=== PATIENT | female | born 1950 | race Caucasian/White ===

== ENCOUNTER 2017-08-01 12:53 | Inpatient (IN) | payer MEDICARE ==
[2017-08-01] VITALS (8 sets, daily range): BP systolic 146–184; BP diastolic 80–86; PULSE 83–90; RESP 16; TEMP 97.5–97.9; O2SAT 100
[~2017-08-01 12:53] MED LIST: DEXAMETHASONE SOD PHOS 4 MG/ML VIAL IV ONE; NORMOSOL R INJ 1,000 ML IV ONE; PHENYLEPH/NS 1000 MCG/10 ML SYR IV ONE; PHENYLEPHRINE HCL 10 MG/ML VIAL IV ONE; PROPOFOL 200 MG/20 ML AMP IV ONE; ROCURONIUM INJ 50 MG/5 ML SYRINGE IV PUSH ONE
[2017-08-01] MEDS ORDERED: MISCELLANEOUS NURSING INFORMATION XX SCH (15:15)
[2017-08-01] MEDS ORDERED: CHLORHEXIDINE GLUCONATE 2 % 1 PACK (2 CLOTHS) TOP PRN (15:15)
[2017-08-01] MEDS ORDERED: RESP: ALBUTEROL 2.5 MG/IPRATROPIUM 0.5 MG NEB (PRN) INH (15:15)
[2017-08-01] MEDS ORDERED: ONDANSETRON HCL 4 MG/2 ML VIAL IV PUSH PRN (15:15)
[2017-08-01] MEDS ORDERED: niCARdipine INJ 25 MG in SODIUM CHLOR 0.9% 250 ML INJ 240 ML IV PRN (15:30)
--- NOTE | 2017-08-01 15:38 | HHI.HP ---
HPI Service Critical Care Medicine Primary Care Physician Unknown Admission Diagnosis Hemorrhagic Stroke Diagnosis: Chief Complaint: Headache, left side weakness. Travel History International Travel<30 Days: No Contact w/Intl Traveler <30 Da: No Traveled to Known Affected Are: No History of Present Illness 67 y/o woman presented to [facility] as stroke alert. Right side headache and left side weakness starting around 10:00 a.m. Glucose 122. INR 1.0 , Sinus rhythm. No history of anticoagulants. Does have history of hypertension and Type 2 diabetes. BP 244/146. Required intubation shortly after arrival. CT Head with large right hemisphere ICH parietal lobe and 1.5 cm shift away from bleed. Plts 296,000, Creat 0.59, Hct 40. Review of Systems ROS unobtainable. No family. Past Family Social History Allergies: Coded Allergies: No Allergy Information Available (Unverified , 08/01/17) Coma. No family Past Medical History Hypertension Diabetes. No anticoagulants or blood thinners. Physical Exam Physical Exam Gen: Unresponsive. Head: Atraumatic. Neck: Supple, orally intubated. Lungs: Clear, no wheezes or crackles. Heart: NL S1S2, RRR, No JVD Abdomen: Soft, large, no guarding Extremities: Warm, well perfused. Neuro: Unresponsive. Suckles on ET tube. No cough. Limited gag. Postures to stimulation. She makes tears as a response to painful stimulation, does breathe over ventilator. Plantars neutral. No clonus. Moves right arm to noxious stimulation. Caprini VTE Risk Assessment Caprini VTE Risk Assessment: Mod/High Risk (score >= 2) Caprini Risk Assessment Model Point Value = 1 Point Value = 2 Point Value = 3 Point Value = 5 Age 41-60 Minor surgery BMI > 25 kg/m2 Swollen legs Varicose veins or History of unexplained or recurrent spontaneous Oral contraceptives or hormone replacement Sepsis (< 1 month) Serious lung disease, including pneumonia (< 1 month) Abnormal pulmonary function Acute myocardial infarction Congestive heart failure (< 1 month) History of inflammatory bowel disease Medical patient at bed rest Age 61-74 Arthroscopic surgery Major open surgery (> 45 min) Laparoscopic surgery (> 45 min) Malignancy Confined to bed (> 72 hours) Immobilizing plaster cast Central venous access Age >= 75 History of VTE Family history of VTE Factor V Leiden Prothrombin [id number] Lupus anticoagulant Anticardiolipin antibodies Elevated serum homocysteine Heparin-induced thrombocytopenia Other congenital or acquired thrombophilia Stroke (< 1 month) Elective arthroplasty Hip, pelvis, or leg fracture Acute spinal cord injury (< 1 month) Prophylaxis Regimen Total Risk Factor Score Risk Level Prophylaxis Regimen 0-1 Low Early ambulation 2 Moderate Order ONE of the following: *Sequential Compression Device (SCD) *Heparin 5000 units SQ BID 3-4 Higher Order ONE of the following medications: *Heparin 5000 units SQ TID *Enoxaparin/Lovenox 40 mg SQ daily (WT < 150 kg, CrCl > 30 mL/min) *Enoxaparin/Lovenox 30 mg SQ daily (WT < 150 kg, CrCl > 10-29 mL/min) *Enoxaparin/Lovenox 30 mg SQ BID (WT < 150 kg, CrCl > 30 mL/min) AND/OR *Sequential Compression Device (SCD) 5 or more Highest Order ONE of the following medications: *Heparin 5000 units SQ TID (Preferred with Epidurals) *Enoxaparin/Lovenox 40 mg SQ daily (WT < 150 kg, CrCl > 30 mL/min) *Enoxaparin/Lovenox 30 mg SQ daily (WT < 150 kg, CrCl > 10-29 mL/min) *Enoxaparin/Lovenox 30 mg SQ BID (WT < 150 kg, CrCl > 30 mL/min) AND *Sequential Compression Device (SCD) Assessment and Plan Assessment and Plan Assessment: 1. Hemorrhagic stroke, right fronto/parietal region. 2. Respiratory Failure. 3. Coma. 4. Diabetes, type 2. 5. Hypertensive urgency. Plan: 1. PRVC vent mode. 2. EtCO2 monitor, maintain low normal range. 3. Cardene to maintain SBP < 140. 4. SCDs. 5. Hydralazine prn. 6. Neurosurgical consult. 7. HOB up 30 degrees. 8. ECG. 9. Mannitol 80 gms iv. Overall impression: Patient is critically ill with deteriorating neurological function due to acute hemorrhage right hemisphere. She was transferred emergently from [facility] for definitive neurosurgical treatment. We have attempted to call her brother at the listed number and a voice message has been left. She requires emergency decompression of the right side to save what is hopefully her dominant left hemisphere. We are preparing her for the OR. I will be signing her consents as a physician documenting medical necessity for craniotomy and evacuation of hemorrhagic region, decompression. Critical care 45 mins aside from procedures. Roel Fitch MD Aug 01, 2017 15:38
[2017-08-01] MEDS ORDERED: MANNITOL INJ 500 ML IV ONE (16:00)
[2017-08-01] MEDS ORDERED: MANNITOL ONE (16:07)
[2017-08-01] MEDS ORDERED: MANNITOL INJ 400 ML IV ONE (16:15)
[2017-08-01] MEDS ORDERED: GLUCAGON 1 MG/ML VIAL OTHER PRN (16:45)
[2017-08-01] MEDS ORDERED: DEXTROSE 50% IN WATER 50 ML VIAL(D50) IV PUSH PRN (16:45)
[2017-08-01] MEDS ORDERED: THROMBIN (TOPICAL) 5,000 UNIT VIAL ONE ×2 (17:00→18:49)
[2017-08-01] MEDS ORDERED: FUROSEMIDE 40 MG/4 ML VIAL ONE (17:00)
[2017-08-01] MEDS ORDERED: SODIUM CHLORIDE 0.9% 20 ML VIAL ONE (17:00)
[2017-08-01] MEDS ORDERED: GELFOAM SIZE 100 ONE ×2 (17:00→18:50)
[2017-08-01] MEDS ORDERED: GENTAMICIN SULFATE 80 MG/2 ML VIAL ONE (17:01)
[2017-08-01] MEDS ORDERED: MANNITOL INJ 100 ML ONE (17:01)
--- NOTE | 2017-08-01 17:01 | MB ---
cc: VICTORIANO SMITH M.D. DATE OF CONSULTATION 08/01/2017 REASON FOR CONSULTATION Right frontoparietal lobe hemorrhagic stroke. HISTORY OF PRESENT ILLNESS A 67-year-old -Tuval[place] female who was transferred from [facility] in [place] after she presented to the emergency room with acute onset of headaches and left-sided weakness and basically progressed to obtundation and comatose state. She became unresponsive and required intubation. She was hypertensive on initial presentation and a CT scan of the head obtained reveals a large right frontal parietal lobe hemorrhage with likely underlying stroke measuring 8.6 cm x 6.0 cm in dimension with a 15 mm right to left midline shift. She was transferred [facility] for further management and neurosurgery consult. There is no family member available to relate any history and attempts to contact her brother whose phone number next of kin is listed in the records from [facility] with two phone numbers went directly to voice mail and a message was left for him to call us back. PAST MEDICAL HISTORY 1. Hypertension. 2. Diabetes mellitus. ALLERGIES No allergies information available. SOCIAL HISTORY Unavailable. REVIEW OF SYSTEMS Unobtainable. The patient is comatose and no family available. FAMILY HISTORY Unobtainable. LABORATORY FINDINGS White blood cell count 8, hemoglobin 13.3, platelet count 296. PT 10.9. INR 1.0. PTT 25.8. Sodium 142, potassium 3.9, BUN 20, creatinine 0.56, glucose 211. PHYSICAL EXAMINATION GENERAL: An elderly, obese -Tuvaluan female intubated and sedated and unresponsive. HEAD: No [place]'s or raccoon sign. Atraumatic, normocephalic. NECK: Supple. She is intubated with midline trachea. LUNGS: Clear to auscultation bilaterally. HEART: Regular rate rhythm, normal S1-S2. No murmurs. ABDOMEN: Soft, nontender. No hepatosplenomegaly. EXTREMITIES: No cyanosis or edema. SKIN: No rash or pustules or any ecchymosis. NEUROLOGIC: She is intubated and she has not received any sedation or muscle paralyzation. Pupils are 2 mm bilaterally. Positive corneal reflex. Negative gag and cough. She has slight withdrawal on the right upper extremity. No movement of the left upper or lower extremity to painful stimulation right lower extremity. Does not open her eyes and follows commands. [place] coma score is 6. IMPRESSION 1. Large right frontotemporal lobe hemorrhage with likely underlying stroke with significant mass effect and midline shift. Overall poor neurologic examination. 2. Respiratory failure secondary to above. 3. Unregulated hypertension. 4. Diabetes mellitus. PLAN We will proceed with an emergent right craniotomy for ____ hematoma evacuation and possible decompressive craniectomy and ventriculostomy placement. Unfortunately attempts to contact family have not been successful so the procedure will be undertaken taking the patient's best interest into account as this was discussed with dedicated owner operator Dr. Kendall who is in agreement. ICP control measures along with hypertension regulation will also be undertaken. Mechanical DVT prophylaxis along with gastrointestinal stress ulcer prophylaxis and seizure prophylaxis. Insulin sliding scale coverage for her diabetes. Her condition obviously is critical with a very guarded prognosis and it is possible that despite aggressive surgical measures her condition may not improve and she may not come out of her deep comatose state and progressive brain . MD ANNMARIE Eugene/MARI /4:24 PM /4:35 PM
[2017-08-01] MEDS ORDERED: BUPIVACAINE/EPINEPHRINE 0.5% PF 30 ML VIAL ONE (17:03)
[2017-08-01 17:31] LABS: INTERNATIONAL NORMALIZED RATIO 1.1 RATIO; PROTHROMBIN TIME - PATIENT 11.2 SEC (9.8-11.6)
[2017-08-01 17:44] LABS: BICARBONATE 23.3 MEQ/L (21.0-32.0); CALCIUM 8.6 MG/DL (8.5-10.1); CREATININE 0.83 MG/DL (0.50-1.00)
[2017-08-01] MEDS ORDERED: ALUMINUM/MAGNESIUM/SIMETH 30 ML CUP PO PRN (18:00)
[2017-08-01] MEDS ORDERED: BISACODYL 10 MG SUPP RECTAL PRN (18:00)
[2017-08-01] MEDS ORDERED: SENNOSIDES 8.6 MG TAB PO PRN (18:00)
[2017-08-01] MEDS ORDERED: fentaNYL DRIP 250 ML IV PRN (18:00)
[2017-08-01] MEDS ORDERED: CALCIUM GLUCONATE INJ 1 GM in SODIUM CHLORIDE 0.9% INJ 100 ML IV PRN (18:00)
[2017-08-01] MEDS ORDERED: MAGNESIUM HYDROXIDE SUSP 30 ML CUP PO PRN (18:00)
[2017-08-01] MEDS ORDERED: MAGNESIUM SULFATE INJ 2 GM in SODIUM CHLORIDE 0.9% INJ 100 ML IV PRN (18:00)
[2017-08-01] MEDS ORDERED: LACTULOSE SYRUP 20 GM/30 ML CUP PO PRN (18:00)
[2017-08-01] MEDS ORDERED: LORazepam 2 MG/ML VIAL IV PUSH PRN (18:00)
[2017-08-01] MEDS ORDERED: POTASSIUM CHLOR 20 MEQ PREMIX 100 ML IV PRN (18:00)
[2017-08-01] MEDS ORDERED: SODIUM CHLORIDE 0.9% FLUSH 10 ML FLUSH IV FLUSH PRN (18:00)
[2017-08-01] MEDS ORDERED: VANCOMYCIN HCL 1000 MG VIAL ONE (18:04)
[2017-08-01] MEDS ORDERED: levETIRAcetam 500 MG/5 ML VIAL IV ONE (18:07)
[2017-08-01] MEDS ORDERED: SODIUM CHLORIDE 0.9% INJ 50 ML ONE (18:10)
--- NOTE | 2017-08-01 19:32 | PD.OP ---
Operative Report Date of Surgery: Aug 01, 2017 Preoperative Diagnosis: Large right frontoparietal lobe hemorrhage with underlying stroke with mass effect and midline shift Postoperative Diagnosis: Same with associated subdural hemorrhage Procedure: Right frontotemporoparietal craniotomy for subdural and intracerebral hemorrhage evacuation; decompressive hemicraniectomy with expansive duraplasty; microsurgical technique Anesthesia: Gen. endotracheal by Yulisa hunt Surgeon: Wilber Fiore M.D. Check And Transfer Beader(s): Alanis Gallegos Operation and Findings: We were able to contact the patient's brother and update him on her condition and he requested that we proceed with surgery and gave informed consent. Following initiation of general endotracheal anesthesia the patient had invasive lines and Gaffney catheter in place along with the sequential compression device. A gram of vancomycin and Keppra 1000 mg was administered intravenously and he was positioned supine and head secured on a horseshoe headrest and turned 45 to the left side. The right frontal temporal and parietal areas shaved and prepped with ChloraPrep and sterilely draped in the usual sterile fashion. A curvilinear reverse question nichole incision site was then made after infiltrating the scalp was 0.5% Marcaine with epinephrine solution a skin incision made extending onto the galea. Elmer clips were used at the scalp edges for hemostasis and the flap retracted with fishhooks. With an automated manager research and development nabor holes were made with the craniotome and the bone flap elevated. The dura was opened in a cruciate format and significant brain swelling was noted. There was a subdural hemorrhage also noted which was not present on the CT scan from the outside facility and apparently the parenchymal hemorrhage had also enlarged. A frontal subdural hemorrhage was also noted and evacuated. No active bleeding was noted. Large frontoparietal lobe intraparenchymal hemorrhage was evident which was also evacuated although no underlying vascular malformation and obvious neoplasm was evident. After evacuating the hematoma the swelling was decreased but there is still moderate amount of diffuse brain swelling noted. Hemostasis at the hematoma bed was achieved with bipolar cautery using microtechnique with Chito cement fixation as well as Gelfoam and thrombin. Given the persistent brain swelling noted, the bone flap was left out in a sterile container in the freezer and temporal decompressive craniectomy also undertaken. A 7 mm drain under the galea was also placed which was exited through a separate site and secured to the scalp. The durotomy was then covered with a large piece of DuraGen to allow for the brain swelling. The temporalis muscle and fascia along with the galea was then approximated using 2-0 Vicryl Sutures and final scalp closure was with hema. A sterile non-pressure dressing was then applied and the patient taken back to the intensive care unit. There were no intraoperative complications and all sponge and needle count was correct at the end of the procedure. Estimated blood loss about 200 cc. Wilber Fiore MD Aug 01, 2017 19:32
[2017-08-01] MEDS: CHLORHEXIDINE 0.12% (ORAL KIT) 15 ML CUP MT SCH (20:00)
[2017-08-01] MEDS: levETIRAcetam INJ 500 MG in SODIUM CHLORIDE 0.9% INJ 100 ML IV SCH (21:15)
[2017-08-01 21:19] LABS: HEMATOCRIT 39.3 % (35.0-46.0); HEMOGLOBIN 12.9 GM/DL (11.6-15.3); MEAN CORPUSCULAR HGB CONC 32.9 % (32.0-36.0); MEAN PLATELET VOLUME 8.6 FL (7.0-11.0); PLATELET COUNT 300 TH/MM3 (150-450); RED BLOOD COUNT 4.62 MIL/MM3 (4.00-5.30); RED CELL DISTRIBUTION WIDTH 13.7 % (11.6-17.2); WHITE BLOOD COUNT 17.7 TH/MM3 (4.0-11.0)
[2017-08-01 21:35] LABS: BICARBONATE 22.5 MEQ/L (21.0-32.0); CALCIUM 9.3 MG/DL (8.5-10.1); CREATININE 0.9 MG/DL (0.50-1.00); MAGNESIUM 1.7 MG/DL (1.5-2.5)
[2017-08-01] MEDS: SODIUM CHLORIDE 0.9% FLUSH 10 ML FLUSH IV FLUSH SCH (21:50)
[2017-08-01] MEDS: DOCUSATE SODIUM 50 MG/SENNA 8.6 MG TAB PO SCH (22:37)
[2017-08-01] MEDS: FAMOTIDINE 20 MG/2 ML VIAL IV PUSH SCH (22:37)
[2017-08-01] MEDS: SODIUM CHLOR 0.9% 1000 ML INJ 1,000 ML IV SCH (23:30)
[2017-08-02] VITALS (15 sets, daily range): BP systolic 75–142; BP diastolic 55–78; PULSE 78–124; RESP 16–20; TEMP 98.2–100.3; O2SAT 100
[2017-08-02] MEDS: INSULIN ASPART SUPPLEMENTAL SCALE SQ SCH ×4 (00:37→17:44)
[2017-08-02] MEDS: CHLORHEXIDINE GLUCONATE 2 % 1 PACK (2 CLOTHS) TOP SCH (03:29)
[2017-08-02 05:11] LABS: AUTOMATED NEUTROPHIL # 11.7 TH/MM3 (1.8-7.7); BASOPHIL % 0.1 % (0.0-2.0); HEMATOCRIT 35.6 % (35.0-46.0); LYMPH % 6.7 % (9.0-44.0); LYMPHOCYTE # 0.9 TH/MM3 (1.0-4.8); MEAN CORPUSCULAR HEMOGLOBIN 28.2 PG (27.0-34.0); MEAN CORPUSCULAR HGB CONC 33.6 % (32.0-36.0); MEAN PLATELET VOLUME 8.4 FL (7.0-11.0); MONO % 4.3 % (0.0-8.0); MONOCYTE # 0.6 TH/MM3 (0-0.9); NEUT % 88.9 % (16.0-70.0); PLATELET COUNT 264 TH/MM3 (150-450); RED BLOOD COUNT 4.24 MIL/MM3 (4.00-5.30); RED CELL DISTRIBUTION WIDTH 13.8 % (11.6-17.2); WHITE BLOOD COUNT 13.2 TH/MM3 (4.0-11.0)
[2017-08-02 05:27] LABS: ALBUMIN 3.2 GM/DL (3.4-5.0); ALT (GPT) 21 U/L (10-53); AST (GOT) 18 U/L (15-37); BICARBONATE 24.2 MEQ/L (21.0-32.0); BLOOD UREA NITROGEN 15 MG/DL (7-18); CALCIUM 8.6 MG/DL (8.5-10.1); CHLORIDE 111 MEQ/L (98-107); CREATININE 0.76 MG/DL (0.50-1.00); GLOMERULAR FILTRATION RATE 75 ML/MIN (>89); GLUCOSE,RANDOM 212 MG/DL (74-106); MAGNESIUM 1.8 MG/DL (1.5-2.5); SODIUM (NA) 144 MEQ/L (136-145)
[2017-08-02 05:28] LABS: PHOSPHORUS 1.7 MG/DL (2.5-4.9)
[2017-08-02 05:30] LABS: ALKALINE PHOSPHATASE 73 U/L (45-117); TOTAL BILIRUBIN ADULT 0.5 MG/DL (0.2-1.0); TOTAL PROTEIN 6.7 GM/DL (6.4-8.2)
--- NOTE | 2017-08-02 06:23 | RADRPT ---
EXAM DATE/TIME: 08/02/2017 05:17 [facility] COMPARISON: No previous studies available for comparison. INDICATIONS : Intracranial hemorrhage. RADIATION DOSE: 56.35 CTDIvol (mGy) MEDICAL HISTORY : Non-responsive. SURGICAL HISTORY : Non-responsive. ENCOUNTER: Initial ACUITY: 1 day PAIN SCALE: Non-responsive LOCATION: cranial TECHNIQUE: Multiple contiguous axial images were obtained of the head. Using automated exposure control and adj ustment of the mA and/or kV according to patient size, radiation dose was kept as low as reasonably a chievable to obtain optimal diagnostic quality images. DICOM format image data is available electro nically for review and comparison. FINDINGS: Postsurgical features of right frontoparietal craniectomy with surgical drain in place. There is a la rge intra-axial hemorrhage in the right frontoparietal high convexities with subtle extra-axial blood products noted inferiorly. There is approximate 5 mm of [id number] subfalcine herniation. Ventric les are normal in size. Intraventricular blood products are noted particularly on the left. There is likely subtle subarachnoid blood products in the left vertex. Basilar cisterns are intact. Brainstem and cerebellum are intact. Paranasal sinuses and mastoid air cells are clear. CONCLUSION: 1. Postsurgical features of right frontoparietal craniectomy with surgical drain in place. 2. Large right frontoparietal high convexity hemorrhage with subtle extra-axial blood products and mi nimal intraventricular hemorrhage. 3. 5 mm right to left subfalcine shift without hydrocephalus or transtentorial herniation at this yanci elías Horn MD on August 02, 2017 at 6:18 Board Certified Radiologist. This report was verified electronically.
[2017-08-02] MEDS: CHLORHEXIDINE 0.12% (ORAL KIT) 15 ML CUP MT SCH ×2 (08:00→20:02)
[2017-08-02] MEDS: FAMOTIDINE 20 MG/2 ML VIAL IV PUSH SCH ×2 (08:33→20:03)
[2017-08-02] MEDS: SODIUM CHLORIDE 0.9% FLUSH 10 ML FLUSH IV FLUSH SCH ×2 (08:33→20:03)
[2017-08-02] MEDS: levETIRAcetam INJ 500 MG in SODIUM CHLORIDE 0.9% INJ 100 ML IV SCH ×2 (08:33→20:02)
[2017-08-02] MEDS: DOCUSATE SODIUM 50 MG/SENNA 8.6 MG TAB PO SCH ×2 (09:00→20:03)
--- NOTE | 2017-08-02 10:54 | HHI.NSPN ---
(Kevin Messer) History Chief Complaint: Sedated and Intubated. ICH. (Kevin Messer) Interval History A 67-year-old -[place] female who was transferred from [facility] in [place] after she presented to the emergency room with acute onset of headaches and left-sided weakness and basically progressed to obtundation and comatose state. She became unresponsive and required intubation. She was hypertensive on initial presentation and a CT scan of the head obtained reveals a large right frontal parietal lobe hemorrhage with likely underlying stroke measuring 8.6 cm x 6.0 cm in dimension with a 15 mm right to left midline shift. She was transferred [facility] for further management and neurosurgery consult. There is no family member available to relate any history and attempts to contact her brother whose phone number next of kin is listed in the records from [facility] with two phone numbers went directly to voice mail and a message was left for him to call us back. 08/02/17: Pt sedated on Fentanyl and Diprivan. When held for exam she does not open her eyes or follow commands. She has slight withdrawal in LEs. Pupils are 3mm bilaterally with slight reaction bilaterally. (Kevin Messer) System Review Comments Not able to obtain given clinical condition. (Kevin Mseser) Exam Results Vital Signs Date Time Temp Pulse Resp B/P (MAP) Pulse Ox O2 Delivery O2 Flow Rate FiO2 08/02/17 08:32 100 40 08/02/17 08:00 92 08/02/17 08:00 100.3 16 135/61 (85) Automatic Cuff 08/01/17 20:15 Mechanical Ventilator Intake and Output 08/02/17 08/02/17 08/03/17 08:00 16:00 00:00 Intake Total 100 ml Output Total 1020 ml Balance -920 ml (Kevin Messer) Physical Examination General: Pt sedated and intubated in ICU with stable vitals currently. Eyes: Pupils equal. Sclera anicteric. Resp: CTA bilaterally. Intubated pressure control rate 16. Peep 5. FiO2 40%. Heart: NSR no murmurs Abd: Soft positive bs but diminished. Skin. Head bandaged. Dry. Muscle: Not following for muscle testing. Pt had slight withdrawal LEs to pain. Neuro: Pupils equal. 3mm bilaterally with slight reaction bilaterally. Not opening eyes. Not following commands. (Kevin Messer) Lab, Micro, Other Results Laboratory Tests Test 08/01/17 15:00 08/01/17 16:40 08/01/17 18:46 08/01/17 20:00 Nasal Screen MRSA (PCR) MRSA NOT DETECTED Prothrombin Time 11.2 SEC Prothromb Time International Ratio 1.1 RATIO Activated Partial Thromboplast Time 22.3 SEC Blood Urea Nitrogen 18 MG/DL 14 MG/DL Creatinine 0.83 MG/DL 0.90 MG/DL Random Glucose 220 MG/DL 203 MG/DL Calcium Level 8.6 MG/DL 9.3 MG/DL Sodium Level 137 MEQ/L 141 MEQ/L Potassium Level 4.7 MEQ/L 4.2 MEQ/L Chloride Level 104 MEQ/L 108 MEQ/L Carbon Dioxide Level 23.3 MEQ/L 22.5 MEQ/L Anion Gap 10 MEQ/L 11 MEQ/L Estimat Glomerular Filtration Rate 68 ML/MIN 62 ML/MIN Blood Gas Puncture Site DRAWN IN OR Blood Gas Patient Temperature 98.6 Blood Gas HCO3 19 mmol/L Blood Gas Base Excess -5.4 mmol/L Blood Gas Oxygen Saturation 97 % Arterial Blood pH 7.39 Arterial Blood Partial Pressure CO2 31 mmHg Arterial Blood Partial Pressure O2 260 mmHg Arterial Blood Oxygen Content 16.9 Vol % Arterial Blood Carboxyhemoglobin 0.5 % Arterial Blood Methemoglobin 1.8 % Blood Gas Hemoglobin 12.0 G/DL White Blood Count 17.7 TH/MM3 Red Blood Count 4.62 MIL/MM3 Hemoglobin 12.9 GM/DL Hematocrit 39.3 % Mean Corpuscular Volume 85.0 FL Mean Corpuscular Hemoglobin 28.0 PG Mean Corpuscular Hemoglobin Concent 32.9 % Red Cell Distribution Width 13.7 % Platelet Count 300 TH/MM3 Mean Platelet Volume 8.6 FL Magnesium Level 1.7 MG/DL Test 08/02/17 04:55 White Blood Count 13.2 TH/MM3 Red Blood Count 4.24 MIL/MM3 Hemoglobin 12.0 GM/DL Hematocrit 35.6 % Mean Corpuscular Volume 84.0 FL Mean Corpuscular Hemoglobin 28.2 PG Mean Corpuscular Hemoglobin Concent 33.6 % Red Cell Distribution Width 13.8 % Platelet Count 264 TH/MM3 Mean Platelet Volume 8.4 FL Neutrophils (%) (Auto) 88.9 % Lymphocytes (%) (Auto) 6.7 % Monocytes (%) (Auto) 4.3 % Eosinophils (%) (Auto) 0.0 % Basophils (%) (Auto) 0.1 % Neutrophils # (Auto) 11.7 TH/MM3 Lymphocytes # (Auto) 0.9 TH/MM3 Monocytes # (Auto) 0.6 TH/MM3 Eosinophils # (Auto) 0.0 TH/MM3 Basophils # (Auto) 0.0 TH/MM3 CBC Comment DIFF FINAL Differential Comment Blood Urea Nitrogen 15 MG/DL Creatinine 0.76 MG/DL Random Glucose 212 MG/DL Total Protein 6.7 GM/DL Albumin 3.2 GM/DL Calcium Level 8.6 MG/DL Phosphorus Level 1.7 MG/DL Magnesium Level 1.8 MG/DL Alkaline Phosphatase 73 U/L Aspartate Amino Transf (AST/SGOT) 18 U/L Alanine Aminotransferase (ALT/SGPT) 21 U/L Total Bilirubin 0.5 MG/DL Sodium Level 144 MEQ/L Potassium Level 3.7 MEQ/L Chloride Level 111 MEQ/L Carbon Dioxide Level 24.2 MEQ/L Anion Gap 9 MEQ/L Estimat Glomerular Filtration Rate 75 ML/MIN (Kevin Messer) Medical Decision Making Impression and Plan A: 67 y/o FM with large right frontotemporal lobe hemorrhage with likely underlying stroke with significant mass effect and midline shift. Overall poor neurologic examination. She underwent an emergent Right frontotemporoparietal craniotomy for subdural and intracerebral hemorrhage evacuation; decompressive hemicraniectomy with expansive duraplasty on 08/01/17. 2. Respiratory failure secondary to above. 3. Unregulated hypertension. 4. Diabetes mellitus. P: Continue with critical care Continue with close neuro checks I was asked to give the son an update [place] and this was done and answered all his questions to his satisfaction. (Kevin Messer) Attending Statement The exam, history, and the medical decision-making described in the above note were completed with the assistance of the mid-level provider. I reviewed and agree with the findings presented. I attest that I had a [id number] encounter with the patient on the same day, and personally performed and documented my assessment and findings in the medical record. Follow-up CT scan of the head is improved with decreased mass effect and midline shift but neurologic examination remains poor. Continue with supportive care. (Wilber Fiore MD) Kevin Messer Aug 02, 2017 10:54 Wilber Fiore MD Aug 02, 2017 17:42
--- NOTE | 2017-08-02 12:04 | HHI.CCPN ---
Subjective Remarks/Hospital Course 67 y/o woman presented to [facility] as stroke alert. Right side headache and left side weakness starting around 10:00 a.m. Glucose 122. INR 1.0 , Sinus rhythm. No history of anticoagulants. Does have history of hypertension and Type 2 diabetes. BP 244/146. Required intubation shortly after arrival. CT Head with large right hemisphere ICH parietal lobe and 1.5 cm shift away from bleed. Plts 296,000, Creat 0.59, Hct 40. 08/02: CT with much improved shift. Gas exchange acceptable. Objective Vital Signs Date Time Temp Pulse Resp B/P (MAP) Pulse Ox O2 Delivery O2 Flow Rate FiO2 08/02/17 08:32 100 40 08/02/17 08:00 92 08/02/17 08:00 100.3 16 135/61 (85) Automatic Cuff 08/01/17 20:15 Mechanical Ventilator Intake and Output 08/02/17 08/02/17 08/03/17 08:00 16:00 00:00 Intake Total 100 ml Output Total 1020 ml Balance -920 ml Result Diagram: 08/02/17 0455 08/02/17 0455 Other Results Laboratory Tests Test 08/01/17 18:46 Blood Gas Puncture Site DRAWN IN OR Blood Gas Patient Temperature 98.6 Blood Gas HCO3 19 mmol/L (22-26) Blood Gas Base Excess -5.4 mmol/L (-2-2) Blood Gas Oxygen Saturation 97 % (90-100) Arterial Blood pH 7.39 (7.380-7.420) Arterial Blood Partial Pressure CO2 31 mmHg (38-42) Arterial Blood Partial Pressure O2 260 mmHg (61-120) Arterial Blood Oxygen Content 16.9 Vol % (12.0-20.0) Arterial Blood Carboxyhemoglobin 0.5 % (0-4) Arterial Blood Methemoglobin 1.8 % (0-2) Blood Gas Hemoglobin 12.0 G/DL (12.0-16.0) Objective Remarks Gen: Unresponsive. Head: Atraumatic. Neck: Supple, orally intubated. Lungs: Clear, no wheezes or crackles. Heart: NL S1S2, RRR, No JVD Abdomen: Soft, large, no guarding Extremities: Warm, well perfused. Neuro: Unresponsive. Sedated. A/P Assessment and Plan Assessment: 1. Hemorrhagic stroke, right fronto/parietal region. 2. Respiratory Failure. 3. Coma. 4. Diabetes, type 2. 5. Hypertensive urgency. Plan: 1. PRVC vent mode. 2. EtCO2 monitor, maintain low normal range. 3. Cardene to maintain SBP < 140. 4. SCDs. 5. Hydralazine prn. 6. Neurosurgical consult -> decompressive crani.. 7. HOB up 30 degrees. 8. ECG. 9. Propofol sedation. Overall impression: Patient is critically ill with deteriorating neurological function due to acute hemorrhage right hemisphere. She was transferred emergently from [facility] for definitive neurosurgical treatment. We have attempted to call her brother at the listed number and a voice message has been left. She underwent emergency decompression of the right side to save what is hopefully her dominant left hemisphere. Remains neurologically unstable and critically ill. Critical care 38 mins aside from procedures. Roel Fitch MD Aug 02, 2017 12:04
[2017-08-02] MEDS: SODIUM CHLOR 0.9% 1000 ML INJ 1,000 ML IV SCH ×2 (12:12→20:02)
--- NOTE | 2017-08-02 12:20 | EKG ---
Date Performed: 08/01/2017 Time Performed: 22:15:00 PTAGE: 67 years EKG: Sinus rhythm . Lateral T wave changes are nonspecific Borderline ECG PREVIOUS TRACING : 08/01/2017 17.06 Since the prior tracing, there has been no significant wilkinson DOCTOR: Praful Tavarez Interpretating Date/Time 08/02/2017 12:18:33
--- NOTE | 2017-08-02 14:29 | EKG ---
Date Performed: 08/01/2017 Time Performed: 17:06:40 PTAGE: 67 years EKG: Sinus tachycardia Nonspecific ST T changes Clinical correlation is recommended NO PREVIOUS TRACING DOCTOR: Praful Tavarez Interpretating Date/Time 08/02/2017 14:28:47
[2017-08-02] MEDS: PROPOFOL 1000 MG/100 ML INJ 100 ML IV PRN (15:09)
[2017-08-02 16:00] LABS: BICARBONATE 24.3 MEQ/L (21.0-32.0); CALCIUM 8.3 MG/DL (8.5-10.1); CREATININE 0.66 MG/DL (0.50-1.00)
[2017-08-02] MEDS ORDERED: ICU - POTASSIUM PHOSPHATE 30 MMOL/NS 250 ML IV PRN ×2 (17:00)
[2017-08-02] MEDS ORDERED: ICU - SODIUM PHOSPHATE 30 MMOL/NS 250 ML IV PRN ×2 (17:00)
[2017-08-02] MEDS ORDERED: ICU - MAGNESIUM SULFATE 4 GM/NS 100 ML IV PRN ×2 (17:00)
[2017-08-02] MEDS ORDERED: ICU - CALL ORDERING PHYSICIAN PRN (17:00)
[2017-08-02] MEDS ORDERED: ICU - MAGNESIUM OXIDE 400 MG TAB PO PRN (17:00)
[2017-08-02] MEDS ORDERED: ICU - D/C ICU ELECTROLYTE ORDERS PRN (17:00)
[2017-08-02] MEDS ORDERED: ICU - POTASSIUM CHLORIDE/AQUEOUS SOLN 20 MEQ/100 ML IVPB IV PRN (17:00)
[2017-08-02] MEDS ORDERED: ICU - MAGNESIUM SULFATE 2 GM/NS 100 ML IV PRN ×2 (17:00)
[2017-08-02] MEDS ORDERED: ICU - POTASSIUM PHOSPHATE MONOBASIC 500 MG TAB PO PRN (17:00)
[2017-08-02] MEDS ORDERED: ICU - POTASSIUM CHLORIDE/AQUEOUS SOLN 40 MEQ/100 ML IVPB IV PRN (17:00)
[2017-08-03] VITALS (19 sets, daily range): BP systolic 109–146; BP diastolic 45–65; PULSE 66–96; RESP 16; TEMP 99.2–100.4; O2SAT 99–100
[2017-08-03] MEDS: CHLORHEXIDINE GLUCONATE 2 % 1 PACK (2 CLOTHS) TOP SCH (01:05)
[2017-08-03] MEDS: INSULIN ASPART SUPPLEMENTAL SCALE SQ SCH ×4 (01:12→17:19)
[2017-08-03] MEDS: PROPOFOL 1000 MG/100 ML INJ 100 ML IV PRN ×2 (02:00→08:50)
[2017-08-03 05:02] LABS: BASOPHIL # 0.1 TH/MM3 (0-0.2); BASOPHIL % 0.3 % (0.0-2.0); HEMATOCRIT 30.9 % (35.0-46.0); HEMOGLOBIN 10.2 GM/DL (11.6-15.3); LYMPH % 11.1 % (9.0-44.0); MEAN CORPUSCULAR HEMOGLOBIN 27.8 PG (27.0-34.0); MEAN CORPUSCULAR HGB CONC 33.1 % (32.0-36.0); MEAN PLATELET VOLUME 8.7 FL (7.0-11.0); MONO % 9.7 % (0.0-8.0); MONOCYTE # 1.7 TH/MM3 (0-0.9); NEUT % 78.9 % (16.0-70.0); PLATELET COUNT 235 TH/MM3 (150-450); RED BLOOD COUNT 3.68 MIL/MM3 (4.00-5.30); RED CELL DISTRIBUTION WIDTH 14.2 % (11.6-17.2); WHITE BLOOD COUNT 17.8 TH/MM3 (4.0-11.0)
[2017-08-03 05:17] LABS: BICARBONATE 23.2 MEQ/L (21.0-32.0); CALCIUM 8.3 MG/DL (8.5-10.1); CREATININE 0.64 MG/DL (0.50-1.00)
[2017-08-03] MEDS: hydrALAZINE HCL 20 MG/ML VIAL IV PUSH PRN ×2 (05:53→06:30)
[2017-08-03] MEDS: LABETALOL HCL 100 MG/20 ML VIAL IV PUSH PRN (06:49)
[2017-08-03] MEDS: DOCUSATE SODIUM 50 MG/SENNA 8.6 MG TAB PO SCH ×2 (08:51→21:57)
[2017-08-03] MEDS: levETIRAcetam INJ 500 MG in SODIUM CHLORIDE 0.9% INJ 100 ML IV SCH ×2 (08:51→21:00)
[2017-08-03] MEDS: SODIUM CHLORIDE 0.9% FLUSH 10 ML FLUSH IV FLUSH SCH ×2 (08:52→21:00)
[2017-08-03] MEDS: SODIUM CHLOR 0.9% 1000 ML INJ 1,000 ML IV SCH ×2 (08:52→21:58)
[2017-08-03] MEDS: CHLORHEXIDINE 0.12% (ORAL KIT) 15 ML CUP MT SCH ×2 (08:52→20:00)
[2017-08-03] MEDS: FAMOTIDINE 20 MG/2 ML VIAL IV PUSH SCH ×2 (08:52→21:57)
--- NOTE | 2017-08-03 08:58 | HHI.CCPN ---
Subjective Remarks/Hospital Course 67 y/o woman presented to [facility] as stroke alert. Right side headache and left side weakness starting around 10:00 a.m. Glucose 122. INR 1.0 , Sinus rhythm. No history of anticoagulants. Does have history of hypertension and Type 2 diabetes. BP 244/146. Required intubation shortly after arrival. CT Head with large right hemisphere ICH parietal lobe and 1.5 cm shift away from bleed. Plts 296,000, Creat 0.59, Hct 40. 08/02: CT with much improved shift. Gas exchange acceptable. 08/03: Persistent hypertension requiring nicardipine. Will start oral scheduled BP meds. Glucose elevated. NG output minimal. Objective Vital Signs Date Time Temp Pulse Resp B/P (MAP) Pulse Ox O2 Delivery O2 Flow Rate FiO2 08/03/17 08:29 100 40 08/03/17 06:00 82 08/03/17 04:00 99.9 16 146/65 (92) 08/01/17 20:15 Mechanical Ventilator Intake and Output 08/03/17 08/03/17 08/04/17 08:00 16:00 00:00 Intake Total 1292 ml Output Total 546 ml Balance 746 ml Result Diagram: 08/03/1743908/03/17439 Objective Remarks Gen: Unresponsive. Head: Atraumatic. Neck: Supple, orally intubated. OG in place. Lungs: Clear, no wheezes or crackles. Good bilateral air entry. Heart: NL S1S2, RRR, No JVD Abdomen: Soft, large, no guarding. BS few. Extremities: Warm, well perfused. Neuro: Unresponsive. Sedated. A/P Assessment and Plan Assessment: 1. Hemorrhagic stroke, right fronto/parietal region. 2. Respiratory Failure. 3. Coma. 4. Diabetes, type 2. 5. Hypertensive urgency. Plan: Respiratory - PRVC vent mode. - EtCO2 monitor, maintain low normal range. Cardiovascular - Cardene to maintain SBP < 140. - Add lisinopril 5 daily and lopressotr 25 bid. - Hydralazine 50 tid. Neuro - Serum osmolality > 300 - HOB up. - adjust EtCO2 to maintain 35 - 40 blood range GI - Tube feeds glucerna 1.5, reduced due to lipids in propofol. - Start oral meds - Gaffney. - May need daily diuretic. ID - Culture for fevers. Endocrinology - - SSI, low - Start levemir 5 bid Heme - CBC a.m. Prophylaxis - Chemical contraindicated - SCDs - Pepcid Overall impression: Patient presented critically ill with deteriorating neurological function due to acute hemorrhage right hemisphere. She was transferred emergently from [facility] for definitive neurosurgical treatment. She underwent emergency decompression of the right side to save what is hopefully her dominant left hemisphere. Remains neurologically unstable and critically ill. Family is mejia of her critical condition. Critical care 40 mins Roel Fitch MD Aug 03, 2017 08:58
[2017-08-03] MEDS: INSULIN DETEMIR 100 UNITS/ML VIAL SQ SCH ×2 (09:15→21:57)
[2017-08-03] MEDS: METOPROLOL TARTRATE 25 MG TAB PO SCH ×2 (09:38→21:57)
[2017-08-03] MEDS: LISINOPRIL 5 MG TAB PO SCH (09:38)
[2017-08-03] MEDS: hydrALAZINE HCL 50 MG TAB PO SCH ×2 (09:38→17:00)
--- NOTE | 2017-08-03 11:14 | HHI.NSPN ---
(Kevin Messer) History Chief Complaint: Sedated and Intubated. ICH. (Kevin Messer) Interval History A 67-year-old -[place] female who was transferred from [facility] in [place] after she presented to the emergency room with acute onset of headaches and left-sided weakness and basically progressed to obtundation and comatose state. She became unresponsive and required intubation. She was hypertensive on initial presentation and a CT scan of the head obtained reveals a large right frontal parietal lobe hemorrhage with likely underlying stroke measuring 8.6 cm x 6.0 cm in dimension with a 15 mm right to left midline shift. She was transferred [facility] for further management and neurosurgery consult. There is no family member available to relate any history and attempts to contact her brother whose phone number next of kin is listed in the records from [facility] with two phone numbers went directly to voice mail and a message was left for him to call us back. 08/02/17: Pt sedated on Fentanyl and Diprivan. When held for exam she does not open her eyes or follow commands. She has slight withdrawal in LEs. Pupils are 3mm bilaterally with slight reaction bilaterally. 08/03/17: Pt sedated on Fentanyl and Diprivan drips. She doesn't open eyes. Pupils equal. Left hemiparesis when sedation held. (Kevin Messer) System Review Comments Not able to obtain given clinical condition. (Kevin Messer) Exam Results Vital Signs Date Time Temp Pulse Resp B/P (MAP) Pulse Ox O2 Delivery O2 Flow Rate FiO2 08/03/17 08:29 100 40 08/03/17 06:00 82 08/03/17 04:00 99.9 16 146/65 (92) 08/01/17 20:15 Mechanical Ventilator Intake and Output 08/03/17 08/03/17 08/04/17 08:00 16:00 00:00 Intake Total 1292 ml Output Total 546 ml Balance 746 ml (Kevin Messer) Physical Examination General: Pt sedated and intubated in ICU with stable vitals currently. Eyes: Pupils equal. Sclera anicteric. Resp: CTA bilaterally. Intubated pressure control rate 16. Peep 5. FiO2 40%. Heart: NSR no murmurs Abd: Soft positive bs but diminished. Skin. Head bandaged, removed. Incision clean and dry without signs of infection HUSAM drain in place. Muscle: Not following for muscle testing. Pt had slight withdrawal LEs to pain. Left hemiparesis. Neuro: Pupils equal. 3mm bilaterally with slight reaction bilaterally. Not opening eyes. Not following commands. (Kevin Messer) Lab, Micro, Other Results Last Impressions Head CT 08/02/17 0600 Signed Impressions: Service Date/Time: Wednesday, August 02, 2017 05:17 - CONCLUSION: 1. Postsurgical features of right frontoparietal craniectomy with surgical drain in place. 2. Large right frontoparietal high convexity hemorrhage with subtle extra-axial blood products and minimal intraventricular hemorrhage. 3. 5 mm right to left subfalcine shift without hydrocephalus or transtentorial herniation at this time. Dale Horn MD Laboratory Tests Test 08/02/17 15:29 08/03/17 04:40 Blood Urea Nitrogen 20 MG/DL 22 MG/DL Creatinine 0.66 MG/DL 0.64 MG/DL Random Glucose 175 MG/DL 182 MG/DL Calcium Level 8.3 MG/DL 8.3 MG/DL Sodium Level 145 MEQ/L 145 MEQ/L Potassium Level 3.4 MEQ/L 3.7 MEQ/L Chloride Level 114 MEQ/L 114 MEQ/L Carbon Dioxide Level 24.3 MEQ/L 23.2 MEQ/L Anion Gap 7 MEQ/L 8 MEQ/L Estimat Glomerular Filtration Rate 89 ML/MIN 92 ML/MIN White Blood Count 17.8 TH/MM3 Red Blood Count 3.68 MIL/MM3 Hemoglobin 10.2 GM/DL Hematocrit 30.9 % Mean Corpuscular Volume 84.0 FL Mean Corpuscular Hemoglobin 27.8 PG Mean Corpuscular Hemoglobin Concent 33.1 % Red Cell Distribution Width 14.2 % Platelet Count 235 TH/MM3 Mean Platelet Volume 8.7 FL Neutrophils (%) (Auto) 78.9 % Lymphocytes (%) (Auto) 11.1 % Monocytes (%) (Auto) 9.7 % Eosinophils (%) (Auto) 0.0 % Basophils (%) (Auto) 0.3 % Neutrophils # (Auto) 14.0 TH/MM3 Lymphocytes # (Auto) 2.0 TH/MM3 Monocytes # (Auto) 1.7 TH/MM3 Eosinophils # (Auto) 0.0 TH/MM3 Basophils # (Auto) 0.1 TH/MM3 CBC Comment DIFF FINAL Differential Comment (Kevin Messer) Medical Decision Making Impression and Plan A: 67 y/o FM with large right frontotemporal lobe hemorrhage with likely underlying stroke with significant mass effect and midline shift. Overall poor neurologic examination. She underwent an emergent Right frontotemporoparietal craniotomy for subdural and intracerebral hemorrhage evacuation; decompressive hemicraniectomy with expansive duraplasty on 08/01/17. 2. Respiratory failure secondary to above. 3. Unregulated hypertension. 4. Diabetes mellitus. P: Continue with critical care Continue with close neuro checks Addendum: The Husam exit site was cleaned with Betadine. Lidocaine 2% with epi 2cc was used for local anesthesias. The suction on HUSAM grenade was released. The HUSAM drain was removed and 2 hema were placed without further drainage. Sterile technique was used. I (Kevin Messer) Attending Statement The exam, history, and the medical decision-making described in the above note were completed with the assistance of the mid-level provider. I reviewed and agree with the findings presented. I attest that I had a [id number] encounter with the patient on the same day, and personally performed and documented my assessment and findings in the medical record. Unchanged exam. Continue with supportive care and wean sedation as tolerated. Updated her son at the bedside. (Wilber Fiore MD) Kevin Messer Aug 03, 2017 11:14 am Wilber Fiore MD Aug 03, 2017 12:35 pm
[2017-08-03] MEDS ORDERED: LIDOCAINE 2%/EPINEPHrine 1:100,000 20ML MDV INFIL ONE (12:00)
[2017-08-03] MEDS ORDERED: LIDOCAINE 2%/EPINEPHrine 1:100,000 50ML MDV INFIL ONE (16:30)
[2017-08-03 17:11] LABS: BICARBONATE 24.6 MEQ/L (21.0-32.0); CALCIUM 8.5 MG/DL (8.5-10.1); CREATININE 0.72 MG/DL (0.50-1.00)
[2017-08-04] VITALS (16 sets, daily range): BP systolic 108–148; BP diastolic 54–68; PULSE 63–79; RESP 14–16; TEMP 98.9–100.5; O2SAT 100
[2017-08-04] MEDS: hydrALAZINE HCL 50 MG TAB PO SCH ×3 (00:43→17:00)
[2017-08-04] MEDS: SODIUM CHLOR 0.9% 1000 ML INJ 1,000 ML IV SCH ×4 (01:30→21:30)
[2017-08-04] MEDS: PROPOFOL 1000 MG/100 ML INJ 100 ML IV PRN (02:27)
[2017-08-04 03:43] LABS: AUTOMATED NEUTROPHIL # 11.7 TH/MM3 (1.8-7.7); BASOPHIL % 0.3 % (0.0-2.0); EOSINOPHIL # 0.1 TH/MM3 (0-0.4); EOSINOPHIL % 0.5 % (0.0-4.0); HEMATOCRIT 27.6 % (35.0-46.0); HEMOGLOBIN 9.3 GM/DL (11.6-15.3); LYMPH % 13.2 % (9.0-44.0); MEAN CORPUSCULAR HEMOGLOBIN 28.2 PG (27.0-34.0); MEAN CORPUSCULAR HGB CONC 33.6 % (32.0-36.0); MEAN PLATELET VOLUME 8.6 FL (7.0-11.0); MONOCYTE # 1.2 TH/MM3 (0-0.9); PLATELET COUNT 212 TH/MM3 (150-450); RED BLOOD COUNT 3.29 MIL/MM3 (4.00-5.30); RED CELL DISTRIBUTION WIDTH 14.1 % (11.6-17.2)
[2017-08-04] MEDS: CHLORHEXIDINE GLUCONATE 2 % 1 PACK (2 CLOTHS) TOP SCH (04:00)
[2017-08-04 04:15] LABS: BICARBONATE 22.2 MEQ/L (21.0-32.0); CALCIUM 8.3 MG/DL (8.5-10.1); CREATININE 0.7 MG/DL (0.50-1.00)
[2017-08-04] MEDS: FAMOTIDINE 20 MG/2 ML VIAL IV PUSH SCH ×2 (07:57→21:55)
[2017-08-04] MEDS: CHLORHEXIDINE 0.12% (ORAL KIT) 15 ML CUP MT SCH ×2 (07:57→21:55)
[2017-08-04] MEDS: levETIRAcetam INJ 500 MG in SODIUM CHLORIDE 0.9% INJ 100 ML IV SCH ×2 (07:58→21:55)
[2017-08-04] MEDS: SODIUM CHLORIDE 0.9% FLUSH 10 ML FLUSH IV FLUSH SCH ×2 (07:58→21:00)
[2017-08-04] MEDS: DOCUSATE SODIUM 50 MG/SENNA 8.6 MG TAB PO SCH ×2 (07:58→21:56)
[2017-08-04] MEDS: INSULIN DETEMIR 100 UNITS/ML VIAL SQ SCH ×2 (07:59→21:56)
[2017-08-04] MEDS: LISINOPRIL 5 MG TAB PO SCH (07:59)
[2017-08-04] MEDS: METOPROLOL TARTRATE 25 MG TAB PO SCH ×2 (09:00→21:56)
[2017-08-04] MEDS: INSULIN ASPART SUPPLEMENTAL SCALE SQ SCH ×4 (09:20→18:00)
--- NOTE | 2017-08-04 09:34 | HHI.CCPN ---
Subjective Remarks/Hospital Course 67 y/o woman presented to [facility] as stroke alert. Right side headache and left side weakness starting around 10:00 a.m. Glucose 122. INR 1.0 , Sinus rhythm. No history of anticoagulants. Does have history of hypertension and Type 2 diabetes. BP 244/146. Required intubation shortly after arrival. CT Head with large right hemisphere ICH parietal lobe and 1.5 cm shift away from bleed. Plts 296,000, Creat 0.59, Hct 40. 08/02: CT with much improved shift. Gas exchange acceptable. 08/03: Persistent hypertension requiring nicardipine. Will start oral scheduled BP meds. Glucose elevated. NG output minimal. 08/04: Transitioned to oral meds with good BP control. Heavily sedated, now tapering. No spontaneous ventilation but high fixed rate. Repeat head CT with markedly reduced shift. Objective Vital Signs Date Time Temp Pulse Resp B/P (MAP) Pulse Ox O2 Delivery O2 Flow Rate FiO2 08/04/17 08:00 66 08/04/17 08:00 98.9 14 118/54 (75) 100 08/04/17 08:00 30 08/01/17 20:15 Mechanical Ventilator Intake and Output 08/04/17 08/04/17 08/05/17 08:00 16:00 00:00 Intake Total 1474 ml Output Total 300 ml Balance 1174 ml Result Diagram: 08/04/17 0330 08/04/17 0330 Objective Remarks Gen: Unresponsive. Heavily sedated. Head: Atraumatic. Neck: Supple, orally intubated. OG in place. Lungs: Clear, no wheezes or crackles. Good bilateral air entry. Heart: NL S1S2, RRR, No JVD Abdomen: Soft, large, no guarding. BS few. Nondistended. Extremities: Warm, well perfused. Neuro: Unresponsive. Sedated. Pupils reactive. A/P Assessment and Plan Assessment: 1. Hemorrhagic stroke, right fronto/parietal region. 2. Respiratory Failure. 3. Coma. 4. Diabetes, type 2. 5. Hypertensive urgency. Plan: Respiratory - PRVC vent mode. - EtCO2 monitor, maintain low normal range. - Decrease rate to 14. Cardiovascular - Cardene to maintain SBP < 140. - Add lisinopril 5 daily and lopressor 25 bid. - Hydralazine 50 tid. Neuro - Serum osmolality > 300 - HOB up. - adjust EtCO2 to maintain 35 - 40 blood range GI - Tube feeds glucerna 1.5, reduced due to lipids in propofol. - Start oral meds [employer]. - May need daily diuretic. ID - Culture for fevers. Endocrinology - - SSI, low - Levemir 5 bid Heme - CBC a.m. Prophylaxis - Chemical contraindicated - SCDs - Pepcid Overall impression: Patient presented critically ill with deteriorating neurological function due to acute hemorrhage right hemisphere. She was transferred emergently from [facility] for definitive neurosurgical treatment and underwent emergency decompression of the right side to save what is hopefully her dominant left hemisphere. Remains neurologically unstable and critically ill. Family is mejia of her critical condition. Critical care 38 mins Roel Fitch MD Aug 04, 2017 09:34
[2017-08-04] MEDS: hydrALAZINE HCL 20 MG/ML VIAL IV PUSH PRN (14:33)
--- NOTE | 2017-08-04 17:47 | HHI.NSPN ---
(Kevin Messer) History Chief Complaint: Sedated and Intubated. ICH. (Kevin Messer) Interval History A 67-year-old -[place] female who was transferred from [facility] in [place] after she presented to the emergency room with acute onset of headaches and left-sided weakness and basically progressed to obtundation and comatose state. She became unresponsive and required intubation. She was hypertensive on initial presentation and a CT scan of the head obtained reveals a large right frontal parietal lobe hemorrhage with likely underlying stroke measuring 8.6 cm x 6.0 cm in dimension with a 15 mm right to left midline shift. She was transferred [facility] for further management and neurosurgery consult. There is no family member available to relate any history and attempts to contact her brother whose phone number next of kin is listed in the records from [facility] with two phone numbers went directly to voice mail and a message was left for him to call us back. 08/02/17: Pt sedated on Fentanyl and Diprivan. When held for exam she does not open her eyes or follow commands. She has slight withdrawal in LEs. Pupils are 3mm bilaterally with slight reaction bilaterally. 08/03/17: Pt sedated on Fentanyl and Diprivan drips. She doesn't open eyes. Pupils equal. Left hemiparesis when sedation held. 08/04/17: Pt sedated on low dose Fentanyl. Diprivan on hold. Pt not opening eyes. Intubated. Not following commands. No reaction to pain. (Kevin Messer) System Review Comments Not able to obtain given clinical condition. (Kevin Messer) Exam Results Vital Signs Date Time Temp Pulse Resp B/P (MAP) Pulse Ox O2 Delivery O2 Flow Rate FiO2 08/04/17 14:00 67 08/04/17 12:11 100 30 08/04/17 12:00 99.2 14 108/63 (78) 08/01/17 20:15 Mechanical Ventilator Intake and Output 08/04/17 08/04/17 08/05/17 08:00 16:00 00:00 Intake Total 1474 ml Output Total 300 ml Balance 1174 ml (Kevin Messer) Physical Examination General: Pt sedated and intubated in ICU with stable vitals currently. Eyes: Pupils equal. Sclera anicteric. Resp: CTA bilaterally. Intubated pressure control rate 14. Peep 5. FiO2 30%. Heart: NSR no murmurs Abd: Soft positive bs but diminished. Skin. Incision clean and dry without signs of infection. Muscle: Not following for muscle testing. Pt had slight withdrawal LEs to pain. Left hemiparesis. Neuro: Pupils equal 3mm bilaterally with slight reaction bilaterally. Not opening eyes. Not following commands. (Kevin Messer) Lab, Micro, Other Results Last Impressions Head CT 08/02/17 0600 Signed Impressions: Service Date/Time: Wednesday, August 02, 2017 05:17 - CONCLUSION: 1. Postsurgical features of right frontoparietal craniectomy with surgical drain in place. 2. Large right frontoparietal high convexity hemorrhage with subtle extra-axial blood products and minimal intraventricular hemorrhage. 3. 5 mm right to left subfalcine shift without hydrocephalus or transtentorial herniation at this time. Dale Horn MD Laboratory Tests Test 08/04/17 03:30 White Blood Count 15.0 TH/MM3 Red Blood Count 3.29 MIL/MM3 Hemoglobin 9.3 GM/DL Hematocrit 27.6 % Mean Corpuscular Volume 84.0 FL Mean Corpuscular Hemoglobin 28.2 PG Mean Corpuscular Hemoglobin Concent 33.6 % Red Cell Distribution Width 14.1 % Platelet Count 212 TH/MM3 Mean Platelet Volume 8.6 FL Neutrophils (%) (Auto) 78.0 % Lymphocytes (%) (Auto) 13.2 % Monocytes (%) (Auto) 8.0 % Eosinophils (%) (Auto) 0.5 % Basophils (%) (Auto) 0.3 % Neutrophils # (Auto) 11.7 TH/MM3 Lymphocytes # (Auto) 2.0 TH/MM3 Monocytes # (Auto) 1.2 TH/MM3 Eosinophils # (Auto) 0.1 TH/MM3 Basophils # (Auto) 0.0 TH/MM3 CBC Comment DIFF FINAL Differential Comment Blood Urea Nitrogen 25 MG/DL Creatinine 0.70 MG/DL Random Glucose 206 MG/DL Calcium Level 8.3 MG/DL Magnesium Level 2.0 MG/DL Sodium Level 145 MEQ/L Potassium Level 3.7 MEQ/L Chloride Level 116 MEQ/L Carbon Dioxide Level 22.2 MEQ/L Anion Gap 7 MEQ/L Estimat Glomerular Filtration Rate 83 ML/MIN (Kevin Messer) Medical Decision Making Impression and Plan A: 67 y/o FM with large right frontotemporal lobe hemorrhage with likely underlying stroke with significant mass effect and midline shift. Overall poor neurologic examination. She underwent an emergent Right frontotemporoparietal craniotomy for subdural and intracerebral hemorrhage evacuation; decompressive hemicraniectomy with expansive duraplasty on 08/01/17. 2. Respiratory failure secondary to above. 3. Unregulated hypertension. 4. Diabetes mellitus. P: Continue with critical care Continue with close neuro checks (Kevin Messer) Attending Statement The exam, history, and the medical decision-making described in the above note were completed with the assistance of the mid-level provider. I reviewed and agree with the findings presented. I attest that I had a [id number] encounter with the patient on the same day, and personally performed and documented my assessment and findings in the medical record. (Wilber Fiore MD) Kevin Messer Aug 04, 2017 17:47 Wilber Fiore MD Aug 04, 2017 18:13
[2017-08-04 20:35] LABS: BICARBONATE 22.1 MEQ/L (21.0-32.0); CALCIUM 8.4 MG/DL (8.5-10.1); CREATININE 0.57 MG/DL (0.50-1.00)
[2017-08-05] VITALS (18 sets, daily range): BP systolic 104–151; BP diastolic 68–82; PULSE 62–83; RESP 14–15; TEMP 99.4–101; O2SAT 100
[2017-08-05] MEDS: hydrALAZINE HCL 50 MG TAB PO SCH ×3 (01:00→17:04)
[2017-08-05] MEDS: INSULIN ASPART SUPPLEMENTAL SCALE SQ SCH ×4 (01:56→17:28)
[2017-08-05] MEDS: CHLORHEXIDINE GLUCONATE 2 % 1 PACK (2 CLOTHS) TOP SCH (04:09)
[2017-08-05 06:47] LABS: BICARBONATE 22.1 MEQ/L (21.0-32.0); CALCIUM 8.4 MG/DL (8.5-10.1); CREATININE 0.51 MG/DL (0.50-1.00); MAGNESIUM 2.3 MG/DL (1.5-2.5); PHOSPHORUS 2.7 MG/DL (2.5-4.9)
[2017-08-05] MEDS: CHLORHEXIDINE 0.12% (ORAL KIT) 15 ML CUP MT SCH ×2 (08:00→20:00)
[2017-08-05] MEDS: METOPROLOL TARTRATE 25 MG TAB PO SCH ×3 (08:45→20:39)
[2017-08-05] MEDS: DOCUSATE SODIUM 50 MG/SENNA 8.6 MG TAB PO SCH ×2 (08:45→20:39)
[2017-08-05] MEDS: INSULIN DETEMIR 100 UNITS/ML VIAL SQ SCH ×2 (08:46→21:00)
[2017-08-05] MEDS: LISINOPRIL 5 MG TAB PO SCH (08:46)
[2017-08-05] MEDS: SODIUM CHLORIDE 0.9% FLUSH 10 ML FLUSH IV FLUSH SCH ×2 (08:47→20:39)
[2017-08-05] MEDS: levETIRAcetam INJ 500 MG in SODIUM CHLORIDE 0.9% INJ 100 ML IV SCH ×2 (08:47→20:40)
[2017-08-05] MEDS: FAMOTIDINE 20 MG/2 ML VIAL IV PUSH SCH ×2 (08:47→20:39)
[2017-08-05] MEDS: hydrALAZINE HCL 20 MG/ML VIAL IV PUSH PRN ×2 (09:54→18:09)
--- NOTE | 2017-08-05 11:10 | HHI.NSPN ---
(Kevin Messer) History Chief Complaint: Sedated and Intubated. ICH. (Kevin Messer) Interval History A 67-year-old -[place] female who was transferred from [facility] in [place] after she presented to the emergency room with acute onset of headaches and left-sided weakness and basically progressed to obtundation and comatose state. She became unresponsive and required intubation. She was hypertensive on initial presentation and a CT scan of the head obtained reveals a large right frontal parietal lobe hemorrhage with likely underlying stroke measuring 8.6 cm x 6.0 cm in dimension with a 15 mm right to left midline shift. She was transferred [facility] for further management and neurosurgery consult. There is no family member available to relate any history and attempts to contact her brother whose phone number next of kin is listed in the records from [facility] with two phone numbers went directly to voice mail and a message was left for him to call us back. 08/02/17: Pt sedated on Fentanyl and Diprivan. When held for exam she does not open her eyes or follow commands. She has slight withdrawal in LEs. Pupils are 3mm bilaterally with slight reaction bilaterally. 08/03/17: Pt sedated on Fentanyl and Diprivan drips. She doesn't open eyes. Pupils equal. Left hemiparesis when sedation held. 08/04/17: Pt sedated on low dose Fentanyl. Diprivan on hold. Pt not opening eyes. Intubated. Not following commands. No reaction to pain. 08/05/17: Pt sedated on low dose Fentanyl drip. Opens eyes slightly to deep pain. Not following commands. (Kevin Messer) System Review Comments Not able to obtain given clinical condition. (Kevin Messer) Exam Results Vital Signs Date Time Temp Pulse Resp B/P (MAP) Pulse Ox O2 Delivery O2 Flow Rate FiO2 08/05/17 10:00 83 08/05/17 08:00 100.1 15 132/82 (99) 100 08/05/17 08:00 30 2/25/18 20:15 Mechanical Ventilator Intake and Output 08/05/17 08/05/17 08/06/17 08:00 16:00 00:00 Intake Total 229 ml Output Total 500.0 ml Balance -271.0 ml (Kevin Messer) Physical Examination General: Pt sedated low dose fentanyl drip and intubated in ICU with stable vitals currently. Eyes: Pupils equal. Sclera anicteric. Resp: CTA bilaterally. Intubated pressure control rate 14. Peep 5. FiO2 30%. Heart: NSR no murmurs Abd: Soft positive bs but diminished. Skin. Incision clean and dry without signs of infection. Muscle: Not following for muscle testing. Pt had slight withdrawal right side to pain. Left hemiparesis. Neuro: Pupils equal 3mm bilaterally with slight reaction bilaterally. Slightly opening eyes to pain. Not following commands. (Kevin Messer) Lab, Micro, Other Results Last Impressions Head CT 08/02/17 0600 Signed Impressions: Service Date/Time: Wednesday, August 02, 2017 05:17 - CONCLUSION: 1. Postsurgical features of right frontoparietal craniectomy with surgical drain in place. 2. Large right frontoparietal high convexity hemorrhage with subtle extra-axial blood products and minimal intraventricular hemorrhage. 3. 5 mm right to left subfalcine shift without hydrocephalus or transtentorial herniation at this time. Dale Horn MD Laboratory Tests Test 08/04/17 19:46 08/05/17 05:45 Blood Urea Nitrogen 23 MG/DL 23 MG/DL Creatinine 0.57 MG/DL 0.51 MG/DL Random Glucose 197 MG/DL 199 MG/DL Calcium Level 8.4 MG/DL 8.4 MG/DL Sodium Level 145 MEQ/L 145 MEQ/L Potassium Level 3.9 MEQ/L 3.8 MEQ/L Chloride Level 116 MEQ/L 115 MEQ/L Carbon Dioxide Level 22.1 MEQ/L 22.1 MEQ/L Anion Gap 7 MEQ/L 8 MEQ/L Estimat Glomerular Filtration Rate 105 ML/MIN 120 ML/MIN Phosphorus Level 2.7 MG/DL Magnesium Level 2.3 MG/DL 08/05/17 08/05/17 08/06/17 15:00 23:00 07:00 Output Total 0 ml Balance 0 ml Tube Feeding Residual Discard 0 ml (Kevin Messer) Medical Decision Making Impression and Plan A: 67 y/o FM with large right frontotemporal lobe hemorrhage with likely underlying stroke with significant mass effect and midline shift. Overall poor neurologic examination. She underwent an emergent Right frontotemporoparietal craniotomy for subdural and intracerebral hemorrhage evacuation; decompressive hemicraniectomy with expansive duraplasty on 08/01/17. 2. Respiratory failure secondary to above. 3. Unregulated hypertension. 4. Diabetes mellitus. P: Continue with critical care wean sedation and vent as tolerated. Continue with close neuro checks (Kevin Messer) Attending Statement The exam, history, and the medical decision-making described in the above note were completed with the assistance of the mid-level provider. I reviewed and agree with the findings presented. I attest that I had a [id number] encounter with the patient on the same day, and personally performed and documented my assessment and findings in the medical record. (Wilber Fiore MD) Kevin Messer Aug 05, 2017 11:10 Wilber Fiore MD Aug 05, 2017 15:38
--- NOTE | 2017-08-05 12:22 | HHI.CCPN ---
Subjective Remarks/Hospital Course 67 y/o woman presented to [facility] as stroke alert. Right side headache and left side weakness starting around 10:00 a.m. Glucose 122. INR 1.0 , Sinus rhythm. No history of anticoagulants. Does have history of hypertension and Type 2 diabetes. BP 244/146. Required intubation shortly after arrival. CT Head with large right hemisphere ICH parietal lobe and 1.5 cm shift away from bleed. Plts 296,000, Creat 0.59, Hct 40. 08/02: CT with much improved shift. Gas exchange acceptable. 08/03: Persistent hypertension requiring nicardipine. Will start oral scheduled BP meds. Glucose elevated. NG output minimal. 08/04: Transitioned to oral meds with good BP control. Heavily sedated, now tapering. No spontaneous ventilation but high fixed rate. Repeat head CT with markedly reduced shift. 08/05: Currently remains on fentanyl for sedation. Withdraws all extremities to pain left weaker than right though. No spontaneous eye opening or spontaneous movements noted Objective Vital Signs Date Time Temp Pulse Resp B/P (MAP) Pulse Ox O2 Delivery O2 Flow Rate FiO2 08/05/17 11:11 100 30 08/05/17 10:00 83 08/05/17 08:00 100.1 15 132/82 (99) 08/01/17 20:15 Mechanical Ventilator Intake and Output 08/05/17 08/05/17 08/06/17 08:00 16:00 00:00 Intake Total 229 ml Output Total 500.0 ml Balance -271.0 ml Result Diagram: 08/04/17 0330 08/05/17 0545 Objective Remarks Gen: Unresponsive. sedated with fentanyl Head: Atraumatic. Neck: Supple, orally intubated. OG in place. Lungs: Clear, no wheezes or crackles. Good bilateral air entry. Heart: NL S1S2, RRR, No JVD Abdomen: Soft, large, no guarding. BS few. Nondistended. Extremities: Warm, well perfused. Neuro: Unresponsive. Sedated. Pupils reactive. Withdraws to pain R>L A/P Assessment and Plan Assessment: 1. Hemorrhagic stroke, right fronto/parietal region. 2. Respiratory Failure. 3. Coma. 4. Diabetes, type 2. 5. Hypertensive urgency. Plan: Respiratory - PRVC vent mode. - EtCO2 monitor, maintain low normal range. Cardiovascular - Cardene to maintain SBP < 140. - Add lisinopril 5 daily and Lopressor 25 bid. - Hydralazine 50 tid. Neuro - Serum osmolality > 300 - HOB up. - adjust EtCO2 to maintain 35 - 40 blood range - F/U Ct per neurosurgery - s/p Right frontotemporoparietal craniotomy for subdural and intracerebral hemorrhage evacuation; decompressive hemicraniectomy GI - Tube feeds glucerna 1.5, reduced due to lipids in propofol. - Last BM reported on 08/02 - Yeimy. - Strict intake output ID - Culture for fevers. Endocrinology - SSI, low - Levemir 5 bid Heme - CBC a.m. Prophylaxis - Chemical contraindicated - SCDs - Pepcid Overall impression: Patient presented critically ill with deteriorating neurological function due to acute hemorrhage right hemisphere. She was transferred emergently from [facility] for definitive neurosurgical treatment and underwent emergency decompression of the right side to save what is hopefully her dominant left hemisphere. Remains neurologically unstable and critically ill. Family is aware of her critical condition. Critical care 35 mins Ziyad Taylor MD Aug 05, 2017 12:22
[2017-08-05] MEDS: ACETAMINOPHEN 325 MG TAB PO PRN (12:23)
[2017-08-05] MEDS: SODIUM CHLOR 0.9% 1000 ML INJ 1,000 ML IV SCH ×2 (15:25→17:05)
[2017-08-05 17:22] LABS: BICARBONATE 22.6 MEQ/L (21.0-32.0); CALCIUM 8.6 MG/DL (8.5-10.1); CREATININE 0.53 MG/DL (0.50-1.00)
[2017-08-05] MEDS: MORPHINE SULFATE 2 MG/ML INJ IV PUSH PRN (17:38)
[2017-08-05] MEDS: cloNIDine HCL 0.1 MG TAB PO PRN (18:32)
[2017-08-05] MEDS: LABETALOL HCL 100 MG/20 ML VIAL IV PUSH PRN (18:41)
[2017-08-06] VITALS (20 sets, daily range): BP systolic 136–166; BP diastolic 62–72; PULSE 70–76; RESP 14–18; TEMP 98.1–100.2; O2SAT 100
[2017-08-06] MEDS: hydrALAZINE HCL 50 MG TAB PO SCH ×3 (01:00→16:39)
[2017-08-06] MEDS: hydrALAZINE HCL 20 MG/ML VIAL IV PUSH PRN ×5 (03:01→18:22)
[2017-08-06] MEDS: MORPHINE SULFATE 2 MG/ML INJ IV PUSH PRN ×4 (03:01→18:22)
[2017-08-06] MEDS: SODIUM CHLOR 0.9% 1000 ML INJ 1,000 ML IV SCH ×3 (03:20→23:30)
[2017-08-06] MEDS: CHLORHEXIDINE GLUCONATE 2 % 1 PACK (2 CLOTHS) TOP SCH (03:20)
[2017-08-06 05:08] LABS: AUTOMATED NEUTROPHIL # 12.9 TH/MM3 (1.8-7.7); BASOPHIL # 0.1 TH/MM3 (0-0.2); BASOPHIL % 0.7 % (0.0-2.0); EOSINOPHIL # 0.2 TH/MM3 (0-0.4); EOSINOPHIL % 1.3 % (0.0-4.0); HEMATOCRIT 30.2 % (35.0-46.0); HEMOGLOBIN 10.1 GM/DL (11.6-15.3); LYMPH % 11.3 % (9.0-44.0); LYMPHOCYTE # 1.9 TH/MM3 (1.0-4.8); MEAN CELL VOLUME 84.8 FL (80.0-100.0); MEAN CORPUSCULAR HEMOGLOBIN 28.4 PG (27.0-34.0); MEAN CORPUSCULAR HGB CONC 33.5 % (32.0-36.0); MONO % 8.6 % (0.0-8.0); MONOCYTE # 1.4 TH/MM3 (0-0.9); NEUT % 78.1 % (16.0-70.0); PLATELET COUNT 288 TH/MM3 (150-450); RED BLOOD COUNT 3.56 MIL/MM3 (4.00-5.30); RED CELL DISTRIBUTION WIDTH 13.8 % (11.6-17.2); WHITE BLOOD COUNT 16.4 TH/MM3 (4.0-11.0)
[2017-08-06 05:13] LABS: ALBUMIN 2.3 GM/DL (3.4-5.0); ALT (GPT) 70 U/L (10-53); AST (GOT) 43 U/L (15-37); BICARBONATE 22.8 MEQ/L (21.0-32.0); BLOOD UREA NITROGEN 24 MG/DL (7-18); CALCIUM 8.7 MG/DL (8.5-10.1); CHLORIDE 115 MEQ/L (98-107); CREATININE 0.54 MG/DL (0.50-1.00); GLOMERULAR FILTRATION RATE 112 ML/MIN (>89); GLUCOSE,RANDOM 228 MG/DL (74-106); SODIUM (NA) 145 MEQ/L (136-145)
[2017-08-06 05:15] LABS: ALKALINE PHOSPHATASE 131 U/L (45-117); TOTAL BILIRUBIN ADULT 0.7 MG/DL (0.2-1.0)
[2017-08-06] MEDS: INSULIN ASPART SUPPLEMENTAL SCALE SQ SCH ×5 (06:00→21:00)
--- NOTE | 2017-08-06 06:33 | RADRPT ---
EXAM DATE/TIME: 08/06/2017 04:07 [place] COMPARISON: No previous studies available for comparison. INDICATIONS : Respiratory disease. MEDICAL HISTORY : Non-responsive. SURGICAL HISTORY : Non-responsive. ENCOUNTER: Initial ACUITY: 1 day PAIN SCORE: Non-responsive. LOCATION: Bilateral chest FINDINGS: Endotracheal tube tip 1.6 cm above the carlie. Gastric tube tip and side-port project within the sto mach. There is some indistinctness of the perihilar structures suggesting pneumonitis. No periphera l infiltrates seen. The left hemidiaphragm is not well-seen; cannot exclude a left pleural effusion. CONCLUSION: 1. ET tube tip 1.6 cm above the carlie. 2. Bilateral perihilar fullness and indistinctness. Possible left pleural effusion. Yasir Jin MD on August 06, 2017 at 6:31 Board Certified Radiologist. This report was verified electronically.
[2017-08-06] MEDS: CHLORHEXIDINE 0.12% (ORAL KIT) 15 ML CUP MT SCH ×2 (08:00→20:00)
[2017-08-06 08:12] LABS: TOTAL PROTEIN 6.5 GM/DL (6.4-8.2)
[2017-08-06] MEDS: FAMOTIDINE 20 MG/2 ML VIAL IV PUSH SCH ×2 (08:44→21:00)
[2017-08-06] MEDS: LISINOPRIL 5 MG TAB PO SCH (08:44)
[2017-08-06] MEDS: METOPROLOL TARTRATE 25 MG TAB PO SCH ×2 (08:44→21:00)
[2017-08-06] MEDS: DOCUSATE SODIUM 50 MG/SENNA 8.6 MG TAB PO SCH ×2 (08:44→21:00)
[2017-08-06] MEDS: INSULIN DETEMIR 100 UNITS/ML VIAL SQ SCH ×2 (08:44→21:00)
[2017-08-06] MEDS: levETIRAcetam INJ 500 MG in SODIUM CHLORIDE 0.9% INJ 100 ML IV SCH ×2 (08:45→21:00)
[2017-08-06] MEDS: SODIUM CHLORIDE 0.9% FLUSH 10 ML FLUSH IV FLUSH SCH ×2 (08:45→21:00)
[2017-08-06] MEDS: ACETAMINOPHEN 325 MG TAB PO PRN ×2 (08:45)
[2017-08-06] MEDS: LABETALOL HCL 100 MG/20 ML VIAL IV PUSH PRN ×4 (08:46→18:46)
--- NOTE | 2017-08-06 09:46 | HHI.NSPN ---
(Kevin Messer) History Chief Complaint: Sedated and Intubated. ICH. (Kevin Messer) Interval History A 67-year-old -[place] Citizen female who was transferred from [facility] in [place] after she presented to the emergency room with acute onset of headaches and left-sided weakness and basically progressed to obtundation and comatose state. She became unresponsive and required intubation. She was hypertensive on initial presentation and a CT scan of the head obtained reveals a large right frontal parietal lobe hemorrhage with likely underlying stroke measuring 8.6 cm x 6.0 cm in dimension with a 15 mm right to left midline shift. She was transferred [facility] for further management and neurosurgery consult. There is no family member available to relate any history and attempts to contact her brother whose phone number next of kin is listed in the records from [facility] with two phone numbers went directly to voice mail and a message was left for him to call us back. 08/02/17: Pt sedated on Fentanyl and Diprivan. When held for exam she does not open her eyes or follow commands. She has slight withdrawal in LEs. Pupils are 3mm bilaterally with slight reaction bilaterally. 08/03/17: Pt sedated on Fentanyl and Diprivan drips. She doesn't open eyes. Pupils equal. Left hemiparesis when sedation held. 08/04/17: Pt sedated on low dose Fentanyl. Diprivan on hold. Pt not opening eyes. Intubated. Not following commands. No reaction to pain. 08/05/17: Pt sedated on low dose Fentanyl drip. Opens eyes slightly to deep pain. Not following commands. 08/06/17: Pt off sedation. Not opening eyes for me although did briefly for RN to deep pain. She does not follow commands. (Kevin Messer) System Review Comments Not able to obtain given clinical condition. (Kevin Messer) Exam Results Vital Signs Date Time Temp Pulse Resp B/P (MAP) Pulse Ox O2 Delivery O2 Flow Rate FiO2 08/06/17 09:02 30 08/06/17 07:28 100 08/06/17 06:13 73 08/06/17 04:04 100.0 14 139/67 (91) Intake and Output 08/06/17 08/06/17 08/07/17 08:00 16:00 00:00 Intake Total 679 ml Output Total 750 ml Balance -71 ml (Kevin Messer) Physical Examination General: Pt off sedative drips and intubated in ICU with stable vitals currently. Eyes: Pupils equal. Sclera anicteric. Resp: CTA bilaterally. Intubated pressure control rate 14. Peep 5. FiO2 30%. Heart: NSR no murmurs Abd: Soft positive bs but diminished. Skin. Incision clean and dry without signs of infection. Muscle: Not following for muscle testing. Pt had slight withdrawal right side to pain. Left hemiparesis. Neuro: Pupils equal 3mm bilaterally with slight reaction bilaterally. Slightly opening eyes to pain. Not following commands. (Kevin Messer) Lab, Micro, Other Results Last Impressions Chest X-Ray 08/06/17599 Signed Impressions: Service Date/Time: Sunday, August 06, 2017 04:07 - CONCLUSION: 1. ET tube tip 1.6 cm above the carlie. 2. Bilateral perihilar fullness and indistinctness. Possible left pleural effusion. Yasir Jin MD Head CT 08/02/17599 Signed Impressions: Service Date/Time: Wednesday, August 02, 2017 05:17 - CONCLUSION: 1. Postsurgical features of right frontoparietal craniectomy with surgical drain in place. 2. Large right frontoparietal high convexity hemorrhage with subtle extra-axial blood products and minimal intraventricular hemorrhage. 3. 5 mm right to left subfalcine shift without hydrocephalus or transtentorial herniation at this time. Dale Horn MD Laboratory Tests Test 08/05/17 16:30 08/06/17 04:30 Blood Urea Nitrogen 22 MG/DL 24 MG/DL Creatinine 0.53 MG/DL 0.54 MG/DL Random Glucose 197 MG/DL 228 MG/DL Calcium Level 8.6 MG/DL 8.7 MG/DL Sodium Level 146 MEQ/L 145 MEQ/L Potassium Level 3.9 MEQ/L 4.0 MEQ/L Chloride Level 116 MEQ/L 115 MEQ/L Carbon Dioxide Level 22.6 MEQ/L 22.8 MEQ/L Anion Gap 7 MEQ/L 7 MEQ/L Estimat Glomerular Filtration Rate 114 ML/MIN 112 ML/MIN White Blood Count 16.4 TH/MM3 Red Blood Count 3.56 MIL/MM3 Hemoglobin 10.1 GM/DL Hematocrit 30.2 % Mean Corpuscular Volume 84.8 FL Mean Corpuscular Hemoglobin 28.4 PG Mean Corpuscular Hemoglobin Concent 33.5 % Red Cell Distribution Width 13.8 % Platelet Count 288 TH/MM3 Mean Platelet Volume 9.0 FL Neutrophils (%) (Auto) 78.1 % Lymphocytes (%) (Auto) 11.3 % Monocytes (%) (Auto) 8.6 % Eosinophils (%) (Auto) 1.3 % Basophils (%) (Auto) 0.7 % Neutrophils # (Auto) 12.9 TH/MM3 Lymphocytes # (Auto) 1.9 TH/MM3 Monocytes # (Auto) 1.4 TH/MM3 Eosinophils # (Auto) 0.2 TH/MM3 Basophils # (Auto) 0.1 TH/MM3 CBC Comment DIFF FINAL Differential Comment Total Protein 6.5 GM/DL Albumin 2.3 GM/DL Alkaline Phosphatase 131 U/L Aspartate Amino Transf (AST/SGOT) 43 U/L Alanine Aminotransferase (ALT/SGPT) 70 U/L Total Bilirubin 0.7 MG/DL (Kevin Messer) Medical Decision Making Impression and Plan A: 67 y/o FM with large right frontotemporal lobe hemorrhage with likely underlying stroke with significant mass effect and midline shift. Overall poor neurologic examination. She underwent an emergent Right frontotemporoparietal craniotomy for subdural and intracerebral hemorrhage evacuation; decompressive hemicraniectomy with expansive duraplasty on 08/01/17. 2. Respiratory failure secondary to above. 3. Unregulated hypertension. 4. Diabetes mellitus. P: Continue with critical care wean sedation and vent as tolerated. Continue with close neuro checks (Kevin Messer) Attending Statement The exam, history, and the medical decision-making described in the above note were completed with the assistance of the mid-level provider. I reviewed and agree with the findings presented. I attest that I had a [id number] encounter with the patient on the same day, and personally performed and documented my assessment and findings in the medical record. (Wilber Fiore MD) Kevin Messer Aug 06, 2017 09:46 Wilber Fiore MD Aug 06, 2017 18:43
--- NOTE | 2017-08-06 10:31 | HHI.CCPN ---
Subjective Remarks/Hospital Course 67 y/o woman presented to [facility] as stroke alert. Right side headache and left side weakness starting around 10:00 a.m. Glucose 122. INR 1.0 , Sinus rhythm. No history of anticoagulants. Does have history of hypertension and Type 2 diabetes. BP 244/146. Required intubation shortly after arrival. CT Head with large right hemisphere ICH parietal lobe and 1.5 cm shift away from bleed. Plts 296,000, Creat 0.59, Hct 40. 08/02: CT with much improved shift. Gas exchange acceptable. 08/03: Persistent hypertension requiring nicardipine. Will start oral scheduled BP meds. Glucose elevated. NG output minimal. 08/04: Transitioned to oral meds with good BP control. Heavily sedated, now tapering. No spontaneous ventilation but high fixed rate. Repeat head CT with markedly reduced shift. 08/05: Currently remains on fentanyl for sedation. Withdraws all extremities to pain, stronger right though. No spontaneous eye opening or spontaneous movements noted. 08/06: Weaning sedation but no purposeful movement. Worsening glucose intolerance. Increase levemir and go to high SSI. Objective Vital Signs Date Time Temp Pulse Resp B/P (MAP) Pulse Ox O2 Delivery O2 Flow Rate FiO2 08/06/17 10:00 71 08/06/17 09:02 30 08/06/17 08:00 100.2 14 166/72 (103) 100 Intake and Output 08/06/17 08/06/17 08/07/17 08:00 16:00 00:00 Intake Total 679 ml Output Total 750 ml Balance -71 ml Result Diagram: 08/06/17 04308/06/17 043 Objective Remarks Gen: Unresponsive. sedated with fentanyl Head: Atraumatic. Neck: Supple, orally intubated. OG in place. Lungs: Clear, no wheezes or crackles. Good bilateral air entry. Heart: NL S1S2, RRR, No JVD Abdomen: Soft, large, no guarding. BS few. Nondistended. Extremities: Warm, well perfused. Neuro: Unresponsive. Sedated. Pupils reactive. Withdraws to pain R>L. No eye opening. A/P Assessment and Plan Assessment: 1. Hemorrhagic stroke, right fronto/parietal region. 2. Respiratory Failure. 3. Coma. 4. Diabetes, type 2. 5. Hypertensive urgency. Plan: Respiratory - PRVC vent mode. - EtCO2 monitor, maintain low normal range. Cardiovascular - Cardene to maintain SBP < 140. - Add lisinopril 5 daily and Lopressor 25 bid. - Hydralazine 50 tid. Neuro - Serum osmolality > 300 - HOB up. - adjust EtCO2 to maintain 35 - 40 blood range - F/U Ct per neurosurgery - s/p Right frontotemporoparietal craniotomy for subdural and intracerebral hemorrhage evacuation; decompressive hemicraniectomy GI - Tube feeds glucerna 1.5, reduced due to lipids in propofol. - Last BM reported on 08/02 - Yeimy. - Strict intake output ID - Culture for fevers. Endocrinology - SSI, low - Levemir 5 bid Heme - CBC a.m. Prophylaxis - Chemical contraindicated - SCDs - Pepcid Overall impression: Patient presented critically ill with deteriorating neurological function due to acute hemorrhage right hemisphere. She was transferred emergently from [facility] for definitive neurosurgical treatment and underwent emergency decompression of the right side to save what is hopefully her dominant left hemisphere. Remains neurologically unstable and critically ill. Family is aware of her critical condition. Plan to stop all analgesia. Roel Fitch MD Aug 06, 2017 10:31
[2017-08-06] MEDS ORDERED: DEXTROSE 50% IN WATER 50 ML VIAL(D50) IV PUSH PRN (10:45)
[2017-08-06] MEDS ORDERED: GLUCAGON 1 MG/ML VIAL OTHER PRN (10:45)
[2017-08-06] MEDS: cloNIDine HCL 0.1 MG TAB PO PRN (16:39)
[2017-08-07] VITALS (25 sets, daily range): BP systolic 145–184; BP diastolic 66–92; PULSE 69–96; RESP 14–22; TEMP 98–99.5; O2SAT 97–100
[2017-08-07] MEDS: hydrALAZINE HCL 50 MG TAB PO SCH ×3 (01:00→16:29)
[2017-08-07] MEDS: CHLORHEXIDINE GLUCONATE 2 % 1 PACK (2 CLOTHS) TOP SCH (04:00)
[2017-08-07] MEDS: INSULIN ASPART SUPPLEMENTAL SCALE SQ SCH ×4 (08:00→21:00)
[2017-08-07] MEDS: CHLORHEXIDINE 0.12% (ORAL KIT) 15 ML CUP MT SCH ×2 (08:00→20:00)
[2017-08-07] MEDS: FAMOTIDINE 20 MG/2 ML VIAL IV PUSH SCH ×2 (08:27→21:00)
[2017-08-07] MEDS: levETIRAcetam INJ 500 MG in SODIUM CHLORIDE 0.9% INJ 100 ML IV SCH ×2 (08:27→21:00)
[2017-08-07] MEDS: SODIUM CHLORIDE 0.9% FLUSH 10 ML FLUSH IV FLUSH SCH ×2 (08:28→21:00)
[2017-08-07] MEDS: METOPROLOL TARTRATE 25 MG TAB PO SCH ×2 (08:29→21:00)
[2017-08-07] MEDS: INSULIN DETEMIR 100 UNITS/ML VIAL SQ SCH ×3 (08:29→21:00)
[2017-08-07] MEDS: LISINOPRIL 5 MG TAB PO SCH (08:30)
[2017-08-07] MEDS: DOCUSATE SODIUM 50 MG/SENNA 8.6 MG TAB PO SCH ×2 (08:41→21:00)
[2017-08-07] MEDS: SODIUM CHLOR 0.9% 1000 ML INJ 1,000 ML IV SCH ×2 (09:24→23:15)
--- NOTE | 2017-08-07 11:00 | HHI.CCPN ---
Subjective Remarks/Hospital Course 67 y/o woman presented to [facility] as stroke alert. Right side headache and left side weakness starting around 10:00 a.m. Glucose 122. INR 1.0 , Sinus rhythm. No history of anticoagulants. Does have history of hypertension and Type 2 diabetes. BP 244/146. Required intubation shortly after arrival. CT Head with large right hemisphere ICH parietal lobe and 1.5 cm shift away from bleed. Plts 296,000, Creat 0.59, Hct 40. 08/02: CT with much improved shift. Gas exchange acceptable. 08/03: Persistent hypertension requiring nicardipine. Will start oral scheduled BP meds. Glucose elevated. NG output minimal. 08/04: Transitioned to oral meds with good BP control. Heavily sedated, now tapering. No spontaneous ventilation but high fixed rate. Repeat head CT with markedly reduced shift. 08/05: Currently remains on fentanyl for sedation. Withdraws all extremities to pain, stronger right though. No spontaneous eye opening or spontaneous movements noted. 08/06: Weaning sedation but no purposeful movement. Worsening glucose intolerance. Increase levemir and go to high SSI. 08/07: Glucose intolerance persists. Increase levemir coverage. No improvement in neurological condition. Objective Vital Signs Date Time Temp Pulse Resp B/P (MAP) Pulse Ox O2 Delivery O2 Flow Rate FiO2 08/07/17 09:00 80 19 164/74 (104) 100 08/07/17 08:15 30 08/07/17 08:00 99.5 Intake and Output 08/07/17 08/07/17 08/08/17 08:00 16:00 00:00 Intake Total 800 ml Output Total 725 ml Balance 75 ml Result Diagram: 08/06/1742908/06/17 043 Objective Remarks Gen: Unresponsive. minimally sedated with fentanyl Head: Atraumatic. Neck: Supple, orally intubated. OG in place. Lungs: Clear, no wheezes or crackles. Good bilateral air entry. Heart: NL S1S2, RRR, No JVD Abdomen: Soft, large, no guarding. BS few. Nondistended. Extremities: Warm, well perfused. Neuro: Unresponsive. Sedated. Pupils reactive. Withdraws to pain R>L. No eye opening. A/P Assessment and Plan Assessment: 1. Hemorrhagic stroke, right fronto/parietal region. 2. Respiratory Failure. 3. Coma. 4. Diabetes, type 2. 5. Hypertensive urgency. Plan: Respiratory - PRVC vent mode. - EtCO2 monitor, maintain low normal range. Cardiovascular - Cardene to maintain SBP < 140. - Add lisinopril 5 daily and Lopressor 25 bid. - Hydralazine 50 tid. Neuro - Serum osmolality > 300 - HOB up. - adjust EtCO2 to maintain 35 - 40 blood range - F/U Ct per neurosurgery - s/p Right frontotemporoparietal craniotomy for subdural and intracerebral hemorrhage evacuation; decompressive hemicraniectomy GI - Tube feeds glucerna 1.5, reduced due to lipids in propofol. - Last BM reported on 08/02 TAMARA Gaffney. - Strict intake output ID - Culture for fevers. Endocrinology - SSI, high algorithm - Levemir 16 u bid Heme - CBC a.m. Prophylaxis - Chemical contraindicated - SCDs - Pepcid Overall impression: Patient presented critically ill with deteriorating neurological function due to acute hemorrhage right hemisphere. She was transferred emergently from [facility] for definitive neurosurgical treatment and underwent emergency decompression of the right side to save what is hopefully her dominant left hemisphere. Remains neurologically unstable and critically ill. Family is aware of her critical condition. Roel Fitch MD Aug 07, 2017 11:00
--- NOTE | 2017-08-07 11:04 | HHI.NSPN ---
(Whitney Gudino) Note Status Status: Progress Note (Whitney Gudino) Interval History Interval History A 67-year-old -[place] female who was transferred from [facility] in [place] after she presented to the emergency room with acute onset of headaches and left-sided weakness and basically progressed to obtundation and comatose state. She became unresponsive and required intubation. She was hypertensive on initial presentation and a CT scan of the head obtained reveals a large right frontal parietal lobe hemorrhage with likely underlying stroke measuring 8.6 cm x 6.0 cm in dimension with a 15 mm right to left midline shift. She was transferred [facility] for further management and neurosurgery consult. There is no family member available to relate any history and attempts to contact her brother whose phone number next of kin is listed in the records from [facility] with two phone numbers went directly to voice mail and a message was left for him to call us back. 08/02/17: Pt sedated on Fentanyl and Diprivan. When held for exam she does not open her eyes or follow commands. She has slight withdrawal in LEs. Pupils are 3mm bilaterally with slight reaction bilaterally. 08/03/17: Pt sedated on Fentanyl and Diprivan drips. She doesn't open eyes. Pupils equal. Left hemiparesis when sedation held. 08/04/17: Pt sedated on low dose Fentanyl. Diprivan on hold. Pt not opening eyes. Intubated. Not following commands. No reaction to pain. 08/05/17: Pt sedated on low dose Fentanyl drip. Opens eyes slightly to deep pain. Not following commands. 08/06/17: Pt off sedation. Not opening eyes for me although did briefly for RN to deep pain. She does not follow commands. 08/07: opening eyes, not following commands. intubated and mildly sedated. (Whitney Gudino) Labs, Micro, & Vital Signs Results Date Time Temp Pulse Resp B/P (MAP) Pulse Ox O2 Delivery O2 Flow Rate FiO2 08/07/17 09:00 80 19 164/74 (104) 100 3/3/18 08:15 100 30 08/07/17 08:15 30 08/07/17 08:00 99.5 78 14 172/80 (110) 100 08/07/17 08:00 30 08/07/17 08:00 78 08/07/17 07:51 74 08/07/17 05:42 100 30 08/07/17 04:18 30 08/07/17 04:18 79 14 164/74 (104) 100 08/07/17 04:11 78 08/07/17 02:44 77 08/07/17 00:09 98.0 69 14 145/66 (92) 100 08/07/17 00:09 30 08/07/17 00:08 69 08/07/17 00:05 100 30 08/06/17 22:01 98.3 72 14 140/65 (90) 100 08/06/17 22:01 30 08/06/17 22:00 72 08/06/17 21:03 100 30 08/06/17 20:00 73 08/06/17 18:00 72 08/06/17 16:00 30 08/06/17 16:00 98.1 76 16 166/62 (96) 100 08/06/17 16:00 76 08/06/17 14:00 76 08/06/17 12:00 30 08/06/17 12:00 98.8 72 18 152/64 (93) 100 08/06/17 12:00 72 08/06/17 11:47 100 30 08/08/17 07:00 Intake Total 800 ml Output Total 725 ml Balance 75 ml Constitutional Vital Signs Date Time Temp Pulse Resp B/P (MAP) Pulse Ox O2 Delivery O2 Flow Rate FiO2 08/07/17 09:00 80 19 164/74 (104) 100 08/07/17 08:15 100 30 08/07/17 08:15 30 08/07/17 08:00 99.5 78 14 172/80 (110) 100 08/07/17 08:00 30 08/07/17 08:00 78 08/07/17 07:51 74 08/07/17 05:42 100 30 08/07/17 04:18 30 08/07/17 04:18 79 14 164/74 (104) 100 08/07/17 04:11 78 08/07/17 02:44 77 08/07/17 00:09 98.0 69 14 145/66 (92) 100 08/07/17 00:09 30 08/07/17 00:08 69 08/07/17 00:05 100 30 08/06/17 22:01 98.3 72 14 140/65 (90) 100 08/06/17 22:01 30 08/06/17 22:00 72 08/06/17 21:03 100 30 08/06/17 20:00 73 08/06/17 18:00 72 08/06/17 16:00 30 08/06/17 16:00 98.1 76 16 166/62 (96) 100 08/06/17 16:00 76 08/06/17 14:00 76 08/06/17 12:00 30 08/06/17 12:00 98.8 72 18 152/64 (93) 100 08/06/17 12:00 72 08/06/17 11:47 100 30 08/08/17 07:00 Intake Total 800 ml Output Total 725 ml Balance 75 ml (Whitney Gudino) Review of Systems ROS Limitations: Intubated (Whitney Gudino) Physical Exam General: Pt off sedative drips and intubated in ICU with stable vitals currently. Eyes: Pupils equal. Sclera anicteric. Resp: CTA bilaterally. Intubated pressure control rate 14. Peep 5. FiO2 30%. Heart: NSR no murmurs Abd: Soft positive bs but diminished. Skin. Incision clean and dry without signs of infection. Muscle: Not following for muscle testing. Pt had slight withdrawal right side to pain. Left hemiparesis. Neuro: Pupils equal 3mm bilaterally with slight reaction bilaterally. Slightly opening eyes to pain. Not following commands. (Whitney Gudino) Medications Current Medications Current Medications Medications (Trade) Dose Ordered Sig/Carey Route PRN Reason Start Time Stop Time Status Last Admin Dose Admin Acetaminophen (Tylenol) 650 mg Q6H PRN PO PAIN 1-10 AND/OR FEVER >101F 08/01/17 15:15 08/06/17 08:45 Morphine Sulfate (Morphine Inj) 2 mg Q2H PRN IV PUSH PAIN SCALE 6 TO 10 08/01/17 15:15 08/06/17 18:22 Famotidine (Pepcid Inj) 20 mg Q12HR IV PUSH 08/01/17 21:00 08/07/17 08:27 Ondansetron HCl (Zofran Inj) 4 mg Q6H PRN IV PUSH NAUSEA OR VOMITING 08/01/17 15:15 Albuterol/ Ipratropium (Duoneb Neb) 1 ampule Q4HR NEB PRN INH WHEEZING 08/01/17 15:15 Miscellaneous Information 1 Q361D XX 08/01/17 15:15 08/01/17 15:15 Chlorhexidine Gluconate (Chlorhexidine 2% Cloth) Taper DAILY@04 TOP 08/02/17 04:00 07/29/18 03:59 08/05/17 04:09 Chlorhexidine Gluconate (Chlorhexidine 2% Cloth) 3 pack UNSCH PRN TOP HYGIENIC CARE 08/01/17 15:15 Chlorhexidine Gluconate (Peridex 0.12% Liq) 15 ml BID@08,20 MT 08/01/17 20:00 08/07/17 08:00 Hydralazine HCl (Apresoline Inj) 10 mg Q30M PRN IV PUSH SBP > 140 08/01/17 16:15 08/06/17 18:22 Nicardipine HCl 25 mg/Sodium Chloride 250 ml @ 50 mls/hr TITRATE PRN IV Blood pressure management 08/01/17 16:15 Levetriacetam 500 mg/Sodium Chloride 105 ml @ 420 mls/hr Q12HR IV 08/01/17 21:00 08/07/17 08:27 Sodium Chloride (NS Flush) 2 ml UNSCH PRN IV FLUSH FLUSH AFTER USING IV ACCESS 08/01/17 18:00 Sodium Chloride (NS Flush) 2 ml BID IV FLUSH 08/01/17 21:00 08/07/17 08:28 Lorazepam (Ativan Inj) 1 mg Q1H PRN IV PUSH SEIZURES 08/01/17 18:00 Al Hydrox/Mg Hydrox/Simethicone (Mag-Al Plus Susp Liq) 30 ml Q6H PRN PO DYSPEPSIA 08/01/17 18:00 Calcium Gluconate 1 gm/Sodium Chloride 110 ml @ 110 mls/hr UNSCH PRN IV SEE LABEL COMMENTS 08/01/17 18:00 Magnesium Sulfate 2 gm/Sodium Chloride 104 ml @ 100 mls/hr UNSCH PRN IV MAGNESIUM LESS THAN 2 08/01/17 18:00 Labetalol HCl (Trandate Inj) 10 mg Q1H PRN IV PUSH SYS BP GREATER THAN 170 MMHG 08/01/17 18:00 08/06/17 18:46 Clonidine (Catapres) 0.1 mg Q6H PRN PO SYS BP GREATER THAN 170 MMHG 08/01/17 18:00 08/06/17 16:39 Senna/Docusate Sodium (Ronit-Colace) 1 tab BID PO 08/01/17 21:00 08/07/17 08:41 Magnesium Hydroxide (Milk Of Magnesia Liq) 30 ml Q12H PRN PO Mild constipation 08/01/17 18:00 Sennosides (Senokot) 17.2 mg Q12H PRN PO Moderate constipation 08/01/17 18:00 Bisacodyl (Dulcolax Supp) 10 mg DAILY PRN RECTAL SEVERE CONSITIPATION 08/01/17 18:00 Lactulose (Lactulose Liq) 30 ml DAILY PRN PO SEVERE CONSITIPATION 08/01/17 18:00 Propofol 100 ml @ 0 mls/hr TITRATE PRN IV SEDATION 08/01/17 18:00 08/04/17 02:27 Fentanyl Citrate 250 ml @ 5 mls/hr TITRATE PRN IV SEDATION 08/01/17 18:00 08/03/17 08:50 Sodium Chloride 1,000 ml @ 100 mls/hr Q10H IV 08/01/17 23:30 08/07/17 09:24 Miscellaneous Information D/C ICU ELECTROLYTE ORDERS... UNSCH PRN .XX SEE DOSE INSTRUCTIONS 08/02/17 17:00 Miscellaneous Information ICU - CALL ORDERING PHYSIC... UNSCH PRN .XX SEE DOSE INSTRUCTIONS 08/02/17 17:00 Potassium Chloride 100 ml @ 25 mls/hr UNSCH PRN IV ELECTROLYTE REPLACEMENT 08/02/17 17:00 Potassium Bicarb/ Potassium Chloride (K-Lyte Cl Eff) 50 meq UNSCH PRN PO ELECTROLYTE REPLACEMENT 08/02/17 17:00 Potassium Chloride 100 ml @ 50 mls/hr UNSCH PRN IV ELECTROLYTE REPLACEMENT 08/02/17 17:00 08/02/17 20:01 Magnesium Sulfate 4 gm/Sodium Chloride 108 ml @ 54 mls/hr UNSCH PRN IV ELECTROLYTE REPLACEMENT 08/02/17 17:00 Magnesium Sulfate 2 gm/Sodium Chloride 104 ml @ 52 mls/hr UNSCH PRN IV ELECTROLYTE REPLACEMENT 08/02/17 17:00 Magnesium Oxide (Mag-Ox) 800 mg UNSCH PRN PO ELECTROLYTE REPLACEMENT 08/02/17 17:00 Sodium Phosphate 30 mmol/Sodium Chloride 260 ml @ 43.333 mls/ hr UNSCH PRN IV ELECTROLYTE REPLACEMENT 08/02/17 17:00 Potassium Phosphate (K-Phos) 2,000 mg UNSCH PRN PO ELECTROLYTE REPLACEMENT 08/02/17 17:00 Potassium Phosphate 30 mmol/ Sodium Chloride 260 ml @ 43.333 mls/ hr UNSCH PRN IV ELECTROLYTE REPLACEMENT 08/02/17 17:00 08/02/17 17:26 Lisinopril (Prinivil) 5 mg DAILY PO 08/03/17 09:00 08/07/17 08:30 Metoprolol Tartrate (Lopressor) 25 mg Q12HR PO 08/03/17 09:00 08/07/17 08:29 Hydralazine HCl (Apresoline) 50 mg Q8H PO 08/03/17 09:00 08/07/17 08:30 Insulin Detemir (Levemir Inj) 10 units Q12HR SQ 08/06/17 21:00 08/07/17 09:23 Dextrose (D50w (Vial) Inj) 50 ml UNSCH PRN IV PUSH HYPOGLYCEMIA-SEE COMMENTS 08/06/17 10:45 Glucagon (Glucagon Inj) 1 mg UNSCH PRN OTHER HYPOGLYCEMIA-SEE COMMENTS 08/06/17 10:45 Insulin Aspart (NovoLOG SUPPLEMENTAL SCALE) 1 ACHS SLIDING SCALE SQ 08/06/17 12:00 08/07/17 08:00 (Whitney Gudino) Medical Decision Making MDM Remarks 67 y/o female with large right frontotemporal lobe hemorrhage with likely underlying stroke with significant mass effect and midline shift s/p emergent Right frontotemporoparietal craniotomy for subdural and intracerebral hemorrhage evacuation; decompressive hemicraniectomy with expansive duraplasty on 08/01/17 (Whitney Gudino) Plan Plan Remarks cont neuro checks sedation and vent weaning (Whitney Gudino) Attending Statement The exam, history, and the medical decision-making described in the above note were completed with the assistance of the mid-level provider. I reviewed and agree with the findings presented. I attest that I had a [id number] encounter with the patient on the same day, and personally performed and documented my assessment and findings in the medical record. (Jadiel Garcia MD) Whitney Gudino Aug 07, 2017 11:04 Jadiel Garcia MD Aug 09, 2017 12:41
[2017-08-07] MEDS: LABETALOL HCL 100 MG/20 ML VIAL IV PUSH PRN ×3 (11:29→13:57)
[2017-08-07] MEDS: MORPHINE SULFATE 2 MG/ML INJ IV PUSH PRN ×2 (13:33→17:38)
[2017-08-07] MEDS: cloNIDine HCL 0.1 MG TAB PO PRN (13:33)
[2017-08-07] MEDS ORDERED: LABETALOL HCL 100 MG/20 ML VIAL IV PUSH PRN (16:00)
[2017-08-07] MEDS: LISINOPRIL 10 MG TAB PO SCH (21:00)
[2017-08-07] MEDS: niCARdipine INJ 25 MG in SODIUM CHLOR 0.9% 250 ML INJ 240 ML IV PRN (23:18)
[2017-08-08] VITALS (17 sets, daily range): BP systolic 124–151; BP diastolic 57–71; PULSE 79–116; RESP 14–26; TEMP 97.7–101; O2SAT 93–100
[2017-08-08] MEDS: hydrALAZINE HCL 50 MG TAB PO SCH ×3 (01:32→17:47)
[2017-08-08] MEDS: niCARdipine INJ 25 MG in SODIUM CHLOR 0.9% 250 ML INJ 240 ML IV PRN ×7 (03:04→22:47)
[2017-08-08] MEDS: CHLORHEXIDINE GLUCONATE 2 % 1 PACK (2 CLOTHS) TOP SCH (04:00)
[2017-08-08 05:41] LABS: BICARBONATE 24.2 MEQ/L (21.0-32.0); CALCIUM 8.8 MG/DL (8.5-10.1); CREATININE 0.52 MG/DL (0.50-1.00)
[2017-08-08] MEDS: CHLORHEXIDINE 0.12% (ORAL KIT) 15 ML CUP MT SCH ×2 (08:00→20:35)
[2017-08-08] MEDS: INSULIN ASPART SUPPLEMENTAL SCALE SQ SCH ×4 (08:00→20:55)
[2017-08-08] MEDS: levETIRAcetam INJ 500 MG in SODIUM CHLORIDE 0.9% INJ 100 ML IV SCH ×2 (08:56→20:46)
[2017-08-08] MEDS: METOPROLOL TARTRATE 25 MG TAB PO SCH ×2 (08:57→20:44)
[2017-08-08] MEDS: DOCUSATE SODIUM 50 MG/SENNA 8.6 MG TAB PO SCH (08:57)
[2017-08-08] MEDS: LISINOPRIL 10 MG TAB PO SCH ×2 (08:58→20:44)
[2017-08-08] MEDS: INSULIN DETEMIR 100 UNITS/ML VIAL SQ SCH ×2 (08:59→20:45)
[2017-08-08] MEDS: FAMOTIDINE 20 MG/2 ML VIAL IV PUSH SCH ×2 (09:00→20:45)
[2017-08-08] MEDS: SODIUM CHLORIDE 0.9% FLUSH 10 ML FLUSH IV FLUSH SCH ×2 (09:00→20:46)
--- NOTE | 2017-08-08 10:04 | HHI.CCPN ---
Subjective Remarks/Hospital Course 67 y/o woman presented to [facility] as stroke alert. Right side headache and left side weakness starting around 10:00 a.m. Glucose 122. INR 1.0 , Sinus rhythm. No history of anticoagulants. Does have history of hypertension and Type 2 diabetes. BP 244/146. Required intubation shortly after arrival. CT Head with large right hemisphere ICH parietal lobe and 1.5 cm shift away from bleed. Plts 296,000, Creat 0.59, Hct 40. 08/02: CT with much improved shift. Gas exchange acceptable. 08/03: Persistent hypertension requiring nicardipine. Will start oral scheduled BP meds. Glucose elevated. NG output minimal. 08/04: Transitioned to oral meds with good BP control. Heavily sedated, now tapering. No spontaneous ventilation but high fixed rate. Repeat head CT with markedly reduced shift. 08/05: Currently remains on fentanyl for sedation. Withdraws all extremities to pain, stronger right though. No spontaneous eye opening or spontaneous movements noted. 08/06: Weaning sedation but no purposeful movement. Worsening glucose intolerance. Increase levemir and go to high SSI. 08/07: Glucose intolerance persists. Increase levemir coverage. No improvement in neurological condition. 08/08: Patient remains encephalopathy no improvement in mental status. Blood glucose control remains inadequate increase Levemir to 20 every 12. Unable to wean to extubate will need tracheostomy if family wishes to proceed. Plan for tomorrow, will also consult GI for PEG tube placement Objective Vital Signs Date Time Temp Pulse Resp B/P (MAP) Pulse Ox O2 Delivery O2 Flow Rate FiO2 08/08/17 07:58 100 30 08/08/17 06:00 98 08/08/17 04:00 99.2 17 124/61 (82) Intake and Output 08/08/17 08/08/17 08/08/17 07:59 15:59 23:59 Intake Total 2403 ml Output Total 1950 ml Balance 453 ml Result Diagram: 08/06/1742908/08/17 043 Objective Remarks Gen: Unresponsive. Off al sedation Head: Atraumatic. Neck: Supple, orally intubated. OG in place. Lungs: Clear, no wheezes or crackles. Good bilateral air entry. Heart: NL S1S2, RRR, No JVD Abdomen: Soft, large, no guarding. BS few. Nondistended. Extremities: Warm, well perfused. Neuro: Unresponsive. Not on any sedation. Pupils reactive. Weakly withdraws to pain R>L. No eye opening. A/P Assessment and Plan Assessment: Hemorrhagic stroke, right fronto/parietal region. Persistent encephalopathy/Coma Respiratory Failure Hyperglycemia Leukocytosis Diabetes, type 2. Hypertensive urgency. Plan: Neuro - Keep Serum osmolality > 300 - HOB up. - adjust EtCO2 to maintain 35 - 40 blood range - F/U Ct per neurosurgery - s/p Right frontotemporoparietal craniotomy for subdural and intracerebral hemorrhage evacuation; decompressive hemicraniectomy Respiratory - PRVC vent mode. EtCO2 monitor, maintain low normal range. DuoNeb every 6 hours as needed - Daily CPAP trials unable to wean, patient lacks airway protection - Plan tracheostomy tomorrow, if family agreeable and wants to proceed - Check chest x-ray sputum culture Cardiovascular - Cardene to maintain SBP < 140. - Lsinopril 5 daily and Lopressor 25 bid. - Hydralazine 50 tid. GI - Tube feeds Glucerna 1.5, reduced due to lipids in propofol. - Last BM reported on 08/02 - mag citrate x1. Scheduled lactulose 30 ml QID. Colace - Gaffney. - Strict intake output ID - Acevedo Culture for worsening leukocytosis. - Check chest x-ray Endocrinology - SSI, high algorithm - Levemir 16 u bid, increase to 20 q12 Heme - CBC a.m. Prophylaxis - Chemical contraindicated, until cleared by neurosurgery, address after trach and PEG - SCDs - Pepcid Overall impression: Patient presented critically ill with deteriorating neurological function due to acute hemorrhage right hemisphere. She was transferred emergently from [facility] for definitive neurosurgical treatment and underwent emergency decompression of the right side to save what is hopefully her dominant left hemisphere. Remains neurologically unstable and critically ill. Family is aware of her critical condition. There had been no improvement in her mental status patient admitted remains comatose, on vent day 9. Plan to proceed with tracheostomy tomorrow if family agreeable. Ziyad Taylor MD Aug 08, 2017 10:04
[2017-08-08] MEDS ORDERED: MAGNESIUM CITRATE SOLN 300 ML BTL PO ONE (10:30)
--- NOTE | 2017-08-08 11:03 | RADRPT ---
EXAM DATE/TIME: 08/08/2017 10:24 [place] COMPARISON: CHEST SINGLE AP, August 06, 2017, 4:07. INDICATIONS : Shortness of breath. MEDICAL HISTORY : None. SURGICAL HISTORY : None. ENCOUNTER: Initial ACUITY: 1 day PAIN SCORE: Non-responsive. LOCATION: Bilateral chest FINDINGS: Include improvement with less perihilar interstitial changes. ET tube in good position. The cardiom ediastinal contours are unremarkable. Nasogastric tube across the GE junction. Osseous structures ar e intact. CONCLUSION: Improvement, support apparatus in good position. Gilbert Gamez MD FACR on August 08, 2017 at 11:02 Board Certified Radiologist. This report was verified electronically.
--- NOTE | 2017-08-08 12:40 | HHI.NSPN ---
Note Status Status: Progress Note Interval History Interval History A 67-year-old -[place] female who was transferred from [facility] in [place] after she presented to the emergency room with acute onset of headaches and left-sided weakness and basically progressed to obtundation and comatose state. She became unresponsive and required intubation. She was hypertensive on initial presentation and a CT scan of the head obtained reveals a large right frontal parietal lobe hemorrhage with likely underlying stroke measuring 8.6 cm x 6.0 cm in dimension with a 15 mm right to left midline shift. She was transferred [facility] for further management and neurosurgery consult. There is no family member available to relate any history and attempts to contact her brother whose phone number next of kin is listed in the records from [facility] with two phone numbers went directly to voice mail and a message was left for him to call us back. 08/02/17: Pt sedated on Fentanyl and Diprivan. When held for exam she does not open her eyes or follow commands. She has slight withdrawal in LEs. Pupils are 3mm bilaterally with slight reaction bilaterally. 08/03/17: Pt sedated on Fentanyl and Diprivan drips. She doesn't open eyes. Pupils equal. Left hemiparesis when sedation held. 08/04/17: Pt sedated on low dose Fentanyl. Diprivan on hold. Pt not opening eyes. Intubated. Not following commands. No reaction to pain. 08/05/17: Pt sedated on low dose Fentanyl drip. Opens eyes slightly to deep pain. Not following commands. 08/06/17: Pt off sedation. Not opening eyes for me although did briefly for RN to deep pain. She does not follow commands. 08/07: opening eyes, not following commands. intubated and mildly sedated. 08/08: intubated, very minimal response in feet. right craniectomy site appears much more dewitt and tighter to palpate today. Labs, Micro, & Vital Signs Results Date Time Temp Pulse Resp B/P (MAP) Pulse Ox O2 Delivery O2 Flow Rate FiO2 08/08/17 11:44 94 30 08/08/17 10:00 97 08/08/17 08:00 99.6 109 26 143/62 (89) 98 08/08/17 08:00 30 08/08/17 08:00 109 08/08/17 07:58 100 30 08/08/17 07:58 30 08/08/17 06:00 98 08/08/17 04:26 93 30 08/08/17 04:00 99.2 95 17 124/61 (82) 93 08/08/17 04:00 30 08/08/17 04:00 95 08/08/17 03:04 90 124/67 08/08/17 02:00 90 08/08/17 01:42 94 30 08/08/17 00:00 79 08/08/17 00:00 97.7 79 14 147/71 (96) 93 08/08/17 00:00 30 08/07/17 23:18 80 08/07/17 23:18 77 173/84 08/07/17 23:18 30 08/07/17 23:18 87 20 150/72 (98) 100 08/07/17 21:47 97 30 08/07/17 19:19 100 30 08/07/17 18:00 87 20 150/72 (98) 100 08/07/17 18:00 80 08/07/17 17:45 19 08/07/17 17:00 78 22 165/73 (103) 100 08/07/17 16:19 100 30 08/07/17 16:00 79 08/07/17 16:00 98.6 83 18 162/92 (115) 100 08/07/17 16:00 30 08/07/17 15:00 76 18 168/68 (101) 100 08/07/17 14:00 76 16 172/74 (106) 100 08/07/17 14:00 76 08/07/17 13:00 96 22 184/84 (117) 100 Constitutional Vital Signs Date Time Temp Pulse Resp B/P (MAP) Pulse Ox O2 Delivery O2 Flow Rate FiO2 08/08/17 11:44 94 30 08/08/17 10:00 97 08/08/17 08:00 99.6 109 26 143/62 (89) 98 08/08/17 08:00 30 3/4/18 08:00 109 08/08/17 07:58 100 30 08/08/17 07:58 30 08/08/17 06:00 98 08/08/17 04:26 93 30 08/08/17 04:00 99.2 95 17 124/61 (82) 93 08/08/17 04:00 30 08/08/17 04:00 95 08/08/17 03:04 90 124/67 08/08/17 02:00 90 08/08/17 01:42 94 30 08/08/17 00:00 79 08/08/17 00:00 97.7 79 14 147/71 (96) 93 08/08/17 00:00 30 08/07/17 23:18 80 08/07/17 23:18 77 173/84 08/07/17 23:18 30 08/07/17 23:18 87 20 150/72 (98) 100 08/07/17 21:47 97 30 08/07/17 19:19 100 30 08/07/17 18:00 87 20 150/72 (98) 100 08/07/17 18:00 80 08/07/17 17:45 19 08/07/17 17:00 78 22 165/73 (103) 100 08/07/17 16:19 100 30 08/07/17 16:00 79 08/07/17 16:00 98.6 83 18 162/92 (115) 100 08/07/17 16:00 30 08/07/17 15:00 76 18 168/68 (101) 100 08/07/17 14:00 76 16 172/74 (106) 100 08/07/17 14:00 76 08/07/17 13:00 96 22 184/84 (117) 100 Review of Systems ROS Limitations: Intubated Physical Exam General: Pt off sedative drips and intubated in ICU with stable vitals currently. Eyes: Pupils 3 mm equal. Sclera anicteric. Resp: CTA bilaterally. Heart: NSR no murmurs Abd: Soft positive bs but diminished. Skin. Incision clean and dry without signs of infection. Muscle: Not following for muscle testing. Pt had no response to b/l upper extremities. very minimal withdraws, positive babinski to both feet. Neuro: Pupils equal 3mm bilaterally with slight reaction bilaterally. Slightly opening eyes to pain. Not following commands. Positive corneal reflex bilaterally Right craniectomy site appears much dewitt today and very tight to palpate Medications Current Medications Current Medications Medications (Trade) Dose Ordered Sig/Carey Route PRN Reason Start Time Stop Time Status Last Admin Dose Admin Acetaminophen (Tylenol) 650 mg Q6H PRN PO PAIN 1-10 AND/OR FEVER >101F 08/01/17 15:15 08/06/17 08:45 Morphine Sulfate (Morphine Inj) 2 mg Q2H PRN IV PUSH PAIN SCALE 6 TO 10 08/01/17 15:15 08/07/17 17:38 Famotidine (Pepcid Inj) 20 mg Q12HR IV PUSH 08/01/17 21:00 08/08/17 09:00 Ondansetron HCl (Zofran Inj) 4 mg Q6H PRN IV PUSH NAUSEA OR VOMITING 08/01/17 15:15 Albuterol/ Ipratropium (Duoneb Neb) 1 ampule Q4HR NEB PRN INH WHEEZING 08/01/17 15:15 Miscellaneous Information 1 Q361D XX 08/01/17 15:15 08/01/17 15:15 Chlorhexidine Gluconate (Chlorhexidine 2% Cloth) Taper DAILY@04 TOP 08/02/17 04:00 07/29/18 03:59 08/05/17 04:09 Chlorhexidine Gluconate (Chlorhexidine 2% Cloth) 3 pack UNSCH PRN TOP HYGIENIC CARE 08/01/17 15:15 Chlorhexidine Gluconate (Peridex 0.12% Liq) 15 ml BID@08,20 MT 08/01/17 20:00 08/08/17 08:00 Hydralazine HCl (Apresoline Inj) 10 mg Q30M PRN IV PUSH SBP > 140 08/01/17 16:15 08/06/17 18:22 Nicardipine HCl 25 mg/Sodium Chloride 250 ml @ 50 mls/hr TITRATE PRN IV Blood pressure management 08/01/17 16:15 08/08/17 03:04 Levetriacetam 500 mg/Sodium Chloride 105 ml @ 420 mls/hr Q12HR IV 08/01/17 21:00 08/08/17 08:56 Sodium Chloride (NS Flush) 2 ml UNSCH PRN IV FLUSH FLUSH AFTER USING IV ACCESS 08/01/17 18:00 Sodium Chloride (NS Flush) 2 ml BID IV FLUSH 08/01/17 21:00 08/08/17 09:00 Lorazepam (Ativan Inj) 1 mg Q1H PRN IV PUSH SEIZURES 08/01/17 18:00 Al Hydrox/Mg Hydrox/Simethicone (Mag-Al Plus Susp Liq) 30 ml Q6H PRN PO DYSPEPSIA 08/01/17 18:00 Calcium Gluconate 1 gm/Sodium Chloride 110 ml @ 110 mls/hr UNSCH PRN IV SEE LABEL COMMENTS 08/01/17 18:00 Magnesium Sulfate 2 gm/Sodium Chloride 104 ml @ 100 mls/hr UNSCH PRN IV MAGNESIUM LESS THAN 2 08/01/17 18:00 Clonidine (Catapres) 0.1 mg Q6H PRN PO SYS BP GREATER THAN 170 MMHG 08/01/17 18:00 08/07/17 13:33 Magnesium Hydroxide (Milk Of Magnesia Liq) 30 ml Q12H PRN PO Mild constipation 08/01/17 18:00 Sennosides (Senokot) 17.2 mg Q12H PRN PO Moderate constipation 08/01/17 18:00 Bisacodyl (Dulcolax Supp) 10 mg DAILY PRN RECTAL SEVERE CONSITIPATION 08/01/17 18:00 Lactulose (Lactulose Liq) 30 ml DAILY PRN PO SEVERE CONSITIPATION 08/01/17 18:00 08/07/17 17:38 Propofol 100 ml @ 0 mls/hr TITRATE PRN IV SEDATION 08/01/17 18:00 08/04/17 02:27 Fentanyl Citrate 250 ml @ 5 mls/hr TITRATE PRN IV SEDATION 08/01/17 18:00 08/03/17 08:50 Sodium Chloride 1,000 ml @ 50 mls/hr Q20H IV 08/01/17 23:30 08/07/17 23:15 Miscellaneous Information D/C ICU ELECTROLYTE ORDERS... UNSCH PRN .XX SEE DOSE INSTRUCTIONS 08/02/17 17:00 Miscellaneous Information ICU - CALL ORDERING PHYSIC... UNSCH PRN .XX SEE DOSE INSTRUCTIONS 08/02/17 17:00 Potassium Chloride 100 ml @ 25 mls/hr UNSCH PRN IV ELECTROLYTE REPLACEMENT 08/02/17 17:00 Potassium Bicarb/ Potassium Chloride (K-Lyte Cl Eff) 50 meq UNSCH PRN PO ELECTROLYTE REPLACEMENT 08/02/17 17:00 Potassium Chloride 100 ml @ 50 mls/hr UNSCH PRN IV ELECTROLYTE REPLACEMENT 08/02/17 17:00 08/02/17 20:01 Magnesium Sulfate 4 gm/Sodium Chloride 108 ml @ 54 mls/hr UNSCH PRN IV ELECTROLYTE REPLACEMENT 08/02/17 17:00 Magnesium Sulfate 2 gm/Sodium Chloride 104 ml @ 52 mls/hr UNSCH PRN IV ELECTROLYTE REPLACEMENT 08/02/17 17:00 Magnesium Oxide (Mag-Ox) 800 mg UNSCH PRN PO ELECTROLYTE REPLACEMENT 08/02/17 17:00 Sodium Phosphate 30 mmol/Sodium Chloride 260 ml @ 43.333 mls/ hr UNSCH PRN IV ELECTROLYTE REPLACEMENT 08/02/17 17:00 Potassium Phosphate (K-Phos) 2,000 mg UNSCH PRN PO ELECTROLYTE REPLACEMENT 08/02/17 17:00 Potassium Phosphate 30 mmol/ Sodium Chloride 260 ml @ 43.333 mls/ hr UNSCH PRN IV ELECTROLYTE REPLACEMENT 08/02/17 17:00 08/02/17 17:26 Metoprolol Tartrate (Lopressor) 25 mg Q12HR PO 08/03/17 09:00 08/08/17 08:57 Dextrose (D50w (Vial) Inj) 50 ml UNSCH PRN IV PUSH HYPOGLYCEMIA-SEE COMMENTS 08/06/17 10:45 Glucagon (Glucagon Inj) 1 mg UNSCH PRN OTHER HYPOGLYCEMIA-SEE COMMENTS 08/06/17 10:45 Insulin Aspart (NovoLOG SUPPLEMENTAL SCALE) 1 ACHS SLIDING SCALE SQ 08/06/17 12:00 08/08/17 08:00 Hydralazine HCl (Apresoline) 100 mg Q8H PO 08/07/17 17:00 08/08/17 08:57 Labetalol HCl (Trandate Inj) 20 mg Q1H PRN IV PUSH SYS BP GREATER THAN 170 MMHG 08/07/17 16:00 08/07/17 18:06 Lisinopril (Prinivil) 10 mg BID PO 08/07/17 21:00 08/08/17 08:58 Insulin Detemir (Levemir Inj) 20 units Q12HR SQ 08/08/17 21:00 Lactulose (Lactulose Liq) 30 ml QID PO 08/08/17 13:00 Docusate Sodium (Colace Liq) 100 mg Q12HR PO 08/08/17 10:30 Medical Decision Making MDM Remarks 67 y/o female with large right frontotemporal lobe hemorrhage with likely underlying stroke with significant mass effect and midline shift s/p emergent Right frontotemporoparietal craniotomy for subdural and intracerebral hemorrhage evacuation; decompressive hemicraniectomy with expansive duraplasty on 08/01/17 Plan Plan Remarks cont neuro checks recommend start hyperosmotic tx due to increased swelling from bone flap f/u CT 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
--- NOTE | 2017-08-08 12:49 | PD.CONS ---
HPI History of Present Illness This is a 67 year old female admitted on 08/01/17 with stroke alert , CT of the head showed large right intracranial hemorrhage parietal lobe. She currently is resting in the intensive care setting with ET tube in place, oral gastric tube with Glucerna at 50 cc an hour. Her eyes are closed and she is nonresponsive to verbal stimuli or tactile stimuli. She has IV medications for hypertensive urgency, labs show hemoglobin at 10.1. There is no family present , and according to the record patient has had no improvement in mental status and remains with encephalopathy. There is currently no active vomiting, no obvious bleeding. Gastroenterology has been consult did for PEG tube placement. (Randee Escoto) PFSH Past Medical History According to the record Hypertension Diabetes Past Surgical History Unknown (Randee Escoto) Coded Allergies: No Allergy Information Available (Unverified , 08/01/17) Coma. No family Medications Administered Medications Medications (Trade) Dose Ordered Sig/Carey Route PRN Reason Start Time Stop Time Status Last Admin Dose Admin Acetaminophen (Tylenol) 650 mg Q6H PRN PO PAIN 1-10 AND/OR FEVER >101F 08/01/17 15:15 08/06/17 08:45 Morphine Sulfate (Morphine Inj) 2 mg Q2H PRN IV PUSH PAIN SCALE 6 TO 10 08/01/17 15:15 08/07/17 17:38 Famotidine (Pepcid Inj) 20 mg Q12HR IV PUSH 08/01/17 21:00 08/08/17 09:00 Miscellaneous Information 1 Q361D XX 08/01/17 15:15 08/01/17 15:15 Chlorhexidine Gluconate (Chlorhexidine 2% Cloth) Taper DAILY@04 TOP 08/02/17 04:00 07/29/18 03:59 08/05/17 04:09 Chlorhexidine Gluconate (Peridex 0.12% Liq) 15 ml BID@08,20 MT 08/01/17 20:00 08/08/17 08:00 Hydralazine HCl (Apresoline Inj) 10 mg Q30M PRN IV PUSH SBP > 140 08/01/17 16:15 08/06/17 18:22 Nicardipine HCl 25 mg/Sodium Chloride 250 ml @ 50 mls/hr TITRATE PRN IV Blood pressure management 08/01/17 16:15 08/08/17 03:04 Levetriacetam 500 mg/Sodium Chloride 105 ml @ 420 mls/hr Q12HR IV 08/01/17 21:00 08/08/17 08:56 Sodium Chloride (NS Flush) 2 ml BID IV FLUSH 08/01/17 21:00 08/08/17 09:00 Clonidine (Catapres) 0.1 mg Q6H PRN PO SYS BP GREATER THAN 170 MMHG 08/01/17 18:00 08/07/17 13:33 Lactulose (Lactulose Liq) 30 ml DAILY PRN PO SEVERE CONSITIPATION 08/01/17 18:00 08/07/17 17:38 Propofol 100 ml @ 0 mls/hr TITRATE PRN IV SEDATION 08/01/17 18:00 08/04/17 02:27 Fentanyl Citrate 250 ml @ 5 mls/hr TITRATE PRN IV SEDATION 08/01/17 18:00 08/03/17 08:50 Sodium Chloride 1,000 ml @ 50 mls/hr Q20H IV 08/01/17 23:30 08/07/17 23:15 Potassium Chloride 100 ml @ 50 mls/hr UNSCH PRN IV ELECTROLYTE REPLACEMENT 08/02/17 17:00 08/02/17 20:01 Potassium Phosphate 30 mmol/ Sodium Chloride 260 ml @ 43.333 mls/ hr UNSCH PRN IV ELECTROLYTE REPLACEMENT 08/02/17 17:00 08/02/17 17:26 Metoprolol Tartrate (Lopressor) 25 mg Q12HR PO 08/03/17 09:00 08/08/17 08:57 Insulin Aspart (NovoLOG SUPPLEMENTAL SCALE) 1 ACHS SLIDING SCALE SQ 08/06/17 12:00 08/08/17 08:00 Hydralazine HCl (Apresoline) 100 mg Q8H PO 08/07/17 17:00 08/08/17 08:57 Labetalol HCl (Trandate Inj) 20 mg Q1H PRN IV PUSH SYS BP GREATER THAN 170 MMHG 08/07/17 16:00 08/07/17 18:06 Lisinopril (Prinivil) 10 mg BID PO 08/07/17 21:00 08/08/17 08:58 Family History Unknown Social History Unknown (Randee Escoto) Review of Systems Unable to assess secondary to coma (Randee Escoto) GI Exam Vitals I&O Vital Signs Date Time Temp Pulse Resp B/P (MAP) Pulse Ox O2 Delivery O2 Flow Rate FiO2 08/08/17 11:44 94 30 08/08/17 10:00 97 08/08/17 08:00 99.6 109 26 143/62 (89) 98 08/08/17 08:00 30 08/08/17 08:00 109 08/08/17 07:58 100 30 08/08/17 07:58 30 08/08/17 06:00 98 08/08/17 04:26 93 30 08/08/17 04:00 99.2 95 17 124/61 (82) 93 08/08/17 04:00 30 08/08/17 04:00 95 08/08/17 03:04 90 124/67 08/08/17 02:00 90 08/08/17 01:42 94 30 08/08/17 00:00 79 08/08/17 00:00 97.7 79 14 147/71 (96) 93 08/08/17 00:00 30 08/07/17 23:18 80 08/07/17 23:18 77 173/84 08/07/17 23:18 30 08/07/17 23:18 87 20 150/72 (98) 100 08/07/17 21:47 97 30 08/07/17 19:19 100 30 08/07/17 18:00 87 20 150/72 (98) 100 08/07/17 18:00 80 08/07/17 17:45 19 08/07/17 17:00 78 22 165/73 (103) 100 08/07/17 16:19 100 30 08/07/17 16:00 79 08/07/17 16:00 98.6 83 18 162/92 (115) 100 08/07/17 16:00 30 08/07/17 15:00 76 18 168/68 (101) 100 08/07/17 14:00 76 16 172/74 (106) 100 08/07/17 14:00 76 08/07/17 13:00 96 22 184/84 (117) 100 I/O 3/3/18 308/07/17 08/08/17 08/08/17 08/08/17 07:00 15:00 23:00 07:00 15:00 23:00 Intake Total 800 ml 720 ml 2403 ml Output Total 725 ml 1300 ml 1950 ml Balance 75 ml -580 ml 453 ml Intake IV Total 1647 ml Tube Feeding 500 ml 600 ml 556 ml Tube Irrigant 120 ml Other 300 ml 200 ml Output Urine Total 725 ml 1300 ml 1950 ml Gastric Drainage Total 0 ml 0 ml # Bowel Movements 0 0 0 Imaging Last Impressions Chest X-Ray 08/08/17 0000 Signed Impressions: Service Date/Time: Tuesday, August 08, 2017 10:24 - CONCLUSION: Improvement, support apparatus in good position. Gilbert Gamez MD FACR Head CT 08/02/17 0600 Signed Impressions: Service Date/Time: Wednesday, August 02, 2017 05:17 - CONCLUSION: 1. Postsurgical features of right frontoparietal craniectomy with surgical drain in place. 2. Large right frontoparietal high convexity hemorrhage with subtle extra-axial blood products and minimal intraventricular hemorrhage. 3. 5 mm right to left subfalcine shift without hydrocephalus or transtentorial herniation at this time. Dale Horn MD Laboratory Test 08/08/17 04:35 Blood Urea Nitrogen 20 MG/DL Creatinine 0.52 MG/DL Random Glucose 264 MG/DL Calcium Level 8.8 MG/DL Sodium Level 143 MEQ/L Potassium Level 3.7 MEQ/L Chloride Level 110 MEQ/L Carbon Dioxide Level 24.2 MEQ/L Anion Gap 9 MEQ/L Estimat Glomerular Filtration Rate 117 ML/MIN Physical Examination HEENT:normocephalic; atraumatic; no jaundice. ET tube and oral NG tube in place NECK: Neck is supple CHEST: Chest diminished breath sounds with some rhonchi CARDIAC: Regular rate and rhythm ABDOMEN: Large, round, mild distention, bowel sounds active EXTREMITIES: Generalized edema upper extremities arms and Rt. hand SKIN: Normal; no rash; no jaundice. TECHNOLOGY SPECIALIST: Unresponsive (Randee Escoto) Assessment and Plan Plan Nutritional needs for long-term care, 67-year-old black female admitted with intracranial hemorrhage parietal lobe. Currently remains intubated with oral gastric tube, history of diabetes and hypertension and now respiratory failure. There was no family present but it has been discussed that family will need to agree to PEG tube placement. Plan Consent for EGD with PEG tube placement, Removed tube feedings at midnight and decompress stomach Procedure in the intensive care setting PPI Ancef 2 g IV on-call for procedure Monitor labs On a doctor for any acute signs of bleeding or hemorrhage Patient was seen per myself and Dr. Bello, noted written on his behalf (Randee Escoto) Physician Comments Seen and examined with STORY READER, EGD/PEG tomorrow if consents obtained. Hold TF after midnight. Ancef hospital education coordinator to GI. Thank you (Baudilio Bello MD) Randee Escoto Aug 08, 2017 12:49 Baudilio Bello MD Aug 08, 2017 16:23
[2017-08-08] MEDS: LACTULOSE SYRUP 20 GM/30 ML CUP PO SCH ×3 (12:51→20:45)
[2017-08-08] MEDS: DOCUSATE SODIUM 100 MG/10 ML UDC PO SCH ×2 (12:52→20:45)
[2017-08-08 12:55] LABS: AMORPHOUS SEDIMENT, URINE FEW; BACTERIA, URINE MANY /hpf; BILIRUBIN, URINE NEG (NEG); BLOOD, URINE TRACE (NEG); GLUCOSE,URINE 1000 mg/dL (NEG); KETONE, URINE NEG (NEG); NITRITE,URINE NEG (NEG); SQUAMOUS EPITHELIAL CELL URINE 3 /hpf (0-5); URINE COLOR YELLOW (YELLW/STRAW); URINE LEUKOCYTE ESTERASE LARGE (NEG); WHITE BLOOD CELL CLUMPS RARE
[2017-08-08] MEDS ORDERED: ceFAZolin 2 GM PREMIX 50 ML IV SCH (13:00)
[2017-08-08] MEDS ORDERED: MIDAZOLAM HCL 5 MG/ML VIAL (1 ML) ONE (13:34)
--- NOTE | 2017-08-08 14:00 | PD.PROCEDR ---
Central Line Procedure REASON FOR PROCEDURE Central venous access PROCEDURE PERFORMED Central line placement: US guided RIJ central line CONSENT Informed consent for procedure was obtained and time out performed. The risks and benefits of the procedure were discussed to include but limited to bleeding , clot formation, infection, and even . ANESTHESIA Local injection of 1% Lidocaine DESCRIPTION OF THE PROCEDURE The patient was placed in supine, mild Trendelenburg position. The area was exposed and cleansed with ChloraPrep, times two. Large sterile drape was used to cover the patient, with the site exposed, under sterile conditions including cap, face mask, sterile gown, and sterile gloves. On single attempt, the introducer needle was inserted with negative pressure in syringe and venous flash was obtained. The guide wire was then advanced without any restriction and the needle was removed. The dilator was used without any complications. Using Seldinger technique the 20 CM 7F triple lumen catheter was advanced over the guide wire to a depth of 18 centimeters. The guide wire was removed. All ports were aspirated with dark venous blood return and flushed easily with sterile saline. All ports were capped. Antibiotic disc was placed around central line at puncture site. The central line was secured to the skin with two interrupted 2.0 silk sutures. The area was bandaged with sterile see- through central line bandage. StatLock was not used but sutures were used to secure the central line, due to multiple neck skin folds and diaphoresis RADIOLOGICAL DATA Ultrasound guidance was used to locate RIJ. Doppler/color flow was used to confirm venous flow. COMPLICATIONS: No apparent complications ESTIMATED BLOOD LOSS: Less than 1 cc. Ziyad Taylor MD Aug 08, 2017 14:00
[2017-08-08] MEDS: hydrALAZINE HCL 20 MG/ML VIAL IV PUSH PRN (14:43)
--- NOTE | 2017-08-08 15:04 | RADRPT ---
EXAM DATE/TIME: 08/08/2017 14:11 [facility] COMPARISON: CHEST SINGLE AP, August 08, 2017, 10:24. INDICATIONS : Central line placement. MEDICAL HISTORY : None. SURGICAL HISTORY : None. ENCOUNTER: Initial ACUITY: 1 day PAIN SCORE: Non-responsive. LOCATION: Bilateral chest FINDINGS: Right jugular line is noted and courses toward the midline possibly in the brachiocephalic vein. Endo tracheal tube tip at the inferior margin of the clavicles. Enteric tube coiled in stomach. Lungs are clear. Degenerative changes are noted. I do not see a pneumothorax. CONCLUSION: Right jugular line as above. Stanley Avery MD on August 08, 2017 at 15:02 Board Certified Radiologist. This report was verified electronically.
[2017-08-08] MEDS: cloNIDine HCL 0.3 MG TAB PO SCH ×2 (15:10→21:02)
--- NOTE | 2017-08-08 16:36 | RADRPT ---
EXAM DATE/TIME: 08/08/2017 15:50 [facility] COMPARISON: No previous studies available for comparison. INDICATIONS : Central line repositioning. MEDICAL HISTORY : None. SURGICAL HISTORY : None. ENCOUNTER: Initial ACUITY: 1 day PAIN SCORE: Non-responsive. LOCATION: Bilateral chest FINDINGS: Endotracheal tube in satisfactory position. Enteric tube coiled in the stomach. Right jugular line ti p overlies the SVC. No obvious pneumothorax. CONCLUSION: Right jugular line placement as above. Stanley Avery MD on August 08, 2017 at 16:34 Board Certified Radiologist. This report was verified electronically.
[2017-08-08] MEDS: 3% SALINE INJ 500 ML IV SCH (17:30)
[2017-08-08] MEDS: SODIUM CHLOR 0.9% 1000 ML INJ 1,000 ML IV SCH (19:28)
[2017-08-09] VITALS (19 sets, daily range): BP systolic 92–158; BP diastolic 42–68; PULSE 84–101; RESP 15–23; TEMP 99.6–101.7; O2SAT 93–100
[2017-08-09] MEDS: hydrALAZINE HCL 50 MG TAB PO SCH ×3 (00:29→17:00)
[2017-08-09] MEDS: CHLORHEXIDINE GLUCONATE 2 % 1 PACK (2 CLOTHS) TOP SCH (04:00)
--- NOTE | 2017-08-09 05:26 | RADRPT ---
EXAM DATE/TIME: 08/09/2017 04:21 [facility] COMPARISON: CT BRAIN W/O CONTRAST, August 02, 2017, 5:17. INDICATIONS : Follow up hemorrhage. RADIATION DOSE: 69.15 CTDIvol (mGy) MEDICAL HISTORY : None SURGICAL HISTORY : Craniotomy. ENCOUNTER: Subsequent ACUITY: 1 week PAIN SCALE: Non-responsive LOCATION: cranial TECHNIQUE: Multiple contiguous axial images were obtained of the head. Using automated exposure control and adj ustment of the mA and/or kV according to patient size, radiation dose was kept as low as reasonably a chievable to obtain optimal diagnostic quality images. DICOM format image data is available electro nically for review and comparison. FINDINGS: There has been right frontoparietal craniectomy. Overlying skin hema are in place. The surgical dr ain has been removed. There is extra-axial fluid at the craniectomy site that is new since the prior study. The very low density material in the right frontal high convexity region may represent anticoa gulant material placed during surgery. There are persistent acute blood products in the right frontop arietal high convexity with surrounding vasogenic edema. The amount of blood products is stable. The right to left midline shift has decreased to 2 mm compared to 5 mm previously. There is slight hernia tion of brain tissue into the craniectomy defect. Acute appearing blood products remain present withi n the left occipital horn. Ventricles are normal in size. There is no downward herniation. Posterior fossa demonstrates no abnormality. CONCLUSION: 1. The acute intra-axial blood products in the right frontal lobe with surrounding vasogenic edema ar e stable. 2. There is decreased right to left midline shift, currently measuring up to 2 mm compared to 5 mm pr eviously. This is likely related to the increased herniation of brain tissue through the craniectomy defect. 3. Interval removal of the surgical drain with a small crescentic low density extra-axial fluid colle ction. 4. Stable acute blood products within the left occipital horn. Brandon Díaz MD on August 09, 2017 at 5:17 Board Certified Radiologist. This report was verified electronically.
[2017-08-09] MEDS: cloNIDine HCL 0.3 MG TAB PO SCH ×3 (05:39→21:51)
[2017-08-09] MEDS: CHLORHEXIDINE 0.12% (ORAL KIT) 15 ML CUP MT SCH ×2 (07:26→22:07)
[2017-08-09] MEDS: INSULIN ASPART SUPPLEMENTAL SCALE SQ SCH ×4 (07:26→20:47)
[2017-08-09] MEDS: INSULIN DETEMIR 100 UNITS/ML VIAL SQ SCH (07:27)
[2017-08-09] MEDS: levETIRAcetam INJ 500 MG in SODIUM CHLORIDE 0.9% INJ 100 ML IV SCH ×2 (09:00→21:00)
[2017-08-09] MEDS: FAMOTIDINE 20 MG/2 ML VIAL IV PUSH SCH ×2 (09:00→21:52)
[2017-08-09] MEDS: SODIUM CHLORIDE 0.9% FLUSH 10 ML FLUSH IV FLUSH SCH ×2 (09:00→21:53)
[2017-08-09] MEDS: LACTULOSE SYRUP 20 GM/30 ML CUP PO SCH ×4 (09:00→21:52)
[2017-08-09] MEDS: LISINOPRIL 10 MG TAB PO SCH (09:00)
[2017-08-09] MEDS: DOCUSATE SODIUM 100 MG/10 ML UDC PO SCH ×2 (09:00→21:52)
--- NOTE | 2017-08-09 09:18 | HHI.CCPN ---
Subjective Remarks/Hospital Course 67 y/o woman presented to [facility] as stroke alert. Right side headache and left side weakness starting around 10:00 a.m. Glucose 122. INR 1.0 , Sinus rhythm. No history of anticoagulants. Does have history of hypertension and Type 2 diabetes. BP 244/146. Required intubation shortly after arrival. CT Head with large right hemisphere ICH parietal lobe and 1.5 cm shift away from bleed. Plts 296,000, Creat 0.59, Hct 40. 08/02: CT with much improved shift. Gas exchange acceptable. 08/03: Persistent hypertension requiring nicardipine. Will start oral scheduled BP meds. Glucose elevated. NG output minimal. 08/04: Transitioned to oral meds with good BP control. Heavily sedated, now tapering. No spontaneous ventilation but high fixed rate. Repeat head CT with markedly reduced shift. 08/05: Currently remains on fentanyl for sedation. Withdraws all extremities to pain, stronger right though. No spontaneous eye opening or spontaneous movements noted. 08/06: Weaning sedation but no purposeful movement. Worsening glucose intolerance. Increase levemir and go to high SSI. 08/07: Glucose intolerance persists. Increase levemir coverage. No improvement in neurological condition. 08/08: Patient remains encephalopathy no improvement in mental status. Blood glucose control remains inadequate increase Levemir to 20 every 12. Unable to wean to extubate will need tracheostomy if family wishes to proceed. Plan for tomorrow, will also consult GI for PEG tube placement 08/09: Encephalopathy appears to be worsening, no spontaneous eye opening weakly withdraws to pain left more than right. UA shows evidence of UTI patient is spiking fever up to 101.7 increasing leukocytosis. Start Zosyn. UA shows evidence of infection. CT of the head shows stable bleed and vasogenic edema. 3% saline started yesterday for presumed edema. Right IJ central line was also placed Objective Vital Signs Date Time Temp Pulse Resp B/P (MAP) Pulse Ox O2 Delivery O2 Flow Rate FiO2 08/09/17 08:00 89 08/09/17 08:00 101.7 23 140/62 (88) 95 08/09/17 08:00 30 Intake and Output 08/09/17 08/09/17 08/10/17 08:00 16:00 00:00 Intake Total 932 ml Output Total 350 ml Balance 582 ml Result Diagram: 08/06/17 0430 08/09/17 0630 Objective Remarks Gen: Unresponsive. Off al sedation Head: Atraumatic. Neck: Supple, orally intubated. OG in place. Lungs: Clear, no wheezes or crackles. Good bilateral air entry. Heart: NL S1S2, RRR, No JVD Abdomen: Soft, large, no guarding. BS few. Nondistended. Extremities: Warm, well perfused. Neuro: Unresponsive. Not on any sedation. Pupils reactive. Weakly withdraws to pain R>L. No eye opening. Urinary Catheter: Yes Assessment to: Continue A/P Assessment and Plan Assessment: Hemorrhagic stroke, right fronto/parietal region. Persistent encephalopathy/Coma Fever sepsis UTI Respiratory Failure Hyperglycemia Leukocytosis Diabetes, type 2. Hypertensive urgency. Plan: Neuro - Keep Serum osmolality > 310 - Continue 3% saline keep sodium between 150-155 - CT of the head today shows stable acute right frontal hemorrhage and vasogenic edema, decreased midline shift - HOB up. adjust EtCO2 to maintain 35 - 40 blood range - s/p Right frontotemporoparietal craniotomy for subdural and intracerebral hemorrhage evacuation; decompressive hemicraniectomy Respiratory - PRVC vent mode. EtCO2 monitor, maintain low normal range. DuoNeb every 6 hours as needed - Daily CPAP trials unable to wean, patient lacks airway protection - Plan tracheostomy if family agreeable. Palliative care consulted to address goals of care - Check sputum culture Cardiovascular - Cardene to maintain SBP < 140. - Lisinopril 20 mg q12, Lopressor 25 bid-increase to 50 every 8 hours - Hydralazine 100 mg tid. Clonidine 0.3 mg 3 times daily - Use as needed IV labetalol and hydralazine for SBP more than 150 GI - Tube feeds Glucerna 1.5, reduced due to lipids in propofol. - Last BM reported on 08/09 - s/p mag citrate x1 08/09. Scheduled lactulose 30 ml QID. Colace - Gaffney. - Strict intake output ID - Acevedo Culture for worsening leukocytosis. - Start empiric Zosyn today. UA shows evidence of UTI Endocrinology - SSI, high algorithm - Levemir 20 u bid Heme - CBC a.m. Prophylaxis - Chemical contraindicated, until cleared by neurosurgery, address trach and PEG - SCDs - Pepcid Overall impression: Patient presented critically ill with deteriorating neurological function due to acute hemorrhage right hemisphere. She was transferred emergently from [facility] for definitive neurosurgical treatment and underwent emergency decompression of the right side to save what is hopefully her dominant left hemisphere. Remains neurologically unstable and critically ill. Family is aware of her critical condition. There had been no improvement in her mental status patient admitted remains comatose, on vent day 9. Plan to proceed with tracheostomy tomorrow if family agreeable. 08/09: Patient is critically ill again with worsening encephalopathy now with high fever and sepsis. Probable source UTI. Empiric Zosyn started. Family in disagreement regarding trach and PEG. Palliative care consulted. Unable to wean to extubate due to severe encephalopathy Ziyad Taylor MD Aug 09, 2017 09:18
[2017-08-09] MEDS: PIPERACIL-TAZO 4.5 GM PREMIX 100 ML IV SCH ×2 (09:38→21:51)
[2017-08-09 10:02] LABS: AUTOMATED NEUTROPHIL # 12.1 TH/MM3 (1.8-7.7); BASOPHIL % 0.3 % (0.0-2.0); EOSINOPHIL # 0.2 TH/MM3 (0-0.4); EOSINOPHIL % 1.5 % (0.0-4.0); HEMATOCRIT 25.1 % (35.0-46.0); HEMOGLOBIN 8.4 GM/DL (11.6-15.3); LYMPH % 8.6 % (9.0-44.0); LYMPHOCYTE # 1.3 TH/MM3 (1.0-4.8); MEAN CELL VOLUME 83.9 FL (80.0-100.0); MEAN CORPUSCULAR HGB CONC 33.4 % (32.0-36.0); MEAN PLATELET VOLUME 8.6 FL (7.0-11.0); MONO % 7.1 % (0.0-8.0); NEUT % 82.5 % (16.0-70.0); PLATELET COUNT 344 TH/MM3 (150-450); RED BLOOD COUNT 2.99 MIL/MM3 (4.00-5.30); RED CELL DISTRIBUTION WIDTH 13.8 % (11.6-17.2); WHITE BLOOD COUNT 14.6 TH/MM3 (4.0-11.0)
[2017-08-09] MEDS: 3% SALINE INJ 500 ML IV SCH (13:37)
[2017-08-09] MEDS: METOPROLOL TARTRATE 25 MG TAB PO SCH ×2 (14:00→21:52)
--- NOTE | 2017-08-09 14:46 | PD.CONS ---
Consult Service Palliative Care . Consult Requested By Dr. Taylor . Primary Care Physician Unknown . Reason for Consultation a. To assist with evaluation and management of symptoms including: pain, encephalopathy, dyspnea. b. To assist medical decision maker(s) with: better understanding of current medical conditions; weighing benefits/burdens of medical treatment options; making medical treatment decisions. . HPI History of Present Illness Ms. Alexander is a 67-year-old female with hypertension and diabetes who presented to [facility] on 08/01/17 for evaluation of acute onset headaches and left-sided weakness that progressed to obtundation with emergent intubation. Upon arrival to the ED the patient was hypertensive with a BP of 244/146. CT scan of the head revealed a large frontal parietal lobe hemorrhage with a 15 mm midline shift. Patient was transferred to [facility] for further management and neurosurgery consult. Upon arrival, the patient was taken emergently for right frontotemporoparietal craniotomy for subdural and intracerebral hemorrhage evacuation with decompressive hemicraniectomy. Initial blood work with WBC elevated at 17.7, glucose 220, GFR 66, INR 1.1. Sinus tachycardia. Follow-up CT head on 08/02/2017 showed midline shift decreased from 15mm to 5mm. Left hemiparesis noted when sedation is held. Having persistent hypertension, requiring Cardene. Unable to wean patient off mechanical vent.; will need tracheostomy if goals remain aggressive. Patient lacks airway protection. Patient has made little to no neurological improvement. Encephalopathy appears to be worse. Febrile with t-max of 101.7 Urinalysis showing signs of infection; increasing leukocytosis with WBC 16.4 today. Urine culture growing gram-negative rods. Blood and sputum cultures pending. Patient started on empiric antibiotics - Zosyn. CT head showing stable right frontal hemorrhage bleed and vasogenic edema. Patient started on 3% saline yesterday (08/08/17). Palliative Care was consulted to assist with symptom management and to discuss with the family the benefits and burdens of her current illnesses and the options regarding future care. . Function/Cognitive Trajectory Patient was living with her son in [place] prior to her most recent medical episode on 08/01/2017. . Review of Systems ROS Limitations: Clinical Condition, Intoxication, Intubated, Altered Mental Status Constitutional: COMPLAINS OF: Fever (T-max: 101.7 axillary) Neurologic: COMPLAINS OF: Localized weakness (Left-sided hemiparesis reported) Past Family Social History Coded Allergies: No Allergy Information Available (Unverified , 08/01/17) Coma. No family Past Medical History Hypertension Diabetes . Past Surgical History Pending further conversations with the patient's family. . Reported Medications None known . Current Medications Medications (Trade) Dose Ordered Sig/Carey Route Start Time Stop Time Status Last Admin (Tylenol) 650 mg Q6H PRN PO 08/01/17 15:15 08/06/17 08:45 (Morphine Inj) 2 mg Q2H PRN IV PUSH 08/01/17 15:15 08/07/17 17:38 (Pepcid Inj) 20 mg Q12HR IV PUSH 08/01/17 21:00 08/09/17 09:00 (Zofran Inj) 4 mg Q6H PRN IV PUSH 08/01/17 15:15 (Duoneb Neb) 1 ampule Q4HR NEB PRN INH 08/01/17 15:15 Miscellaneous Information 1 Q361D XX 08/01/17 15:15 08/01/17 15:15 (Chlorhexidine 2% Cloth) Taper DAILY@04 TOP 08/02/17 04:00 07/29/18 03:59 08/05/17 04:09 (Chlorhexidine 2% Cloth) 3 pack UNSCH PRN TOP 08/01/17 15:15 (Peridex 0.12% Liq) 15 ml BID@08,20 MT 08/01/17 20:00 08/09/17 07:26 Levetriacetam 500 mg/Sodium Chloride 105 ml @ 420 mls/hr Q12HR IV 08/01/17 21:00 08/09/17 09:00 (NS Flush) 2 ml UNSCH PRN IV FLUSH 08/01/17 18:00 (NS Flush) 2 ml BID IV FLUSH 08/01/17 21:00 08/09/17 09:00 (Ativan Inj) 1 mg Q1H PRN IV PUSH 08/01/17 18:00 (Mag-Al Plus Susp Liq) 30 ml Q6H PRN PO 08/01/17 18:00 Calcium Gluconate 1 gm/Sodium Chloride 110 ml @ 110 mls/hr UNSCH PRN IV 08/01/17 18:00 Magnesium Sulfate 2 gm/Sodium Chloride 104 ml @ 100 mls/hr UNSCH PRN IV 08/01/17 18:00 (Catapres) 0.1 mg Q6H PRN PO 08/01/17 18:00 08/07/17 13:33 (Milk Of Magnesia Liq) 30 ml Q12H PRN PO 08/01/17 18:00 (Senokot) 17.2 mg Q12H PRN PO 08/01/17 18:00 (Dulcolax Supp) 10 mg DAILY PRN RECTAL 08/01/17 18:00 (Lactulose Liq) 30 ml DAILY PRN PO 08/01/17 18:00 08/07/17 17:38 Miscellaneous Information D/C ICU ELECTROLYTE ORDERS... UNSCH PRN .XX 08/02/17 17:00 Miscellaneous Information ICU - CALL ORDERING PHYSIC... UNSCH PRN .XX 08/02/17 17:00 Potassium Chloride 100 ml @ 25 mls/hr UNSCH PRN IV 08/02/17 17:00 (K-Lyte Cl Eff) 50 meq UNSCH PRN PO 08/02/17 17:00 Potassium Chloride 100 ml @ 50 mls/hr UNSCH PRN IV 08/02/17 17:00 08/02/17 20:01 Magnesium Sulfate 4 gm/Sodium Chloride 108 ml @ 54 mls/hr UNSCH PRN IV 08/02/17 17:00 Magnesium Sulfate 2 gm/Sodium Chloride 104 ml @ 52 mls/hr UNSCH PRN IV 08/02/17 17:00 (Mag-Ox) 800 mg UNSCH PRN PO 08/02/17 17:00 Sodium Phosphate 30 mmol/Sodium Chloride 260 ml @ 43.333 mls/ hr UNSCH PRN IV 08/02/17 17:00 (K-Phos) 2,000 mg UNSCH PRN PO 08/02/17 17:00 Potassium Phosphate 30 mmol/ Sodium Chloride 260 ml @ 43.333 mls/ hr UNSCH PRN IV 08/02/17 17:00 08/02/17 17:26 (D50w (Vial) Inj) 50 ml UNSCH PRN IV PUSH 08/06/17 10:45 (Glucagon Inj) 1 mg UNSCH PRN OTHER 08/06/17 10:45 (NovoLOG SUPPLEMENTAL SCALE) 1 ACHS SLIDING SCALE SQ 08/06/17 12:00 08/09/17 07:26 (Apresoline) 100 mg Q8H PO 08/07/17 17:00 08/09/17 08:27 (Trandate Inj) 20 mg Q1H PRN IV PUSH 08/07/17 16:00 08/07/17 18:06 (Lactulose Liq) 30 ml QID PO 08/08/17 13:00 08/08/17 20:45 (Colace Liq) 100 mg Q12HR PO 08/08/17 10:30 08/08/17 20:45 Sodium Chloride 500 ml @ 20 mls/hr CONTINUOUS IV 08/08/17 13:30 08/13/17 13:29 08/09/17 13:37 (Catapres) 0.3 mg Q8HR PO 08/08/17 15:00 08/08/17 21:02 (Prinivil) 20 mg BID PO 08/08/17 21:00 08/08/17 20:44 (Lopressor) 50 mg Q8HR PO 08/09/17 14:00 Piperacillin Sod/ Tazobactam Sod 100 ml @ 200 mls/hr Q6H IV 08/09/17 10:00 08/09/17 09:38 (Apresoline Inj) 20 mg Q2H PRN IV PUSH 08/09/17 09:30 (Levemir Inj) 23 units Q12HR SQ 08/09/17 21:00 UNV . Family History Pending further conversations patient's family. . Substance Use Tobacco: None known Alcohol: None known Prescription med abuse: None known Illicits: None known . Psychosocial History Patient is originally from [place] but spent most of her life living in [place]. She moved back to [place] approximately 20 years ago. She has 4 adult children (Arron, Lamont, Hany and Manuel). Arron and Lamont both live in [place]. Hany lives in [place]. Manuel is incarcerated in [place]. Patient was living with her son, Lamont, prior to this hospitalization. . Spiritual/Cultural Factors Sikh sundar . Documented care wishes: No known documented care wishes have been completed . Today's verbally stated goals: Patient is critically ill, intubated on mechanical ventilation. Unable to participate in establishment of medical treatment goals. Family/friends goals: Palliative care was able to speak to 2 of the patient's 4 children. Arron and Lamont are verbalizing aggressive goals. A message was left for patient's son, Hany, on his voicemail. Patient's son, Manuel, is allegedly incarcerated in [place]. Will provide family with contact information for son, Manuel. . Ethical and Legal Issues No known ethical or legal issues. . Physical Exam Vital Signs Date Time Temp Pulse Resp B/P (MAP) Pulse Ox O2 Delivery O2 Flow Rate FiO2 08/09/17 14:00 101 08/09/17 12:00 100.8 88 23 141/65 (90) 94 08/09/17 12:00 30 08/09/17 12:00 88 08/09/17 11:33 95 30 08/09/17 10:00 93 08/09/17 08:00 89 08/09/17 08:00 101.7 88 23 140/62 (88) 95 08/09/17 08:00 30 08/09/17 07:33 95 30 08/09/17 07:33 30 08/09/17 06:00 93 08/09/17 04:34 100 30 08/09/17 04:12 100 100 08/09/17 04:00 93 08/09/17 04:00 30 08/09/17 04:00 100.4 93 15 92/42 (59) 95 08/09/17 02:00 84 08/09/17 00:16 93 30 08/09/17 00:00 99.6 96 18 99/48 (65) 96 08/09/17 00:00 30 08/09/17 00:00 96 08/08/17 22:47 96 105/47 08/08/17 22:00 97 08/08/17 20:00 112 08/08/17 20:00 101.0 116 18 140/64 (89) 95 08/08/17 20:00 30 08/08/17 19:31 97 30 08/08/17 18:30 101 137/62 08/08/17 18:00 101 08/08/17 16:00 30 08/08/17 16:00 98.3 107 18 151/69 (96) 96 08/08/17 16:00 92 08/08/17 16:00 101 152/61 . Exam CONSTITUTIONAL/GENERAL: This is an adequately nourished patient, elderly female patient in no apparent distress TUBES/LINES/DRAINS: Left IJ central line, PIV, OGT, ETT SKIN: No jaundice, rashes, or lesions. Status post craniotomy skin temperature appropriate. Not diaphoretic. HEAD: Atraumatic. Normocephalic. EYES: Pupils equal and round and minimally reactive. No scleral icterus. No injection or drainage. Fundi not examined. ENT: Unable to assess hearing given current clinical condition. Nose without bleeding or purulent drainage. NECK: Trachea midline. CARDIOVASCULAR: Regular rate and rhythm without murmurs, gallops, or rubs. No JVD. Peripheral pulses symmetric. RESPIRATORY/CHEST: Intubated on mechanical ventilator. Clear to auscultation. Breath sounds equal bilaterally. No wheezes, rales, or rhonchi. GASTROINTESTINAL: Abdomen soft, non-tender, nondistended. Hypoactive bowel sounds present. GENITOURINARY: Without palpable bladder distension. Gaffney catheter in place. MUSCULOSKELETAL: Extremities without clubbing, cyanosis, or edema. LYMPHATICS: No palpable cervical or supraclavicular adenopathy. NEUROLOGICAL: Unresponsive off sedation. Not withdrawing to noxious stimuli on exam. PSYCHIATRIC: Unable to assess given current clinical condition . Diagnostic Tests Laboratory Laboratory Tests Test 08/08/17 04:35 08/08/17 12:00 08/08/17 21:22 08/09/17 06:30 Blood Urea Nitrogen 20 MG/DL (7-18) Creatinine 0.52 MG/DL (0.50-1.00) Random Glucose 264 MG/DL (74-106) Calcium Level 8.8 MG/DL (8.5-10.1) Sodium Level 143 MEQ/L (136-145) 145 MEQ/L (136-145) 146 MEQ/L (136-145) Potassium Level 3.7 MEQ/L (3.5-5.1) Chloride Level 110 MEQ/L (98-107) Carbon Dioxide Level 24.2 MEQ/L (21.0-32.0) Anion Gap 9 MEQ/L (5-15) Estimat Glomerular Filtration Rate 117 ML/MIN (>89) Urine Color YELLOW (YELLW/STRAW) Urine Turbidity CLOUDY (CLEAR) Urine pH 5.0 (5.0-8.5) Urine Specific [place] 1.015 (1.002-1.035) Urine Protein TRACE mg/dL (NEG-TRACE) Urine Glucose (UA) 1000 mg/dL (NEG) Urine Ketones NEG mg/dL (NEG) Urine Occult Blood TRACE (NEG) Urine Nitrite NEG (NEG) Urine Bilirubin NEG (NEG) Urine Urobilinogen 2.0 MG/DL (LESS THAN Urine Leukocyte Esterase LARGE (NEG) Urine RBC 4 /hpf (0-3) Urine WBC 13 /hpf (0-5) Urine WBC Clumps RARE (NONE) Urine Squamous Epithelial Cells 3 /hpf (0-5) Urine Amorphous Sediment FEW Urine Bacteria MANY /hpf (NONE) Microscopic Urinalysis Comment CATH-CULTURE IND Test 08/09/17 09:15 White Blood Count 14.6 TH/MM3 (4.0-11.0) Red Blood Count 2.99 MIL/MM3 (4.00-5.30) Hemoglobin 8.4 GM/DL (11.6-15.3) Hematocrit 25.1 % (35.0-46.0) Mean Corpuscular Volume 83.9 FL (80.0-100.0) Mean Corpuscular Hemoglobin 28.0 PG (27.0-34.0) Mean Corpuscular Hemoglobin Concent 33.4 % (32.0-36.0) Red Cell Distribution Width 13.8 % (11.6-17.2) Platelet Count 344 TH/MM3 (150-450) Mean Platelet Volume 8.6 FL (7.0-11.0) Neutrophils (%) (Auto) 82.5 % (16.0-70.0) Lymphocytes (%) (Auto) 8.6 % (9.0-44.0) Monocytes (%) (Auto) 7.1 % (0.0-8.0) Eosinophils (%) (Auto) 1.5 % (0.0-4.0) Basophils (%) (Auto) 0.3 % (0.0-2.0) Neutrophils # (Auto) 12.1 TH/MM3 (1.8-7.7) Lymphocytes # (Auto) 1.3 TH/MM3 (1.0-4.8) Monocytes # (Auto) 1.0 TH/MM3 (0-0.9) Eosinophils # (Auto) 0.2 TH/MM3 (0-0.4) Basophils # (Auto) 0.0 TH/MM3 (0-0.2) CBC Comment DIFF FINAL Differential Comment . Result Diagram: 08/09/17 0915 08/09/17 0630 Microbiology Microbiology Date/Time Source Procedure Growth Status 08/08/17 21:22 Blood Peripheral Aerobic Blood Culture - Preliminary NO GROWTH IN 1 DAY Resulted 08/08/17 21:22 Blood Peripheral Anaerobic Blood Culture - Preliminary NO GROWTH IN 1 DAY Resulted 08/08/17 14:00 Blood Peripheral Aerobic Blood Culture - Preliminary NO GROWTH IN 1 DAY Resulted 08/08/17 14:00 Blood Peripheral Anaerobic Blood Culture - Preliminary NO GROWTH IN 1 DAY Resulted 08/08/17 12:00 Sputum Endotracheal Gram Stain - Final Resulted 08/08/17 12:00 Sputum Endotracheal Sputum Culture Pending Resulted 08/08/17 12:00 Urine Catheterized Urine Urine Culture - Preliminary Gram Negative Jr Resulted . Imaging Last [address] 08/09/17 0800 Signed Impressions: Service Date/Time: Wednesday, August 09, 2017 04:21 - CONCLUSION: 1. The acute intra-axial blood products in the right frontal lobe with surrounding vasogenic edema are stable. 2. There is decreased right to left midline shift, currently measuring up to 2 mm compared to 5 mm previously. This is likely related to the increased herniation of brain tissue through the craniectomy defect. 3. Interval removal of the surgical drain with a small crescentic low density extra-axial fluid collection. 4. Stable acute blood products within the left occipital horn. Brandon Díaz MD Chest X-Ray 08/08/17 0000 Signed Impressions: Service Date/Time: Tuesday, August 08, 2017 15:50 - CONCLUSION: Right jugular line placement as above. Stanley Avery MD Chest X-Ray 08/08/17 0000 Signed Impressions: Service Date/Time: Tuesday, August 08, 2017 14:11 - CONCLUSION: Right jugular line as above. Stanley Avery MD Chest X-Ray 08/08/17 0000 Signed Impressions: Service Date/Time: Tuesday, August 08, 2017 10:24 - CONCLUSION: Improvement, support apparatus in good position. Gilbert Gamez MD FACR . Procedures 08/01/2017: Intubation 08/01/2017: OGT 08/01/2017: Craniotomy 08/03/2017: REYNA drain removed 08/08/2017: Right IJ central line placement . Patient/Family Conference Present at Family Conference: Spoke to children, Arron and Mervin Leavitt, via telephone. . Issues Discussed: * Palliative care role, purpose, approach * Additional medical, psychosocial, and spiritual history * Patients general health, functional status, and cognitive changes in the months leading up to the current hospitalization * Patient/family understanding of the current medical problems * Patient/family understanding of prognosis * Patients goals of care as best understood from advance directives and/or conversations and/or values * Current medical treatment options and benefits/burdens of those options * Likely scenarios comparing ongoing aggressive care with a transition to comfort measures only * Questions answered to the best of my ability * Palliative care contact information provided . Assessment and Plan Disease Oriented Problem List: (1) Hemorrhagic stroke (2) Sepsis (3) UTI (urinary tract infection) (4) Respiratory failure (5) Leukocytosis (6) Diabetes (7) Hypertensive urgency Symptom Scale: (1) Pain (2) Dyspnea (3) Encephalopathy Pertinent Non-Medical Issues Psychosocial: Patient is originally from [place] but spent most of her life living in [place]. She moved back to [place] approximately 20 years ago. She has 4 adult children (Arron, Lamont, Hany and Manuel). Arron and Lamont both live in [place]. Hany lives in [place]. Manuel is incarcerated in [place]. Patient was living with her son, Lamont, prior to this hospitalization. Spiritual: Sikh sundar Legal: Per [place] statutes, in the absence of written advanced directives healthcare proxy decision making falls to the patient's 4 adult children. Ethical issues impacting care: . Important Contacts Arron Benjamin dtr: [phone] or [phone] Lamont Alexander, son: [phone] or [phone] Hany Alexander, son: [phone] Manuel Alexander, son: Phone number unknown at this time. . Prognosis Patient is a 67-year-old female who suffered an acute right frontal hemorrhage status post craniotomy for subdural and intracerebral hemorrhage evacuation; decompressive hemicraniectomy. Patient is persistently encephalopathic off sedation 5 days; now with sepsis. Patient remains critically ill with no neurological improvement on mechanical ventilation 9 days. She is at high risk for ongoing decline and setback. . Code Status: Full Code Plan * FULL CODE * No written advanced directives. In absence of advanced directives, per [place] Statutes, medical proxy decision making falls to the majority of adult children who are readily available. * Palliative care spoke with daughter, Arron. She provided information for another sibling, Manuel Alexander, [birth year] 1971. Requested accurint report. Later informed by patient's son Lamont who reports Manuel is currently incarcerated in [place], [place]. Google search confirmed incarceration, appears to be incarcerated at the [facility] , [address] [place] [address], #[phone]. Message left for his son, Hany, on [employer]. Awaiting return phone call. * AGGRESSIVE GOALS * Discussed patient with Dr. Taylor and outside nurse (Kori) * Will likely proceed with tracheostomy and PEG tube placement in the upcoming days. * Palliative care contact information provided to the patient's family. * Palliative care will continue to follow this patient throughout her hospitalization to establish stress, assist with symptom management and clarification of medical treatment goals. . Thank you for the opportunity to participate in the care of Ms. Alexander. . Collaborating MD Comments To help prompt me to consider important information that might be impacting today's encounter and assessment, information from prior notes written by myself or my colleagues may have been "brought forward" into today's note. My signature on this note, however, is an attestation that I personally performed the exam, history, and/or decision-making noted today, and, unless otherwise indicated, the interactions with patient, family, and staff as well as the review of records all occurred today. I also attest that the listed assessment and stated plan reflect my best clinical judgment today based on the combination of historical information, prior notes, and today's exam/ interactions. When time spent is documented, it refers only to time spent today by the signer, or if indicated, combined time spent today by collaborating physician/nurse practitioner. . Latosha Musa Aug 09, 2017 14:46
--- NOTE | 2017-08-09 16:35 | HHI.HCSW ---
Small Arms Repairer Visit Significant Family/Friend Palliative care spoke with daughter, Arron. She provided information for another sibling, Manuel Nix Wilfredo Alexander, MORENO November 13, 1973. Requested accurint report. Later informed by patient's son Lamont who reports Manuel is currently incarcerated in [place], [place]. Google search confirmed incarceration, appears to be incarcerated at the [facility] , [address] [place] [address], #[phone]. Palliative care EVA Musa spoke with family regarding goals of care. See consultation note for details. Goals at this time are aggressive (spoke with 2/4 children- Lamont and Arron, left message for son Hany. Will provide care home information to family to contact Manuel if they wish. . Advance Directive No written advanced directives. In absence of advanced directives, per [place] Statutes, medical proxy decision making falls to the majority of adult children who are readily available. . Follow Up Visit Palliative care will continue to follow throughout hospitalization. Mary Moody, BITUMINOUS PAVING MACHINE OPERATOR Aug 09, 2017 16:35
--- NOTE | 2017-08-09 23:26 | HHI.NSPN ---
History Chief Complaint: Sedated and Intubated. ICH. Interval History 67-year-old female status post right craniotomy for intracranial hemorrhage. Exam Results Vital Signs Date Time Temp Pulse Resp B/P (MAP) Pulse Ox O2 Delivery O2 Flow Rate FiO2 08/09/17 20:00 30 08/09/17 18:00 97 08/09/17 16:00 100.5 20 124/60 (81) 94 Arterial Line Intake and Output 08/09/17 08/09/17 08/10/17 08:00 16:00 00:00 Intake Total 932 ml 1020 ml Output Total 350 ml 450 ml Balance 582 ml 1020 ml -450 ml Physical Examination General: Pt off sedative drips and intubated in ICU with stable vitals currently. Eyes: Pupils 3 mm equal. Sclera anicteric. Resp: CTA bilaterally. Heart: NSR no murmurs Abd: Soft positive bs but diminished. Skin. Incision clean and dry without signs of infection. Neuro: Pupils equal 3mm bilaterally with slight reaction bilaterally. Moderate eye-opening spontaneously. Mild withdrawal upper extremities with slight internal rotation lower extremities to deep pain. Not following commands Positive corneal reflex bilaterally Right craniectomy site is mildly tense. Lab, Micro, Other Results 08/09/2017 CT scan head images reviewed. There continues to be quite a bit of right hemisphere edema, although midline shift is now decreased to approximately 2 mm. Significant displacement of tissue through the craniotomy site. Head CT 08/09/17 0800 Signed Impressions: Service Date/Time: Wednesday, August 09, 2017 04:21 - CONCLUSION: 1. The acute intra-axial blood products in the right frontal lobe with surrounding vasogenic edema are stable. 2. There is decreased right to left midline shift, currently measuring up to 2 mm compared to 5 mm previously. This is likely related to the increased herniation of brain tissue through the craniectomy defect. 3. Interval removal of the surgical drain with a small crescentic low density extra-axial fluid collection. 4. Stable acute blood products within the left occipital horn. Brandon Díaz MD Laboratory Tests Test 08/09/17 06:30 08/09/17 09:15 08/09/17 13:55 Sodium Level 146 MEQ/L 148 MEQ/L White Blood Count 14.6 TH/MM3 Red Blood Count 2.99 MIL/MM3 Hemoglobin 8.4 GM/DL Hematocrit 25.1 % Mean Corpuscular Volume 83.9 FL Mean Corpuscular Hemoglobin 28.0 PG Mean Corpuscular Hemoglobin Concent 33.4 % Red Cell Distribution Width 13.8 % Platelet Count 344 TH/MM3 Mean Platelet Volume 8.6 FL Neutrophils (%) (Auto) 82.5 % Lymphocytes (%) (Auto) 8.6 % Monocytes (%) (Auto) 7.1 % Eosinophils (%) (Auto) 1.5 % Basophils (%) (Auto) 0.3 % Neutrophils # (Auto) 12.1 TH/MM3 Lymphocytes # (Auto) 1.3 TH/MM3 Monocytes # (Auto) 1.0 TH/MM3 Eosinophils # (Auto) 0.2 TH/MM3 Basophils # (Auto) 0.0 TH/MM3 CBC Comment DIFF FINAL Differential Comment Medical Decision Making Impression and Plan Impression: 1. Stable neurologic exam following right craniotomy for intracranial hemorrhage. There continues to be quite a bit of edema in the right hemisphere, although midline shift is diminished with the compressive craniotomy. Plan: Continuing ventilator support. Monitor sodium Okay for DVT prophylaxis with Lovenox from neurosurgery standpoint Prognosis appears somewhat poor for good recovery given the imaging findings and neurologic exam. Marc De MD Aug 09, 2017 23:25
[2017-08-10] VITALS (16 sets, daily range): BP systolic 108–151; BP diastolic 58–75; PULSE 69–96; RESP 15–20; TEMP 98.6–100.3; O2SAT 95–100
[2017-08-10] MEDS: hydrALAZINE HCL 50 MG TAB PO SCH ×3 (01:00→17:19)
[2017-08-10] MEDS: PIPERACIL-TAZO 4.5 GM PREMIX 100 ML IV SCH ×4 (03:34→21:17)
[2017-08-10] MEDS: CHLORHEXIDINE GLUCONATE 2 % 1 PACK (2 CLOTHS) TOP SCH (04:00)
[2017-08-10] MEDS: cloNIDine HCL 0.3 MG TAB PO SCH ×3 (06:00→21:22)
[2017-08-10] MEDS: INSULIN ASPART SUPPLEMENTAL SCALE SQ SCH ×4 (08:00→21:00)
[2017-08-10] MEDS: CHLORHEXIDINE 0.12% (ORAL KIT) 15 ML CUP MT SCH ×2 (08:00→21:15)
[2017-08-10] MEDS: SODIUM CHLORIDE 0.9% FLUSH 10 ML FLUSH IV FLUSH SCH (08:53)
[2017-08-10] MEDS: FAMOTIDINE 20 MG/2 ML VIAL IV PUSH SCH ×2 (08:53→21:21)
[2017-08-10] MEDS: DOCUSATE SODIUM 100 MG/10 ML UDC PO SCH ×2 (08:54→21:16)
[2017-08-10] MEDS: levETIRAcetam INJ 500 MG in SODIUM CHLORIDE 0.9% INJ 100 ML IV SCH ×2 (08:54→21:16)
[2017-08-10] MEDS: LACTULOSE SYRUP 20 GM/30 ML CUP PO SCH ×4 (08:54→21:16)
[2017-08-10] MEDS: INSULIN DETEMIR 100 UNITS/ML VIAL SQ SCH ×2 (08:55→21:16)
[2017-08-10] MEDS: LISINOPRIL 10 MG TAB PO SCH ×2 (09:00→21:17)
--- NOTE | 2017-08-10 11:55 | HHI.GIFU ---
Subjective Remarks Pt resting in bed. FAmily meeting with palliative care, still no consensus on proceeding with PEG. Need majority vote and only 2 of 4 kids located. (Elvie Herrera) Objective Vitals I&O Vital Signs Date Time Temp Pulse Resp B/P (MAP) Pulse Ox O2 Delivery O2 Flow Rate FiO2 08/10/17 10:00 96 08/10/17 09:31 30 08/10/17 09:09 100 30 08/10/17 08:00 100.3 89 15 151/75 (100) 100 08/10/17 08:00 30 08/10/17 08:00 90 08/10/17 06:00 90 08/10/17 04:00 90 08/10/17 04:00 100.3 90 20 128/60 (82) 96 08/10/17 04:00 30 08/10/17 02:00 84 08/10/17 01:18 97 30 08/10/17 00:00 30 08/10/17 00:00 96 08/10/17 00:00 99.9 86 20 120/58 (78) 96 08/09/17 22:00 100 08/09/17 20:19 96 30 08/09/17 20:00 100.7 100 20 158/68 (98) 98 08/09/17 20:00 100 08/09/17 20:00 30 08/09/17 18:00 97 08/09/17 16:00 30 08/09/17 16:00 91 08/09/17 16:00 100.5 91 20 124/60 (81) 94 Arterial Line 08/09/17 15:17 96 30 08/09/17 14:00 101 08/09/17 12:00 100.8 88 23 141/65 (90) 94 08/09/17 12:00 30 08/09/17 12:00 88 I/O 08/09/17 08/09/17 08/09/17 08/10/17 08/10/17 08/10/17 06:59 14:59 22:59 06:59 14:59 22:59 Intake Total 932 ml 1020 ml 200 ml Output Total 350 ml 450 ml 600 ml Balance 582 ml 1020 ml -250 ml -600 ml Intake IV Total 576 ml 1020 ml 200 ml Tube Feeding 236 ml Other 120 ml Output Urine Total 350 ml 450 ml 600 ml # Bowel Movements 1 0 Laboratory Laboratory Tests Test 08/09/17 13:55 08/10/17 05:30 Sodium Level 148 151 Date/Time Source Procedure Growth Status 08/08/17 21:22 Blood Peripheral Aerobic Blood Culture - Preliminary NO GROWTH IN 2 DAYS Resulted 08/08/17 21:22 Blood Peripheral Anaerobic Blood Culture - Preliminary NO GROWTH IN 2 DAYS Resulted 08/08/17 12:00 Sputum Endotracheal Gram Stain - Final Complete 08/08/17 12:00 Sputum Culture - Final Klebsiella Pneumoniae Complete 08/08/17 12:00 Urine Catheterized Urine Urine Culture - Final Klebsiella Pneumoniae Complete Imaging Last Impressions Head CT 08/09/17 0800 Signed Impressions: Service Date/Time: Wednesday, August 09, 2017 04:21 - CONCLUSION: 1. The acute intra-axial blood products in the right frontal lobe with surrounding vasogenic edema are stable. 2. There is decreased right to left midline shift, currently measuring up to 2 mm compared to 5 mm previously. This is likely related to the increased herniation of brain tissue through the craniectomy defect. 3. Interval removal of the surgical drain with a small crescentic low density extra-axial fluid collection. 4. Stable acute blood products within the left occipital horn. Brandon Díaz MD Chest X-Ray 08/08/17 0000 Signed Impressions: Service Date/Time: Tuesday, August 08, 2017 15:50 - CONCLUSION: Right jugular line placement as above. Stanley Avery MD Physical Exam HEENT: normocephalic; atraumatic; no jaundice. CHEST: coarse CARDIAC: Regular rate and rhythm with no murmur gallop or rubs. ABDOMEN: Soft, nondistended, nontender; no hepatosplenomegaly; bowel sounds are present in all four quadrants. EXTREMITIES: No clubbing, cyanosis, + general edema. SKIN: Normal; no rash; no jaundice. CONSUMER EXPERIENCE CONSULTANT: relatively unresponsive (Elvie Herrera SUPERVISOR PLASTICS) Assessment and Plan Plan Nutritional needs for long-term care, 67-year-old black female admitted with intracranial hemorrhage parietal lobe. Currently remains intubated with oral gastric tube, history of diabetes and hypertension and now respiratory failure. There was no family present but it has been discussed that family will need to agree to PEG tube placement. 08/10/17 no consensus reached yet, 2 of 4 kids located and need majority vote. Pt has been of sedation for 6 days, relatively unpresponsive. Plan - restart TF - EGD and PEG tube placement if family agrees - Monitor labs - GI will sign off, please reconsult when consent obtained for PEG Patient was seen per myself and Dr. Gar and this note written on his behalf (Elvie Herrera) Physician Comments As above, family decision pending, please notify us if needed. (Young Gar MD) Elvie Herrera Aug 10, 2017 11:55 Young Gar MD Aug 10, 2017 12:15
--- NOTE | 2017-08-10 12:42 | HHI.HCSW ---
Tag Meter Operator Visit Significant Family/Friend Requested accurint for son Manuel Alexander, November 13, 1973. Results: Address: [facility] [address], [place] [address] Phone Number:~ [phone] *attempted to call, went to voicemail Previously reported Manuel is incarcerated. Contacted [facility]: [facility], [address] [place] [id number], #[phone]. Awaiting for call back/answer regarding 's decision for Manuel to be permitted to participate in medical proxy decision making. 200pm received call back from Misa Winters from [facility] (#[phone]). EVA Musa able to speak with son Manuel. See palliative care progress note for further information. . Advance Directive No written advanced directives. In absence of advanced directives, per [place] Statutes, medical proxy decision making falls to the majority of adult children who are readily available. . Follow Up Visit Palliative care will continue to follow throughout hospitalization. Mary Moody, INSTRUMENT REPAIRER HELPER Aug 10, 2017 12:42
--- NOTE | 2017-08-10 13:35 | HHI.NSPN ---
(Whitney Gudino) Note Status Status: Progress Note (Whitney Gudino) Interval History Interval History A 67-year-old -Fij[place] female who was transferred from [facility] in [place] after she presented to the emergency room with acute onset of headaches and left-sided weakness and basically progressed to obtundation and comatose state. She became unresponsive and required intubation. She was hypertensive on initial presentation and a CT scan of the head obtained reveals a large right frontal parietal lobe hemorrhage with likely underlying stroke measuring 8.6 cm x 6.0 cm in dimension with a 15 mm right to left midline shift. She was transferred [facility] for further management and neurosurgery consult. There is no family member available to relate any history and attempts to contact her brother whose phone number next of kin is listed in the records from [facility] with two phone numbers went directly to voice mail and a message was left for him to call us back. 08/02/17: Pt sedated on Fentanyl and Diprivan. When held for exam she does not open her eyes or follow commands. She has slight withdrawal in LEs. Pupils are 3mm bilaterally with slight reaction bilaterally. 08/03/17: Pt sedated on Fentanyl and Diprivan drips. She doesn't open eyes. Pupils equal. Left hemiparesis when sedation held. 08/04/17: Pt sedated on low dose Fentanyl. Diprivan on hold. Pt not opening eyes. Intubated. Not following commands. No reaction to pain. 08/05/17: Pt sedated on low dose Fentanyl drip. Opens eyes slightly to deep pain. Not following commands. 08/06/17: Pt off sedation. Not opening eyes for me although did briefly for RN to deep pain. She does not follow commands. 08/07: opening eyes, not following commands. intubated and mildly sedated. 08/08: intubated, very minimal response in feet. right craniectomy site appears much more dewitt and tighter to palpate today. 08/10: intubated, opening eyes but not following commands. (Whitney Gudino) Labs, Micro, & Vital Signs Results Date Time Temp Pulse Resp B/P (MAP) Pulse Ox O2 Delivery O2 Flow Rate FiO2 08/10/17 12:00 100.1 80 18 136/62 (86) 96 08/10/17 12:00 80 08/10/17 12:00 30 08/10/17 10:00 96 08/10/17 09:31 30 08/10/17 09:09 100 30 08/10/17 08:00 100.3 89 15 151/75 (100) 100 08/10/17 08:00 30 08/10/17 08:00 90 08/10/17 06:00 90 08/10/17 04:00 90 08/10/17 04:00 100.3 90 20 128/60 (82) 96 08/10/17 04:00 30 08/10/17 02:00 84 08/10/17 01:18 97 30 08/10/17 00:00 30 08/10/17 00:00 96 08/10/17 00:00 99.9 86 20 120/58 (78) 96 08/09/17 22:00 100 08/09/17 20:19 96 30 08/09/17 20:00 100.7 100 20 158/68 (98) 98 08/09/17 20:00 100 08/09/17 20:00 30 08/09/17 18:00 97 08/09/17 16:00 30 08/09/17 16:00 91 08/09/17 16:00 100.5 91 20 124/60 (81) 94 Arterial Line 08/09/17 15:17 96 30 08/09/17 14:00 101 Constitutional Vital Signs Date Time Temp Pulse Resp B/P (MAP) Pulse Ox O2 Delivery O2 Flow Rate FiO2 08/10/17 12:00 100.1 80 18 136/62 (86) 96 08/10/17 12:00 80 08/10/17 12:00 30 08/10/17 10:00 96 08/10/17 09:31 30 08/10/17 09:09 100 30 08/10/17 08:00 100.3 89 15 151/75 (100) 100 08/10/17 08:00 30 08/10/17 08:00 90 08/10/17 06:00 90 08/10/17 04:00 90 08/10/17 04:00 100.3 90 20 128/60 (82) 96 08/10/17 04:00 30 08/10/17 02:00 84 08/10/17 01:18 97 30 08/10/17 00:00 30 08/10/17 00:00 96 08/10/17 00:00 99.9 86 20 120/58 (78) 96 08/09/17 22:00 100 08/09/17 20:19 96 30 08/09/17 20:00 100.7 100 20 158/68 (98) 98 08/09/17 20:00 100 08/09/17 20:00 30 08/09/17 18:00 97 08/09/17 16:00 30 08/09/17 16:00 91 08/09/17 16:00 100.5 91 20 124/60 (81) 94 Arterial Line 08/09/17 15:17 96 30 08/09/17 14:00 101 (Whitney Gudino) Review of Systems ROS Limitations: Intubated (Whitney Gudino) Physical Exam General: intubated without sedative drips Eyes: Pupils 3 mm equal. Sclera anicteric. Resp: CTA bilaterally. Heart: NSR no murmurs Abd: Soft positive bs but diminished. Skin. Incision clean and dry without signs of infection. Muscle: Not following for muscle testing. mild extensor right upper, left flaccid, very minimal withdraws Neuro: Pupils equal 3mm bilaterally with slight reaction bilaterally. Mildly opening eyes to pain. Not following commands. Positive corneal reflex bilaterally Right craniectomy site appears full, tense but improved from 3/4 exam (Whitney Gudino) Medications Current Medications Current Medications Medications (Trade) Dose Ordered Sig/Carey Route PRN Reason Start Time Stop Time Status Last Admin Dose Admin Acetaminophen (Tylenol) 650 mg Q6H PRN PO PAIN 1-10 AND/OR FEVER >101F 08/01/17 15:15 08/06/17 08:45 Morphine Sulfate (Morphine Inj) 2 mg Q2H PRN IV PUSH PAIN SCALE 6 TO 10 08/01/17 15:15 08/07/17 17:38 Famotidine (Pepcid Inj) 20 mg Q12HR IV PUSH 08/01/17 21:00 3/6/18 08:53 Ondansetron HCl (Zofran Inj) 4 mg Q6H PRN IV PUSH NAUSEA OR VOMITING 08/01/17 15:15 Albuterol/ Ipratropium (Duoneb Neb) 1 ampule Q4HR NEB PRN INH WHEEZING 08/01/17 15:15 Miscellaneous Information 1 Q361D XX 08/01/17 15:15 08/01/17 15:15 Chlorhexidine Gluconate (Chlorhexidine 2% Cloth) Taper DAILY@04 TOP 08/02/17 04:00 07/29/18 03:59 08/05/17 04:09 Chlorhexidine Gluconate (Chlorhexidine 2% Cloth) 3 pack UNSCH PRN TOP HYGIENIC CARE 08/01/17 15:15 Chlorhexidine Gluconate (Peridex 0.12% Liq) 15 ml BID@08,20 MT 08/01/17 20:00 08/10/17 08:00 Levetriacetam 500 mg/Sodium Chloride 105 ml @ 420 mls/hr Q12HR IV 08/01/17 21:00 08/10/17 08:54 Sodium Chloride (NS Flush) 2 ml UNSCH PRN IV FLUSH FLUSH AFTER USING IV ACCESS 08/01/17 18:00 Sodium Chloride (NS Flush) 2 ml BID IV FLUSH 08/01/17 21:00 08/10/17 08:53 Lorazepam (Ativan Inj) 1 mg Q1H PRN IV PUSH SEIZURES 08/01/17 18:00 Al Hydrox/Mg Hydrox/Simethicone (Mag-Al Plus Susp Liq) 30 ml Q6H PRN PO DYSPEPSIA 08/01/17 18:00 Calcium Gluconate 1 gm/Sodium Chloride 110 ml @ 110 mls/hr UNSCH PRN IV SEE LABEL COMMENTS 08/01/17 18:00 Magnesium Sulfate 2 gm/Sodium Chloride 104 ml @ 100 mls/hr UNSCH PRN IV MAGNESIUM LESS THAN 2 08/01/17 18:00 Clonidine (Catapres) 0.1 mg Q6H PRN PO SYS BP GREATER THAN 170 MMHG 08/01/17 18:00 08/07/17 13:33 Magnesium Hydroxide (Milk Of Magnesia Liq) 30 ml Q12H PRN PO Mild constipation 08/01/17 18:00 Sennosides (Senokot) 17.2 mg Q12H PRN PO Moderate constipation 08/01/17 18:00 Bisacodyl (Dulcolax Supp) 10 mg DAILY PRN RECTAL SEVERE CONSITIPATION 08/01/17 18:00 Lactulose (Lactulose Liq) 30 ml DAILY PRN PO SEVERE CONSITIPATION 08/01/17 18:00 08/07/17 17:38 Miscellaneous Information D/C ICU ELECTROLYTE ORDERS... UNSCH PRN .XX SEE DOSE INSTRUCTIONS 08/02/17 17:00 Miscellaneous Information ICU - CALL ORDERING PHYSIC... UNSCH PRN .XX SEE DOSE INSTRUCTIONS 08/02/17 17:00 Potassium Chloride 100 ml @ 25 mls/hr UNSCH PRN IV ELECTROLYTE REPLACEMENT 08/02/17 17:00 Potassium Bicarb/ Potassium Chloride (K-Lyte Cl Eff) 50 meq UNSCH PRN PO ELECTROLYTE REPLACEMENT 08/02/17 17:00 Potassium Chloride 100 ml @ 50 mls/hr UNSCH PRN IV ELECTROLYTE REPLACEMENT 08/02/17 17:00 08/02/17 20:01 Magnesium Sulfate 4 gm/Sodium Chloride 108 ml @ 54 mls/hr UNSCH PRN IV ELECTROLYTE REPLACEMENT 08/02/17 17:00 Magnesium Sulfate 2 gm/Sodium Chloride 104 ml @ 52 mls/hr UNSCH PRN IV ELECTROLYTE REPLACEMENT 08/02/17 17:00 Magnesium Oxide (Mag-Ox) 800 mg UNSCH PRN PO ELECTROLYTE REPLACEMENT 08/02/17 17:00 Sodium Phosphate 30 mmol/Sodium Chloride 260 ml @ 43.333 mls/ hr UNSCH PRN IV ELECTROLYTE REPLACEMENT 08/02/17 17:00 Potassium Phosphate (K-Phos) 2,000 mg UNSCH PRN PO ELECTROLYTE REPLACEMENT 08/02/17 17:00 Potassium Phosphate 30 mmol/ Sodium Chloride 260 ml @ 43.333 mls/ hr UNSCH PRN IV ELECTROLYTE REPLACEMENT 08/02/17 17:00 08/02/17 17:26 Dextrose (D50w (Vial) Inj) 50 ml UNSCH PRN IV PUSH HYPOGLYCEMIA-SEE COMMENTS 08/06/17 10:45 Glucagon (Glucagon Inj) 1 mg UNSCH PRN OTHER HYPOGLYCEMIA-SEE COMMENTS 08/06/17 10:45 Insulin Aspart (NovoLOG SUPPLEMENTAL SCALE) 1 ACHS SLIDING SCALE SQ 08/06/17 12:00 08/09/17 07:26 Hydralazine HCl (Apresoline) 100 mg Q8H PO 08/07/17 17:00 08/10/17 08:52 Labetalol HCl (Trandate Inj) 20 mg Q1H PRN IV PUSH SYS BP GREATER THAN 160 MMHG 08/07/17 16:00 08/07/17 18:06 Lactulose (Lactulose Liq) 30 ml QID PO 08/08/17 13:00 08/10/17 08:54 Docusate Sodium (Colace Liq) 100 mg Q12HR PO 08/08/17 10:30 08/10/17 08:54 Sodium Chloride 500 ml @ 20 mls/hr CONTINUOUS IV 08/08/17 13:30 08/13/17 13:29 08/09/17 13:37 Clonidine (Catapres) 0.3 mg Q8HR PO 08/08/17 15:00 08/09/17 21:51 Lisinopril (Prinivil) 20 mg BID PO 08/08/17 21:00 08/08/17 20:44 Metoprolol Tartrate (Lopressor) 50 mg Q8HR PO 08/09/17 14:00 08/09/17 21:52 Piperacillin Sod/ Tazobactam Sod 100 ml @ 200 mls/hr Q6H IV 08/09/17 10:00 08/10/17 08:55 Hydralazine HCl (Apresoline Inj) 20 mg Q2H PRN IV PUSH SBP > 150 08/09/17 09:30 Insulin Detemir (Levemir Inj) 23 units Q12HR SQ 08/09/17 21:00 (Whitney Gudino) Medical Decision Making MDM Remarks 67 y/o female with large right frontotemporal lobe hemorrhage with likely underlying stroke with significant mass effect and midline shift s/p emergent Right frontotemporoparietal craniotomy for subdural and intracerebral hemorrhage evacuation; decompressive hemicraniectomy with expansive duraplasty on 08/01/17 f/u CT Brain 08/09/17: stable intra-axial blood products in the right frontal lobe with surrounding vasogenic edema, decreased right to left midline shift, currently measuring up to 2 mm compared to 5 mm previously, stable blood products within the left occipital horn. (Whitney Gudino) Plan Plan Remarks cont neuro checks cont hyperosmotic tx with 3%NS, f/u examination ok for trach and PEG (Whitney Gudino) Attending Statement The exam, history, and the medical decision-making described in the above note were completed with the assistance of the mid-level provider. I reviewed and agree with the findings presented. I attest that I had a [id number] encounter with the patient on the same day, and personally performed and documented my assessment and findings in the medical record. (Jadiel Garcia MD) Whitney Gudino Aug 10, 2017 13:35 Jadiel Garcia MD Aug 13, 2017 20:34
--- NOTE | 2017-08-10 13:42 | HHI.CCPN ---
Subjective Remarks/Hospital Course 67 y/o woman presented to [facility] as stroke alert. Right side headache and left side weakness starting around 10:00 a.m. Glucose 122. INR 1.0 , Sinus rhythm. No history of anticoagulants. Does have history of hypertension and Type 2 diabetes. BP 244/146. Required intubation shortly after arrival. CT Head with large right hemisphere ICH parietal lobe and 1.5 cm shift away from bleed. Plts 296,000, Creat 0.59, Hct 40. 08/02: CT with much improved shift. Gas exchange acceptable. 08/03: Persistent hypertension requiring nicardipine. Will start oral scheduled BP meds. Glucose elevated. NG output minimal. 08/04: Transitioned to oral meds with good BP control. Heavily sedated, now tapering. No spontaneous ventilation but high fixed rate. Repeat head CT with markedly reduced shift. 08/05: Currently remains on fentanyl for sedation. Withdraws all extremities to pain, stronger right though. No spontaneous eye opening or spontaneous movements noted. 08/06: Weaning sedation but no purposeful movement. Worsening glucose intolerance. Increase levemir and go to high SSI. 08/07: Glucose intolerance persists. Increase levemir coverage. No improvement in neurological condition. 08/08: Patient remains encephalopathy no improvement in mental status. Blood glucose control remains inadequate increase Levemir to 20 every 12. Unable to wean to extubate will need tracheostomy if family wishes to proceed. Plan for tomorrow, will also consult GI for PEG tube placement 08/09: Encephalopathy appears to be worsening, no spontaneous eye opening weakly withdraws to pain left more than right. UA shows evidence of UTI patient is spiking fever up to 101.7 increasing leukocytosis. Start Zosyn. UA shows evidence of infection. CT of the head shows stable bleed and vasogenic edema. 3% saline started yesterday for presumed edema. Right IJ central line was also placed 08/10: Neuro exam remains unchanged. Disagreement among adult children whether to proceed with trach and PEG. Palliative care is following. Sputum culture and urine culture growing Klebsiella pansensitive. Will narrow antibiotics in 1 -2 days. Objective Vital Signs Date Time Temp Pulse Resp B/P (MAP) Pulse Ox O2 Delivery O2 Flow Rate FiO2 08/10/17 12:00 100.1 80 18 136/62 (86) 96 08/10/17 12:00 30 Intake and Output 3/6/18 3/6/18 3/7/18 08:00 16:00 00:00 Output Total 600 ml Balance -600 ml Result Diagram: 08/09/17 0915 08/10/17 0530 Other Results Microbiology Date/Time Source Procedure Growth Status 08/08/17 12:00 Sputum Endotracheal Gram Stain - Final Complete 08/08/17 12:00 Sputum Culture - Final Klebsiella Pneumoniae Complete 08/08/17 12:00 Urine Catheterized Urine Urine Culture - Final Klebsiella Pneumoniae Complete Objective Remarks Gen: Unresponsive. Off al sedation Head: Atraumatic. Pupils 3 mm equal sluggish Neck: Supple, orally intubated. OG in place. Lungs: Clear, no wheezes or crackles. Good bilateral air entry. Heart: NL S1S2, RRR, No JVD Abdomen: Soft, large, no guarding. BS few. Nondistended. Extremities: Warm, well perfused. Neuro: Unresponsive. Not on any sedation. Pupils reactive. Eye-opening spontaneously, only partial. Mild withdrawal upper extremities with slight internal rotation lower extremities to deep pain. No purposeful movements noted A/P Assessment and Plan Assessment: Hemorrhagic stroke, right fronto/parietal region. Persistent encephalopathy Fever sepsis UTI Pneumonia with Klebsiella Acute respiratory Failure Hyperglycemia Leukocytosis Diabetes, type 2. Hypertensive urgency. Plan: Neuro - Keep Serum osmolality > 310 - Continue 3% saline keep sodium between 150-155 - CT of the head today shows stable acute right frontal hemorrhage and vasogenic edema, decreased midline shift - HOB up. adjust EtCO2 to maintain 35 - 40 blood range - s/p Right frontotemporoparietal craniotomy for subdural and intracerebral hemorrhage evacuation; decompressive hemicraniectomy - Overall prognosis is poor but Dr. De. Palliative care is following Respiratory - PRVC vent mode. EtCO2 monitor, maintain low normal range. DuoNeb every 6 hours as needed - Daily CPAP trials unable to wean, patient lacks airway protection. Will need trach if family wants to continue aggressive care - Palliative care consulted to address goals of care - Sputum culture growing Klebsiella, continue Zosyn Cardiovascular - Cardene to maintain SBP < 150. currently weaned off for 2 days - Lisinopril 20 mg q12, Lopressor 50 every 8 hours - Hydralazine 100 mg tid. Clonidine 0.3 mg 3 times daily - Use as needed IV labetalol and hydralazine for SBP more than 150 GI - Tube feeds Glucerna 1.5 - Last BM reported on 08/09 - s/p mag citrate x1 08/09. Scheduled lactulose 30 ml QID. Colace - Gaffney. - Strict intake output ID - Acevedo Culture for worsening leukocytosis. - Sputum and urine culture growing Klebsiella. Continue Zosyn Endocrinology - SSI, high algorithm - Levemir 23 u bid, now with improved blood sugar control Heme - CBC a.m. Prophylaxis - Chemical contraindicated, until cleared by neurosurgery, address trach and PEG - SCDs - Pepcid Overall impression: Patient presented critically ill with deteriorating neurological function due to acute hemorrhage right hemisphere. She was transferred emergently from [facility] for definitive neurosurgical treatment and underwent emergency decompression of the right side to save what is hopefully her dominant left hemisphere. Remains neurologically unstable and critically ill. Family is aware of her critical condition. There had been no improvement in her mental status patient admitted remains comatose, on vent day 9. Plan to proceed with tracheostomy tomorrow if family agreeable. 08/09: Patient is critically ill again with worsening encephalopathy now with high fever and sepsis. Probable source UTI. Empiric Zosyn started. Family in disagreement regarding trach and PEG. Palliative care consulted. Unable to wean to extubate due to severe encephalopathy Ziyad Taylor MD Aug 10, 2017 13:42
--- NOTE | 2017-08-10 14:31 | HHI.HCPN ---
Reason for visit a. To assist with evaluation and management of symptoms including: pain, encephalopathy, dyspnea. b. To assist medical decision maker(s) with: better understanding of current medical conditions; weighing benefits/burdens of medical treatment options; making medical treatment decisions. . Subjective/Interval History Ms. Alexander is a 67-year-old female with hypertension and diabetes who presented to [facility] on 08/01/17 for evaluation of acute onset headaches and left-sided weakness that progressed to obtundation with emergent intubation. Upon arrival to the ED the patient was hypertensive with a BP of 244/146. CT scan of the head revealed a large frontal parietal lobe hemorrhage with a 15 mm midline shift. Patient was transferred to [facility] for further management and neurosurgery consult. Upon arrival, the patient was taken emergently for right frontotemporoparietal craniotomy for subdural and intracerebral hemorrhage evacuation with decompressive hemicraniectomy. Follow up visit for symptom management and clarification of medical treatment goals. Patient seen and intensive care unit, room 1322. Patient's son ( Lamont) and friend (Christiana) were at bedside. Patient has been off sedation for 6 days with no significant improvement in neurological status. Patient opens eyes but does not track. Nursing reports patient withdrawals slightly to noxious stimuli, having abnormal extension in right upper extremities. Follow-up CT head on 08/09/2017 showing significant edema in the right hemisphere, however midline shift has decreased from 5 mm to 2 mm. There is significant displacement of tissue through the craniotomy site. Remains on 3% saline. Na:151 Febrile. T-max over the past 24 hours: 100.8 axillary. Urine culture and sputum culture growing Klebsiella pneumoniae. Blood cultures remain negative to date. WBC: 14.6. Receiving Zosyn. GI was consulted for possible PEG tube placement. Palliative Care was consulted to assist with symptom management and to discuss with the family the benefits and burdens of her current illnesses and the options regarding future care. At this time it appears that all 4 children want to participate in medical decision making. Daughter (Arron) verbalizes aggressive goals stating she has seen her mother respond during her visits at the hospital. Son (Lamont) is now uncertain what to do; he knows his mother would not want to be kept alive artificially, but he is not ready to lose her. Friend (Christiana) reports she had had multiple conversations with the patient on this topic and she knows the patient would not want ongoing aggressive interventions. Clinical update provided to son (Hany), who is on parole in [place], [place]. Awaiting return phone call from Fercho) to determine if he will be permitted to come to the hospital to see his mother before making any decisions. Received a return phone call from [facility] office (Misa Winters) and was able to speak with Manuel who also wants to anticipate in medical decision making. . Advance Directives Advance Directive Specifics Documented care wishes: No known documented care wishes have been completed . Objective Vital Signs Date Time Temp Pulse Resp B/P (MAP) Pulse Ox O2 Delivery O2 Flow Rate FiO2 08/10/17 12:00 100.1 80 18 136/62 (86) 96 08/10/17 12:00 80 08/10/17 12:00 30 08/10/17 10:00 96 08/10/17 09:31 30 08/10/17 09:09 100 30 08/10/17 08:00 100.3 89 15 151/75 (100) 100 08/10/17 08:00 30 08/10/17 08:00 90 08/10/17 06:00 90 08/10/17 04:00 90 08/10/17 04:00 100.3 90 20 128/60 (82) 96 08/10/17 04:00 30 08/10/17 02:00 84 08/10/17 01:18 97 30 08/10/17 00:00 30 08/10/17 00:00 96 08/10/17 00:00 99.9 86 20 120/58 (78) 96 08/09/17 22:00 100 08/09/17 20:19 96 30 08/09/17 20:00 100.7 100 20 158/68 (98) 98 08/09/17 20:00 100 08/09/17 20:00 30 08/09/17 18:00 97 08/09/17 16:00 30 08/09/17 16:00 91 08/09/17 16:00 100.5 91 20 124/60 (81) 94 Arterial Line 08/09/17 15:17 96 30 08/09/17 14:00 101 Intake & Output 08/10/17 08/10/17 07:00 19:00 Intake Total 200 ml Output Total 600 ml Balance -400 ml Intake IV Total 200 ml Output Urine Total 600 ml . Physical Exam CONSTITUTIONAL/GENERAL: This is an adequately nourished patient, elderly female patient in no apparent distress TUBES/LINES/DRAINS: Left IJ central line, PIV, OGT, ETT SKIN: No jaundice, rashes, or lesions. Status post craniotomy skin temperature appropriate. Not diaphoretic. HEAD: Atraumatic. Normocephalic. EYES: Pupils equal and round and minimally reactive. No scleral icterus. No injection or drainage. Fundi not examined. ENT: Unable to assess hearing given current clinical condition. Nose without bleeding or purulent drainage. NECK: Trachea midline. CARDIOVASCULAR: Regular rate and rhythm without murmurs, gallops, or rubs. No JVD. Peripheral pulses symmetric. RESPIRATORY/CHEST: Intubated on mechanical ventilator. Clear to auscultation. Breath sounds equal bilaterally. No wheezes, rales, or rhonchi. GASTROINTESTINAL: Abdomen soft, non-tender, nondistended. Hypoactive bowel sounds present. GENITOURINARY: Without palpable bladder distension. Gaffney catheter in place. MUSCULOSKELETAL: Extremities without clubbing, cyanosis, or edema. LYMPHATICS: No palpable cervical or supraclavicular adenopathy. NEUROLOGICAL: Mild withdrawal upper extremities with slight internal rotation lower extremities to deep pain. PSYCHIATRIC: Unable to assess given current clinical condition . Diagnostic Tests Laboratory Laboratory Tests Test 08/08/17 04:35 08/08/17 12:00 08/08/17 21:22 08/09/17 06:30 Blood Urea Nitrogen 20 MG/DL (7-18) Creatinine 0.52 MG/DL (0.50-1.00) Random Glucose 264 MG/DL (74-106) Calcium Level 8.8 MG/DL (8.5-10.1) Sodium Level 143 MEQ/L (136-145) 145 MEQ/L (136-145) 146 MEQ/L (136-145) Potassium Level 3.7 MEQ/L (3.5-5.1) Chloride Level 110 MEQ/L (98-107) Carbon Dioxide Level 24.2 MEQ/L (21.0-32.0) Anion Gap 9 MEQ/L (5-15) Estimat Glomerular Filtration Rate 117 ML/MIN (>89) Urine Color YELLOW (YELLW/STRAW) Urine Turbidity CLOUDY (CLEAR) Urine pH 5.0 (5.0-8.5) Urine Specific [place] 1.015 (1.002-1.035) Urine Protein TRACE mg/dL (NEG-TRACE) Urine Glucose (UA) 1000 mg/dL (NEG) Urine Ketones NEG mg/dL (NEG) Urine Occult Blood TRACE (NEG) Urine Nitrite NEG (NEG) Urine Bilirubin NEG (NEG) Urine Urobilinogen 2.0 MG/DL (LESS THAN Urine Leukocyte Esterase LARGE (NEG) Urine RBC 4 /hpf (0-3) Urine WBC 13 /hpf (0-5) Urine WBC Clumps RARE (NONE) Urine Squamous Epithelial Cells 3 /hpf (0-5) Urine Amorphous Sediment FEW Urine Bacteria MANY /hpf (NONE) Microscopic Urinalysis Comment CATH-CULTURE IND Test 08/09/17 09:15 08/09/17 13:55 08/10/17 05:30 White Blood Count 14.6 TH/MM3 (4.0-11.0) Red Blood Count 2.99 MIL/MM3 (4.00-5.30) Hemoglobin 8.4 GM/DL (11.6-15.3) Hematocrit 25.1 % (35.0-46.0) Mean Corpuscular Volume 83.9 FL (80.0-100.0) Mean Corpuscular Hemoglobin 28.0 PG (27.0-34.0) Mean Corpuscular Hemoglobin Concent 33.4 % (32.0-36.0) Red Cell Distribution Width 13.8 % (11.6-17.2) Platelet Count 344 TH/MM3 (150-450) Mean Platelet Volume 8.6 FL (7.0-11.0) Neutrophils (%) (Auto) 82.5 % (16.0-70.0) Lymphocytes (%) (Auto) 8.6 % (9.0-44.0) Monocytes (%) (Auto) 7.1 % (0.0-8.0) Eosinophils (%) (Auto) 1.5 % (0.0-4.0) Basophils (%) (Auto) 0.3 % (0.0-2.0) Neutrophils # (Auto) 12.1 TH/MM3 (1.8-7.7) Lymphocytes # (Auto) 1.3 TH/MM3 (1.0-4.8) Monocytes # (Auto) 1.0 TH/MM3 (0-0.9) Eosinophils # (Auto) 0.2 TH/MM3 (0-0.4) Basophils # (Auto) 0.0 TH/MM3 (0-0.2) CBC Comment DIFF FINAL Differential Comment Sodium Level 148 MEQ/L (136-145) 151 MEQ/L (136-145) . Result Diagram: 08/09/17 0915 08/10/17 0530 Microbiology Microbiology Date/Time Source Procedure Growth Status 08/08/17 21:22 Blood Peripheral Aerobic Blood Culture - Preliminary NO GROWTH IN 2 DAYS Resulted 08/08/17 21:22 Blood Peripheral Anaerobic Blood Culture - Preliminary NO GROWTH IN 2 DAYS Resulted 08/08/17 14:00 Blood Peripheral Aerobic Blood Culture - Preliminary NO GROWTH IN 2 DAYS Resulted 08/08/17 14:00 Blood Peripheral Anaerobic Blood Culture - Preliminary NO GROWTH IN 2 DAYS Resulted 08/08/17 12:00 Sputum Endotracheal Gram Stain - Final Complete 08/08/17 12:00 Sputum Culture - Final Klebsiella Pneumoniae Complete 08/08/17 12:00 Urine Catheterized Urine Urine Culture - Final Klebsiella Pneumoniae Complete . Imaging Last [address] 08/09/17 0800 Signed Impressions: Service Date/Time: Wednesday, August 09, 2017 04:21 - CONCLUSION: 1. The acute intra-axial blood products in the right frontal lobe with surrounding vasogenic edema are stable. 2. There is decreased right to left midline shift, currently measuring up to 2 mm compared to 5 mm previously. This is likely related to the increased herniation of brain tissue through the craniectomy defect. 3. Interval removal of the surgical drain with a small crescentic low density extra-axial fluid collection. 4. Stable acute blood products within the left occipital horn. Brandon Díaz MD Chest X-Ray 08/08/17 0000 Signed Impressions: Service Date/Time: Tuesday, August 08, 2017 15:50 - CONCLUSION: Right jugular line placement as above. Stanley Avery MD Chest X-Ray 08/08/17 0000 Signed Impressions: Service Date/Time: Tuesday, August 08, 2017 14:11 - CONCLUSION: Right jugular line as above. Stanley Avery MD Chest X-Ray 08/08/17 0000 Signed Impressions: Service Date/Time: Tuesday, August 08, 2017 10:24 - CONCLUSION: Improvement, support apparatus in good position. Gilbert Gamez MD FACR . Procedures 08/01/2017: Intubation 08/01/2017: OGT 08/01/2017: Craniotomy 08/03/2017: REYNA drain removed 08/08/2017: Right IJ central line placement . Assessment and Plan Disease Oriented Problem List: (1) Hemorrhagic stroke (2) Sepsis (3) UTI (urinary tract infection) (4) Respiratory failure (5) Leukocytosis (6) Diabetes (7) Hypertensive urgency Symptom Scale: (1) Pain (2) Dyspnea (3) Encephalopathy Pertinent Non-Medical Issues Psychosocial: Patient is originally from [place] but spent most of her life living in [place]. She moved back to [place] approximately 20 years ago. She has 4 adult children (Arron, Lamont, Hany and Manuel). Arron and Lamont both live in [place]. Hany lives in [place]. Manuel is incarcerated in [place]. Patient was living with her son, Lamont, prior to this hospitalization. Spiritual: [employer] sundar Legal: Per [place] statutes, in the absence of written advanced directives healthcare proxy decision making falls to the patient's 4 adult children. Ethical issues impacting care: . Important Contacts Arron Alexander, dtr: [phone] or [phone] Lamont Alexander, son: [phone] or [phone] Hnay Alexander, son: [phone] (third officer: Ms. Brantley @ [phone]) . Manuel Alexander, son, is incarcerated at [facility]. Spoke with Sergeant Winters at [phone]. . Prognosis Patient is a 67-year-old female who suffered an acute right frontal hemorrhage status post craniotomy for subdural and intracerebral hemorrhage evacuation; decompressive hemicraniectomy. Patient is persistently encephalopathic off sedation 5 days; now with sepsis. Patient remains critically ill with no neurological improvement on mechanical ventilation 9 days. She is at high risk for ongoing decline and setback. . Code Status: Full Code Plan * FULL CODE * No written advanced directives. In absence of advanced directives, per [place] Statutes, medical proxy decision making falls to the majority of adult children who are readily available. All 4 children wish to participate in medical decision making. * GI was consulted for possible PEG tube placement. * Palliative Care was consulted to assist with symptom management and to discuss with the family the benefits and burdens of her current illnesses and the options regarding future care. At this time it appears that all 4 children want to participate in medical decision making. = Daughter (Arron) verbalizes aggressive goals stating she has seen her mother respond during her visits at the hospital. = Son (Lamont) is now uncertain what to do; he knows his mother would not want to be kept alive artificially, but he is not ready to lose her. = Clinical update provided to son (Hany), who is on parole in [place], [place]. Awaiting return phone call from his security officers and guards ( Fercho) to determine if he will be permitted to come to the hospital to see his mother before making any decisions. = Received a return phone call from [facility] office ( Misa Winters) and was able to speak with Manuel who also wants to anticipate in medical decision making. * AGGRESSIVE GOALS- pending further discussion with family * Discussed patient with Dr. Taylor and outside nurse (Kori) * Palliative care contact information provided to the patient's family. * Symptom management: = Encephalopathy: Patient has been off sedation for 6 days with no significant improvement in neurological status. Patient opens eyes but does not track. Nursing reports patient withdrawals slightly to noxious stimuli, having abnormal extension in right upper extremities. Follow-up CT head on 08/09/2017 showing significant edema in the right hemisphere, however midline shift has decreased from 5 mm to 2 mm. There is significant displacement of tissue through the craniotomy site. Remains on 3% saline. Na:151 No recommendations at this time. = Dyspnea: Remains intubated on mechanical ventilation. Unable to wean from vent due to inability to protect airway. PRN nebulizers are ordered. = Pain: Remains minimally responsive off sedation 6 days. Showing no signs or symptoms of nonverbal pain. Contributing factors include recent craniotomy, invasive lines, immobility, bedbound status, infection etc. PRN acetaminophen and morphine are available but have not been used in the past 24 hours. We will continue to monitor * Palliative care will continue to follow this patient throughout her hospitalization to establish stress, assist with symptom management and clarification of medical treatment goals. . Attestation To help prompt me to consider important information that might be impacting today's encounter and assessment, information from prior notes written by myself or my colleagues may have been "brought forward" into today's note. My signature on this note, however, is an attestation that I personally performed the exam, history, and/or decision-making noted today, and, unless otherwise indicated, the interactions with patient, family, and staff as well as the review of records all occurred today. I also attest that the listed assessment and stated plan reflect my best clinical judgment today based on the combination of historical information, prior notes, and today's exam/ interactions. When time spent is documented, it refers only to time spent today by the signer, or if indicated, combined time spent today by collaborating physician/nurse practitioner. . Latosha Musa Aug 10, 2017 14:31
[2017-08-10] MEDS: METOPROLOL TARTRATE 25 MG TAB PO SCH ×2 (15:13→21:17)
[2017-08-10] MEDS: 3% SALINE INJ 500 ML IV SCH (15:41)
[2017-08-10] MEDS: cloNIDine HCL 0.1 MG TAB PO PRN (21:19)
[2017-08-11] VITALS (17 sets, daily range): BP systolic 104–159; BP diastolic 55–72; PULSE 65–83; RESP 14–21; TEMP 98–99.3; O2SAT 91–100
[2017-08-11 00:05] LABS: ALBUMIN 1.6 GM/DL (3.4-5.0); ALKALINE PHOSPHATASE 109 U/L (45-117); ALT (GPT) 80 U/L (10-53); AST (GOT) 55 U/L (15-37); BICARBONATE 26.8 MEQ/L (21.0-32.0); BLOOD UREA NITROGEN 29 MG/DL (7-18); CALCIUM 8.3 MG/DL (8.5-10.1); CHLORIDE 119 MEQ/L (98-107); CREATININE 0.67 MG/DL (0.50-1.00); GLOMERULAR FILTRATION RATE 87 ML/MIN (>89); GLUCOSE,RANDOM 197 MG/DL (74-106); MAGNESIUM 2.4 MG/DL (1.5-2.5); SODIUM (NA) 151 MEQ/L (136-145); TOTAL BILIRUBIN ADULT 0.5 MG/DL (0.2-1.0)
[2017-08-11] MEDS: SODIUM CHLORIDE 0.9% FLUSH 10 ML FLUSH IV FLUSH SCH ×3 (00:15→20:49)
[2017-08-11] MEDS: CHLORHEXIDINE 0.12% (ORAL KIT) 15 ML CUP MT SCH ×2 (00:16→20:00)
[2017-08-11] MEDS: hydrALAZINE HCL 50 MG TAB PO SCH ×3 (01:00→17:00)
[2017-08-11] MEDS: PIPERACIL-TAZO 4.5 GM PREMIX 100 ML IV SCH ×4 (03:42→21:10)
[2017-08-11] MEDS: CHLORHEXIDINE GLUCONATE 2 % 1 PACK (2 CLOTHS) TOP SCH (04:00)
--- NOTE | 2017-08-11 05:34 | RADRPT ---
EXAM DATE/TIME: 08/11/2017 04:56 [facility] COMPARISON: CHEST SINGLE AP, August 08, 2017, 15:50. INDICATIONS : Shortness of breath. MEDICAL HISTORY : None. SURGICAL HISTORY : Craniotomy ENCOUNTER: Subsequent ACUITY: 1 week PAIN SCORE: Non-responsive. LOCATION: Bilateral chest FINDINGS: Portable AP view of the chest demonstrates a normal-sized cardiac silhouette. ETT, NG tube, and right IJ central line remain present. Lungs are underinflated and there is mild airspace opacity at the le ft lung base. No pneumothorax or pleural effusion is identified. CONCLUSION: Stable chest x-ray with left lung base atelectasis and/or airspace consolidation. Brandon Díaz MD on August 11, 2017 at 5:32 Board Certified Radiologist. This report was verified electronically.
[2017-08-11] MEDS: cloNIDine HCL 0.3 MG TAB PO SCH ×3 (06:00→21:10)
[2017-08-11] MEDS: METOPROLOL TARTRATE 25 MG TAB PO SCH ×3 (06:08→21:09)
[2017-08-11 06:09] LABS: AUTOMATED NEUTROPHIL # 9.2 TH/MM3 (1.8-7.7); BASOPHIL # 0.1 TH/MM3 (0-0.2); BASOPHIL % 0.7 % (0.0-2.0); EOSINOPHIL # 0.4 TH/MM3 (0-0.4); EOSINOPHIL % 3.1 % (0.0-4.0); HEMATOCRIT 25.1 % (35.0-46.0); HEMOGLOBIN 8.3 GM/DL (11.6-15.3); LYMPH % 12.9 % (9.0-44.0); LYMPHOCYTE # 1.6 TH/MM3 (1.0-4.8); MEAN CELL VOLUME 84.8 FL (80.0-100.0); MEAN PLATELET VOLUME 8.5 FL (7.0-11.0); MONO % 10.6 % (0.0-8.0); MONOCYTE # 1.3 TH/MM3 (0-0.9); NEUT % 72.7 % (16.0-70.0); PLATELET COUNT 382 TH/MM3 (150-450); RED BLOOD COUNT 2.96 MIL/MM3 (4.00-5.30); RED CELL DISTRIBUTION WIDTH 13.7 % (11.6-17.2); WHITE BLOOD COUNT 12.6 TH/MM3 (4.0-11.0)
[2017-08-11] MEDS: INSULIN ASPART SUPPLEMENTAL SCALE SQ SCH ×3 (06:39→17:46)
[2017-08-11] MEDS: levETIRAcetam INJ 500 MG in SODIUM CHLORIDE 0.9% INJ 100 ML IV SCH ×2 (08:27→21:10)
[2017-08-11] MEDS: FAMOTIDINE 20 MG/2 ML VIAL IV PUSH SCH ×2 (08:27→21:10)
[2017-08-11] MEDS: LACTULOSE SYRUP 20 GM/30 ML CUP PO SCH ×4 (08:28→20:50)
[2017-08-11] MEDS: DOCUSATE SODIUM 100 MG/10 ML UDC PO SCH ×2 (08:28→20:49)
[2017-08-11] MEDS: LISINOPRIL 10 MG TAB PO SCH ×2 (08:28→21:10)
[2017-08-11] MEDS: INSULIN DETEMIR 100 UNITS/ML VIAL SQ SCH ×2 (08:29→21:09)
--- NOTE | 2017-08-11 12:49 | HHI.NSPN ---
(Roman Anguiano) History Chief Complaint: Unable to obtain due to patient's clinical condition. (Roman Anguiano) Interval History A 67-year-old -[place] female who was transferred from [facility] in [place] after she presented to the emergency room with acute onset of headaches and left-sided weakness and basically progressed to obtundation and comatose state. She became unresponsive and required intubation. She was hypertensive on initial presentation and a CT scan of the head obtained reveals a large right frontal parietal lobe hemorrhage with likely underlying stroke measuring 8.6 cm x 6.0 cm in dimension with a 15 mm right to left midline shift. She was transferred [facility] for further management and neurosurgery consult. There is no family member available to relate any history and attempts to contact her brother whose phone number next of kin is listed in the records from [facility] with two phone numbers went directly to voice mail and a message was left for him to call us back. 08/02/17: Pt sedated on Fentanyl and Diprivan. When held for exam she does not open her eyes or follow commands. She has slight withdrawal in LEs. Pupils are 3mm bilaterally with slight reaction bilaterally. 08/03/17: Pt sedated on Fentanyl and Diprivan drips. She doesn't open eyes. Pupils equal. Left hemiparesis when sedation held. 08/04/17: Pt sedated on low dose Fentanyl. Diprivan on hold. Pt not opening eyes. Intubated. Not following commands. No reaction to pain. 08/05/17: Pt sedated on low dose Fentanyl drip. Opens eyes slightly to deep pain. Not following commands. 08/06/17: Pt off sedation. Not opening eyes for me although did briefly for RN to deep pain. She does not follow commands. 08/07: opening eyes, not following commands. intubated and mildly sedated. 08/08: intubated, very minimal response in feet. right craniectomy site appears much more dewitt and tighter to palpate today. 08/10: intubated, opening eyes but not following commands. 08/11: Patient remains intubated and mechanically ventilated. Partial eye opening to voice, not following any commands, slight response on right to noxious stimulation. (Roman Anguiano) System Review Comments Unable to obtain due to patient's clinical condition. (Roman Anguiano) Exam Results 08/09/17 08/09/17 08/10/17 08/10/17 08/11/17 08/11/17 06:00 18:00 06:00 18:00 06:00 18:00 Intake Total 356 ml 1596 ml 200 ml 853 ml 677 ml Output Total 350 ml 450 ml 600 ml 550 ml 350 ml 0 ml Balance 6 ml 1146 ml -400 ml 303 ml 327 ml 0 ml Intake IV Total 1596 ml 200 ml 805 ml 200 ml Tube Feeding 236 ml 48 ml 357 ml Other 120 ml 120 ml Output Urine Total 350 ml 450 ml 600 ml 550 ml 350 ml Tube Feeding Residual Discard 0 ml 0 ml # Bowel Movements 1 0 3 Vital Signs Date Time Temp Pulse Resp B/P (MAP) Pulse Ox O2 Delivery O2 Flow Rate FiO2 08/11/17 12:01 96 30 08/11/17 12:00 98.0 65 21 140/69 (92) 96 08/11/17 12:00 30 08/11/17 12:00 83 08/11/17 11:57 30 08/11/17 10:00 79 08/11/17 08:16 93 30 08/11/17 08:00 30 08/11/17 08:00 65 08/11/17 08:00 98.8 65 14 140/63 (88) 93 08/11/17 06:00 70 08/11/17 04:43 100 30 08/11/17 04:00 70 08/11/17 04:00 99.0 70 20 114/59 (77) 91 08/11/17 04:00 30 08/11/17 02:00 74 08/11/17 00:21 99 30 08/11/17 00:00 30 08/11/17 00:00 98.7 74 20 145/64 (91) 98 08/11/17 00:00 74 08/10/17 22:00 70 08/10/17 20:21 96 30 3/6/18 20:00 72 08/10/17 20:00 98.6 72 18 120/61 (80) 95 08/10/17 20:00 30 08/10/17 18:00 69 08/10/17 16:00 99.3 73 18 108/59 (75) 96 08/10/17 16:00 73 08/10/17 16:00 30 08/10/17 15:51 95 30 08/10/17 14:00 85 08/10/17 12:00 100.1 80 18 136/62 (86) 96 08/10/17 12:00 80 08/10/17 12:00 30 08/10/17 10:00 96 08/10/17 09:31 30 08/10/17 09:09 100 30 08/10/17 08:00 100.3 89 15 151/75 (100) 100 08/10/17 08:00 30 08/10/17 08:00 90 08/10/17 06:00 90 08/10/17 04:00 90 08/10/17 04:00 100.3 90 20 128/60 (82) 96 08/10/17 04:00 30 08/10/17 02:00 84 08/10/17 01:18 97 30 08/10/17 00:00 30 08/10/17 00:00 96 08/10/17 00:00 99.9 86 20 120/58 (78) 96 08/09/17 22:00 100 08/09/17 20:19 96 30 08/09/17 20:00 100.7 100 20 158/68 (98) 98 08/09/17 20:00 100 08/09/17 20:00 30 08/09/17 18:00 97 08/09/17 16:00 30 08/09/17 16:00 91 08/09/17 16:00 100.5 91 20 124/60 (81) 94 Arterial Line 08/09/17 15:17 96 30 08/09/17 14:00 101 08/09/17 12:00 100.8 88 23 141/65 (90) 94 08/09/17 12:00 30 08/09/17 12:00 88 08/09/17 11:33 95 30 08/09/17 10:00 93 08/09/17 08:00 89 08/09/17 08:00 101.7 88 23 140/62 (88) 95 08/09/17 08:00 30 08/09/17 07:33 95 30 08/09/17 07:33 30 08/09/17 06:00 93 08/09/17 04:34 100 30 08/09/17 04:12 100 100 08/09/17 04:00 93 08/09/17 04:00 30 08/09/17 04:00 100.4 93 15 92/42 (59) 95 08/09/17 02:00 84 08/09/17 00:16 93 30 08/09/17 00:00 99.6 96 18 99/48 (65) 96 08/09/17 00:00 30 08/09/17 00:00 96 08/08/17 22:47 96 105/47 08/08/17 22:00 97 08/08/17 20:00 112 08/08/17 20:00 101.0 116 18 140/64 (89) 95 08/08/17 20:00 30 08/08/17 19:31 97 30 08/08/17 18:30 101 137/62 08/08/17 18:00 101 08/08/17 16:00 30 08/08/17 16:00 98.3 107 18 151/69 (96) 96 08/08/17 16:00 92 08/08/17 16:00 101 152/61 08/08/17 14:00 92 137/65 08/08/17 14:00 115 (Roman Anguiano) Physical Examination GENERAL: Drowsy, no sedation, intubated & mechanically ventilated. No apparent distress. HEENT: Well-approximated surgical incision w/chapis intact, no evident drainage , erythema or streaking. PERRLA 3 mm mildly reactive. Orally intubated. MUSCULOSKELETAL: No evident clubbing or deformity. NEUROLOGICAL: Lethargic, no sedation. Partial eye opening to voice. PERRLA 3 mm mildly reactive. Nonverbal, intubated. Does not follow commands. Slight movement of RUE and trace movement of right foot to local noxious stimulation, No response on left w/local noxious stimulation. No response to central noxious stimulation. (Roman Anguiano) Lab, Micro, Other Results Recent Impressions Chest X-Ray 08/11/17 0600 Signed Impressions: Service Date/Time: Friday, August 11, 2017 04:56 - CONCLUSION: Stable chest x-ray with left lung base atelectasis and/or airspace consolidation. Brandon Díaz MD Head CT 08/09/17 0800 Signed Impressions: Service Date/Time: Wednesday, August 09, 2017 04:21 - CONCLUSION: 1. The acute intra-axial blood products in the right frontal lobe with surrounding vasogenic edema are stable. 2. There is decreased right to left midline shift, currently measuring up to 2 mm compared to 5 mm previously. This is likely related to the increased herniation of brain tissue through the craniectomy defect. 3. Interval removal of the surgical drain with a small crescentic low density extra-axial fluid collection. 4. Stable acute blood products within the left occipital horn. Brandon Díaz MD Laboratory Tests Test 08/08/17 21:22 08/09/17 06:30 08/09/17 09:15 08/09/17 13:55 Sodium Level 145 MEQ/L 146 MEQ/L 148 MEQ/L White Blood Count 14.6 TH/MM3 Red Blood Count 2.99 MIL/MM3 Hemoglobin 8.4 GM/DL Hematocrit 25.1 % Mean Corpuscular Volume 83.9 FL Mean Corpuscular Hemoglobin 28.0 PG Mean Corpuscular Hemoglobin Concent 33.4 % Red Cell Distribution Width 13.8 % Platelet Count 344 TH/MM3 Mean Platelet Volume 8.6 FL Neutrophils (%) (Auto) 82.5 % Lymphocytes (%) (Auto) 8.6 % Monocytes (%) (Auto) 7.1 % Eosinophils (%) (Auto) 1.5 % Basophils (%) (Auto) 0.3 % Neutrophils # (Auto) 12.1 TH/MM3 Lymphocytes # (Auto) 1.3 TH/MM3 Monocytes # (Auto) 1.0 TH/MM3 Eosinophils # (Auto) 0.2 TH/MM3 Basophils # (Auto) 0.0 TH/MM3 CBC Comment DIFF FINAL Differential Comment Test 08/10/17 05:30 08/10/17 15:35 08/10/17 23:10 08/11/17 05:48 Sodium Level 151 MEQ/L 149 MEQ/L 151 MEQ/L Blood Urea Nitrogen 29 MG/DL Creatinine 0.67 MG/DL Random Glucose 197 MG/DL Total Protein 6.0 GM/DL Albumin 1.6 GM/DL Calcium Level 8.3 MG/DL Magnesium Level 2.4 MG/DL Alkaline Phosphatase 109 U/L Aspartate Amino Transf (AST/SGOT) 55 U/L Alanine Aminotransferase (ALT/SGPT) 80 U/L Total Bilirubin 0.5 MG/DL Potassium Level 3.6 MEQ/L Chloride Level 119 MEQ/L Carbon Dioxide Level 26.8 MEQ/L Anion Gap 5 MEQ/L Estimat Glomerular Filtration Rate 87 ML/MIN White Blood Count 12.6 TH/MM3 Red Blood Count 2.96 MIL/MM3 Hemoglobin 8.3 GM/DL Hematocrit 25.1 % Mean Corpuscular Volume 84.8 FL Mean Corpuscular Hemoglobin 28.0 PG Mean Corpuscular Hemoglobin Concent 33.0 % Red Cell Distribution Width 13.7 % Platelet Count 382 TH/MM3 Mean Platelet Volume 8.5 FL Neutrophils (%) (Auto) 72.7 % Lymphocytes (%) (Auto) 12.9 % Monocytes (%) (Auto) 10.6 % Eosinophils (%) (Auto) 3.1 % Basophils (%) (Auto) 0.7 % Neutrophils # (Auto) 9.2 TH/MM3 Lymphocytes # (Auto) 1.6 TH/MM3 Monocytes # (Auto) 1.3 TH/MM3 Eosinophils # (Auto) 0.4 TH/MM3 Basophils # (Auto) 0.1 TH/MM3 CBC Comment DIFF FINAL Differential Comment (Roman Anguiano) Medical Decision Making Impression and Plan Impression: 67 y/o female with large right frontotemporal lobe hemorrhage with likely underlying stroke with significant mass effect and midline shift s/p emergent Right frontotemporoparietal craniotomy for subdural and intracerebral hemorrhage evacuation; decompressive hemicraniectomy with expansive duraplasty on 08/01/17 f/u CT Brain 08/09/17: stable intra-axial blood products in the right frontal lobe with surrounding vasogenic edema, decreased right to left midline shift, currently measuring up to 2 mm compared to 5 mm previously, stable blood products within the left occipital horn. Prognosis appears somewhat poor for good recovery given the imaging findings and neurologic exam. Patient lethargic today, only partial eye opening to voice, slight response on right to local noxious stimulation but none to left. Plan: cont neuro checks cont hyperosmotic tx with 3%NS, f/u examination ok for trach and PEG Okay for DVT prophylaxis with Lovenox from neurosurgery standpoint (Roman Anguiano) Attending Statement The exam, history, and the medical decision-making described in the above note were completed with the assistance of the mid-level provider. I reviewed and agree with the findings presented. I attest that I had a [id number] encounter with the patient on the same day, and personally performed and documented my assessment and findings in the medical record. On my examination 08/11/2017 the patient remains intubated on ventilator. Chapis in place at the right scalp incision. The flap is mildly tense. There is moderate I opening to deep pain. Not following commands Pupils 2 mm nonreactive Mild disconjugate extraocular movements Mild flexion all extremities to deep pain Remains neurologically stable Continue ventilatory support. Emergency Vehicle Dispatcher Monitor sodium Okay for Lovenox (Marc De MD) Roman Anguiano Aug 11, 2017 12:49 Marc De MD Aug 11, 2017 20:45
--- NOTE | 2017-08-11 13:28 | HHI.CCPN ---
Subjective Remarks/Hospital Course 67 y/o woman presented to [facility] as stroke alert. Right side headache and left side weakness starting around 10:00 a.m. Glucose 122. INR 1.0 , Sinus rhythm. No history of anticoagulants. Does have history of hypertension and Type 2 diabetes. BP 244/146. Required intubation shortly after arrival. CT Head with large right hemisphere ICH parietal lobe and 1.5 cm shift away from bleed. Plts 296,000, Creat 0.59, Hct 40. 08/02: CT with much improved shift. Gas exchange acceptable. 08/03: Persistent hypertension requiring nicardipine. Will start oral scheduled BP meds. Glucose elevated. NG output minimal. 08/04: Transitioned to oral meds with good BP control. Heavily sedated, now tapering. No spontaneous ventilation but high fixed rate. Repeat head CT with markedly reduced shift. 08/05: Currently remains on fentanyl for sedation. Withdraws all extremities to pain, stronger right though. No spontaneous eye opening or spontaneous movements noted. 08/06: Weaning sedation but no purposeful movement. Worsening glucose intolerance. Increase levemir and go to high SSI. 08/07: Glucose intolerance persists. Increase levemir coverage. No improvement in neurological condition. 08/08: Patient remains encephalopathy no improvement in mental status. Blood glucose control remains inadequate increase Levemir to 20 every 12. Unable to wean to extubate will need tracheostomy if family wishes to proceed. Plan for tomorrow, will also consult GI for PEG tube placement 08/09: Encephalopathy appears to be worsening, no spontaneous eye opening weakly withdraws to pain left more than right. UA shows evidence of UTI patient is spiking fever up to 101.7 increasing leukocytosis. Start Zosyn. UA shows evidence of infection. CT of the head shows stable bleed and vasogenic edema. 3% saline started yesterday for presumed edema. Right IJ central line was also placed. Patient is critically ill again with worsening encephalopathy now with high fever and sepsis. Probable source UTI. Empiric Zosyn started. Family in disagreement regarding trach and PEG. Palliative care consulted. Unable to wean to extubate due to severe encephalopathy 08/10: Neuro exam remains unchanged. Disagreement among adult children whether to proceed with trach and PEG. Palliative care is following. Sputum culture and urine culture growing Klebsiella pansensitive. Will narrow antibiotics in 1 -2 days. 08/11: No improvement in neurological function. Palliative care working with family on care plan. Unable to wean from ventilator. Objective Vital Signs Date Time Temp Pulse Resp B/P (MAP) Pulse Ox O2 Delivery O2 Flow Rate FiO2 08/11/17 12:01 96 30 08/11/17 12:00 98.0 65 21 140/69 (92) Intake and Output 08/11/17 08/11/17 08/12/17 08:00 16:00 00:00 Intake Total 477 ml Output Total 350.0 ml Balance 127.0 ml Result Diagram: 08/11/17 0548 08/10/17 2310 Objective Remarks Gen: Unresponsive. Off all sedation Head: Atraumatic. Pupils 3 mm equal, sluggish Neck: Supple, orally intubated. OG in place. Lungs: Clear, no wheezes or crackles. Good bilateral air entry. Few mobile secretions. Heart: NL S1S2, RRR, No JVD Abdomen: Soft, large, no guarding. BS few. Nondistended. No tenderness. Extremities: Warm, well perfused. Trace edema. Neuro: Unresponsive. Not on any sedation for multiple days.. Pupils reactive. Eye-opening spontaneously, only partial. Mild withdrawal upper extremities with slight internal rotation lower extremities to deep pain. No purposeful movements noted A/P Assessment and Plan Assessment: Hemorrhagic stroke, right fronto/parietal region -> decompressive craniectomy Persistent encephalopathy Fever sepsis UTI Pneumonia with Klebsiella Acute respiratory Failure Hyperglycemia Leukocytosis Diabetes, type 2. Hypertensive urgency. Plan: Neuro - Keep Serum osmolality > 310 - Continue 3% saline keep sodium between 150-155 - CT of the head today shows stable acute right frontal hemorrhage and vasogenic edema, decreased midline shift - HOB up. adjust EtCO2 to maintain 35 - 40 blood range - s/p Right frontotemporoparietal craniotomy for subdural and intracerebral hemorrhage evacuation; decompressive hemicraniectomy - Overall prognosis is poor. Palliative care is following Respiratory - PRVC vent mode. EtCO2 monitor, maintain low normal range. DuoNeb every 6 hours as needed - Daily CPAP trials unable to wean, patient lacks airway protection. Will need trach if family wants to continue aggressive care - Palliative care consulted to address goals of care - Sputum culture growing Klebsiella, continue Zosyn Cardiovascular - Cardene to maintain SBP < 150. currently weaned off for 2 days - Lisinopril 20 mg q12, Lopressor 50 every 8 hours - Hydralazine 100 mg tid. Clonidine 0.3 mg 3 times daily - Use as needed IV labetalol and hydralazine for SBP more than 150 GI - Tube feeds Glucerna 1.5 - Last BM reported on 08/09 - s/p mag citrate x1 08/09. Scheduled lactulose 30 ml QID. Colace - Gaffney. - Strict intake output ID - Acevedo Culture for worsening leukocytosis. - Sputum and urine culture growing Klebsiella. Continue Zosyn Endocrinology - SSI, high algorithm - Levemir 23 u bid, now with improved blood sugar control Heme - CBC a.m. Prophylaxis - Chemical contraindicated, until cleared by neurosurgery, address trach and PEG - SCDs - Pepcid Overall impression: Patient presented critically ill with deteriorating neurological function due to acute hemorrhage right hemisphere. She was transferred emergently from [facility] for definitive neurosurgical treatment and underwent emergency decompression of the right side to save what is hopefully her dominant left hemisphere. Remains neurologically unstable and critically ill. Family is aware of her critical condition. There had been no improvement in her mental status patient admitted remains comatose, on vent day 10. Plan to proceed with tracheostomy tomorrow if family agreeable. Roel Fitch MD Aug 11, 2017 13:28
--- NOTE | 2017-08-11 15:15 | HHI.HCPN ---
Spoke with son, Manuel through coordination of Felecia Watkins. Manuel states he has briefly spoken with his sister, Arron, but has not been able to speak with her in depth. Also states he has not gotten to speak with his little brother, Brian and he has many questions for him as well. Manuel is initially focused on finding out exactly what lead to his mother's stroke and finding out how she was doing prior the the hospitalization. He also inquires about "who is responsible for paying for all of this". Answered his questions and concerns to the best of my ability. Gently discussed with him concern of medical team regarding mom's overall condition and options at this point regarding her care. Gently explained tracheostomy vs compassionate withdrawal of life support. Manuel 's initial reaction is shocked stating he had no idea this is what decisions the family is facing. Offered emotional support. Manuel desires to try and speak with him siblings before weighing in on goals of care for Ms. Alexander. Plan to follow up with him tomorrow, 08/11/17. Palliative care has attempted to contact daughter Arron multiple times today, left messages and have not heard back. Hany ([employer]) is unable to commit to scheduled time to visit mom in the hospital, although he has expressed aggressive goals. We have spoke with his postal delivery officer and have been informed he is allowed to visit. chief revenue officer requests to be informed of the day/time. She also states he must not come into contact with any minors. Palliative care in contact with security to coordinate an escort. In the brief interactions palliative care has been able to have with 4 children , goals appear to be aggressive with 3/4 children. Palliative care will continue to attempt to reach Arron with plan to follow-up with all children and come to decision regarding trach/peg vs transition to comfort measures. Palliative care will continue to follow throughout hospitalization. Mary Moody, RESTAURANT FLOOR MANAGER Aug 11, 2017 15:15
[2017-08-11] MEDS: 3% SALINE INJ 500 ML IV SCH (20:16)
[2017-08-12] VITALS (18 sets, daily range): BP systolic 126–132; BP diastolic 62–66; PULSE 64–86; RESP 14–19; TEMP 98.8–99.4; O2SAT 93–96
[2017-08-12] MEDS: INSULIN ASPART SUPPLEMENTAL SCALE SQ SCH ×5 (00:14→21:29)
[2017-08-12] MEDS: hydrALAZINE HCL 50 MG TAB PO SCH ×3 (00:14→16:47)
[2017-08-12] MEDS: CHLORHEXIDINE GLUCONATE 2 % 1 PACK (2 CLOTHS) TOP SCH (04:00)
[2017-08-12] MEDS: PIPERACIL-TAZO 4.5 GM PREMIX 100 ML IV SCH ×2 (04:52→10:00)
[2017-08-12] MEDS: cloNIDine HCL 0.3 MG TAB PO SCH ×3 (05:22→21:26)
[2017-08-12] MEDS: METOPROLOL TARTRATE 25 MG TAB PO SCH ×3 (05:22→21:26)
[2017-08-12 07:13] LABS: BICARBONATE 25.3 MEQ/L (21.0-32.0); CALCIUM 8.4 MG/DL (8.5-10.1); CREATININE 0.81 MG/DL (0.50-1.00)
[2017-08-12] MEDS: CHLORHEXIDINE 0.12% (ORAL KIT) 15 ML CUP MT SCH ×2 (08:00→20:00)
[2017-08-12] MEDS: SODIUM CHLORIDE 0.9% FLUSH 10 ML FLUSH IV FLUSH SCH ×2 (08:21→21:00)
[2017-08-12] MEDS: levETIRAcetam INJ 500 MG in SODIUM CHLORIDE 0.9% INJ 100 ML IV SCH ×2 (08:21→21:25)
[2017-08-12] MEDS: FAMOTIDINE 20 MG/2 ML VIAL IV PUSH SCH ×2 (08:21→21:23)
[2017-08-12] MEDS: LACTULOSE SYRUP 20 GM/30 ML CUP PO SCH ×4 (08:22→21:00)
[2017-08-12] MEDS: DOCUSATE SODIUM 100 MG/10 ML UDC PO SCH ×2 (08:22→21:26)
[2017-08-12] MEDS: INSULIN DETEMIR 100 UNITS/ML VIAL SQ SCH ×2 (08:22→21:30)
[2017-08-12] MEDS: LISINOPRIL 10 MG TAB PO SCH ×2 (08:23→21:26)
--- NOTE | 2017-08-12 09:14 | HHI.HCPN ---
Reason for visit a. To assist with evaluation and management of symptoms including: pain, encephalopathy, dyspnea. b. To assist medical decision maker(s) with: better understanding of current medical conditions; weighing benefits/burdens of medical treatment options; making medical treatment decisions. . Subjective/Interval History LATE ENTRY. PATIENT SEEN 08/11/2017 Ms. Alexander is a 67-year-old female with hypertension and diabetes who presented to [facility] on 08/01/17 for evaluation of acute onset headaches and left-sided weakness that progressed to obtundation with emergent intubation. Upon arrival to the ED the patient was hypertensive with a BP of 244/146. CT scan of the head revealed a large frontal parietal lobe hemorrhage with a 15 mm midline shift. Patient was transferred to [facility] for further management and neurosurgery consult. Upon arrival, the patient was taken emergently for right frontotemporoparietal craniotomy for subdural and intracerebral hemorrhage evacuation with decompressive hemicraniectomy. Follow up visit for symptom management and clarification of medical treatment goals. Patient seen and intensive care unit, room 1322. Patient's son ( Lamont) and friend (Christiana) were at bedside. Patient has been off sedation for several days with no significant improvement in neurological status. Patient opens eyes but does not track; withdraws to noxious stimuli in all extremities. Follow-up CT head on 08/09/2017 showing significant edema in the right hemisphere, however midline shift has decreased from 5 mm to 2 mm. There is significant displacement of tissue through the craniotomy site. Remains on 3% saline. Unable to wean from vent. Afebrile. Urine culture and sputum culture growing Klebsiella pneumoniae. Leukocytosis resolving. WBC: 12.6. Receiving Zosyn. GI was consulted for possible PEG tube placement. Palliative Care was consulted to assist with symptom management and to discuss with the family the benefits and burdens of her current illnesses and the options regarding future care. At this time it appears that all 4 children want to participate in medical decision making, and Palliative care is attempting to coordinate a family meeting/conference call with all 4 children. . Advance Directives Advance Directive Specifics Documented care wishes: No known documented care wishes have been completed . Objective Vital Signs Date Time Temp Pulse Resp B/P (MAP) Pulse Ox O2 Delivery O2 Flow Rate FiO2 08/12/17 08:57 96 40 08/12/17 08:57 40 08/12/17 06:00 71 08/12/17 04:00 99.1 86 16 131/62 (85) 94 08/12/17 04:00 30 08/12/17 04:00 82 08/12/17 03:40 94 40 08/12/17 02:00 80 08/12/17 00:04 95 40 08/12/17 00:00 99.2 76 16 130/63 (85) 95 08/12/17 00:00 76 08/12/17 00:00 30 08/11/17 22:00 78 08/11/17 21:00 30 08/11/17 20:00 30 08/11/17 20:00 99.3 78 16 159/72 (101) 95 08/11/17 20:00 78 08/11/17 18:00 65 08/11/17 16:02 94 30 08/11/17 16:00 30 08/11/17 16:00 65 08/11/17 16:00 99.3 65 16 104/55 (71) 94 08/11/17 14:00 71 08/11/17 12:01 96 30 08/11/17 12:00 98.0 65 21 140/69 (92) 96 08/11/17 12:00 30 08/11/17 12:00 83 08/11/17 11:57 30 08/11/17 10:00 79 Intake & Output 08/12/17 08/12/17 07:00 19:00 Intake Total 739 ml Output Total 500 ml 0 ml Balance 239 ml 0 ml Tube Feeding 619 ml Other 120 ml Output Urine Total 500 ml Tube Feeding Residual Discard 0 ml 0 ml # Bowel Movements 1 . Physical Exam CONSTITUTIONAL/GENERAL: This is an adequately nourished patient, elderly female patient in no apparent distress TUBES/LINES/DRAINS: Left IJ central line, PIV, OGT, ETT SKIN: No jaundice, rashes, or lesions. Status post craniotomy skin temperature appropriate. Not diaphoretic. HEAD: Atraumatic. Normocephalic. EYES: Pupils equal and round and minimally reactive. No scleral icterus. No injection or drainage. Fundi not examined. ENT: Unable to assess hearing given current clinical condition. Nose without bleeding or purulent drainage. NECK: Trachea midline. CARDIOVASCULAR: Regular rate and rhythm without murmurs, gallops, or rubs. No JVD. Peripheral pulses symmetric. RESPIRATORY/CHEST: Intubated on mechanical ventilator. Clear to auscultation. Breath sounds equal bilaterally. No wheezes, rales, or rhonchi. GASTROINTESTINAL: Abdomen soft, non-tender, nondistended. Hypoactive bowel sounds present. GENITOURINARY: Without palpable bladder distension. Gaffney catheter in place. MUSCULOSKELETAL: Extremities without clubbing, cyanosis, or edema. LYMPHATICS: No palpable cervical or supraclavicular adenopathy. NEUROLOGICAL: Mild withdrawal upper extremities with slight internal rotation lower extremities to deep pain. PSYCHIATRIC: Unable to assess given current clinical condition . Diagnostic Tests Laboratory Laboratory Tests Test 08/09/17 09:15 08/09/17 13:55 08/10/17 05:30 08/10/17 15:35 White Blood Count 14.6 TH/MM3 (4.0-11.0) Red Blood Count 2.99 MIL/MM3 (4.00-5.30) Hemoglobin 8.4 GM/DL (11.6-15.3) Hematocrit 25.1 % (35.0-46.0) Mean Corpuscular Volume 83.9 FL (80.0-100.0) Mean Corpuscular Hemoglobin 28.0 PG (27.0-34.0) Mean Corpuscular Hemoglobin Concent 33.4 % (32.0-36.0) Red Cell Distribution Width 13.8 % (11.6-17.2) Platelet Count 344 TH/MM3 (150-450) Mean Platelet Volume 8.6 FL (7.0-11.0) Neutrophils (%) (Auto) 82.5 % (16.0-70.0) Lymphocytes (%) (Auto) 8.6 % (9.0-44.0) Monocytes (%) (Auto) 7.1 % (0.0-8.0) Eosinophils (%) (Auto) 1.5 % (0.0-4.0) Basophils (%) (Auto) 0.3 % (0.0-2.0) Neutrophils # (Auto) 12.1 TH/MM3 (1.8-7.7) Lymphocytes # (Auto) 1.3 TH/MM3 (1.0-4.8) Monocytes # (Auto) 1.0 TH/MM3 (0-0.9) Eosinophils # (Auto) 0.2 TH/MM3 (0-0.4) Basophils # (Auto) 0.0 TH/MM3 (0-0.2) CBC Comment DIFF FINAL Differential Comment Sodium Level 148 MEQ/L (136-145) 151 MEQ/L (136-145) 149 MEQ/L (136-145) Test 08/10/17 23:10 08/11/17 05:48 08/12/17 06:10 Blood Urea Nitrogen 29 MG/DL (7-18) 36 MG/DL (7-18) Creatinine 0.67 MG/DL (0.50-1.00) 0.81 MG/DL (0.50-1.00) Random Glucose 197 MG/DL (74-106) 219 MG/DL (74-106) Total Protein 6.0 GM/DL (6.4-8.2) Albumin 1.6 GM/DL (3.4-5.0) Calcium Level 8.3 MG/DL (8.5-10.1) 8.4 MG/DL (8.5-10.1) Magnesium Level 2.4 MG/DL (1.5-2.5) Alkaline Phosphatase 109 U/L (45-117) Aspartate Amino Transf (AST/SGOT) 55 U/L (15-37) Alanine Aminotransferase (ALT/SGPT) 80 U/L (10-53) Total Bilirubin 0.5 MG/DL (0.2-1.0) Sodium Level 151 MEQ/L (136-145) 156 MEQ/L (136-145) Potassium Level 3.6 MEQ/L (3.5-5.1) 3.8 MEQ/L (3.5-5.1) Chloride Level 119 MEQ/L (98-107) 123 MEQ/L (98-107) Carbon Dioxide Level 26.8 MEQ/L (21.0-32.0) 25.3 MEQ/L (21.0-32.0) Anion Gap 5 MEQ/L (5-15) 8 MEQ/L (5-15) Estimat Glomerular Filtration Rate 87 ML/MIN (>89) 70 ML/MIN (>89) White Blood Count 12.6 TH/MM3 (4.0-11.0) Red Blood Count 2.96 MIL/MM3 (4.00-5.30) Hemoglobin 8.3 GM/DL (11.6-15.3) Hematocrit 25.1 % (35.0-46.0) Mean Corpuscular Volume 84.8 FL (80.0-100.0) Mean Corpuscular Hemoglobin 28.0 PG (27.0-34.0) Mean Corpuscular Hemoglobin Concent 33.0 % (32.0-36.0) Red Cell Distribution Width 13.7 % (11.6-17.2) Platelet Count 382 TH/MM3 (150-450) Mean Platelet Volume 8.5 FL (7.0-11.0) Neutrophils (%) (Auto) 72.7 % (16.0-70.0) Lymphocytes (%) (Auto) 12.9 % (9.0-44.0) Monocytes (%) (Auto) 10.6 % (0.0-8.0) Eosinophils (%) (Auto) 3.1 % (0.0-4.0) Basophils (%) (Auto) 0.7 % (0.0-2.0) Neutrophils # (Auto) 9.2 TH/MM3 (1.8-7.7) Lymphocytes # (Auto) 1.6 TH/MM3 (1.0-4.8) Monocytes # (Auto) 1.3 TH/MM3 (0-0.9) Eosinophils # (Auto) 0.4 TH/MM3 (0-0.4) Basophils # (Auto) 0.1 TH/MM3 (0-0.2) CBC Comment DIFF FINAL Differential Comment . Result Diagram: 08/11/17 0548 08/12/17 0610 Imaging Last 72 hours Impressions Chest X-Ray 08/11/17 0600 Signed Impressions: Service Date/Time: Friday, August 11, 2017 04:56 - CONCLUSION: Stable chest x-ray with left lung base atelectasis and/or airspace consolidation. Brandon Díaz MD . Procedures 08/01/2017: Intubation 08/01/2017: OGT 08/01/2017: Craniotomy 08/03/2017: REYNA drain removed 08/08/2017: Right IJ central line placement . Assessment and Plan Disease Oriented Problem List: (1) Hemorrhagic stroke (2) Sepsis (3) UTI (urinary tract infection) (4) Respiratory failure (5) Leukocytosis (6) Diabetes (7) Hypertensive urgency Symptom Scale: (1) Pain (2) Dyspnea (3) Encephalopathy Pertinent Non-Medical Issues Psychosocial: Patient is originally from [place] but spent most of her life living in [place]. She moved back to [place] approximately 20 years ago. She has 4 adult children (Arron, Lamont, Hany and Manuel). Arron and Lamont both live in [place]. Hany lives in [place]. Manuel is incarcerated in [place]. Patient was living with her son, Lamont, prior to this hospitalization. Spiritual: Worship sundar Legal: Per [place] statutes, in the absence of written advanced directives healthcare proxy decision making falls to the patient's 4 adult children. Ethical issues impacting care: . Important Contacts Arron Alexander, dtr: [phone] or [phone] Lamont Alexander, son: [phone] or [phone] Hany Alexander, son: [phone] (infantry weapons officer: Ms. Brantley @ [phone]) . Manuel Alexander, son, is incarcerated at [facility]. Spoke with Sergeant Winters at [phone]. . Prognosis Patient is a 67-year-old female who suffered an acute right frontal hemorrhage status post craniotomy for subdural and intracerebral hemorrhage evacuation; decompressive hemicraniectomy. Patient is persistently encephalopathic off sedation 5 days; now with sepsis. Patient remains critically ill with no neurological improvement on mechanical ventilation 9 days. She is at high risk for ongoing decline and setback. . Code Status: Full Code Plan * FULL CODE * No written advanced directives. In absence of advanced directives, per [place] Statutes, medical proxy decision making falls to the majority of adult children who are readily available. All 4 children wish to participate in medical decision making. * Palliative Care was consulted to assist with symptom management and to discuss with the family the benefits and burdens of her current illnesses and the options regarding future care. At this time it appears that all 4 children want to participate in medical decision making. Mary Gandara (Palliative THERMO CEMENTING FOLDER OPERATOR) spoke with son, Manuel through coordination of Felecia Watkins. Manuel states he has briefly spoken with his sister, Arron, but has not been able to speak with her in depth. Also states he has not gotten to speak with his little brother, Brian and he has many questions for him as well. Manuel had many questions regarding what lead to his mother's stroke and wanted to know how she was doing prior the the hospitalization. Palliative care has attempted to contact daughter Arron multiple times today, left messages and have not heard back. Hany ([place] probation) is unable to commit to scheduled time to visit mom in the hospital, although he has expressed aggressive goals. We have spoke with his corporate security officer and have been informed he is allowed to visit. infantry weapons officer requests to be informed of the day/time. She also states he must not come into contact with any minors. Palliative care in contact with security to coordinate an escort. * AGGRESSIVE GOALS- pending further discussion with family * Discussed patient with Dr. Taylor and outside nurse (Kori) * Palliative care contact information provided to the patient's family. * Symptom management: = Encephalopathy: Patient has been off sedation for several days with no significant improvement in neurological status. Patient opens eyes but does not track. Withdraws all extremities to noxious stimuli. Follow-up CT head on 08/09/2017 showing significant edema in the right hemisphere, however midline shift has decreased from 5 mm to 2 mm. There is significant displacement of tissue through the craniotomy site. Remains on 3% saline. Na:151 No recommendations at this time. = Dyspnea: Remains intubated on mechanical ventilation. Unable to wean from vent due to inability to protect airway. PRN nebulizers are ordered. = Pain: Remains minimally responsive off sedation 6 days. Showing no signs or symptoms of nonverbal pain. Contributing factors include recent craniotomy, invasive lines, immobility, bedbound status, infection etc. PRN acetaminophen and morphine are available but have not been used in the past 24 hours. We will continue to monitor * Palliative care will continue to follow this patient throughout her hospitalization to establish stress, assist with symptom management and clarification of medical treatment goals. . Attestation To help prompt me to consider important information that might be impacting today's encounter and assessment, information from prior notes written by myself or my colleagues may have been "brought forward" into today's note. My signature on this note, however, is an attestation that I personally performed the exam, history, and/or decision-making noted today, and, unless otherwise indicated, the interactions with patient, family, and staff as well as the review of records all occurred today. I also attest that the listed assessment and stated plan reflect my best clinical judgment today based on the combination of historical information, prior notes, and today's exam/ interactions. When time spent is documented, it refers only to time spent today by the signer, or if indicated, combined time spent today by collaborating physician/nurse practitioner. . Latosha Musa Aug 12, 2017 09:14
--- NOTE | 2017-08-12 10:57 | HHI.HCPN ---
Palliative care continues to follow Ms. Alexander and speak with family regarding goals of care. It has been difficult to get all of family available at the same time to address goals of care. Each member continues to redirect goals of care discussion in request to speak with other family members amongst themselves, although goals have appeared to be aggressive. Palliative care has gently explained standard of care for mechanical ventilation in regards to requiring tracheostomy to continue with aggressive management. Also gently discussed option to transition to comfort measures with compassionate withdrawal of life support. Family conference set for Wednesday08/12/2017 at 10am. Spoke with Felecia Watkins and arranged for mauro Alexander to be available by phone tomorrow at 10am for family meeting. Left message with son Hany Alexander informing him of family meeting and needing his presence at minimum by phone to discuss goals of care. Message left with son Lamont Alexander informing him of meeting. Spoke with daughter Arron, she is aware of family meeting tomorrow and states she will be available by phone. Palliative care has informed all children, per [place] Statutes, medical proxy decision making falls to the majority of adult children whom are readily available. Requested all of their presence at family meeting to determine ability to serve as proxy decision maker(s) and address goals of care. 140pm-- received call from Felecia Watkins stating Manuel Alexander has been transferred out of his facility. Felecia Watkins reports in the the [facility] [place] inmates are transferred to a human intelligence center and will then be assigned a state longterm for which he will be transferred to. However, Felecia Watkins has no way of identifying where Manuel Alexander currently is and which longterm he will be sentenced to. At this point mauro Alexander is NOT readily available to participate in medical proxy decision making and will not be available to participate in family conference 08/13/17 at 10am. 430pm-- no return call from mauro Alexander. Will proceed with attempt to contact him for family meeting tomorrow. Palliative care will continue to follow throughout hospitalization. Mary Moody, MEDICAL EQUIPMENT REPAIR TECHNICIAN Aug 12, 2017 10:57
--- NOTE | 2017-08-12 13:01 | HHI.NSPN ---
(Whitney Gudino) Note Status Status: Progress Note (Whitney Gudino) Interval History Interval History A 67-year-old -[place] female who was transferred from [facility] in [place] after she presented to the emergency room with acute onset of headaches and left-sided weakness and basically progressed to obtundation and comatose state. She became unresponsive and required intubation. She was hypertensive on initial presentation and a CT scan of the head obtained reveals a large right frontal parietal lobe hemorrhage with likely underlying stroke measuring 8.6 cm x 6.0 cm in dimension with a 15 mm right to left midline shift. She was transferred [facility] for further management and neurosurgery consult. There is no family member available to relate any history and attempts to contact her brother whose phone number next of kin is listed in the records from [facility] with two phone numbers went directly to voice mail and a message was left for him to call us back. 08/02/17: Pt sedated on Fentanyl and Diprivan. When held for exam she does not open her eyes or follow commands. She has slight withdrawal in LEs. Pupils are 3mm bilaterally with slight reaction bilaterally. 08/03/17: Pt sedated on Fentanyl and Diprivan drips. She doesn't open eyes. Pupils equal. Left hemiparesis when sedation held. 08/04/17: Pt sedated on low dose Fentanyl. Diprivan on hold. Pt not opening eyes. Intubated. Not following commands. No reaction to pain. 08/05/17: Pt sedated on low dose Fentanyl drip. Opens eyes slightly to deep pain. Not following commands. 08/06/17: Pt off sedation. Not opening eyes for me although did briefly for RN to deep pain. She does not follow commands. 08/07: opening eyes, not following commands. intubated and mildly sedated. 08/08: intubated, very minimal response in feet. right craniectomy site appears much more dewitt and tighter to palpate today. 08/10: intubated, opening eyes but not following commands. 08/11: no overall changes to exam, less eye opening and extremity movement today per nursing reports. flap remains full, but not severely tight. (Whitney Gudino) Labs, Micro, & Vital Signs Results Date Time Temp Pulse Resp B/P (MAP) Pulse Ox O2 Delivery O2 Flow Rate FiO2 08/12/17 12:03 93 40 08/12/17 12:00 40 08/12/17 12:00 99.4 76 19 126/62 (83) 94 08/12/17 12:00 77 08/12/17 10:00 79 08/12/17 09:00 40 08/12/17 08:57 96 40 08/12/17 08:57 40 08/12/17 08:00 68 08/12/17 08:00 40 08/12/17 08:00 98.8 68 14 132/65 (87) 96 08/12/17 06:00 71 08/12/17 04:00 99.1 86 16 131/62 (85) 94 08/12/17 04:00 30 08/12/17 04:00 82 08/12/17 03:40 94 40 08/12/17 02:00 80 08/12/17 00:04 95 40 08/12/17 00:00 99.2 76 16 130/63 (85) 95 08/12/17 00:00 76 08/12/17 00:00 30 08/11/17 22:00 78 08/11/17 21:00 30 08/11/17 20:00 30 08/11/17 20:00 99.3 78 16 159/72 (101) 95 08/11/17 20:00 78 08/11/17 18:00 65 08/11/17 16:02 94 30 08/11/17 16:00 30 08/11/17 16:00 65 08/11/17 16:00 99.3 65 16 104/55 (71) 94 08/11/17 14:00 71 08/13/17 06:59 Output Total 0 ml Balance 0 ml Constitutional Vital Signs Date Time Temp Pulse Resp B/P (MAP) Pulse Ox O2 Delivery O2 Flow Rate FiO2 08/12/17 12:03 93 40 08/12/17 12:00 40 08/12/17 12:00 99.4 76 19 126/62 (83) 94 08/12/17 12:00 77 08/12/17 10:00 79 08/12/17 09:00 40 08/12/17 08:57 96 40 08/12/17 08:57 40 08/12/17 08:00 68 08/12/17 08:00 40 08/12/17 08:00 98.8 68 14 132/65 (87) 96 08/12/17 06:00 71 08/12/17 04:00 99.1 86 16 131/62 (85) 94 08/12/17 04:00 30 08/12/17 04:00 82 08/12/17 03:40 94 40 08/12/17 02:00 80 08/12/17 00:04 95 40 08/12/17 00:00 99.2 76 16 130/63 (85) 95 08/12/17 00:00 76 08/12/17 00:00 30 08/11/17 22:00 78 08/11/17 21:00 30 08/11/17 20:00 30 08/11/17 20:00 99.3 78 16 159/72 (101) 95 08/11/17 20:00 78 08/11/17 18:00 65 08/11/17 16:02 94 30 08/11/17 16:00 30 08/11/17 16:00 65 08/11/17 16:00 99.3 65 16 104/55 (71) 94 08/11/17 14:00 71 08/13/17 06:59 Output Total 0 ml Balance 0 ml (Whitney Gudino) Review of Systems ROS Limitations: Intubated (Whitney Gudino) Physical Exam General: intubated Eyes: Pupils 3 mm equal. Sclera anicteric. Resp: clear, mechanically ventilated Heart: NSR no murmurs Abd: Soft positive bs but diminished. Skin. Incision is healing well. [place] intact. Muscle: Not following for muscle testing. no response in upper extremities, very minimal withdraws in feet to local stimuli, right greater than left Neuro: Pupils equal 3mm bilaterally with slight reaction bilaterally. No eye opening today. Not following commands. Positive corneal reflex bilaterally Right craniectomy site is full, slightly tense but improved from 3/4 exam (Whitney Gudino) Medications Current Medications Current Medications Medications (Trade) Dose Ordered Sig/Carey Route PRN Reason Start Time Stop Time Status Last Admin Dose Admin Acetaminophen (Tylenol) 650 mg Q6H PRN PO PAIN 1-10 AND/OR FEVER >101F 08/01/17 15:15 08/06/17 08:45 Morphine Sulfate (Morphine Inj) 2 mg Q2H PRN IV PUSH PAIN SCALE 6 TO 10 08/01/17 15:15 08/07/17 17:38 Famotidine (Pepcid Inj) 20 mg Q12HR IV PUSH 08/01/17 21:00 08/12/17 08:21 Ondansetron HCl (Zofran Inj) 4 mg Q6H PRN IV PUSH NAUSEA OR VOMITING 08/01/17 15:15 Albuterol/ Ipratropium (Duoneb Neb) 1 ampule Q4HR NEB PRN INH WHEEZING 08/01/17 15:15 Miscellaneous Information 1 Q361D XX 08/01/17 15:15 08/01/17 15:15 Chlorhexidine Gluconate (Chlorhexidine 2% Cloth) Taper DAILY@04 TOP 08/02/17 04:00 07/29/18 03:59 08/12/17 04:00 Chlorhexidine Gluconate (Chlorhexidine 2% Cloth) 3 pack UNSCH PRN TOP HYGIENIC CARE 08/01/17 15:15 Chlorhexidine Gluconate (Peridex 0.12% Liq) 15 ml BID@08,20 MT 08/01/17 20:00 08/11/17 20:00 Levetriacetam 500 mg/Sodium Chloride 105 ml @ 420 mls/hr Q12HR IV 08/01/17 21:00 08/12/17 08:21 Sodium Chloride (NS Flush) 2 ml UNSCH PRN IV FLUSH FLUSH AFTER USING IV ACCESS 08/01/17 18:00 Sodium Chloride (NS Flush) 2 ml BID IV FLUSH 08/01/17 21:00 08/12/17 08:21 Lorazepam (Ativan Inj) 1 mg Q1H PRN IV PUSH SEIZURES 08/01/17 18:00 Al Hydrox/Mg Hydrox/Simethicone (Mag-Al Plus Susp Liq) 30 ml Q6H PRN PO DYSPEPSIA 08/01/17 18:00 Calcium Gluconate 1 gm/Sodium Chloride 110 ml @ 110 mls/hr UNSCH PRN IV SEE LABEL COMMENTS 08/01/17 18:00 Magnesium Sulfate 2 gm/Sodium Chloride 104 ml @ 100 mls/hr UNSCH PRN IV MAGNESIUM LESS THAN 2 08/01/17 18:00 Clonidine (Catapres) 0.1 mg Q6H PRN PO SYS BP GREATER THAN 170 MMHG 08/01/17 18:00 08/10/17 21:19 Magnesium Hydroxide (Milk Of Magnesia Liq) 30 ml Q12H PRN PO Mild constipation 08/01/17 18:00 Sennosides (Senokot) 17.2 mg Q12H PRN PO Moderate constipation 08/01/17 18:00 Bisacodyl (Dulcolax Supp) 10 mg DAILY PRN RECTAL SEVERE CONSITIPATION 08/01/17 18:00 Lactulose (Lactulose Liq) 30 ml DAILY PRN PO SEVERE CONSITIPATION 08/01/17 18:00 08/07/17 17:38 Miscellaneous Information D/C ICU ELECTROLYTE ORDERS... UNSCH PRN .XX SEE DOSE INSTRUCTIONS 08/02/17 17:00 Miscellaneous Information ICU - CALL ORDERING PHYSIC... UNSCH PRN .XX SEE DOSE INSTRUCTIONS 08/02/17 17:00 Potassium Chloride 100 ml @ 25 mls/hr UNSCH PRN IV ELECTROLYTE REPLACEMENT 08/02/17 17:00 Potassium Bicarb/ Potassium Chloride (K-Lyte Cl Eff) 50 meq UNSCH PRN PO ELECTROLYTE REPLACEMENT 08/02/17 17:00 Potassium Chloride 100 ml @ 50 mls/hr UNSCH PRN IV ELECTROLYTE REPLACEMENT 08/02/17 17:00 08/02/17 20:01 Magnesium Sulfate 4 gm/Sodium Chloride 108 ml @ 54 mls/hr UNSCH PRN IV ELECTROLYTE REPLACEMENT 08/02/17 17:00 Magnesium Sulfate 2 gm/Sodium Chloride 104 ml @ 52 mls/hr UNSCH PRN IV ELECTROLYTE REPLACEMENT 08/02/17 17:00 Magnesium Oxide (Mag-Ox) 800 mg UNSCH PRN PO ELECTROLYTE REPLACEMENT 08/02/17 17:00 Sodium Phosphate 30 mmol/Sodium Chloride 260 ml @ 43.333 mls/ hr UNSCH PRN IV ELECTROLYTE REPLACEMENT 08/02/17 17:00 Potassium Phosphate (K-Phos) 2,000 mg UNSCH PRN PO ELECTROLYTE REPLACEMENT 08/02/17 17:00 Potassium Phosphate 30 mmol/ Sodium Chloride 260 ml @ 43.333 mls/ hr UNSCH PRN IV ELECTROLYTE REPLACEMENT 08/02/17 17:00 08/02/17 17:26 Dextrose (D50w (Vial) Inj) 50 ml UNSCH PRN IV PUSH HYPOGLYCEMIA-SEE COMMENTS 08/06/17 10:45 Glucagon (Glucagon Inj) 1 mg UNSCH PRN OTHER HYPOGLYCEMIA-SEE COMMENTS 08/06/17 10:45 Insulin Aspart (NovoLOG SUPPLEMENTAL SCALE) 1 ACHS SLIDING SCALE SQ 08/06/17 12:00 08/12/17 12:30 Hydralazine HCl (Apresoline) 100 mg Q8H PO 08/07/17 17:00 08/12/17 08:22 Labetalol HCl (Trandate Inj) 20 mg Q1H PRN IV PUSH SYS BP GREATER THAN 160 MMHG 08/07/17 16:00 08/07/17 18:06 Lactulose (Lactulose Liq) 30 ml QID PO 08/08/17 13:00 08/10/17 21:16 Docusate Sodium (Colace Liq) 100 mg Q12HR PO 08/08/17 10:30 08/10/17 21:16 Sodium Chloride 500 ml @ 20 mls/hr CONTINUOUS IV 08/08/17 13:30 08/13/17 13:29 08/11/17 20:16 Clonidine (Catapres) 0.3 mg Q8HR PO 08/08/17 15:00 08/12/17 05:22 Lisinopril (Prinivil) 20 mg BID PO 08/08/17 21:00 08/12/17 08:23 Metoprolol Tartrate (Lopressor) 50 mg Q8HR PO 08/09/17 14:00 08/12/17 05:22 Piperacillin Sod/ Tazobactam Sod 100 ml @ 200 mls/hr Q6H IV 08/09/17 10:00 08/12/17 10:00 Hydralazine HCl (Apresoline Inj) 20 mg Q2H PRN IV PUSH SBP > 150 08/09/17 09:30 Insulin Detemir (Levemir Inj) 23 units Q12HR SQ 08/09/17 21:00 08/12/17 08:22 (Whitney Gudino) Medical Decision Making MDM Remarks 67 y/o female with large right frontotemporal lobe hemorrhage with likely underlying stroke with significant mass effect and midline shift s/p emergent Right frontotemporoparietal craniotomy for subdural and intracerebral hemorrhage evacuation; decompressive hemicraniectomy with expansive duraplasty on 08/01/17 f/u CT Brain 08/09/17: stable intra-axial blood products in the right frontal lobe with surrounding vasogenic edema, decreased right to left midline shift, currently measuring up to 2 mm compared to 5 mm previously, stable blood products within the left occipital horn. (Whitney Gudino) Plan Plan Remarks cont critical care mgt, cont neuro checks cont hyperosmotic tx with 3%NS for cerebral edema ok for trach and PEG palliative care following (Whitney Gudino) Attending Statement The exam, history, and the medical decision-making described in the above note were completed with the assistance of the mid-level provider. I reviewed and agree with the findings presented. I attest that I had a [id number] encounter with the patient on the same day, and personally performed and documented my assessment and findings in the medical record. (Jadiel Garcia MD) Whitney Gudino Aug 12, 2017 13:01 Jadiel Garcia MD Aug 13, 2017 20:39
--- NOTE | 2017-08-12 14:39 | HHI.CCPN ---
Subjective Remarks/Hospital Course 67 y/o woman presented to [facility] as stroke alert. Right side headache and left side weakness starting around 10:00 a.m. Glucose 122. INR 1.0 , Sinus rhythm. No history of anticoagulants. Does have history of hypertension and Type 2 diabetes. BP 244/146. Required intubation shortly after arrival. CT Head with large right hemisphere ICH parietal lobe and 1.5 cm shift away from bleed. Plts 296,000, Creat 0.59, Hct 40. 08/02: CT with much improved shift. Gas exchange acceptable. 08/03: Persistent hypertension requiring nicardipine. Will start oral scheduled BP meds. Glucose elevated. NG output minimal. 08/04: Transitioned to oral meds with good BP control. Heavily sedated, now tapering. No spontaneous ventilation but high fixed rate. Repeat head CT with markedly reduced shift. 08/05: Currently remains on fentanyl for sedation. Withdraws all extremities to pain, stronger right though. No spontaneous eye opening or spontaneous movements noted. 08/06: Weaning sedation but no purposeful movement. Worsening glucose intolerance. Increase levemir and go to high SSI. 08/07: Glucose intolerance persists. Increase levemir coverage. No improvement in neurological condition. 08/08: Patient remains encephalopathy no improvement in mental status. Blood glucose control remains inadequate increase Levemir to 20 every 12. Unable to wean to extubate will need tracheostomy if family wishes to proceed. Plan for tomorrow, will also consult GI for PEG tube placement 08/09: Encephalopathy appears to be worsening, no spontaneous eye opening weakly withdraws to pain left more than right. UA shows evidence of UTI patient is spiking fever up to 101.7 increasing leukocytosis. Start Zosyn. UA shows evidence of infection. CT of the head shows stable bleed and vasogenic edema. 3% saline started yesterday for presumed edema. Right IJ central line was also placed. Patient is critically ill again with worsening encephalopathy now with high fever and sepsis. Probable source UTI. Empiric Zosyn started. Family in disagreement regarding trach and PEG. Palliative care consulted. Unable to wean to extubate due to severe encephalopathy 08/10: Neuro exam remains unchanged. Disagreement among adult children whether to proceed with trach and PEG. Palliative care is following. Sputum culture and urine culture growing Klebsiella pansensitive. Will narrow antibiotics in 1 -2 days. 08/11: No improvement in neurological function. Palliative care working with family on care plan. Unable to wean from ventilator. 08/12: Unable to wean from ventilator. Family deciding on care plan. Objective Vital Signs Date Time Temp Pulse Resp B/P (MAP) Pulse Ox O2 Delivery O2 Flow Rate FiO2 08/12/17 12:03 93 40 08/12/17 12:00 99.4 76 19 126/62 (83) Intake and Output 08/12/17 08/12/17 08/13/17 08:00 16:00 00:00 Intake Total 739 ml Output Total 500.0 ml Balance 239.0 ml Result Diagram: 08/11/17 0548 08/12/17 0610 Objective Remarks Gen: Unresponsive. Off all sedation Head: Atraumatic. Pupils 3 mm equal, sluggish Neck: Supple, orally intubated. OG in place. Lungs: Clear, no wheezes or crackles. Good bilateral air entry. Few mobile secretions. Heart: NL S1S2, RRR, No JVD Abdomen: Soft, large, no guarding. BS few. Nondistended. No tenderness. Extremities: Warm, well perfused. Trace edema. Neuro: Unresponsive. Not on any sedation for multiple days.. Pupils reactive. Eye-opening spontaneously, only partial. Mild withdrawal upper extremities with slight internal rotation lower extremities to deep pain. No purposeful movements noted. No tracking. A/P Assessment and Plan Assessment: Hemorrhagic stroke, right fronto/parietal region -> decompressive craniectomy Persistent encephalopathy Fever sepsis UTI Pneumonia with Klebsiella Acute respiratory Failure Hyperglycemia Leukocytosis Diabetes, type 2. Hypertensive urgency. Plan: Neuro - Keep Serum osmolality > 310 - Continue 3% saline keep sodium between 150-155 - CT of the head today shows stable acute right frontal hemorrhage and vasogenic edema, decreased midline shift - HOB up. adjust EtCO2 to maintain 35 - 40 blood range - s/p Right frontotemporoparietal craniotomy for subdural and intracerebral hemorrhage evacuation; decompressive hemicraniectomy - Overall prognosis is poor. Palliative care is following. D/C hypertonic saline Respiratory - PRVC vent mode. EtCO2 monitor, maintain low normal range. DuoNeb every 6 hours as needed - Daily CPAP trials unable to wean, patient lacks airway protection. Will need trach if family wants to continue aggressive care - Palliative care consulted to address goals of care - Sputum culture growing Klebsiella, continue Zosyn Cardiovascular - Cardene to maintain SBP < 150. currently weaned off for 2 days - Lisinopril 20 mg q12, Lopressor 50 every 8 hours - Hydralazine 100 mg tid. Clonidine 0.3 mg 3 times daily - Use as needed IV labetalol and hydralazine for SBP more than 150 GI - Tube feeds Glucerna 1.5 - Last BM reported on 08/09 - s/p mag citrate x1 08/09. Scheduled lactulose 30 ml QID. Colace - Gaffney. - Strict intake output ID - Acevedo Culture for worsening leukocytosis. - Sputum and urine culture growing Klebsiella. Continue Zosyn Endocrinology - SSI, high algorithm - Levemir 23 u bid, now with improved blood sugar control Heme - CBC a.m. Prophylaxis - Chemical contraindicated, until cleared by neurosurgery, address trach and PEG - SCDs - Pepcid Overall impression: Patient presented critically ill with deteriorating neurological function due to acute hemorrhage right hemisphere. She was transferred emergently from [facility] for definitive neurosurgical treatment and underwent emergency decompression of the right side to save what is hopefully her dominant left hemisphere. Remains neurologically unstable and critically ill. Family is aware of her critical condition. There had been no improvement in her mental status patient admitted remains comatose, on vent day 11. Plan to proceed with tracheostomy tomorrow if family agreeable. Roel Fitch MD Aug 12, 2017 14:39
[2017-08-12] MEDS: cefTRIAXone INJ 1,000 MG in SODIUM CHLORIDE 0.9% INJ 100 ML IV SCH (15:46)
[2017-08-13] VITALS (19 sets, daily range): BP systolic 102–142; BP diastolic 51–67; PULSE 60–81; RESP 14–16; TEMP 97.9–99.5; O2SAT 94–99
[2017-08-13] MEDS: hydrALAZINE HCL 50 MG TAB PO SCH ×4 (02:03→23:46)
[2017-08-13] MEDS: CHLORHEXIDINE GLUCONATE 2 % 1 PACK (2 CLOTHS) TOP SCH (04:00)
[2017-08-13] MEDS: cloNIDine HCL 0.3 MG TAB PO SCH ×3 (05:24→20:49)
[2017-08-13] MEDS: METOPROLOL TARTRATE 25 MG TAB PO SCH ×3 (05:25→20:49)
[2017-08-13] MEDS: CHLORHEXIDINE 0.12% (ORAL KIT) 15 ML CUP MT SCH ×2 (08:00→20:48)
[2017-08-13] MEDS: INSULIN ASPART SUPPLEMENTAL SCALE SQ SCH ×4 (08:00→20:49)
--- NOTE | 2017-08-13 08:51 | HHI.CCPN ---
Subjective Remarks/Hospital Course 67 y/o woman presented to [facility] as stroke alert. Right side headache and left side weakness starting around 10:00 a.m. Glucose 122. INR 1.0 , Sinus rhythm. No history of anticoagulants. Does have history of hypertension and Type 2 diabetes. BP 244/146. Required intubation shortly after arrival. CT Head with large right hemisphere ICH parietal lobe and 1.5 cm shift away from bleed. Plts 296,000, Creat 0.59, Hct 40. 08/02: CT with much improved shift. Gas exchange acceptable. 08/03: Persistent hypertension requiring nicardipine. Will start oral scheduled BP meds. Glucose elevated. NG output minimal. 08/04: Transitioned to oral meds with good BP control. Heavily sedated, now tapering. No spontaneous ventilation but high fixed rate. Repeat head CT with markedly reduced shift. 08/05: Currently remains on fentanyl for sedation. Withdraws all extremities to pain, stronger right though. No spontaneous eye opening or spontaneous movements noted. 08/06: Weaning sedation but no purposeful movement. Worsening glucose intolerance. Increase levemir and go to high SSI. 08/07: Glucose intolerance persists. Increase levemir coverage. No improvement in neurological condition. 08/08: Patient remains encephalopathy no improvement in mental status. Blood glucose control remains inadequate increase Levemir to 20 every 12. Unable to wean to extubate will need tracheostomy if family wishes to proceed. Plan for tomorrow, will also consult GI for PEG tube placement 08/09: Encephalopathy appears to be worsening, no spontaneous eye opening weakly withdraws to pain left more than right. UA shows evidence of UTI patient is spiking fever up to 101.7 increasing leukocytosis. Start Zosyn. UA shows evidence of infection. CT of the head shows stable bleed and vasogenic edema. 3% saline started yesterday for presumed edema. Right IJ central line was also placed. Patient is critically ill again with worsening encephalopathy now with high fever and sepsis. Probable source UTI. Empiric Zosyn started. Family in disagreement regarding trach and PEG. Palliative care consulted. Unable to wean to extubate due to severe encephalopathy 08/10: Neuro exam remains unchanged. Disagreement among adult children whether to proceed with trach and PEG. Palliative care is following. Sputum culture and urine culture growing Klebsiella pansensitive. Will narrow antibiotics in 1 -2 days. 08/11: No improvement in neurological function. Palliative care working with family on care plan. Unable to wean from ventilator. 08/12: Unable to wean from ventilator. Family deciding on care plan. 08/13: Unable to wean from vent, still requiring increased pressure support. If family wants to persist she will need a trach. Family hasn't accepted this yet. Objective Vital Signs Date Time Temp Pulse Resp B/P (MAP) Pulse Ox O2 Delivery O2 Flow Rate FiO2 08/13/17 08:00 97 40 08/13/17 06:00 64 08/13/17 04:00 97.9 14 124/63 (83) Intake and Output 08/13/17 08/13/17 08/14/17 08:00 16:00 00:00 Intake Total 900 ml Output Total 450 ml Balance 450 ml Result Diagram: 08/11/17 0548 08/12/17 0610 Objective Remarks Gen: Unresponsive. Off all sedation Head: Atraumatic. Pupils 3 mm equal, sluggish Neck: Supple, orally intubated. OG in place. Lungs: Clear, no wheezes or crackles. Good bilateral air entry. Few mobile secretions. Heart: NL S1S2, RRR, No JVD Abdomen: Soft, large, no guarding. BS few. Nondistended. No tenderness. Extremities: Warm, well perfused. Trace edema. Neuro: Unresponsive. Not on any sedation for multiple days.. Pupils reactive. Eye-opening spontaneously, only partial. Mild withdrawal upper extremities with slight internal rotation lower extremities to deep pain. No purposeful movements noted. No tracking. A/P Assessment and Plan Assessment: Hemorrhagic stroke, right fronto/parietal region -> decompressive craniectomy Persistent encephalopathy Fever sepsis UTI Pneumonia with Klebsiella Acute respiratory Failure Hyperglycemia Leukocytosis Diabetes, type 2. Hypertensive urgency. Plan: Neuro - Keep Serum osmolality > 310 - Continue 3% saline keep sodium between 150-155 - CT of the head today shows stable acute right frontal hemorrhage and vasogenic edema, decreased midline shift - HOB up. adjust EtCO2 to maintain 35 - 40 blood range - s/p Right frontotemporoparietal craniotomy for subdural and intracerebral hemorrhage evacuation; decompressive hemicraniectomy - Overall prognosis is poor. Palliative care is following. - D/C hypertonic saline Respiratory - PRVC vent mode. EtCO2 monitor, maintain low normal range. DuoNeb every 6 hours as needed - Daily CPAP trials unable to wean, patient lacks airway protection. Will need trach if family wants to continue aggressive care - Palliative care consulted to address goals of care - Sputum culture growing Klebsiella, continue Zosyn Cardiovascular - Cardene to maintain SBP < 150. currently weaned off for 2 days - Lisinopril 20 mg q12, Lopressor 50 every 8 hours - Hydralazine 100 mg tid. Clonidine 0.3 mg 3 times daily - Use as needed IV labetalol and hydralazine for SBP more than 150 GI - Tube feeds Glucerna 1.5 - Last BM reported on 08/09 - s/p mag citrate x1 08/09. Scheduled lactulose 30 ml QID. Colace - Gaffney. - Strict intake output - Start daily lasix ID - Acevedo Culture for worsening leukocytosis. - Sputum and urine culture growing Klebsiella. Continue Zosyn Endocrinology - SSI, high algorithm - Levemir 23 u bid, now with improved blood sugar control Heme - CBC a.m. Prophylaxis - Chemical contraindicated, until cleared by neurosurgery, address trach and PEG - SCDs - Pepcid Overall impression: Patient presented critically ill with deteriorating neurological function due to acute hemorrhage right hemisphere. She was transferred emergently from [facility] for definitive neurosurgical treatment and underwent emergency decompression of the right side to save what is hopefully her dominant left hemisphere. Remains neurologically unstable and critically ill. Family is aware of her critical condition. There had been no improvement in her mental status patient admitted remains comatose, on vent day 12. Plan to proceed with tracheostomy if family agreeable. Roel Fitch MD Aug 13, 2017 08:51
[2017-08-13] MEDS: DOCUSATE SODIUM 100 MG/10 ML UDC PO SCH ×2 (09:00→20:48)
[2017-08-13] MEDS: INSULIN DETEMIR 100 UNITS/ML VIAL SQ SCH ×2 (09:00→20:49)
[2017-08-13] MEDS: LACTULOSE SYRUP 20 GM/30 ML CUP PO SCH ×4 (09:00→20:48)
[2017-08-13] MEDS: SODIUM CHLORIDE 0.9% FLUSH 10 ML FLUSH IV FLUSH SCH ×2 (09:00→20:48)
[2017-08-13] MEDS ORDERED: FUROSEMIDE 40 MG/4 ML VIAL IV PUSH SCH (09:00)
--- NOTE | 2017-08-13 09:51 | HHI.NSPN ---
History Chief Complaint: Unable to obtain due to patient's clinical condition. Interval History A 67-year-old -[place] female who was transferred from [facility] in [place] after she presented to the emergency room with acute onset of headaches and left-sided weakness and basically progressed to obtundation and comatose state. She became unresponsive and required intubation. She was hypertensive on initial presentation and a CT scan of the head obtained reveals a large right frontal parietal lobe hemorrhage with likely underlying stroke measuring 8.6 cm x 6.0 cm in dimension with a 15 mm right to left midline shift. She was transferred [facility] for further management and neurosurgery consult. There is no family member available to relate any history and attempts to contact her brother whose phone number next of kin is listed in the records from [facility] with two phone numbers went directly to voice mail and a message was left for him to call us back. 08/02/17: Pt sedated on Fentanyl and Diprivan. When held for exam she does not open her eyes or follow commands. She has slight withdrawal in LEs. Pupils are 3mm bilaterally with slight reaction bilaterally. 08/03/17: Pt sedated on Fentanyl and Diprivan drips. She doesn't open eyes. Pupils equal. Left hemiparesis when sedation held. 08/04/17: Pt sedated on low dose Fentanyl. Diprivan on hold. Pt not opening eyes. Intubated. Not following commands. No reaction to pain. 08/05/17: Pt sedated on low dose Fentanyl drip. Opens eyes slightly to deep pain. Not following commands. 08/06/17: Pt off sedation. Not opening eyes for me although did briefly for RN to deep pain. She does not follow commands. 08/13/17: Pt opens eyes slightly left more than right briefly. Pupils 3mm bilaterally. Intubated on CPAP. Not following commands. System Review Comments Not able to obtain given clinical condition. Exam Results Vital Signs Date Time Temp Pulse Resp B/P (MAP) Pulse Ox O2 Delivery O2 Flow Rate FiO2 08/13/17 08:00 97 40 08/13/17 06:00 64 08/13/17 04:00 97.9 14 124/63 (83) Intake and Output 08/13/17 08/13/17 08/14/17 08:00 16:00 00:00 Intake Total 900 ml Output Total 450 ml Balance 450 ml Physical Examination General: intubated opens eyes slightly when stimulated. Eyes: Pupils 3 mm equal. Sclera anicteric. Resp: clear to auscultation, on CPAP. Heart: NSR no murmurs Abd: Soft positive bs but diminished. Skin. Incision is healing well. [place] intact. Right craniectomy site full. Muscle: Not following for muscle testing. Edema in hands. Neuro: Pupils equal 3mm bilaterally reactive bilaterally. Opens eyes to stimulation. Not following commands. Lab, Micro, Other Results Last Impressions Chest X-Ray 08/11/17 0600 Signed Impressions: Service Date/Time: Friday, August 11, 2017 04:56 - CONCLUSION: Stable chest x-ray with left lung base atelectasis and/or airspace consolidation. Brandon Díaz MD Head CT 08/09/17 0800 Signed Impressions: Service Date/Time: Wednesday, August 09, 2017 04:21 - CONCLUSION: 1. The acute intra-axial blood products in the right frontal lobe with surrounding vasogenic edema are stable. 2. There is decreased right to left midline shift, currently measuring up to 2 mm compared to 5 mm previously. This is likely related to the increased herniation of brain tissue through the craniectomy defect. 3. Interval removal of the surgical drain with a small crescentic low density extra-axial fluid collection. 4. Stable acute blood products within the left occipital horn. Brandon Díaz MD Medical Decision Making Impression and Plan A: 67 y/o FM with large right frontotemporal lobe hemorrhage with likely underlying stroke with significant mass effect and midline shift. Overall poor neurologic examination. She underwent an emergent Right frontotemporoparietal craniotomy for subdural and intracerebral hemorrhage evacuation; decompressive hemicraniectomy with expansive duraplasty on 08/01/17. 2. Respiratory failure secondary to above. 3. Unregulated hypertension. 4. Diabetes mellitus. P: Continue with critical care Continue with close neuro checks Kevin Messer Aug 13, 2017 9:51 am
[2017-08-13] MEDS: levETIRAcetam INJ 500 MG in SODIUM CHLORIDE 0.9% INJ 100 ML IV SCH ×2 (10:26→20:48)
[2017-08-13] MEDS: FAMOTIDINE 20 MG/2 ML VIAL IV PUSH SCH ×2 (10:31→20:48)
[2017-08-13] MEDS: LISINOPRIL 10 MG TAB PO SCH ×2 (10:33→20:48)
--- NOTE | 2017-08-13 11:29 | HHI.HCPN ---
Reason for visit a. To assist with evaluation and management of symptoms including: pain, encephalopathy, dyspnea. b. To assist medical decision maker(s) with: better understanding of current medical conditions; weighing benefits/burdens of medical treatment options; making medical treatment decisions. . Subjective/Interval History Ms. Alexander is a 67-year-old female with hypertension and diabetes who presented to [facility] on 08/01/17 for evaluation of acute onset headaches and left-sided weakness that progressed to obtundation with emergent intubation. Upon arrival to the ED the patient was hypertensive with a BP of 244/146. CT scan of the head revealed a large frontal parietal lobe hemorrhage with a 15 mm midline shift. Patient was transferred to [facility] for further management and neurosurgery consult. Upon arrival, the patient was taken emergently for right frontotemporoparietal craniotomy for subdural and intracerebral hemorrhage evacuation with decompressive hemicraniectomy. Follow up visit for symptom management and clarification of medical treatment goals. Patient seen and intensive care unit, room 1322. Patient remains intubated, tolerating CPAP this morning. Patient's nurse states the patient was on CPAP for several hours yesterday. Follow-up chest x-ray on 08/11/2017 was stable with left lung base atelectasis and/or airspace consolidation. Afebrile. Urine culture and sputum culture growing Klebsiella pneumoniae. WBC: 12.6 on 2017. Receiving IV antibiotics. Zosyn was discontinued yesterday 08/12/2017, the patient was started on IV Rocephin. Patient has been off sedation for several days with no significant improvement in neurological status. Patient opens eyes but does not track; does not withdraw to noxious stimuli. No nonverbal signs of pain observed on exam. Follow-up CT head on 08/09/2017 showing significant edema in the right hemisphere , however midline shift has decreased from 5 mm to 2 mm. There is significant displacement of tissue through the craniotomy site. Hypertonic saline on hold secondary to sodium level of 156. The patient's son, Manuel Alexander, is NOT readily available to participate and medical proxy decision making because he is incarcerated and is currently being transferred from one facility to another. Palliative care was able to arrange a conference call this morning 08/13/2017 with the patient's 3 other children ( Arron, Laomnt and Hany). All 3 were in agreement that would like to proceed with ongoing aggressive interventions to "give mom a chance." Lamont was identified as the spokesperson for the patient and will be giving consent for trach/PEG. However, decision making will continue to be shared among the patient's adult children. Nurse, Kristina, and Dr. Kendall are aware. Kristina was able to reach Lamont and consents have been signed. . Family/friend interactions See interval history . Advance Directives Advance Directive Specifics Documented care wishes: No known documented care wishes have been completed . Significant change in goals: AGGRESSIVE GOALS. Nurse, Kristina, spoke with patient's son Lamont who has given consent to proceed with trach/PEG. . Objective Vital Signs Date Time Temp Pulse Resp B/P (MAP) Pulse Ox O2 Delivery O2 Flow Rate FiO2 08/13/17 08:00 97 40 08/13/17 07:59 40 08/13/17 06:00 64 08/13/17 04:02 95 40 08/13/17 04:00 68 08/13/17 04:00 40 08/13/17 04:00 97.9 76 14 124/63 (83) 94 08/13/17 02:00 69 08/13/17 01:02 95 40 08/13/17 00:00 99.0 80 14 134/65 (88) 99 08/13/17 00:00 66 08/13/17 00:00 40 08/12/17 22:00 68 08/12/17 20:00 80 08/12/17 20:00 40 08/12/17 20:00 98.9 80 15 128/66 (86) 94 08/12/17 19:52 95 40 08/12/17 18:00 76 08/12/17 17:05 93 40 08/12/17 16:00 64 08/12/17 16:00 99.0 65 17 127/62 (83) 93 08/12/17 16:00 40 08/12/17 14:00 78 08/12/17 12:03 93 40 08/12/17 12:00 40 08/12/17 12:00 99.4 76 19 126/62 (83) 94 08/12/17 12:00 77 Intake & Output 08/13/17 08/13/17 07:00 19:00 Intake Total 1005 ml Output Total 450 ml Balance 555 ml Intake IV Total 465 ml Tube Feeding 540 ml Output Urine Total 450 ml .. Physical Exam CONSTITUTIONAL/GENERAL: This is an adequately nourished patient, elderly female patient in no apparent distress TUBES/LINES/DRAINS: Left IJ central line, PIV, OGT, ETT, Gaffney, SCDs SKIN: No jaundice, rashes, or lesions. Status post craniotomy; incision healing without signs/symptoms of infection. Skin temperature appropriate. Not diaphoretic. HEAD: Atraumatic. Normocephalic. EYES: Pupils equal and round and minimally reactive. No scleral icterus. No injection or drainage. Fundi not examined. ENT: Unable to assess hearing given current clinical condition. Nose without bleeding or purulent drainage. NECK: Trachea midline. CARDIOVASCULAR: Regular rate and rhythm without murmurs, gallops, or rubs. No JVD. Peripheral pulses symmetric. RESPIRATORY/CHEST: Intubated, tolerating CPAP this morning. Clear to auscultation. Breath sounds equal bilaterally. No wheezes, rales, or rhonchi. GASTROINTESTINAL: Abdomen soft, non-tender, nondistended. Tolerating artificial nutrition, Glucerna at 50ml/hour. GENITOURINARY: Without palpable bladder distension. Gaffney catheter in place. MUSCULOSKELETAL: Extremities without cyanosis or mottling. Hands and feet are swollen bilaterally LYMPHATICS: No palpable cervical or supraclavicular adenopathy. NEUROLOGICAL: Minimally responsive off sedation. Does not withdraw to noxious stimuli on exam this morning. PSYCHIATRIC: Unable to assess given current clinical condition . Diagnostic Tests Laboratory Laboratory Tests Test 08/10/17 15:35 08/10/17 23:10 08/11/17 05:48 08/12/17 06:10 Sodium Level 149 MEQ/L (136-145) 151 MEQ/L (136-145) 156 MEQ/L (136-145) Blood Urea Nitrogen 29 MG/DL (7-18) 36 MG/DL (7-18) Creatinine 0.67 MG/DL (0.50-1.00) 0.81 MG/DL (0.50-1.00) Random Glucose 197 MG/DL (74-106) 219 MG/DL (74-106) Total Protein 6.0 GM/DL (6.4-8.2) Albumin 1.6 GM/DL (3.4-5.0) Calcium Level 8.3 MG/DL (8.5-10.1) 8.4 MG/DL (8.5-10.1) Magnesium Level 2.4 MG/DL (1.5-2.5) Alkaline Phosphatase 109 U/L (45-117) Aspartate Amino Transf (AST/SGOT) 55 U/L (15-37) Alanine Aminotransferase (ALT/SGPT) 80 U/L (10-53) Total Bilirubin 0.5 MG/DL (0.2-1.0) Potassium Level 3.6 MEQ/L (3.5-5.1) 3.8 MEQ/L (3.5-5.1) Chloride Level 119 MEQ/L (98-107) 123 MEQ/L (98-107) Carbon Dioxide Level 26.8 MEQ/L (21.0-32.0) 25.3 MEQ/L (21.0-32.0) Anion Gap 5 MEQ/L (5-15) 8 MEQ/L (5-15) Estimat Glomerular Filtration Rate 87 ML/MIN (>89) 70 ML/MIN (>89) White Blood Count 12.6 TH/MM3 (4.0-11.0) Red Blood Count 2.96 MIL/MM3 (4.00-5.30) Hemoglobin 8.3 GM/DL (11.6-15.3) Hematocrit 25.1 % (35.0-46.0) Mean Corpuscular Volume 84.8 FL (80.0-100.0) Mean Corpuscular Hemoglobin 28.0 PG (27.0-34.0) Mean Corpuscular Hemoglobin Concent 33.0 % (32.0-36.0) Red Cell Distribution Width 13.7 % (11.6-17.2) Platelet Count 382 TH/MM3 (150-450) Mean Platelet Volume 8.5 FL (7.0-11.0) Neutrophils (%) (Auto) 72.7 % (16.0-70.0) Lymphocytes (%) (Auto) 12.9 % (9.0-44.0) Monocytes (%) (Auto) 10.6 % (0.0-8.0) Eosinophils (%) (Auto) 3.1 % (0.0-4.0) Basophils (%) (Auto) 0.7 % (0.0-2.0) Neutrophils # (Auto) 9.2 TH/MM3 (1.8-7.7) Lymphocytes # (Auto) 1.6 TH/MM3 (1.0-4.8) Monocytes # (Auto) 1.3 TH/MM3 (0-0.9) Eosinophils # (Auto) 0.4 TH/MM3 (0-0.4) Basophils # (Auto) 0.1 TH/MM3 (0-0.2) CBC Comment DIFF FINAL Differential Comment . Result Diagram: 08/11/17 0548 08/12/17 0610 Imaging Last 72 hours Impressions Chest X-Ray 08/11/17 0600 Signed Impressions: Service Date/Time: Friday, August 11, 2017 04:56 - CONCLUSION: Stable chest x-ray with left lung base atelectasis and/or airspace consolidation. Brandon Díaz MD . Procedures 08/01/2017: Intubation 08/01/2017: OGT 08/01/2017: Craniotomy 08/03/2017: REYNA drain removed 08/08/2017: Right IJ central line placement . Assessment and Plan Disease Oriented Problem List: (1) Hemorrhagic stroke (2) Sepsis (3) UTI (urinary tract infection) (4) Respiratory failure (5) Leukocytosis (6) Diabetes (7) Hypertensive urgency Symptom Scale: (1) Pain (2) Dyspnea (3) Encephalopathy Pertinent Non-Medical Issues Psychosocial: Patient is originally from [place] but spent most of her life living in [place]. She moved back to [place] approximately 20 years ago. She has 4 adult children (Arron, Lamont, Hany and Manuel). Arron and Lamont both live in [place]. Hany lives in [place]. Manuel is incarcerated in [place]. Patient was living with her son, Lamont, prior to this hospitalization. Spiritual: Yarsanism sundar Legal: Per [place] statutes, in the absence of written advanced directives healthcare proxy decision making falls to the patient's 4 adult children. Ethical issues impacting care: . Important Contacts Arron Alexander dtr: [phone] or [phone] Lamont Alexander, son: [phone] or [phone] Hany Alexander, son: [phone] (first officer and flight instructor: Ms. Brantley @ [phone]) . Manuel Alexander, son, is incarcerated at [facility]. Spoke with Sergeant Winters at [phone]. . Prognosis Patient is a 67-year-old female who suffered an acute right frontal hemorrhage status post craniotomy for subdural and intracerebral hemorrhage evacuation; decompressive hemicraniectomy. Patient is persistently encephalopathic off sedation 5 days; now with sepsis. Patient remains critically ill with no neurological improvement on mechanical ventilation 9 days. She is at high risk for ongoing decline and setback. . Code Status: Full Code Plan * FULL CODE * No written advanced directives. In absence of advanced directives, per [place] Statutes, medical proxy decision making falls to the majority of adult children who are readily available. All 4 children wish to participate in medical decision making. * The patient's son, Manuel Alexander, is NOT readily available to participate and medical proxy decision making because he is incarcerated and is currently being transferred from one facility to another. Palliative care was able to arrange a conference call this morning 08/13/2017 with the patient's 3 other children ( Arron, Lamont and Hany). All 3 were in agreement that would like to proceed with ongoing aggressive interventions to "give mom a chance." Lamont was identified as the spokesperson for the patient and will be giving consent for trach/PEG. However, decision making will continue to be shared among the patient's adult children. * Nurse, Kristina, and Dr. Kendall are aware that the family has decided to proceed with trach and PEG.. Kristina was able to reach Lamont and consents have been signed. * AGGRESSIVE GOALS- pending further discussion with family * Discussed patient with bedside nurse, Kristina * Symptom management: = Encephalopathy: Patient has been off sedation for several days with no significant improvement in neurological status. Patient opens eyes but does not track. Withdraws all extremities to noxious stimuli. Follow-up CT head on 08/09/2017 showing significant edema in the right hemisphere, however midline shift has decreased from 5 mm to 2 mm. There is significant displacement of tissue through the craniotomy site. 3% saline on hold secondary to sodium level of 156 no recommendations at this time. = Dyspnea: Remains intubated on mechanical ventilation; tolerating CPAP trials. Patient is unable to protect airway and will need a tracheostomy placed. PRN nebulizers are ordered. = Pain: Remains minimally responsive off sedation. Showing no signs or symptoms of nonverbal pain. Contributing factors include recent craniotomy, invasive lines, immobility, bedbound status, infection etc. PRN acetaminophen and morphine are available but have not been used in the past 24 hours. We will continue to monitor * Palliative care will continue to follow this patient throughout her hospitalization to establish stress, assist with symptom management and clarification of medical treatment goals. . Attestation To help prompt me to consider important information that might be impacting today's encounter and assessment, information from prior notes written by myself or my colleagues may have been "brought forward" into today's note. My signature on this note, however, is an attestation that I personally performed the exam, history, and/or decision-making noted today, and, unless otherwise indicated, the interactions with patient, family, and staff as well as the review of records all occurred today. I also attest that the listed assessment and stated plan reflect my best clinical judgment today based on the combination of historical information, prior notes, and today's exam/ interactions. When time spent is documented, it refers only to time spent today by the signer, or if indicated, combined time spent today by collaborating physician/nurse practitioner. . Latosha Musa Aug 13, 2017 11:29
[2017-08-13] MEDS ORDERED: ROCURONIUM INJ 50 MG/5 ML VIAL IV ONE (14:00)
[2017-08-13] MEDS ORDERED: MIDAZOLAM HCL 5 MG/5 ML VIAL IV PUSH ONE (14:00)
[2017-08-13 14:45] LABS: BICARBONATE 26.9 MEQ/L (21.0-32.0); CALCIUM 8.9 MG/DL (8.5-10.1); CREATININE 0.72 MG/DL (0.50-1.00)
[2017-08-13] MEDS: cefTRIAXone INJ 1,000 MG in SODIUM CHLORIDE 0.9% INJ 100 ML IV SCH (15:00)
--- NOTE | 2017-08-13 16:13 | PD.PROCEDR ---
Procedure Note Procedure DX: Acute respiratory failure, upper airway obstruction OP: Bronchoscopy (08028) Procedure: Time out. Bronchoscope delivered through a sideport in the ventilator circuit and passed through the orotracheal tube. The tracheobronchial tree revealed normal anatomy and the mucosa was normal. The scope and ET tube were then withdrawn to the level of the cricoid and used for visualization of the anterior tracheal wall during insertion of a percutaneous tracheostomy. After insertion the scope was passed through the new trach tube and visualized in good position above the carlie and with no bleeding from above. The vent circuit was rapidly transferred to the new trach site and full vent volumes were observed returning. O2 saturation was maintained over 95% throughout the procedure. Roel Fitch MD Aug 13, 2017 16:13
--- NOTE | 2017-08-13 16:33 | RADRPT ---
EXAM DATE/TIME: 08/13/2017 16:05 [facility] COMPARISON: CHEST SINGLE AP, August 08, 2017, 10:24. CHEST SINGLE AP, August 06, 2017, 4:07. CHEST SINGLE AP, Aug, 14:11. CHEST SINGLE AP, August 08, 2017, 15:50. CHEST SINGLE AP, August 11, 2017, 4:56. INDICATIONS : Post tracheostomy. MEDICAL HISTORY : None. SURGICAL HISTORY : Craniotomy. ENCOUNTER: Initial ACUITY: 4 - 6 days PAIN SCORE: Non-responsive. LOCATION: Bilateral chest FINDINGS: A single view of the chest demonstrates lungs to be hypoinflated. Possible bilateral pleural effusion s. Accounting for low lung volumes, heart size is borderline prominent a well compensated. Interval r emoval of the endotracheal and nasogastric tubes with less of a tracheostomy. The tracheostomy tip pr ojects at the level of the clavicular heads. Right IJ central venous catheter with the tip curled back on itself. This may have engaged the azygos vein. Multiple surgical clips in the right upper abdominal quadrant. CONCLUSION: 1. Hypoinflation and blunting of both costophrenic characteristic of effusions. 2. Interval removal of the endotracheal and nasogastric tubes with placement of a tracheostomy. 3. Right IJ central venous catheter with the tip maintaining a fishhook configuration. The tip may copeland ve engaged the azygous vein. Jai Cook MD on August 13, 2017 at 16:23 Board Certified Radiologist. This report was verified electronically.
--- NOTE | 2017-08-13 16:51 | PD.PROCEDR ---
Procedure Note Procedure Procedure: Percutaneous tracheostomy with bronchoscopic guidance Operators: Dr. Usama Moss for percutaneous tracheostomy, Dr. Fitch for bronchoscopy Informed consent obtained from family and documented on chart Preoperative diagnosis: ICH, encephalopathy, acute respiratory failure, sepsis Postoperative diagnosis: Same Anesthesia used: Versed 5 mg IV, fentanyl 100 g IV, rocuronium 100 mg IV for neuromuscular blockade. 1.5% lidocaine for local infiltration anesthesia Procedure: After ensuring adequate sedation/analgesia neuromuscular blockade, patient was positioned appropriately. After sterile prepping and draping, 1% lidocaine was used for local infiltration anesthesia. Dr. Fitch proceeded bronchoscopy and withdrawing ET tube. Introducer needle was inserted into the trachea under bronchoscopic guidance and Angiocath was advanced into the trachea. A guidewire was passed via the needle and was visualized passing down the trachea following which needle was then removed. Punch dilator was used to dilate the tracheal ring following which tracheostomy dilator assembly was mounted over the guidewire and advanced to dilate the trachea with dilator being visualized via bronchoscopic guidance entering the trachea during dilation without injuring the posterior tracheal wall. Following this dilator assembly was removed and percutaneous tracheostomy mounted over dilator was advanced over the guidewire into the trachea under direct visualization following which guidewire/dilator were removed. Bronchoscope was inserted at this point by Dr. Fitch via newly inserted tracheostomy and appropriate placement was confirmed by visualizing tracheal rings following which bronchoscope was withdrawn and inner cannula was placed via tracheostomy. After inflating cuff patient was connected to mechanical ventilation via tracheostomy. 4 interrupted sutures were used to secure tracheostomy to neck. Patient tolerated the procedure well with no immediate complications noted. Good hemostasis was achieved at the end of procedure. Postprocedure chest x- ray was ordered and was pending at the time of this dictation and will be reviewed when available. Usama Moss MD Aug 13, 2017 16:51
[2017-08-14] VITALS (18 sets, daily range): BP systolic 122–167; BP diastolic 65–80; PULSE 60–75; RESP 12–16; TEMP 98.2–99.4; O2SAT 95–97
[2017-08-14] MEDS: hydrALAZINE HCL 20 MG/ML VIAL IV PUSH PRN (03:55)
[2017-08-14] MEDS: CHLORHEXIDINE GLUCONATE 2 % 1 PACK (2 CLOTHS) TOP SCH ×2 (04:00→20:23)
[2017-08-14] MEDS: cloNIDine HCL 0.3 MG TAB PO SCH ×3 (05:33→20:22)
[2017-08-14] MEDS: METOPROLOL TARTRATE 25 MG TAB PO SCH ×3 (05:33→20:22)
[2017-08-14 06:23] LABS: BICARBONATE 25.6 MEQ/L (21.0-32.0); CALCIUM 8.6 MG/DL (8.5-10.1); CREATININE 0.6 MG/DL (0.50-1.00)
[2017-08-14] MEDS: INSULIN ASPART SUPPLEMENTAL SCALE SQ SCH ×4 (08:00→20:22)
[2017-08-14] MEDS: CHLORHEXIDINE 0.12% (ORAL KIT) 15 ML CUP MT SCH ×2 (08:00→20:21)
--- NOTE | 2017-08-14 08:26 | HHI.CCPN ---
Subjective Remarks/Hospital Course 67 y/o woman presented to [facility] as stroke alert. Right side headache and left side weakness starting around 10:00 a.m. Glucose 122. INR 1.0 , Sinus rhythm. No history of anticoagulants. Does have history of hypertension and Type 2 diabetes. BP 244/146. Required intubation shortly after arrival. CT Head with large right hemisphere ICH parietal lobe and 1.5 cm shift away from bleed. Plts 296,000, Creat 0.59, Hct 40. 08/02: CT with much improved shift. Gas exchange acceptable. 08/03: Persistent hypertension requiring nicardipine. Will start oral scheduled BP meds. Glucose elevated. NG output minimal. 08/04: Transitioned to oral meds with good BP control. Heavily sedated, now tapering. No spontaneous ventilation but high fixed rate. Repeat head CT with markedly reduced shift. 08/05: Currently remains on fentanyl for sedation. Withdraws all extremities to pain, stronger right though. No spontaneous eye opening or spontaneous movements noted. 08/06: Weaning sedation but no purposeful movement. Worsening glucose intolerance. Increase levemir and go to high SSI. 08/07: Glucose intolerance persists. Increase levemir coverage. No improvement in neurological condition. 08/08: Patient remains encephalopathy no improvement in mental status. Blood glucose control remains inadequate increase Levemir to 20 every 12. Unable to wean to extubate will need tracheostomy if family wishes to proceed. Plan for tomorrow, will also consult GI for PEG tube placement 08/09: Encephalopathy appears to be worsening, no spontaneous eye opening weakly withdraws to pain left more than right. UA shows evidence of UTI patient is spiking fever up to 101.7 increasing leukocytosis. Start Zosyn. UA shows evidence of infection. CT of the head shows stable bleed and vasogenic edema. 3% saline started yesterday for presumed edema. Right IJ central line was also placed. Patient is critically ill again with worsening encephalopathy now with high fever and sepsis. Probable source UTI. Empiric Zosyn started. Family in disagreement regarding trach and PEG. Palliative care consulted. Unable to wean to extubate due to severe encephalopathy 08/10: Neuro exam remains unchanged. Disagreement among adult children whether to proceed with trach and PEG. Palliative care is following. Sputum culture and urine culture growing Klebsiella pansensitive. Will narrow antibiotics in 1 -2 days. 08/11: No improvement in neurological function. Palliative care working with family on care plan. Unable to wean from ventilator. 08/12: Unable to wean from ventilator. Family deciding on care plan. 08/13: Unable to wean from vent, still requiring increased pressure support. If family wants to persist she will need a trach. Family hasn't accepted this yet. 08/14: Tracheostomy performed 08/13. PEG scheduled. Needs LTAC/SNF placement. Objective Vital Signs Date Time Temp Pulse Resp B/P (MAP) Pulse Ox O2 Delivery O2 Flow Rate FiO2 08/14/17 07:25 95 40 08/14/17 06:00 65 08/14/17 04:00 99.2 16 146/68 (94) Intake and Output 08/14/17 08/14/17 08/15/17 08:00 16:00 00:00 Output Total 1046 ml Balance -1046 ml Result Diagram: 08/11/17 0548 08/14/17 0545 Objective Remarks Gen: Unresponsive. Off all sedation Head: Atraumatic. Pupils 3 mm equal, sluggish Neck: Supple, trach site clean. NG in place. Lungs: Clear, no wheezes or crackles. Good bilateral air entry. Few mobile secretions. Heart: NL S1S2, RRR, No JVD Abdomen: Soft, large, no guarding. BS few. Nondistended. No tenderness. Extremities: Warm, well perfused. 1+ edema lowers Neuro: Unresponsive. Not on any sedation for multiple days.. Pupils reactive. Eye-opening spontaneously, only partial. Mild withdrawal upper extremities with slight internal rotation lower extremities to deep pain. No purposeful movements noted. No tracking. A/P Assessment and Plan Assessment: Hemorrhagic stroke, right fronto/parietal region -> decompressive craniectomy Persistent encephalopathy Fever sepsis UTI Pneumonia with Klebsiella Acute respiratory Failure Hyperglycemia Leukocytosis Diabetes, type 2. Hypertensive urgency. Plan: Neuro - Keep Serum osmolality > 310 - Continue 3% saline keep sodium between 150-155 - CT of the head today shows stable acute right frontal hemorrhage and vasogenic edema, decreased midline shift - HOB up. adjust EtCO2 to maintain 35 - 40 blood range - s/p Right frontotemporoparietal craniotomy for subdural and intracerebral hemorrhage evacuation; decompressive hemicraniectomy - Overall prognosis is poor. Palliative care is following. - D/C hypertonic saline Respiratory - PRVC vent mode. EtCO2 monitor, maintain low normal range. DuoNeb every 6 hours as needed - Daily CPAP trials unable to wean, patient lacks airway protection. Will need trach if family wants to continue aggressive care - Palliative care consulted to address goals of care - Sputum culture growing Klebsiella, continue Zosyn - Tracheostomy 08/13 Cardiovascular - Cardene to maintain SBP < 150. currently weaned off for 2 days - Lisinopril 20 mg q12, Lopressor 50 every 8 hours - Hydralazine 100 mg tid. Clonidine 0.3 mg 3 times daily - Use as needed IV labetalol and hydralazine for SBP more than 150 GI - Tube feeds Glucerna 1.5 - Last BM reported on 08/09 - s/p mag citrate x1 08/09. Scheduled lactulose 30 ml QID. Colace - Gaffney. - Strict intake output - Increase to BID lasix ID - Acevedo Culture for worsening leukocytosis. - Sputum and urine culture growing Klebsiella. Continue Zosyn -> narrowed to ceftriaxone until 08/16 Endocrinology - SSI, high algorithm - Levemir 23 u bid, now with improved blood sugar control Heme - CBC a.m. Prophylaxis - Chemical contraindicated, address trach and PEG - SCDs - Pepcid Overall impression: Patient presented critically ill with deteriorating neurological function due to acute hemorrhage right hemisphere. She was transferred emergently from [facility] for definitive neurosurgical treatment and underwent emergency decompression of the right side to save what is hopefully her dominant left hemisphere. Remains neurologically unstable and critically ill. Family is aware of her critical condition. There had been no improvement in her mental status, admitted and remains comatose, on vent day 13. Needs placement, LTAC/SNF Roel Fitch MD Aug 14, 2017 08:26
[2017-08-14] MEDS: INSULIN DETEMIR 100 UNITS/ML VIAL SQ SCH ×2 (09:00→20:23)
[2017-08-14] MEDS: SODIUM CHLORIDE 0.9% FLUSH 10 ML FLUSH IV FLUSH SCH ×2 (09:23→20:21)
[2017-08-14] MEDS: levETIRAcetam INJ 500 MG in SODIUM CHLORIDE 0.9% INJ 100 ML IV SCH ×2 (09:24→20:21)
[2017-08-14] MEDS: DOCUSATE SODIUM 100 MG/10 ML UDC PO SCH ×2 (09:25→20:21)
[2017-08-14] MEDS: LACTULOSE SYRUP 20 GM/30 ML CUP PO SCH ×4 (09:25→20:22)
[2017-08-14] MEDS: hydrALAZINE HCL 50 MG TAB PO SCH ×2 (09:25→17:04)
[2017-08-14] MEDS: FAMOTIDINE 20 MG/2 ML VIAL IV PUSH SCH ×2 (09:25→20:21)
[2017-08-14] MEDS: FUROSEMIDE 40 MG/4 ML VIAL IV PUSH SCH ×2 (09:39→20:23)
[2017-08-14] MEDS: POTASSIUM CHLORIDE 25 MEQ EFFERVESCENT TAB PO PRN ×2 (09:40→20:32)
[2017-08-14] MEDS: LISINOPRIL 10 MG TAB PO SCH ×2 (09:40→20:22)
--- NOTE | 2017-08-14 10:36 | HHI.NSPN ---
(Kevin Messer) History Chief Complaint: Unable to obtain due to patient's clinical condition. (Kevin Messer) Interval History A 67-year-old -[place] female who was transferred from [facility] in [place] after she presented to the emergency room with acute onset of headaches and left-sided weakness and basically progressed to obtundation and comatose state. She became unresponsive and required intubation. She was hypertensive on initial presentation and a CT scan of the head obtained reveals a large right frontal parietal lobe hemorrhage with likely underlying stroke measuring 8.6 cm x 6.0 cm in dimension with a 15 mm right to left midline shift. She was transferred [facility] for further management and neurosurgery consult. There is no family member available to relate any history and attempts to contact her brother whose phone number next of kin is listed in the records from [facility] with two phone numbers went directly to voice mail and a message was left for him to call us back. 08/02/17: Pt sedated on Fentanyl and Diprivan. When held for exam she does not open her eyes or follow commands. She has slight withdrawal in LEs. Pupils are 3mm bilaterally with slight reaction bilaterally. 08/03/17: Pt sedated on Fentanyl and Diprivan drips. She doesn't open eyes. Pupils equal. Left hemiparesis when sedation held. 08/04/17: Pt sedated on low dose Fentanyl. Diprivan on hold. Pt not opening eyes. Intubated. Not following commands. No reaction to pain. 08/05/17: Pt sedated on low dose Fentanyl drip. Opens eyes slightly to deep pain. Not following commands. 08/06/17: Pt off sedation. Not opening eyes for me although did briefly for RN to deep pain. She does not follow commands. 08/13/17: Pt opens eyes slightly left more than right briefly. Pupils 3mm bilaterally. Intubated on CPAP. Not following commands. 08/14/17: Pt opens eyes slightly to pain. Not following commands. Pupils 3mm bilaterally reactive bilaterally. Trach in place. (Kevin Messer) System Review Comments Not able to obtain given clinical condition. (Kevin Messer) Exam Results Vital Signs Date Time Temp Pulse Resp B/P (MAP) Pulse Ox O2 Delivery O2 Flow Rate FiO2 08/14/17 10:00 68 08/14/17 08:00 40 08/14/17 08:00 98.9 16 167/80 (109) 95 Intake and Output 08/14/17 08/14/17 08/14/17 07:59 15:59 23:59 Output Total 1046 ml Balance -1046 ml (Kevin Messer) Physical Examination General: intubated opens eyes slightly when stimulated. Eyes: Pupils 3 mm equal. Sclera anicteric. Resp: clear to auscultation, trach in place. Pressure controlled. FiO2 40%. Rate 12 Peep 5. Heart: NSR no murmurs Abd: Soft positive bs but diminished. Skin. Incision is healing well. Chapis intact. Right craniectomy site full. Muscle: Not following for muscle testing. Neuro: Pupils equal 3mm bilaterally reactive bilaterally. Opens eyes to stimulation. Not following commands. (Kevin Messer) Physical Examination Opens eyes and seems to track Localizes right side but not following commands or moving left arm (Wilber Fiore MD) Lab, Micro, Other Results Last Impressions Chest X-Ray 08/13/17 0000 Signed Impressions: Service Date/Time: Sunday, August 13, 2017 16:05 - CONCLUSION: 1. Hypoinflation and blunting of both costophrenic characteristic of effusions. 2. Interval removal of the endotracheal and nasogastric tubes with placement of a tracheostomy. 3. Right IJ central venous catheter with the tip maintaining a fishhook configuration. The tip may have engaged the azygous vein. Jai Cook MD Head CT 08/09/17 0800 Signed Impressions: Service Date/Time: Wednesday, August 09, 2017 04:21 - CONCLUSION: 1. The acute intra-axial blood products in the right frontal lobe with surrounding vasogenic edema are stable. 2. There is decreased right to left midline shift, currently measuring up to 2 mm compared to 5 mm previously. This is likely related to the increased herniation of brain tissue through the craniectomy defect. 3. Interval removal of the surgical drain with a small crescentic low density extra-axial fluid collection. 4. Stable acute blood products within the left occipital horn. Brandon Díaz MD Laboratory Tests Test 08/13/17 14:11 08/14/17 05:45 Blood Urea Nitrogen 31 MG/DL 28 MG/DL Creatinine 0.72 MG/DL 0.60 MG/DL Random Glucose 230 MG/DL 156 MG/DL Calcium Level 8.9 MG/DL 8.6 MG/DL Sodium Level 153 MEQ/L 150 MEQ/L Potassium Level 3.7 MEQ/L 3.3 MEQ/L Chloride Level 119 MEQ/L 117 MEQ/L Carbon Dioxide Level 26.9 MEQ/L 25.6 MEQ/L Anion Gap 7 MEQ/L 7 MEQ/L Estimat Glomerular Filtration Rate 80 ML/MIN 99 ML/MIN (Kevin Messer) Medical Decision Making Impression and Plan A: 67 y/o FM with large right frontotemporal lobe hemorrhage with likely underlying stroke with significant mass effect and midline shift. Overall poor neurologic examination. She underwent an emergent Right frontotemporoparietal craniotomy for subdural and intracerebral hemorrhage evacuation; decompressive hemicraniectomy with expansive duraplasty on 08/01/17. 2. Respiratory failure secondary to above. 3. Unregulated hypertension. 4. Diabetes mellitus. P: Continue with critical care Continue with close neuro checks (Kevin Messer) Attending Statement The exam, history, and the medical decision-making described in the above note were completed with the assistance of the mid-level provider. I reviewed and agree with the findings presented. I attest that I had a [id number] encounter with the patient on the same day, and personally performed and documented my assessment and findings in the medical record. (Wilber Fiore MD) Kevin Messer Aug 14, 2017 10:36 Wilber Fiore MD Aug 14, 2017 12:00
[2017-08-14] MEDS: cefTRIAXone INJ 1,000 MG in SODIUM CHLORIDE 0.9% INJ 100 ML IV SCH (14:59)
[2017-08-15] VITALS (17 sets, daily range): BP systolic 106–145; BP diastolic 55–77; PULSE 62–91; RESP 12; TEMP 98.7–99.7; O2SAT 95–100
[2017-08-15] MEDS: hydrALAZINE HCL 50 MG TAB PO SCH ×3 (03:15→17:26)
[2017-08-15 05:10] LABS: BICARBONATE 24.3 MEQ/L (21.0-32.0); CALCIUM 8.4 MG/DL (8.5-10.1); CREATININE 0.58 MG/DL (0.50-1.00); MAGNESIUM 2.3 MG/DL (1.5-2.5); PHOSPHORUS 3.9 MG/DL (2.5-4.9)
[2017-08-15] MEDS: METOPROLOL TARTRATE 25 MG TAB PO SCH ×3 (06:19→20:55)
[2017-08-15] MEDS: cloNIDine HCL 0.3 MG TAB PO SCH ×3 (06:19→20:55)
[2017-08-15] MEDS: CHLORHEXIDINE 0.12% (ORAL KIT) 15 ML CUP MT SCH ×2 (08:00→20:54)
[2017-08-15] MEDS: INSULIN ASPART SUPPLEMENTAL SCALE SQ SCH ×4 (08:00→20:56)
[2017-08-15] MEDS: levETIRAcetam INJ 500 MG in SODIUM CHLORIDE 0.9% INJ 100 ML IV SCH ×2 (08:04→20:54)
[2017-08-15] MEDS: FAMOTIDINE 20 MG/2 ML VIAL IV PUSH SCH ×2 (08:05→20:55)
[2017-08-15] MEDS: DOCUSATE SODIUM 100 MG/10 ML UDC PO SCH ×2 (08:05→20:54)
[2017-08-15] MEDS: LACTULOSE SYRUP 20 GM/30 ML CUP PO SCH ×4 (08:05→20:56)
[2017-08-15] MEDS: INSULIN DETEMIR 100 UNITS/ML VIAL SQ SCH ×2 (08:06→20:56)
[2017-08-15] MEDS: LISINOPRIL 10 MG TAB PO SCH ×2 (08:06→20:55)
[2017-08-15] MEDS: SODIUM CHLORIDE 0.9% FLUSH 10 ML FLUSH IV FLUSH SCH ×2 (08:07→20:56)
[2017-08-15] MEDS: FUROSEMIDE 40 MG/4 ML VIAL IV PUSH SCH ×2 (08:17→20:54)
--- NOTE | 2017-08-15 10:42 | HHI.NSPN ---
History Chief Complaint: Unable to obtain due to patient's clinical condition. Interval History A 67-year-old -Malagasy female who was transferred from [facility] in [place] after she presented to the emergency room with acute onset of headaches and left-sided weakness and basically progressed to obtundation and comatose state. She became unresponsive and required intubation. She was hypertensive on initial presentation and a CT scan of the head obtained reveals a large right frontal parietal lobe hemorrhage with likely underlying stroke measuring 8.6 cm x 6.0 cm in dimension with a 15 mm right to left midline shift. She was transferred [facility] for further management and neurosurgery consult. There is no family member available to relate any history and attempts to contact her brother whose phone number next of kin is listed in the records from [facility] with two phone numbers went directly to voice mail and a message was left for him to call us back. 08/02/17: Pt sedated on Fentanyl and Diprivan. When held for exam she does not open her eyes or follow commands. She has slight withdrawal in LEs. Pupils are 3mm bilaterally with slight reaction bilaterally. 08/03/17: Pt sedated on Fentanyl and Diprivan drips. She doesn't open eyes. Pupils equal. Left hemiparesis when sedation held. 08/04/17: Pt sedated on low dose Fentanyl. Diprivan on hold. Pt not opening eyes. Intubated. Not following commands. No reaction to pain. 08/05/17: Pt sedated on low dose Fentanyl drip. Opens eyes slightly to deep pain. Not following commands. 08/06/17: Pt off sedation. Not opening eyes for me although did briefly for RN to deep pain. She does not follow commands. 08/13/17: Pt opens eyes slightly left more than right briefly. Pupils 3mm bilaterally. Intubated on CPAP. Not following commands. 08/14/17: Pt opens eyes slightly to pain. Not following commands. Pupils 3mm bilaterally reactive bilaterally. Trach in place. 08/15/17: Pt opens eyes slightly to pain. Not following commands. She withdraws to pain. System Review Comments Not able to obtain given clinical condition. Exam Results Vital Signs Date Time Temp Pulse Resp B/P (MAP) Pulse Ox O2 Delivery O2 Flow Rate FiO2 08/15/17 10:00 69 08/15/17 08:00 40 08/15/17 08:00 99.0 12 133/61 (85) 98 Intake and Output 08/15/17 08/15/17 08/16/17 08:00 16:00 00:00 Intake Total 241 ml Output Total 1650 ml Balance -1409 ml Physical Examination General: Pt resting in bed with trach in place and stable vital signs. Eyes: Pupils 3mm bilaterally sclera anicteric. Resp: Trach in place. Pressure controlled rate 12 FiO2 45%. Peep 5. Heart: NSR no murmurs Abd: Soft positive bs Skin: Incision clean and dry. Monitor in place craniectomy site full. Muscle: Not following for muscle testing. Pt withdraws intermittently. Neuro: Pt opens eyes to pain. Pupils 3mm bilaterally. Not following commands. Lab, Micro, Other Results Last Impressions Chest X-Ray 08/13/17 0000 Signed Impressions: Service Date/Time: Sunday, August 13, 2017 16:05 - CONCLUSION: 1. Hypoinflation and blunting of both costophrenic characteristic of effusions. 2. Interval removal of the endotracheal and nasogastric tubes with placement of a tracheostomy. 3. Right IJ central venous catheter with the tip maintaining a fishhook configuration. The tip may have engaged the azygous vein. Jai Cook MD Head CT 08/09/17 0800 Signed Impressions: Service Date/Time: Wednesday, August 09, 2017 04:21 - CONCLUSION: 1. The acute intra-axial blood products in the right frontal lobe with surrounding vasogenic edema are stable. 2. There is decreased right to left midline shift, currently measuring up to 2 mm compared to 5 mm previously. This is likely related to the increased herniation of brain tissue through the craniectomy defect. 3. Interval removal of the surgical drain with a small crescentic low density extra-axial fluid collection. 4. Stable acute blood products within the left occipital horn. Brandon Díaz MD Laboratory Tests Test 08/14/17 19:42 08/15/17 04:30 Potassium Level 3.5 MEQ/L 3.6 MEQ/L Blood Urea Nitrogen 29 MG/DL Creatinine 0.58 MG/DL Random Glucose 144 MG/DL Calcium Level 8.4 MG/DL Phosphorus Level 3.9 MG/DL Magnesium Level 2.3 MG/DL Sodium Level 149 MEQ/L Chloride Level 116 MEQ/L Carbon Dioxide Level 24.3 MEQ/L Anion Gap 9 MEQ/L Estimat Glomerular Filtration Rate 103 ML/MIN Medical Decision Making Impression and Plan A: 67 y/o FM with large right frontotemporal lobe hemorrhage with likely underlying stroke with significant mass effect and midline shift. Overall poor neurologic examination. She underwent an emergent Right frontotemporoparietal craniotomy for subdural and intracerebral hemorrhage evacuation; decompressive hemicraniectomy with expansive duraplasty on 08/01/17. 2. Respiratory failure secondary to above. 3. Unregulated hypertension. 4. Diabetes mellitus. P: Continue with critical care Continue with close neuro checks Kevin Messer Aug 15, 2017 10:42 am
--- NOTE | 2017-08-15 11:43 | HHI.CCPN ---
Subjective Remarks/Hospital Course 67 y/o woman presented to [facility] as stroke alert. Right side headache and left side weakness starting around 10:00 a.m. Glucose 122. INR 1.0 , Sinus rhythm. No history of anticoagulants. Does have history of hypertension and Type 2 diabetes. BP 244/146. Required intubation shortly after arrival. CT Head with large right hemisphere ICH parietal lobe and 1.5 cm shift away from bleed. Plts 296,000, Creat 0.59, Hct 40. 08/02: CT with much improved shift. Gas exchange acceptable. 08/03: Persistent hypertension requiring nicardipine. Will start oral scheduled BP meds. Glucose elevated. NG output minimal. 08/04: Transitioned to oral meds with good BP control. Heavily sedated, now tapering. No spontaneous ventilation but high fixed rate. Repeat head CT with markedly reduced shift. 08/05: Currently remains on fentanyl for sedation. Withdraws all extremities to pain, stronger right though. No spontaneous eye opening or spontaneous movements noted. 08/06: Weaning sedation but no purposeful movement. Worsening glucose intolerance. Increase levemir and go to high SSI. 08/07: Glucose intolerance persists. Increase levemir coverage. No improvement in neurological condition. 08/08: Patient remains encephalopathy no improvement in mental status. Blood glucose control remains inadequate increase Levemir to 20 every 12. Unable to wean to extubate will need tracheostomy if family wishes to proceed. Plan for tomorrow, will also consult GI for PEG tube placement 08/09: Encephalopathy appears to be worsening, no spontaneous eye opening weakly withdraws to pain left more than right. UA shows evidence of UTI patient is spiking fever up to 101.7 increasing leukocytosis. Start Zosyn. UA shows evidence of infection. CT of the head shows stable bleed and vasogenic edema. 3% saline started yesterday for presumed edema. Right IJ central line was also placed. Patient is critically ill again with worsening encephalopathy now with high fever and sepsis. Probable source UTI. Empiric Zosyn started. Family in disagreement regarding trach and PEG. Palliative care consulted. Unable to wean to extubate due to severe encephalopathy 08/10: Neuro exam remains unchanged. Disagreement among adult children whether to proceed with trach and PEG. Palliative care is following. Sputum culture and urine culture growing Klebsiella pansensitive. Will narrow antibiotics in 1 -2 days. 08/11: No improvement in neurological function. Palliative care working with family on care plan. Unable to wean from ventilator. 08/12: Unable to wean from ventilator. Family deciding on care plan. 08/13: Unable to wean from vent, still requiring increased pressure support. If family wants to persist she will need a trach. Family hasn't accepted this yet. 08/14: Tracheostomy performed 08/13. PEG scheduled. Needs LTAC/SNF placement. 08/15: Good response to diuretics. Unable to wean vent. Will need LTAC. Objective Vital Signs Date Time Temp Pulse Resp B/P (MAP) Pulse Ox O2 Delivery O2 Flow Rate FiO2 08/15/17 10:00 69 08/15/17 08:00 40 08/15/17 08:00 99.0 12 133/61 (85) 98 Intake and Output 08/15/17 08/15/17 08/16/17 08:00 16:00 00:00 Intake Total 241 ml Output Total 1650 ml Balance -1409 ml Result Diagram: 08/11/17 0548 08/15/17 0430 Objective Remarks Gen: Unresponsive. Off all sedation Head: Atraumatic. Pupils 3 mm equal, sluggish Neck: Supple, trach site clean. NG in place. Lungs: Clear, no wheezes or crackles. Good bilateral air entry. Few mobile secretions. Heart: NL S1S2, RRR, No JVD Abdomen: Soft, large, no guarding. BS few. Nondistended. No tenderness. Extremities: Warm, well perfused. 1+ edema lowers Neuro: Unresponsive. Not on any sedation for multiple days.. Pupils reactive. Eye-opening spontaneously, only partial. Mild withdrawal upper extremities with slight internal rotation lower extremities to deep pain. No purposeful movements noted. No tracking. A/P Assessment and Plan Assessment: Hemorrhagic stroke, right fronto/parietal region -> decompressive craniectomy Persistent encephalopathy Fever sepsis UTI Pneumonia with Klebsiella Acute respiratory Failure Hyperglycemia Leukocytosis Diabetes, type 2. Hypertensive urgency. Plan: Neuro - Keep Serum osmolality > 310 - Continue 3% saline keep sodium between 150-155 - CT of the head today shows stable acute right frontal hemorrhage and vasogenic edema, decreased midline shift - HOB up. adjust EtCO2 to maintain 35 - 40 blood range - s/p Right frontotemporoparietal craniotomy for subdural and intracerebral hemorrhage evacuation; decompressive hemicraniectomy - Overall prognosis is poor. Palliative care is following. - D/C hypertonic saline Respiratory - PRVC vent mode. EtCO2 monitor, maintain low normal range. DuoNeb every 6 hours as needed - Daily CPAP trials unable to wean, patient lacks airway protection. Will need trach if family wants to continue aggressive care - Palliative care consulted to address goals of care - Sputum culture growing Klebsiella, continue Zosyn - Tracheostomy 08/13 Cardiovascular - Cardene to maintain SBP < 150. currently weaned off for 2 days - Lisinopril 20 mg q12, Lopressor 50 every 8 hours - Hydralazine 100 mg tid. Clonidine 0.3 mg 3 times daily - Use as needed IV labetalol and hydralazine for SBP more than 150 GI - Tube feeds Glucerna 1.5 - Last BM reported on 08/09 - s/p mag citrate x1 08/09. Scheduled lactulose 30 ml QID. Colace - Gaffney. - Strict intake output - Increase to BID lasix ID - Acevedo Culture for worsening leukocytosis. - Sputum and urine culture growing Klebsiella. Continue Zosyn -> narrowed to ceftriaxone until 08/16 Endocrinology - SSI, high algorithm - Levemir 23 u bid, now with improved blood sugar control Heme - CBC a.m. Prophylaxis - Chemical contraindicated, address trach and PEG - SCDs - Pepcid Overall impression: Patient presented critically ill with deteriorating neurological function due to acute hemorrhage right hemisphere. She was transferred emergently from [facility] for definitive neurosurgical treatment and underwent emergency decompression of the right side to save what is hopefully her dominant left hemisphere. Remains neurologically unstable and critically ill. Family is aware of her critical condition. There had been no improvement in her mental status, admitted and remains comatose, on vent day 13. Needs placement, LTAC required unless SNF takes ventilators. Roel Fitch MD Aug 15, 2017 11:43
[2017-08-15] MEDS: cefTRIAXone INJ 1,000 MG in SODIUM CHLORIDE 0.9% INJ 100 ML IV SCH (14:24)
[2017-08-16] VITALS (18 sets, daily range): BP systolic 114–146; BP diastolic 56–67; PULSE 63–78; RESP 12–14; TEMP 98.3–99.7; O2SAT 95–100
[2017-08-16] MEDS: hydrALAZINE HCL 50 MG TAB PO SCH ×3 (00:56→17:37)
[2017-08-16] MEDS: CHLORHEXIDINE GLUCONATE 2 % 1 PACK (2 CLOTHS) TOP SCH (04:00)
[2017-08-16] MEDS: cloNIDine HCL 0.3 MG TAB PO SCH ×3 (05:19→21:02)
[2017-08-16] MEDS: METOPROLOL TARTRATE 25 MG TAB PO SCH ×3 (05:19→21:02)
[2017-08-16] MEDS: INSULIN ASPART SUPPLEMENTAL SCALE SQ SCH ×4 (08:00→21:00)
[2017-08-16] MEDS: CHLORHEXIDINE 0.12% (ORAL KIT) 15 ML CUP MT SCH ×2 (08:00→20:00)
[2017-08-16] MEDS: INSULIN DETEMIR 100 UNITS/ML VIAL SQ SCH (09:00)
[2017-08-16] MEDS: SODIUM CHLORIDE 0.9% FLUSH 10 ML FLUSH IV FLUSH SCH ×2 (09:00→21:02)
[2017-08-16] MEDS: DOCUSATE SODIUM 100 MG/10 ML UDC PO SCH ×2 (09:07→20:53)
[2017-08-16] MEDS: FAMOTIDINE 20 MG/2 ML VIAL IV PUSH SCH ×2 (09:07→21:01)
[2017-08-16] MEDS: LACTULOSE SYRUP 20 GM/30 ML CUP PO SCH ×4 (09:07→20:53)
[2017-08-16] MEDS: LISINOPRIL 10 MG TAB PO SCH ×2 (09:08→21:02)
[2017-08-16] MEDS: levETIRAcetam INJ 500 MG in SODIUM CHLORIDE 0.9% INJ 100 ML IV SCH ×2 (09:08→21:01)
--- NOTE | 2017-08-16 10:56 | HHI.NSPN ---
History Chief Complaint: Unable to obtain due to patient's clinical condition. Interval History A 67-year-old -[place] female who was transferred from [facility] in [place] after she presented to the emergency room with acute onset of headaches and left-sided weakness and basically progressed to obtundation and comatose state. She became unresponsive and required intubation. She was hypertensive on initial presentation and a CT scan of the head obtained reveals a large right frontal parietal lobe hemorrhage with likely underlying stroke measuring 8.6 cm x 6.0 cm in dimension with a 15 mm right to left midline shift. She was transferred [facility] for further management and neurosurgery consult. There is no family member available to relate any history and attempts to contact her brother whose phone number next of kin is listed in the records from [facility] with two phone numbers went directly to voice mail and a message was left for him to call us back. 08/02/17: Pt sedated on Fentanyl and Diprivan. When held for exam she does not open her eyes or follow commands. She has slight withdrawal in LEs. Pupils are 3mm bilaterally with slight reaction bilaterally. 08/03/17: Pt sedated on Fentanyl and Diprivan drips. She doesn't open eyes. Pupils equal. Left hemiparesis when sedation held. 08/04/17: Pt sedated on low dose Fentanyl. Diprivan on hold. Pt not opening eyes. Intubated. Not following commands. No reaction to pain. 08/05/17: Pt sedated on low dose Fentanyl drip. Opens eyes slightly to deep pain. Not following commands. 08/06/17: Pt off sedation. Not opening eyes for me although did briefly for RN to deep pain. She does not follow commands. 08/13/17: Pt opens eyes slightly left more than right briefly. Pupils 3mm bilaterally. Intubated on CPAP. Not following commands. 08/14/17: Pt opens eyes slightly to pain. Not following commands. Pupils 3mm bilaterally reactive bilaterally. Trach in place. 08/15/17: Pt opens eyes slightly to pain. Not following commands. She withdraws to pain. 08/16/17: Pt with some spontaneously slight eye opening. Not following commands. Withdraws slightly to deep pain in all 4 extremities. System Review Comments Not able to obtain given clinical condition. Exam Results Vital Signs Date Time Temp Pulse Resp B/P (MAP) Pulse Ox O2 Delivery O2 Flow Rate FiO2 08/16/17 10:00 74 08/16/17 08:00 40 08/16/17 08:00 98.8 12 136/63 (87) 100 Intake and Output 08/16/17 08/16/17 08/17/17 08:00 16:00 00:00 Intake Total 167 ml Output Total 1700 ml Balance -1533 ml Physical Examination General: Pt resting in bed with trach in place and stable vital signs. Eyes: Pupils 3mm bilaterally sclera anicteric. Resp: Trach in place. Pressure controlled rate 12 Peep 5. Heart: NSR no murmurs Abd: Soft positive bs Skin: Incision clean and dry. [place] in place craniectomy site full. Muscle: Not following for muscle testing. Pt withdraws to deep pain in all 4 extremities. Neuro: Pt opens eyes at times spontaneously. Pupils 3mm bilaterally. Not following commands. Lab, Micro, Other Results Last Impressions Chest X-Ray 08/13/17 0000 Signed Impressions: Service Date/Time: Sunday, August 13, 2017 16:05 - CONCLUSION: 1. Hypoinflation and blunting of both costophrenic characteristic of effusions. 2. Interval removal of the endotracheal and nasogastric tubes with placement of a tracheostomy. 3. Right IJ central venous catheter with the tip maintaining a fishhook configuration. The tip may have engaged the azygous vein. Jai Cook MD Head CT 08/09/17 0800 Signed Impressions: Service Date/Time: Wednesday, August 09, 2017 04:21 - CONCLUSION: 1. The acute intra-axial blood products in the right frontal lobe with surrounding vasogenic edema are stable. 2. There is decreased right to left midline shift, currently measuring up to 2 mm compared to 5 mm previously. This is likely related to the increased herniation of brain tissue through the craniectomy defect. 3. Interval removal of the surgical drain with a small crescentic low density extra-axial fluid collection. 4. Stable acute blood products within the left occipital horn. Brandon Díaz MD Medical Decision Making Impression and Plan A: 67 y/o FM with large right frontotemporal lobe hemorrhage with likely underlying stroke with significant mass effect and midline shift. Overall poor neurologic examination. She underwent an emergent Right frontotemporoparietal craniotomy for subdural and intracerebral hemorrhage evacuation; decompressive hemicraniectomy with expansive duraplasty on 08/01/17. 2. Respiratory failure secondary to above. 3. Unregulated hypertension. 4. Diabetes mellitus. P: Continue with critical care Continue with close neuro checks Kevin Messer Aug 16, 2017 10:56 am
--- NOTE | 2017-08-16 11:06 | HHI.CCPN ---
Subjective Remarks/Hospital Course 67 y/o woman presented to [facility] as stroke alert. Right side headache and left side weakness starting around 10:00 a.m. Glucose 122. INR 1.0 , Sinus rhythm. No history of anticoagulants. Does have history of hypertension and Type 2 diabetes. BP 244/146. Required intubation shortly after arrival. CT Head with large right hemisphere ICH parietal lobe and 1.5 cm shift away from bleed. Plts 296,000, Creat 0.59, Hct 40. 08/02: CT with much improved shift. Gas exchange acceptable. 08/03: Persistent hypertension requiring nicardipine. Will start oral scheduled BP meds. Glucose elevated. NG output minimal. 08/04: Transitioned to oral meds with good BP control. Heavily sedated, now tapering. No spontaneous ventilation but high fixed rate. Repeat head CT with markedly reduced shift. 08/05: Currently remains on fentanyl for sedation. Withdraws all extremities to pain, stronger right though. No spontaneous eye opening or spontaneous movements noted. 08/06: Weaning sedation but no purposeful movement. Worsening glucose intolerance. Increase levemir and go to high SSI. 08/07: Glucose intolerance persists. Increase levemir coverage. No improvement in neurological condition. 08/08: Patient remains encephalopathy no improvement in mental status. Blood glucose control remains inadequate increase Levemir to 20 every 12. Unable to wean to extubate will need tracheostomy if family wishes to proceed. Plan for tomorrow, will also consult GI for PEG tube placement 08/09: Encephalopathy appears to be worsening, no spontaneous eye opening weakly withdraws to pain left more than right. UA shows evidence of UTI patient is spiking fever up to 101.7 increasing leukocytosis. Start Zosyn. UA shows evidence of infection. CT of the head shows stable bleed and vasogenic edema. 3% saline started yesterday for presumed edema. Right IJ central line was also placed. Patient is critically ill again with worsening encephalopathy now with high fever and sepsis. Probable source UTI. Empiric Zosyn started. Family in disagreement regarding trach and PEG. Palliative care consulted. Unable to wean to extubate due to severe encephalopathy 08/10: Neuro exam remains unchanged. Disagreement among adult children whether to proceed with trach and PEG. Palliative care is following. Sputum culture and urine culture growing Klebsiella pansensitive. Will narrow antibiotics in 1 -2 days. 08/11: No improvement in neurological function. Palliative care working with family on care plan. Unable to wean from ventilator. 08/12: Unable to wean from ventilator. Family deciding on care plan. 08/13: Unable to wean from vent, still requiring increased pressure support. If family wants to persist she will need a trach. Family hasn't accepted this yet. 08/14: Tracheostomy performed 08/13. PEG scheduled. Needs LTAC/SNF placement. 08/15: Good response to diuretics. Unable to wean vent. Will need LTAC. 08/16: Remains encephalopathic, on mechanical ventilation via tracheostomy. Awaiting PEG tube placement. Objective Vital Signs Date Time Temp Pulse Resp B/P (MAP) Pulse Ox O2 Delivery O2 Flow Rate FiO2 08/16/17 10:00 74 08/16/17 08:00 40 08/16/17 08:00 98.8 12 136/63 (87) 100 Intake and Output 08/16/17 08/16/17 08/17/17 08:00 16:00 00:00 Intake Total 167 ml Output Total 1700 ml Balance -1533 ml Result Diagram: 08/15/17 0430 Objective Remarks Gen: Unresponsive. Off all sedation Head: Atraumatic. Pupils 3 mm equal, sluggish Neck: Supple, trach site clean. NG in place. Lungs: Clear, no wheezes or crackles. Good bilateral air entry. Few mobile secretions. Heart: NL S1S2, RRR, No JVD Abdomen: Soft, large, no guarding. BS few. Nondistended. No tenderness. Extremities: Warm, well perfused. 1+ edema lowers Neuro: Unresponsive. Not on any sedation for multiple days.. Pupils reactive. Eye-opening spontaneously, only partial. Mild withdrawal upper extremities with slight internal rotation lower extremities to deep pain. No purposeful movements noted. No tracking. A/P Assessment and Plan Assessment: Hemorrhagic stroke, right fronto/parietal region -> decompressive craniectomy Persistent encephalopathy Fever sepsis UTI Pneumonia with Klebsiella Acute respiratory Failure Hyperglycemia Leukocytosis Diabetes, type 2. Hypertensive urgency. Plan: Neuro - Last CT of the head with stable acute right frontal hemorrhage and vasogenic edema, decreased midline shift - HOB up. adjust EtCO2 to maintain 35 - 40 blood range - s/p Right frontotemporoparietal craniotomy for subdural and intracerebral hemorrhage evacuation; decompressive hemicraniectomy - Overall prognosis is poor. Palliative care is following. - Has been off hypertonic saline Respiratory - PRVC vent mode. EtCO2 monitor, maintain low normal range. DuoNeb every 6 hours as needed - Daily CPAP trials. - Palliative care consulted to address goals of care - Sputum culture growing Klebsiella, continue Zosyn - Tracheostomy 08/13 Cardiovascular -Off Cardene - Lisinopril 20 mg q12, Lopressor 50 every 8 hours - Hydralazine 100 mg tid. Clonidine 0.3 mg 3 times daily - Use as needed IV labetalol and hydralazine for SBP more than 150 GI - Tube feeds Glucerna 1.5 - Last BM reported on 08/09 - s/p mag citrate x1 08/09. Scheduled lactulose 30 ml QID. Colace - Gaffney. - Strict intake output - Increase to BID lasix ID - Acevedo Culture for worsening leukocytosis. - Sputum and urine culture growing Klebsiella. Continue Zosyn -> narrowed to ceftriaxone until 08/16 Endocrinology - SSI, high algorithm - Levemir 23 u bid, now with improved blood sugar control Heme - CBC a.m. Prophylaxis - Chemical contraindicated, address trach and PEG - SCDs - Pepcid Overall impression: Patient presented critically ill with deteriorating neurological function due to acute hemorrhage right hemisphere. She was transferred emergently from [facility] for definitive neurosurgical treatment and underwent emergency decompression of the right side to save what is hopefully her dominant left hemisphere. Remains neurologically unstable and critically ill. Family is aware of her critical condition. There had been no improvement in her mental status, admitted and remains comatose, on vent day 14. Needs placement, LTAC required unless SNF takes ventilators. Usama Moss MD Aug 16, 2017 11:06
--- NOTE | 2017-08-16 11:35 | HHI.HCPN ---
Reason for visit a. To assist with evaluation and management of symptoms including: pain, encephalopathy, dyspnea. b. To assist medical decision maker(s) with: better understanding of current medical conditions; weighing benefits/burdens of medical treatment options; making medical treatment decisions. . Subjective/Interval History Ms. Alexander is a 67-year-old female with hypertension and diabetes who presented to [facility] on 08/01/17 for evaluation of acute onset headaches and left-sided weakness that progressed to obtundation with emergent intubation. Upon arrival to the ED the patient was hypertensive with a BP of 244/146. CT scan of the head revealed a large frontal parietal lobe hemorrhage with a 15 mm midline shift. Patient was transferred to [facility] for further management and neurosurgery consult. Upon arrival, the patient was taken emergently for right frontotemporoparietal craniotomy for subdural and intracerebral hemorrhage evacuation with decompressive hemicraniectomy. Follow up visit for symptom management and clarification of medical treatment goals. Patient remains encephalopathic status post tracheostomy. Remains on mechanical vent. Awaiting PEG tube placement. Patient remains intubated, tolerating CPAP this morning. Patient's nurse states the patient was on CPAP for several hours yesterday. Follow-up chest x-ray on 08/11/2017 was stable with left lung base atelectasis and/or airspace consolidation. Afebrile. Urine culture and sputum culture growing Klebsiella pneumoniae. WBC: 12.6 on 08/11/2017. Completed course of IV antibiotics 08/16/2017. Patient will need placement at LTAC when stable for discharge. . Advance Directives Advance Directive Specifics Documented care wishes: No known documented care wishes have been completed . Objective Vital Signs Date Time Temp Pulse Resp B/P (MAP) Pulse Ox O2 Delivery O2 Flow Rate FiO2 08/16/17 10:00 74 08/16/17 08:00 40 08/16/17 08:00 75 08/16/17 08:00 98.8 75 12 136/63 (87) 100 08/16/17 07:22 100 40 08/16/17 06:00 74 08/16/17 04:00 99.3 70 12 114/56 (75) 99 08/16/17 04:00 40 08/16/17 04:00 70 08/16/17 03:35 95 40 08/16/17 02:00 78 08/16/17 00:19 97 40 08/16/17 00:00 63 08/16/17 00:00 98.3 63 12 136/67 (90) 97 08/16/17 00:00 40 08/15/17 22:00 67 08/15/17 20:25 98 40 08/15/17 20:00 40 08/15/17 20:00 67 08/15/17 20:00 99.2 67 12 145/67 (93) 98 08/15/17 18:00 62 08/15/17 16:00 40 08/15/17 16:00 62 08/15/17 16:00 98.7 65 12 142/77 (98) 98 08/15/17 15:06 96 40 08/15/17 14:00 62 08/15/17 12:00 40 08/15/17 12:00 62 08/15/17 12:00 99.0 66 12 116/68 (84) 95 Intake & Output 08/16/17 08/16/17 06:59 18:59 Intake Total 272 ml Output Total 1700 ml Balance -1428 ml Intake IV Total 105 ml Tube Feeding 167 ml Output Urine Total 1700 ml . Physical Exam CONSTITUTIONAL/GENERAL: This is an adequately nourished patient, elderly female patient in no apparent distress TUBES/LINES/DRAINS: Left IJ central line, PIV, OGT, ETT, Gaffney, SCDs SKIN: No jaundice, rashes, or lesions. Status post craniotomy; incision healing without signs/symptoms of infection. Skin temperature appropriate. Not diaphoretic. HEAD: Atraumatic. Normocephalic. EYES: Pupils equal and round and minimally reactive. No scleral icterus. No injection or drainage. Fundi not examined. ENT: Unable to assess hearing given current clinical condition. Nose without bleeding or purulent drainage. NECK: Trachea midline. CARDIOVASCULAR: Regular rate and rhythm without murmurs, gallops, or rubs. No JVD. Peripheral pulses symmetric. RESPIRATORY/CHEST: Status post tracheostomy. Coarse air exchange GASTROINTESTINAL: Abdomen soft, non-tender, nondistended. GENITOURINARY: Without palpable bladder distension. Gaffney catheter in place. MUSCULOSKELETAL: Extremities without cyanosis or mottling. Hands and feet are swollen bilaterally LYMPHATICS: No palpable cervical or supraclavicular adenopathy. NEUROLOGICAL: Minimally responsive off sedation. Does not withdraw to noxious stimuli on exam this morning. PSYCHIATRIC: Unable to assess given current clinical condition . Diagnostic Tests Laboratory Laboratory Tests Test 08/13/17 14:11 08/14/17 05:45 08/14/17 19:42 08/15/17 04:30 Blood Urea Nitrogen 31 MG/DL (7-18) 28 MG/DL (7-18) 29 MG/DL (7-18) Creatinine 0.72 MG/DL (0.50-1.00) 0.60 MG/DL (0.50-1.00) 0.58 MG/DL (0.50-1.00) Random Glucose 230 MG/DL (74-106) 156 MG/DL (74-106) 144 MG/DL (74-106) Calcium Level 8.9 MG/DL (8.5-10.1) 8.6 MG/DL (8.5-10.1) 8.4 MG/DL (8.5-10.1) Sodium Level 153 MEQ/L (136-145) 150 MEQ/L (136-145) 149 MEQ/L (136-145) Potassium Level 3.7 MEQ/L (3.5-5.1) 3.3 MEQ/L (3.5-5.1) 3.5 MEQ/L (3.5-5.1) 3.6 MEQ/L (3.5-5.1) Chloride Level 119 MEQ/L (98-107) 117 MEQ/L (98-107) 116 MEQ/L (98-107) Carbon Dioxide Level 26.9 MEQ/L (21.0-32.0) 25.6 MEQ/L (21.0-32.0) 24.3 MEQ/L (21.0-32.0) Anion Gap 7 MEQ/L (5-15) 7 MEQ/L (5-15) 9 MEQ/L (5-15) Estimat Glomerular Filtration Rate 80 ML/MIN (>89) 99 ML/MIN (>89) 103 ML/MIN (>89) Phosphorus Level 3.9 MG/DL (2.5-4.9) Magnesium Level 2.3 MG/DL (1.5-2.5) . Result Diagram: 08/15/17 0430 Procedures 08/01/2017: Intubation 08/01/2017: OGT 08/01/2017: Craniotomy 08/03/2017: REYNA drain removed 08/08/2017: Right IJ central line placement . Assessment and Plan Disease Oriented Problem List: (1) Hemorrhagic stroke (2) Sepsis (3) UTI (urinary tract infection) (4) Respiratory failure (5) Leukocytosis (6) Diabetes (7) Hypertensive urgency Symptom Scale: (1) Pain (2) Dyspnea (3) Encephalopathy Pertinent Non-Medical Issues Psychosocial: Patient is originally from [place] but spent most of her life living in [place]. She moved back to [place] approximately 20 years ago. She has 4 adult children (Arron, Lamont, Hany and Manuel). Arron and Lamont both live in [place]. Hany lives in [place]. Manuel is incarcerated in [place]. Patient was living with her son, Lamont, prior to this hospitalization. Spiritual: Hindu sundar Legal: Per [place] statutes, in the absence of written advanced directives healthcare proxy decision making falls to the patient's 4 adult children. Ethical issues impacting care: . Important Contacts Arron Alexander, dtr: [phone] or [phone] Lamont Alexander, son: [phone] or [phone] Hany Alexander, son: [phone] (infantry weapons officer: Ms. Brantley @ [phone]) . Manuel Alexander, son, is incarcerated at [facility]. Spoke with Sergeant Winters at [phone]. . Prognosis Patient is a 67-year-old female who suffered an acute right frontal hemorrhage status post craniotomy for subdural and intracerebral hemorrhage evacuation; decompressive hemicraniectomy. Patient is persistently encephalopathic off sedation 5 days; now with sepsis. Patient remains critically ill with no neurological improvement on mechanical ventilation 9 days. She is at high risk for ongoing decline and setback. . Code Status: Full Code Plan * FULL CODE * No written advanced directives. In absence of advanced directives, per [place] Statutes, medical proxy decision making falls to the majority of adult children who are readily available. All 4 children wish to participate in medical decision making. The patient's son, Manuel Alexander, is NOT readily available to participate and medical proxy decision making because he is incarcerated and is currently being transferred from one facility to another. * Discussed patient with bedside nurse. * Patient will need placement at LTAC when stable for discharge. * Symptom management: = Encephalopathy: Patient has been off sedation for several days with no significant improvement in neurological status. Does not withdraw to noxious stimuli on exam. Follow-up CT head on 08/09/2017 showing significant edema in the right hemisphere, however midline shift has decreased from 5 mm to 2 mm. There is significant displacement of tissue through the craniotomy site. 3% saline on hold secondary to sodium level of 156 no recommendations at this time. = Dyspnea: On mechanical vent status post tracheostomy patient is unable to protect airway and will need a tracheostomy placed. PRN nebulizers are ordered. = Pain: Remains minimally responsive off sedation. Showing no signs or symptoms of nonverbal pain. Contributing factors include recent craniotomy, invasive lines, immobility, bedbound status, infection etc. PRN acetaminophen and morphine are available but have not been used in the past 24 hours. We will continue to monitor * Palliative care will continue to follow this patient throughout her hospitalization to establish stress, assist with symptom management and clarification of medical treatment goals. . Attestation To help prompt me to consider important information that might be impacting today's encounter and assessment, information from prior notes written by myself or my colleagues may have been "brought forward" into today's note. My signature on this note, however, is an attestation that I personally performed the exam, history, and/or decision-making noted today, and, unless otherwise indicated, the interactions with patient, family, and staff as well as the review of records all occurred today. I also attest that the listed assessment and stated plan reflect my best clinical judgment today based on the combination of historical information, prior notes, and today's exam/ interactions. When time spent is documented, it refers only to time spent today by the signer, or if indicated, combined time spent today by collaborating physician/nurse practitioner. . Latosha Musa Aug 16, 2017 11:35
[2017-08-16 12:35] LABS: BICARBONATE 25.9 MEQ/L (21.0-32.0); CREATININE 0.65 MG/DL (0.50-1.00)
[2017-08-16] MEDS: FUROSEMIDE 40 MG/4 ML VIAL IV PUSH SCH ×2 (13:05→21:01)
[2017-08-16] MEDS: cefTRIAXone INJ 1,000 MG in SODIUM CHLORIDE 0.9% INJ 100 ML IV SCH (15:21)
[2017-08-17] VITALS (17 sets, daily range): BP systolic 101–122; BP diastolic 52–56; PULSE 67–88; RESP 14–26; TEMP 97.6–100; O2SAT 98–100
[2017-08-17] MEDS: hydrALAZINE HCL 50 MG TAB PO SCH ×3 (01:00→17:00)
[2017-08-17] MEDS: INSULIN DETEMIR 100 UNITS/ML VIAL SQ SCH ×3 (01:03→21:18)
[2017-08-17] MEDS: CHLORHEXIDINE GLUCONATE 2 % 1 PACK (2 CLOTHS) TOP SCH (01:04)
[2017-08-17] MEDS: cloNIDine HCL 0.3 MG TAB PO SCH ×3 (06:00→21:20)
[2017-08-17] MEDS: METOPROLOL TARTRATE 25 MG TAB PO SCH ×3 (06:00→21:18)
[2017-08-17] MEDS: CHLORHEXIDINE 0.12% (ORAL KIT) 15 ML CUP MT SCH ×2 (08:00→21:20)
[2017-08-17] MEDS: levETIRAcetam INJ 500 MG in SODIUM CHLORIDE 0.9% INJ 100 ML IV SCH ×2 (08:27→21:19)
[2017-08-17] MEDS: FAMOTIDINE 20 MG/2 ML VIAL IV PUSH SCH ×2 (08:27→21:19)
[2017-08-17] MEDS: LACTULOSE SYRUP 20 GM/30 ML CUP PO SCH ×4 (08:28→21:19)
[2017-08-17] MEDS: LISINOPRIL 10 MG TAB PO SCH ×2 (08:28→21:00)
[2017-08-17] MEDS: DOCUSATE SODIUM 100 MG/10 ML UDC PO SCH ×2 (08:28→21:18)
[2017-08-17] MEDS: FUROSEMIDE 40 MG/4 ML VIAL IV PUSH SCH ×2 (08:29→21:19)
[2017-08-17] MEDS: SODIUM CHLORIDE 0.9% FLUSH 10 ML FLUSH IV FLUSH SCH ×2 (08:29→21:20)
--- NOTE | 2017-08-17 11:02 | HHI.NSPN ---
History Chief Complaint: Unable to obtain due to patient's clinical condition. Interval History A 67-year-old -[place] female who was transferred from [facility] in [place] after she presented to the emergency room with acute onset of headaches and left-sided weakness and basically progressed to obtundation and comatose state. She became unresponsive and required intubation. She was hypertensive on initial presentation and a CT scan of the head obtained reveals a large right frontal parietal lobe hemorrhage with likely underlying stroke measuring 8.6 cm x 6.0 cm in dimension with a 15 mm right to left midline shift. She was transferred [facility] for further management and neurosurgery consult. There is no family member available to relate any history and attempts to contact her brother whose phone number next of kin is listed in the records from [facility] with two phone numbers went directly to voice mail and a message was left for him to call us back. 08/02/17: Pt sedated on Fentanyl and Diprivan. When held for exam she does not open her eyes or follow commands. She has slight withdrawal in LEs. Pupils are 3mm bilaterally with slight reaction bilaterally. 08/03/17: Pt sedated on Fentanyl and Diprivan drips. She doesn't open eyes. Pupils equal. Left hemiparesis when sedation held. 08/04/17: Pt sedated on low dose Fentanyl. Diprivan on hold. Pt not opening eyes. Intubated. Not following commands. No reaction to pain. 08/05/17: Pt sedated on low dose Fentanyl drip. Opens eyes slightly to deep pain. Not following commands. 08/06/17: Pt off sedation. Not opening eyes for me although did briefly for RN to deep pain. She does not follow commands. 08/13/17: Pt opens eyes slightly left more than right briefly. Pupils 3mm bilaterally. Intubated on CPAP. Not following commands. 08/14/17: Pt opens eyes slightly to pain. Not following commands. Pupils 3mm bilaterally reactive bilaterally. Trach in place. 08/15/17: Pt opens eyes slightly to pain. Not following commands. She withdraws to pain. 08/16/17: Pt with some spontaneously slight eye opening. Not following commands. Withdraws slightly to deep pain in all 4 extremities. 08/17/17: Pt opens eyes slightly to pain. Not following commands. Withdraws extremities slightly intermittently to deep pain peripherally. System Review Comments Not able to obtain given clinical condition. Exam Results Vital Signs Date Time Temp Pulse Resp B/P (MAP) Pulse Ox O2 Delivery O2 Flow Rate FiO2 08/17/17 08:01 40 08/17/17 08:00 82 08/17/17 08:00 99.6 26 107/53 (71) 98 Intake and Output 08/17/17 08/17/17 08/17/17 07:59 15:59 23:59 Intake Total 340 ml Output Total 1500 ml Balance -1160 ml Physical Examination General: Pt resting in bed with trach in place and stable vital signs. Eyes: Pupils 3mm bilaterally sclera anicteric. Resp: Trach in place. CPAP. Heart: NSR no murmurs Abd: Soft positive bs Skin: Incision clean and dry. Craniectomy site full. Muscle: Not following for muscle testing. Pt withdraws slightly to deep peripheral pain in all 4 extremities. Neuro: Pt opens eyes at times spontaneously. Pupils 3mm bilaterally. Not following commands. Lab, Micro, Other Results Last Impressions Chest X-Ray 08/13/17 0000 Signed Impressions: Service Date/Time: Sunday, August 13, 2017 16:05 - CONCLUSION: 1. Hypoinflation and blunting of both costophrenic characteristic of effusions. 2. Interval removal of the endotracheal and nasogastric tubes with placement of a tracheostomy. 3. Right IJ central venous catheter with the tip maintaining a fishhook configuration. The tip may have engaged the azygous vein. Jai Cook MD Head CT 08/09/17 0800 Signed Impressions: Service Date/Time: Wednesday, August 09, 2017 04:21 - CONCLUSION: 1. The acute intra-axial blood products in the right frontal lobe with surrounding vasogenic edema are stable. 2. There is decreased right to left midline shift, currently measuring up to 2 mm compared to 5 mm previously. This is likely related to the increased herniation of brain tissue through the craniectomy defect. 3. Interval removal of the surgical drain with a small crescentic low density extra-axial fluid collection. 4. Stable acute blood products within the left occipital horn. Brandon Díaz MD Laboratory Tests Test 08/16/17 11:23 Blood Urea Nitrogen 28 MG/DL Creatinine 0.65 MG/DL Random Glucose 111 MG/DL Calcium Level 9.0 MG/DL Sodium Level 146 MEQ/L Potassium Level 3.5 MEQ/L Chloride Level 112 MEQ/L Carbon Dioxide Level 25.9 MEQ/L Anion Gap 8 MEQ/L Estimat Glomerular Filtration Rate 90 ML/MIN Medical Decision Making Impression and Plan A: 67 y/o FM with large right frontotemporal lobe hemorrhage with likely underlying stroke with significant mass effect and midline shift. Overall poor neurologic examination. She underwent an emergent Right frontotemporoparietal craniotomy for subdural and intracerebral hemorrhage evacuation; decompressive hemicraniectomy with expansive duraplasty on 08/01/17. 2. Respiratory failure secondary to above. 3. Unregulated hypertension. 4. Diabetes mellitus. P: Continue with critical care Continue with close neuro checks Kevin Messer Aug 17, 2017 11:02 am
--- NOTE | 2017-08-17 11:32 | HHI.CCPN ---
Subjective Remarks/Hospital Course 67 y/o woman presented to [facility] as stroke alert. Right side headache and left side weakness starting around 10:00 a.m. Glucose 122. INR 1.0 , Sinus rhythm. No history of anticoagulants. Does have history of hypertension and Type 2 diabetes. BP 244/146. Required intubation shortly after arrival. CT Head with large right hemisphere ICH parietal lobe and 1.5 cm shift away from bleed. Plts 296,000, Creat 0.59, Hct 40. 08/02: CT with much improved shift. Gas exchange acceptable. 08/03: Persistent hypertension requiring nicardipine. Will start oral scheduled BP meds. Glucose elevated. NG output minimal. 08/04: Transitioned to oral meds with good BP control. Heavily sedated, now tapering. No spontaneous ventilation but high fixed rate. Repeat head CT with markedly reduced shift. 08/05: Currently remains on fentanyl for sedation. Withdraws all extremities to pain, stronger right though. No spontaneous eye opening or spontaneous movements noted. 08/06: Weaning sedation but no purposeful movement. Worsening glucose intolerance. Increase levemir and go to high SSI. 08/07: Glucose intolerance persists. Increase levemir coverage. No improvement in neurological condition. 08/08: Patient remains encephalopathy no improvement in mental status. Blood glucose control remains inadequate increase Levemir to 20 every 12. Unable to wean to extubate will need tracheostomy if family wishes to proceed. Plan for tomorrow, will also consult GI for PEG tube placement 08/09: Encephalopathy appears to be worsening, no spontaneous eye opening weakly withdraws to pain left more than right. UA shows evidence of UTI patient is spiking fever up to 101.7 increasing leukocytosis. Start Zosyn. UA shows evidence of infection. CT of the head shows stable bleed and vasogenic edema. 3% saline started yesterday for presumed edema. Right IJ central line was also placed. Patient is critically ill again with worsening encephalopathy now with high fever and sepsis. Probable source UTI. Empiric Zosyn started. Family in disagreement regarding trach and PEG. Palliative care consulted. Unable to wean to extubate due to severe encephalopathy 08/10: Neuro exam remains unchanged. Disagreement among adult children whether to proceed with trach and PEG. Palliative care is following. Sputum culture and urine culture growing Klebsiella pansensitive. Will narrow antibiotics in 1 -2 days. 08/11: No improvement in neurological function. Palliative care working with family on care plan. Unable to wean from ventilator. 08/12: Unable to wean from ventilator. Family deciding on care plan. 08/13: Unable to wean from vent, still requiring increased pressure support. If family wants to persist she will need a trach. Family hasn't accepted this yet. 08/14: Tracheostomy performed 08/13. PEG scheduled. Needs LTAC/SNF placement. 08/15: Good response to diuretics. Unable to wean vent. Will need LTAC. 08/16: Remains encephalopathic, on mechanical ventilation via tracheostomy. Awaiting PEG tube placement. 08/17: Remains encephalopathic, on mechanical ventilation via tracheostomy. Still awaiting PEG tube placement. Objective Vital Signs Date Time Temp Pulse Resp B/P (MAP) Pulse Ox O2 Delivery O2 Flow Rate FiO2 08/17/17 08:01 40 08/17/17 08:00 82 08/17/17 08:00 99.6 26 107/53 (71) 98 Intake and Output 08/17/17 08/17/17 08/18/17 08:00 16:00 00:00 Intake Total 340 ml Output Total 1500 ml Balance -1160 ml Result Diagram: 08/16/17 1123 Objective Remarks Gen: Unresponsive. Off all sedation Head: Atraumatic. Pupils 3 mm equal, sluggish Neck: Supple, trach site clean. NG in place. Lungs: Clear, no wheezes or crackles. Good bilateral air entry. Few mobile secretions. Heart: NL S1S2, RRR, No JVD Abdomen: Soft, large, no guarding. BS few. Nondistended. No tenderness. Extremities: Warm, well perfused. 1+ edema lowers Neuro: Unresponsive. Not on any sedation for multiple days.. Pupils reactive. Eye-opening spontaneously, only partial. Mild withdrawal upper extremities with slight internal rotation lower extremities to deep pain. No purposeful movements noted. No tracking. A/P Assessment and Plan Assessment: Hemorrhagic stroke, right fronto/parietal region -> decompressive craniectomy Persistent encephalopathy Fever sepsis UTI Pneumonia with Klebsiella Acute respiratory Failure Hyperglycemia Leukocytosis Diabetes, type 2. Hypertensive urgency. Plan: Neuro - Last CT of the head with stable acute right frontal hemorrhage and vasogenic edema, decreased midline shift - HOB up. adjust EtCO2 to maintain 35 - 40 blood range - s/p Right frontotemporoparietal craniotomy for subdural and intracerebral hemorrhage evacuation; decompressive hemicraniectomy - Overall prognosis is poor. Palliative care is following. - Has been off hypertonic saline Respiratory - PRVC vent mode. EtCO2 monitor, maintain low normal range. DuoNeb every 6 hours as needed - Daily CPAP trials. - Palliative care consulted to address goals of care - Sputum culture growing Klebsiella, continue Zosyn - Tracheostomy 08/13 Cardiovascular -Off Cardene - Lisinopril 20 mg q12, Lopressor 50 every 8 hours - Hydralazine 100 mg tid. Clonidine 0.3 mg 3 times daily - Use as needed IV labetalol and hydralazine for SBP more than 150 GI - Tube feeds Glucerna 1.5 - Last BM reported on 08/09 - s/p mag citrate x1 08/09. Scheduled lactulose 30 ml QID. Colace - Gaffney. - Strict intake output - BID lasix ID - Acevedo Culture for worsening leukocytosis. - Sputum and urine culture growing Klebsiella. Continue Zosyn -> narrowed to ceftriaxone until 08/16 Endocrinology - SSI, high algorithm - Levemir 23 u bid, now with improved blood sugar control Heme - CBC a.m. Prophylaxis - Chemical contraindicated, address trach and PEG - SCDs - Pepcid Overall impression: Patient presented critically ill with deteriorating neurological function due to acute hemorrhage right hemisphere. She was transferred emergently from [facility] for definitive neurosurgical treatment and underwent emergency decompression of the right side to save what is hopefully her dominant left hemisphere. Remains neurologically unstable and critically ill. Family is aware of her critical condition. There had been no improvement in her mental status, admitted and remains comatose, on vent day 14. Needs placement, LTAC required unless SNF takes ventilators. Usama Moss MD Aug 17, 2017 11:32
[2017-08-17] MEDS: INSULIN ASPART SUPPLEMENTAL SCALE SQ SCH ×4 (12:00→21:18)
--- NOTE | 2017-08-17 12:49 | HHI.HCPN ---
Reason for visit a. To assist with evaluation and management of symptoms including: pain, encephalopathy, dyspnea. b. To assist medical decision maker(s) with: better understanding of current medical conditions; weighing benefits/burdens of medical treatment options; making medical treatment decisions. . Subjective/Interval History Ms. Alexander is a 67-year-old female with hypertension and diabetes who presented to [facility] on 08/01/17 for evaluation of acute onset headaches and left-sided weakness that progressed to obtundation with emergent intubation. Upon arrival to the ED the patient was hypertensive with a BP of 244/146. CT scan of the head revealed a large frontal parietal lobe hemorrhage with a 15 mm midline shift. Patient was transferred to [facility] for further management and neurosurgery consult. Upon arrival, the patient was taken emergently for right frontotemporoparietal craniotomy for subdural and intracerebral hemorrhage evacuation with decompressive hemicraniectomy. Follow up visit for symptom management and clarification of medical treatment goals. Remains encephalopathic status post tracheostomy on mechanical vent. Awaiting PEG tube placement. Follow-up chest x-ray on 08/11/2017 was stable with left lung base atelectasis and/or airspace consolidation. Afebrile. Urine culture and sputum culture from 08/08/2017 grew Klebsiella pneumoniae. WBC: 12.6 on 08/11/2017. Completed course of IV antibiotics 08/16/2017. Patient will need placement at LTAC when stable for discharge. A referral was given to Rubens at [facility]. Per [place] statutes, patient's 4 adult children (Lamont, Manuel, Hany and Nyland) are the healthcare proxy decision makers. ALL four children wish to participate in the role of healthcare proxy decision-maker. . Advance Directives Advance Directive Specifics Documented care wishes: No known documented care wishes have been completed . Objective Vital Signs Date Time Temp Pulse Resp B/P (MAP) Pulse Ox O2 Delivery O2 Flow Rate FiO2 08/17/17 12:28 100 40 08/17/17 08:01 40 08/17/17 08:00 40 08/17/17 08:00 82 08/17/17 08:00 99.6 82 26 107/53 (71) 98 08/17/17 07:52 99 40 08/17/17 06:00 81 08/17/17 04:00 40 08/17/17 04:00 82 08/17/17 04:00 98.2 82 14 101/56 (71) 100 08/17/17 03:43 99 40 08/17/17 02:00 73 08/17/17 00:00 67 08/17/17 00:00 40 08/17/17 00:00 97.6 70 14 122/56 (78) 100 08/16/17 23:48 100 40 08/16/17 22:00 74 08/16/17 21:01 100 40 08/16/17 20:00 40 08/16/17 20:00 73 08/16/17 20:00 98.4 73 14 115/58 (77) 99 08/16/17 18:00 74 08/16/17 16:09 99 40 08/16/17 16:00 40 08/16/17 16:00 75 08/16/17 16:00 99.7 75 14 114/60 (78) 100 08/16/17 15:00 78 Intake & Output 08/17/17 08/17/17 07:00 19:00 Intake Total 340 ml Output Total 1500 ml Balance -1160 ml Intake Oral 0 ml Tube Feeding 140 ml Other 200 ml Output Urine Total 1500 ml # Bowel Movements 1 . Physical Exam CONSTITUTIONAL/GENERAL: This is an adequately nourished patient, elderly female patient in no apparent distress TUBES/LINES/DRAINS: Left IJ central line, PIV, OGT, ETT, Gaffney, SCDs SKIN: No jaundice, rashes, or lesions. Status post craniotomy; incision healing without signs/symptoms of infection. Skin temperature appropriate. Not diaphoretic. HEAD: Atraumatic. Normocephalic. EYES: Pupils equal and round and minimally reactive. No scleral icterus. No injection or drainage. Fundi not examined. ENT: Unable to assess hearing given current clinical condition. Nose without bleeding or purulent drainage. NECK: Trachea midline. CARDIOVASCULAR: Regular rate and rhythm without murmurs, gallops, or rubs. No JVD. Peripheral pulses symmetric. RESPIRATORY/CHEST: Status post tracheostomy. Coarse air exchange GASTROINTESTINAL: Abdomen soft, non-tender, nondistended. GENITOURINARY: Without palpable bladder distension. Gaffney catheter in place. MUSCULOSKELETAL: Extremities without cyanosis or mottling. Hands and feet are swollen bilaterally LYMPHATICS: No palpable cervical or supraclavicular adenopathy. NEUROLOGICAL: Minimally responsive off sedation. Does not withdraw to noxious stimuli on exam this morning. PSYCHIATRIC: Unable to assess given current clinical condition . Diagnostic Tests Laboratory Laboratory Tests Test 08/14/17 19:42 08/15/17 04:30 08/16/17 11:23 Potassium Level 3.5 MEQ/L (3.5-5.1) 3.6 MEQ/L (3.5-5.1) 3.5 MEQ/L (3.5-5.1) Blood Urea Nitrogen 29 MG/DL (7-18) 28 MG/DL (7-18) Creatinine 0.58 MG/DL (0.50-1.00) 0.65 MG/DL (0.50-1.00) Random Glucose 144 MG/DL (74-106) 111 MG/DL (74-106) Calcium Level 8.4 MG/DL (8.5-10.1) 9.0 MG/DL (8.5-10.1) Phosphorus Level 3.9 MG/DL (2.5-4.9) Magnesium Level 2.3 MG/DL (1.5-2.5) Sodium Level 149 MEQ/L (136-145) 146 MEQ/L (136-145) Chloride Level 116 MEQ/L (98-107) 112 MEQ/L (98-107) Carbon Dioxide Level 24.3 MEQ/L (21.0-32.0) 25.9 MEQ/L (21.0-32.0) Anion Gap 9 MEQ/L (5-15) 8 MEQ/L (5-15) Estimat Glomerular Filtration Rate 103 ML/MIN (>89) 90 ML/MIN (>89) . Result Diagram: 08/16/17 1123 Procedures 08/01/2017: Intubation 08/01/2017: OGT 08/01/2017: Craniotomy 08/03/2017: REYNA drain removed 08/08/2017: Right IJ central line placement . Assessment and Plan Disease Oriented Problem List: (1) Hemorrhagic stroke (2) Sepsis (3) UTI (urinary tract infection) (4) Respiratory failure (5) Leukocytosis (6) Diabetes (7) Hypertensive urgency Symptom Scale: (1) Pain (2) Dyspnea (3) Encephalopathy Pertinent Non-Medical Issues Psychosocial: Patient is originally from [place] but spent most of her life living in [place]. She moved back to [place] approximately 20 years ago. She has 4 adult children (Arron, Lamont, Hany and Manuel). Arron and Lamont both live in [place]. Hany lives in [place]. Manuel is incarcerated in [place]. Patient was living with her son, Lamont, prior to this hospitalization. Spiritual: [employer] sundar Legal: Per [place] statutes, in the absence of written advanced directives healthcare proxy decision making falls to the patient's 4 adult children. Ethical issues impacting care: . Important Contacts Arron Alexander, dtr: [phone] or [phone] Lamont Alexander, son: [phone] or [phone] Hany Alexander, son: [phone] (enforcement officer: Ms. Brantley @ [phone]) . Manuel Alexander, son, is incarcerated at [facility]. Spoke with Sergeant Winters at [phone]. . Prognosis Patient is a 67-year-old female who suffered an acute right frontal hemorrhage status post craniotomy for subdural and intracerebral hemorrhage evacuation; decompressive hemicraniectomy. Patient is persistently encephalopathic off sedation 5 days; now with sepsis. Patient remains critically ill with no neurological improvement on mechanical ventilation 9 days. She is at high risk for ongoing decline and setback. . Code Status: Full Code Plan * FULL CODE * No written advanced directives. Per [place] statutes, patient's 4 adult children (Lamont, Manuel, Hany and Arron) are the healthcare proxy decision makers. ALL four children wish to participate in the role of healthcare proxy decision-maker. The patient's son, Manuel Alexander, is NOT readily available to participate and medical proxy decision making because he is incarcerated and is currently being transferred from one facility to another. * Discussed patient with window caser, Basilia. * Palliative care left message for Lamont Alexander (Son) at [phone] to provide a medical update. * Patient will need placement at LTAC when stable for discharge. A referral was given to Rubens at [facility]. . * Symptom management: = Encephalopathy: Patient has been off sedation for several days with no significant improvement in neurological status. Does not withdraw to noxious stimuli on exam. Follow-up CT head on 08/09/2017 showing significant edema in the right hemisphere, however midline shift has decreased from 5 mm to 2 mm. There is significant displacement of tissue through the craniotomy site. 3% saline on hold secondary to sodium level of 156 no recommendations at this time. = Dyspnea: On mechanical vent status post tracheostomy patient is unable to protect airway and will need a tracheostomy placed. PRN nebulizers are ordered. = Pain: Remains minimally responsive off sedation. Showing no signs or symptoms of nonverbal pain. Contributing factors include recent craniotomy, invasive lines, immobility, bedbound status, infection etc. PRN acetaminophen and morphine are available but have not been used in the past 24 hours. We will continue to monitor * Palliative care will continue to follow this patient throughout her hospitalization to establish stress, assist with symptom management and clarification of medical treatment goals. . Attestation To help prompt me to consider important information that might be impacting today's encounter and assessment, information from prior notes written by myself or my colleagues may have been "brought forward" into today's note. My signature on this note, however, is an attestation that I personally performed the exam, history, and/or decision-making noted today, and, unless otherwise indicated, the interactions with patient, family, and staff as well as the review of records all occurred today. I also attest that the listed assessment and stated plan reflect my best clinical judgment today based on the combination of historical information, prior notes, and today's exam/ interactions. When time spent is documented, it refers only to time spent today by the signer, or if indicated, combined time spent today by collaborating physician/nurse practitioner. . Latosha Musa Aug 17, 2017 12:49
--- NOTE | 2017-08-17 13:57 | HHI.GIFU ---
Subjective Remarks Pt s/p trach. GI reconsulted for PEG tube placement. (Elvie Herrera [employer]) Objective Vitals I&O Vital Signs Date Time Temp Pulse Resp B/P (MAP) Pulse Ox O2 Delivery O2 Flow Rate FiO2 08/17/17 12:28 100 40 08/17/17 12:00 88 08/17/17 12:00 40 08/17/17 12:00 99.8 88 23 107/52 (70) 98 08/17/17 10:00 87 08/17/17 08:01 40 08/17/17 08:00 40 08/17/17 08:00 82 08/17/17 08:00 99.6 82 26 107/53 (71) 98 08/17/17 07:52 99 40 08/17/17 06:00 81 08/17/17 04:00 40 08/17/17 04:00 82 08/17/17 04:00 98.2 82 14 101/56 (71) 100 08/17/17 03:43 99 40 08/17/17 02:00 73 08/17/17 00:00 67 08/17/17 00:00 40 08/17/17 00:00 97.6 70 14 122/56 (78) 100 08/16/17 23:48 100 40 08/16/17 22:00 74 08/16/17 21:01 100 40 08/16/17 20:00 40 08/16/17 20:00 73 08/16/17 20:00 98.4 73 14 115/58 (77) 99 08/16/17 18:00 74 08/16/17 16:09 99 40 08/16/17 16:00 40 08/16/17 16:00 75 08/16/17 16:00 99.7 75 14 114/60 (78) 100 08/16/17 15:00 78 I/O 08/16/17 08/16/17 08/16/17 08/17/17 08/17/17 08/17/17 06:59 14:59 22:59 06:59 14:59 22:59 Intake Total 167 ml 0 ml 340 ml Output Total 1700 ml 1550 ml 1500 ml Balance -1533 ml -1550 ml -1160 ml Intake Oral 0 ml Tube Feeding 167 ml 0 ml 140 ml Other 200 ml Output Urine Total 1700 ml 1550 ml 1500 ml # Bowel Movements 1 Laboratory Date/Time Source Procedure Growth Status 08/08/17 21:22 Blood Peripheral Aerobic Blood Culture - Final NO GROWTH IN 5 DAYS Complete 08/08/17 21:22 Blood Peripheral Anaerobic Blood Culture - Final NO GROWTH IN 5 DAYS Complete 08/08/17 12:00 Sputum Endotracheal Gram Stain - Final Complete 08/08/17 12:00 Sputum Culture - Final Klebsiella Pneumoniae Complete 08/08/17 12:00 Urine Catheterized Urine Urine Culture - Final Klebsiella Pneumoniae Complete Imaging Last Impressions Chest X-Ray 08/13/17 0000 Signed Impressions: Service Date/Time: Sunday, August 13, 2017 16:05 - CONCLUSION: 1. Hypoinflation and blunting of both costophrenic characteristic of effusions. 2. Interval removal of the endotracheal and nasogastric tubes with placement of a tracheostomy. 3. Right IJ central venous catheter with the tip maintaining a fishhook configuration. The tip may have engaged the azygous vein. Jai Cook MD Head CT 08/09/17 0800 Signed Impressions: Service Date/Time: Wednesday, August 09, 2017 04:21 - CONCLUSION: 1. The acute intra-axial blood products in the right frontal lobe with surrounding vasogenic edema are stable. 2. There is decreased right to left midline shift, currently measuring up to 2 mm compared to 5 mm previously. This is likely related to the increased herniation of brain tissue through the craniectomy defect. 3. Interval removal of the surgical drain with a small crescentic low density extra-axial fluid collection. 4. Stable acute blood products within the left occipital horn. Brandon Díaz MD Physical Exam HEENT: normocephalic; atraumatic; no jaundice. trach CHEST: coarse CARDIAC: Regular rate and rhythm with no murmur gallop or rubs. ABDOMEN: Soft, nondistended, no hepatosplenomegaly; bowel sounds are present in all four quadrants. EXTREMITIES: No clubbing, cyanosis, + general edema. SKIN: Normal; no rash; no jaundice. 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 Currently remains intubated with oral gastric tube, history of diabetes and hypertension and now respiratory failure. There was no family present but it has been discussed that family will need to agree to PEG tube placement. 08/10/17 no consensus reached yet, 2 of 4 kids located and need majority vote. Pt has been of sedation for 6 days, relatively unpresponsive. 08/17/17 GI reconsulted for PEG tube placement. attempted to call Arron Alexander at both numbers provided and no answer. 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 Gar and this note written on his behalf (Elvie Herrera) Physician Comments Consent obtained, will proceed with PEG placement in AM. (Young Gar MD) Elvie Herrera Aug 17, 2017 13:57 Young Gar MD Aug 17, 2017 21:31
[2017-08-18] VITALS (18 sets, daily range): BP systolic 95–150; BP diastolic 53–66; PULSE 77–94; RESP 14–21; TEMP 98.2–100.1; O2SAT 99–100
[2017-08-18] MEDS: hydrALAZINE HCL 50 MG TAB PO SCH ×3 (01:00→18:03)
[2017-08-18] MEDS: CHLORHEXIDINE GLUCONATE 2 % 1 PACK (2 CLOTHS) TOP SCH (04:00)
[2017-08-18 05:05] LABS: AST (GOT) 22 U/L (15-37); BICARBONATE 26.7 MEQ/L (21.0-32.0); BLOOD UREA NITROGEN 30 MG/DL (7-18); CHLORIDE 108 MEQ/L (98-107); CREATININE 0.72 MG/DL (0.50-1.00); GLOMERULAR FILTRATION RATE 80 ML/MIN (>89); GLUCOSE,RANDOM 163 MG/DL (74-106); SODIUM (NA) 144 MEQ/L (136-145)
[2017-08-18 05:06] LABS: AUTOMATED NEUTROPHIL # 10.9 TH/MM3 (1.8-7.7); BASOPHIL # 0.1 TH/MM3 (0-0.2); BASOPHIL % 0.5 % (0.0-2.0); EOSINOPHIL # 0.3 TH/MM3 (0-0.4); HEMATOCRIT 27.2 % (35.0-46.0); HEMOGLOBIN 9.1 GM/DL (11.6-15.3); LYMPH % 13.2 % (9.0-44.0); LYMPHOCYTE # 1.9 TH/MM3 (1.0-4.8); MEAN CELL VOLUME 84.1 FL (80.0-100.0); MEAN CORPUSCULAR HEMOGLOBIN 28.1 PG (27.0-34.0); MEAN CORPUSCULAR HGB CONC 33.5 % (32.0-36.0); MONO % 9.6 % (0.0-8.0); MONOCYTE # 1.4 TH/MM3 (0-0.9); NEUT % 74.7 % (16.0-70.0); PLATELET COUNT 478 TH/MM3 (150-450); RED BLOOD COUNT 3.24 MIL/MM3 (4.00-5.30); RED CELL DISTRIBUTION WIDTH 13.9 % (11.6-17.2); WHITE BLOOD COUNT 14.6 TH/MM3 (4.0-11.0)
[2017-08-18 05:07] LABS: ALT (GPT) 49 U/L (10-53)
[2017-08-18 05:10] LABS: ALKALINE PHOSPHATASE 129 U/L (45-117); TOTAL BILIRUBIN ADULT 0.4 MG/DL (0.2-1.0)
[2017-08-18] MEDS: cloNIDine HCL 0.3 MG TAB PO SCH ×3 (06:00→22:03)
[2017-08-18] MEDS: METOPROLOL TARTRATE 25 MG TAB PO SCH ×3 (06:12→22:04)
[2017-08-18] MEDS: CHLORHEXIDINE 0.12% (ORAL KIT) 15 ML CUP MT SCH ×2 (08:00→20:00)
[2017-08-18] MEDS: SODIUM CHLORIDE 0.9% FLUSH 10 ML FLUSH IV FLUSH SCH ×2 (08:43→22:00)
[2017-08-18] MEDS: DOCUSATE SODIUM 100 MG/10 ML UDC PO SCH ×2 (08:43→22:01)
[2017-08-18] MEDS: LACTULOSE SYRUP 20 GM/30 ML CUP PO SCH ×4 (08:43→22:01)
[2017-08-18] MEDS: INSULIN DETEMIR 100 UNITS/ML VIAL SQ SCH ×2 (08:44→21:00)
[2017-08-18] MEDS: LISINOPRIL 10 MG TAB PO SCH ×2 (09:10→22:01)
[2017-08-18] MEDS: levETIRAcetam INJ 500 MG in SODIUM CHLORIDE 0.9% INJ 100 ML IV SCH ×2 (09:10→21:59)
[2017-08-18] MEDS: INSULIN ASPART SUPPLEMENTAL SCALE SQ SCH ×4 (09:11→22:02)
[2017-08-18] MEDS: FAMOTIDINE 20 MG/2 ML VIAL IV PUSH SCH ×2 (09:11→22:01)
[2017-08-18] MEDS: FUROSEMIDE 40 MG/4 ML VIAL IV PUSH SCH ×2 (09:11→22:00)
--- NOTE | 2017-08-18 09:37 | HHI.CCPN ---
Subjective Remarks/Hospital Course 67 y/o woman presented to [facility] as stroke alert. Right side headache and left side weakness starting around 10:00 a.m. Glucose 122. INR 1.0 , Sinus rhythm. No history of anticoagulants. Does have history of hypertension and Type 2 diabetes. BP 244/146. Required intubation shortly after arrival. CT Head with large right hemisphere ICH parietal lobe and 1.5 cm shift away from bleed. Plts 296,000, Creat 0.59, Hct 40. 08/02: CT with much improved shift. Gas exchange acceptable. 08/03: Persistent hypertension requiring nicardipine. Will start oral scheduled BP meds. Glucose elevated. NG output minimal. 08/04: Transitioned to oral meds with good BP control. Heavily sedated, now tapering. No spontaneous ventilation but high fixed rate. Repeat head CT with markedly reduced shift. 08/05: Currently remains on fentanyl for sedation. Withdraws all extremities to pain, stronger right though. No spontaneous eye opening or spontaneous movements noted. 08/06: Weaning sedation but no purposeful movement. Worsening glucose intolerance. Increase levemir and go to high SSI. 08/07: Glucose intolerance persists. Increase levemir coverage. No improvement in neurological condition. 08/08: Patient remains encephalopathy no improvement in mental status. Blood glucose control remains inadequate increase Levemir to 20 every 12. Unable to wean to extubate will need tracheostomy if family wishes to proceed. Plan for tomorrow, will also consult GI for PEG tube placement 08/09: Encephalopathy appears to be worsening, no spontaneous eye opening weakly withdraws to pain left more than right. UA shows evidence of UTI patient is spiking fever up to 101.7 increasing leukocytosis. Start Zosyn. UA shows evidence of infection. CT of the head shows stable bleed and vasogenic edema. 3% saline started yesterday for presumed edema. Right IJ central line was also placed. Patient is critically ill again with worsening encephalopathy now with high fever and sepsis. Probable source UTI. Empiric Zosyn started. Family in disagreement regarding trach and PEG. Palliative care consulted. Unable to wean to extubate due to severe encephalopathy 08/10: Neuro exam remains unchanged. Disagreement among adult children whether to proceed with trach and PEG. Palliative care is following. Sputum culture and urine culture growing Klebsiella pansensitive. Will narrow antibiotics in 1 -2 days. 08/11: No improvement in neurological function. Palliative care working with family on care plan. Unable to wean from ventilator. 08/12: Unable to wean from ventilator. Family deciding on care plan. 08/13: Unable to wean from vent, still requiring increased pressure support. If family wants to persist she will need a trach. Family hasn't accepted this yet. 08/14: Tracheostomy performed 08/13. PEG scheduled. Needs LTAC/SNF placement. 08/15: Good response to diuretics. Unable to wean vent. Will need LTAC. 08/16: Remains encephalopathic, on mechanical ventilation via tracheostomy. Awaiting PEG tube placement. 08/17: Remains encephalopathic, on mechanical ventilation via tracheostomy. Still awaiting PEG tube placement. 08/18: Remains encephalopathic, spontaneous eye opening noted. On mechanical ventilation via tracheostomy. Daily C Pap trials ongoing. Awaiting PEG tube placement. Objective Vital Signs Date Time Temp Pulse Resp B/P (MAP) Pulse Ox O2 Delivery O2 Flow Rate FiO2 08/18/17 08:02 40 08/18/17 08:02 100 08/18/17 08:00 99.8 85 21 150/66 (94) Intake and Output 08/18/17 08/18/17 08/19/17 08:00 16:00 00:00 Intake Total 303 ml Output Total 1325 ml Balance -1022 ml Result Diagram: 08/18/17 0429 08/18/17 0429 Objective Remarks Gen: Unresponsive. Off all sedation Head: Atraumatic. Pupils 3 mm equal, sluggish Neck: Supple, trach site clean. NG in place. Lungs: Clear, no wheezes or crackles. Good bilateral air entry. Few mobile secretions. Heart: NL S1S2, RRR, No JVD Abdomen: Soft, large, no guarding. BS few. Nondistended. No tenderness. Extremities: Warm, well perfused. 1+ edema lowers Neuro: Unresponsive. Not on any sedation for multiple days.. Pupils reactive. Eye-opening spontaneously, only partial. Mild withdrawal upper extremities with slight internal rotation lower extremities to deep pain. No purposeful movements noted. No tracking. A/P Assessment and Plan Assessment: Hemorrhagic stroke, right fronto/parietal region -> decompressive craniectomy Persistent encephalopathy Fever sepsis UTI Pneumonia with Klebsiella Acute respiratory Failure Hyperglycemia Leukocytosis Diabetes, type 2. Hypertensive urgency. Plan: Neuro - Last CT of the head with stable acute right frontal hemorrhage and vasogenic edema, decreased midline shift - HOB up. adjust EtCO2 to maintain 35 - 40 blood range - s/p Right frontotemporoparietal craniotomy for subdural and intracerebral hemorrhage evacuation; decompressive hemicraniectomy - Overall prognosis is poor. Palliative care is following. - Has been off hypertonic saline Respiratory - PRVC vent mode. EtCO2 monitor, maintain low normal range. DuoNeb every 6 hours as needed - Daily CPAP trials. - Palliative care consulted to address goals of care - Sputum culture growing Klebsiella, continue Zosyn - Tracheostomy 08/13 Cardiovascular -Off Cardene - Lisinopril 20 mg q12, Lopressor 50 every 8 hours - Hydralazine 100 mg tid. Clonidine 0.3 mg 3 times daily - Use as needed IV labetalol and hydralazine for SBP more than 150 GI - Tube feeds Glucerna 1.5 - Last BM reported on 08/09 - s/p mag citrate x1 08/09. Scheduled lactulose 30 ml QID. Colace - Gaffney. - Strict intake output - BID lasix ID - Acevedo Culture for worsening leukocytosis. - Sputum and urine culture growing Klebsiella. Continue Zosyn -> narrowed to ceftriaxone until 08/16 Endocrinology - SSI, high algorithm - Levemir 23 u bid, now with improved blood sugar control Heme - CBC a.m. Prophylaxis - Chemical contraindicated, address trach and PEG - SCDs - Pepcid Overall impression: Patient presented critically ill with deteriorating neurological function due to acute hemorrhage right hemisphere. She was transferred emergently from [facility] for definitive neurosurgical treatment and underwent emergency decompression of the right side to save what is hopefully her dominant left hemisphere. Remains neurologically unstable and critically ill. Family is aware of her critical condition. There had been no improvement in her mental status, admitted and remains comatose. Needs placement , LTAC required unless SNF takes ventilators. Current transfer back [facility] For further medical management at this point. Can transfer back to [facility] for further medical management at this point. Usama Moss MD Aug 18, 2017 09:37
[2017-08-18] MEDS ORDERED: PROPOFOL 1000 MG/100 ML INJ 100 ML IV PRN (10:45)
--- NOTE | 2017-08-18 10:51 | HHI.NSPN ---
(Kevin Messer) History Chief Complaint: Unable to obtain due to patient's clinical condition. (Kevin Messer) Interval History A 67-year-old -[place] female who was transferred from [facility] in [place] after she presented to the emergency room with acute onset of headaches and left-sided weakness and basically progressed to obtundation and comatose state. She became unresponsive and required intubation. She was hypertensive on initial presentation and a CT scan of the head obtained reveals a large right frontal parietal lobe hemorrhage with likely underlying stroke measuring 8.6 cm x 6.0 cm in dimension with a 15 mm right to left midline shift. She was transferred [facility] for further management and neurosurgery consult. There is no family member available to relate any history and attempts to contact her brother whose phone number next of kin is listed in the records from [facility] with two phone numbers went directly to voice mail and a message was left for him to call us back. 08/02/17: Pt sedated on Fentanyl and Diprivan. When held for exam she does not open her eyes or follow commands. She has slight withdrawal in LEs. Pupils are 3mm bilaterally with slight reaction bilaterally. 08/03/17: Pt sedated on Fentanyl and Diprivan drips. She doesn't open eyes. Pupils equal. Left hemiparesis when sedation held. 08/04/17: Pt sedated on low dose Fentanyl. Diprivan on hold. Pt not opening eyes. Intubated. Not following commands. No reaction to pain. 08/05/17: Pt sedated on low dose Fentanyl drip. Opens eyes slightly to deep pain. Not following commands. 08/06/17: Pt off sedation. Not opening eyes for me although did briefly for RN to deep pain. She does not follow commands. 08/13/17: Pt opens eyes slightly left more than right briefly. Pupils 3mm bilaterally. Intubated on CPAP. Not following commands. 08/14/17: Pt opens eyes slightly to pain. Not following commands. Pupils 3mm bilaterally reactive bilaterally. Trach in place. 08/15/17: Pt opens eyes slightly to pain. Not following commands. She withdraws to pain. 08/16/17: Pt with some spontaneously slight eye opening. Not following commands. Withdraws slightly to deep pain in all 4 extremities. 08/17/17: Pt opens eyes slightly to pain. Not following commands. Withdraws extremities slightly intermittently to deep pain peripherally. 08/18/17: Pt opens eyes slightly to voice. Not following commands. Pupils 3mm bilaterally, reactive bilaterally. (Kevin Messer) System Review Comments Not able to obtain given clinical condition. (Kevin Messer) Exam Results Vital Signs Date Time Temp Pulse Resp B/P (MAP) Pulse Ox O2 Delivery O2 Flow Rate FiO2 08/18/17 08:02 40 08/18/17 08:02 100 08/18/17 08:00 99.8 85 21 150/66 (94) Intake and Output 08/18/17 08/18/17 08/19/17 08:00 16:00 00:00 Intake Total 303 ml Output Total 1325 ml Balance -1022 ml (Kevin Messer) Physical Examination General: Pt resting in bed with trach in place and stable vital signs. Eyes: Pupils 3mm bilaterally sclera anicteric. Resp: Trach in place. CPAP. Heart: NSR no murmurs Abd: Soft positive bs Skin: Incision clean and dry. Craniectomy site full. Muscle: Not following for muscle testing. Pt withdraws slightly to deep peripheral pain in all 4 extremities. Neuro: Pt opens eyes at times spontaneously. Pupils 3mm bilaterally. Not following commands. (Kevin Messer) Lab, Micro, Other Results Last Impressions Chest X-Ray 08/13/17 0000 Signed Impressions: Service Date/Time: Sunday, August 13, 2017 16:05 - CONCLUSION: 1. Hypoinflation and blunting of both costophrenic characteristic of effusions. 2. Interval removal of the endotracheal and nasogastric tubes with placement of a tracheostomy. 3. Right IJ central venous catheter with the tip maintaining a fishhook configuration. The tip may have engaged the azygous vein. Jai Cook MD Head CT 08/09/17 0800 Signed Impressions: Service Date/Time: Wednesday, August 09, 2017 04:21 - CONCLUSION: 1. The acute intra-axial blood products in the right frontal lobe with surrounding vasogenic edema are stable. 2. There is decreased right to left midline shift, currently measuring up to 2 mm compared to 5 mm previously. This is likely related to the increased herniation of brain tissue through the craniectomy defect. 3. Interval removal of the surgical drain with a small crescentic low density extra-axial fluid collection. 4. Stable acute blood products within the left occipital horn. Brandon Díaz MD Laboratory Tests Test 08/18/17 04:29 White Blood Count 14.6 TH/MM3 Red Blood Count 3.24 MIL/MM3 Hemoglobin 9.1 GM/DL Hematocrit 27.2 % Mean Corpuscular Volume 84.1 FL Mean Corpuscular Hemoglobin 28.1 PG Mean Corpuscular Hemoglobin Concent 33.5 % Red Cell Distribution Width 13.9 % Platelet Count 478 TH/MM3 Mean Platelet Volume 9.0 FL Neutrophils (%) (Auto) 74.7 % Lymphocytes (%) (Auto) 13.2 % Monocytes (%) (Auto) 9.6 % Eosinophils (%) (Auto) 2.0 % Basophils (%) (Auto) 0.5 % Neutrophils # (Auto) 10.9 TH/MM3 Lymphocytes # (Auto) 1.9 TH/MM3 Monocytes # (Auto) 1.4 TH/MM3 Eosinophils # (Auto) 0.3 TH/MM3 Basophils # (Auto) 0.1 TH/MM3 CBC Comment DIFF FINAL Differential Comment Blood Urea Nitrogen 30 MG/DL Creatinine 0.72 MG/DL Random Glucose 163 MG/DL Total Protein 7.0 GM/DL Albumin 2.0 GM/DL Calcium Level 9.0 MG/DL Alkaline Phosphatase 129 U/L Aspartate Amino Transf (AST/SGOT) 22 U/L Alanine Aminotransferase (ALT/SGPT) 49 U/L Total Bilirubin 0.4 MG/DL Sodium Level 144 MEQ/L Potassium Level 3.7 MEQ/L Chloride Level 108 MEQ/L Carbon Dioxide Level 26.7 MEQ/L Anion Gap 9 MEQ/L Estimat Glomerular Filtration Rate 80 ML/MIN 08/18/17 08/18/17 08/19/17 15:00 23:00 07:00 Bladder Scan Volume Amount 392 ml (Kevin Messer) Medical Decision Making Impression and Plan A: 67 y/o FM with large right frontotemporal lobe hemorrhage with likely underlying stroke with significant mass effect and midline shift. Overall poor neurologic examination. She underwent an emergent Right frontotemporoparietal craniotomy for subdural and intracerebral hemorrhage evacuation; decompressive hemicraniectomy with expansive duraplasty on 08/01/17. 2. Respiratory failure secondary to above. 3. Unregulated hypertension. 4. Diabetes mellitus. P: Continue with critical care Continue with close neuro checks G-tube Rehab placement. (Kevin Messer) Attending Statement The exam, history, and the medical decision-making described in the above note were completed with the assistance of the mid-level provider. I reviewed and agree with the findings presented. I attest that I had a [id number] encounter with the patient on the same day, and personally performed and documented my assessment and findings in the medical record. (Wilber Fiore MD) Kevin Messer Aug 18, 2017 10:51 Wilber Fiore MD Aug 18, 2017 14:56
[2017-08-18] MEDS ORDERED: PROPOFOL 500 MG/50 ML INJ 50 ML ONE (10:54)
[2017-08-19] VITALS (16 sets, daily range): BP systolic 93–133; BP diastolic 51–80; PULSE 72–100; RESP 14–19; TEMP 98.8–100; O2SAT 96–100
[2017-08-19] MEDS: hydrALAZINE HCL 50 MG TAB PO SCH ×3 (02:12→17:00)
[2017-08-19] MEDS: CHLORHEXIDINE GLUCONATE 2 % 1 PACK (2 CLOTHS) TOP SCH (03:29)
[2017-08-19] MEDS: cloNIDine HCL 0.3 MG TAB PO SCH ×3 (06:00→22:00)
[2017-08-19] MEDS: METOPROLOL TARTRATE 25 MG TAB PO SCH ×3 (06:16→22:00)
[2017-08-19] MEDS: INSULIN ASPART SUPPLEMENTAL SCALE SQ SCH ×4 (08:00→21:00)
[2017-08-19] MEDS: DOCUSATE SODIUM 100 MG/10 ML UDC PO SCH ×2 (08:45→21:42)
[2017-08-19] MEDS: FUROSEMIDE 40 MG/4 ML VIAL IV PUSH SCH ×2 (08:45→21:43)
[2017-08-19] MEDS: FAMOTIDINE 20 MG/2 ML VIAL IV PUSH SCH ×2 (08:46→21:43)
[2017-08-19] MEDS: levETIRAcetam INJ 500 MG in SODIUM CHLORIDE 0.9% INJ 100 ML IV SCH ×2 (08:47→21:42)
[2017-08-19] MEDS: INSULIN DETEMIR 100 UNITS/ML VIAL SQ SCH ×2 (08:47→21:00)
[2017-08-19] MEDS: LACTULOSE SYRUP 20 GM/30 ML CUP PO SCH ×4 (08:47→21:42)
[2017-08-19] MEDS: LISINOPRIL 10 MG TAB PO SCH ×2 (08:47→21:44)
--- NOTE | 2017-08-19 09:16 | HHI.NSPN ---
History Chief Complaint: Unable to obtain due to patient's clinical condition. Interval History A 67-year-old -Guyanese female who was transferred from [facility] in [place] after she presented to the emergency room with acute onset of headaches and left-sided weakness and basically progressed to obtundation and comatose state. She became unresponsive and required intubation. She was hypertensive on initial presentation and a CT scan of the head obtained reveals a large right frontal parietal lobe hemorrhage with likely underlying stroke measuring 8.6 cm x 6.0 cm in dimension with a 15 mm right to left midline shift. She was transferred [facility] for further management and neurosurgery consult. There is no family member available to relate any history and attempts to contact her brother whose phone number next of kin is listed in the records from [facility] with two phone numbers went directly to voice mail and a message was left for him to call us back. 08/02/17: Pt sedated on Fentanyl and Diprivan. When held for exam she does not open her eyes or follow commands. She has slight withdrawal in LEs. Pupils are 3mm bilaterally with slight reaction bilaterally. 08/03/17: Pt sedated on Fentanyl and Diprivan drips. She doesn't open eyes. Pupils equal. Left hemiparesis when sedation held. 08/04/17: Pt sedated on low dose Fentanyl. Diprivan on hold. Pt not opening eyes. Intubated. Not following commands. No reaction to pain. 08/05/17: Pt sedated on low dose Fentanyl drip. Opens eyes slightly to deep pain. Not following commands. 08/06/17: Pt off sedation. Not opening eyes for me although did briefly for RN to deep pain. She does not follow commands. 08/13/17: Pt opens eyes slightly left more than right briefly. Pupils 3mm bilaterally. Intubated on CPAP. Not following commands. 08/14/17: Pt opens eyes slightly to pain. Not following commands. Pupils 3mm bilaterally reactive bilaterally. Trach in place. 08/15/17: Pt opens eyes slightly to pain. Not following commands. She withdraws to pain. 08/16/17: Pt with some spontaneously slight eye opening. Not following commands. Withdraws slightly to deep pain in all 4 extremities. 08/17/17: Pt opens eyes slightly to pain. Not following commands. Withdraws extremities slightly intermittently to deep pain peripherally. 08/18/17: Pt opens eyes slightly to voice. Not following commands. Pupils 3mm bilaterally, reactive bilaterally. 08/19/17: Pt opens eyes to voice. Not following commands. Pupils 3mm bilaterally, reactive bilaterally. System Review Comments Not able to obtain given clinical condition. Exam Results Vital Signs Date Time Temp Pulse Resp B/P (MAP) Pulse Ox O2 Delivery O2 Flow Rate FiO2 08/19/17 07:56 40 08/19/17 07:56 96 08/19/17 02:00 74 08/19/17 00:00 98.8 14 93/51 (65) Physical Examination General: Pt resting in bed with trach in place and stable vital signs. Eyes: Pupils 3mm bilaterally sclera anicteric. Resp: Trach in place. CPAP. Heart: NSR no murmurs Abd: Soft positive bs Skin: Incision clean and dry. Craniectomy site full. Muscle: Not following for muscle testing. Pt withdraws slightly to deep peripheral pain in all 4 extremities. Neuro: Pt opens eyes at times spontaneously. Pupils 3mm bilaterally. Not following commands. Lab, Micro, Other Results Last Impressions Chest X-Ray 08/13/17 0000 Signed Impressions: Service Date/Time: Sunday, August 13, 2017 16:05 - CONCLUSION: 1. Hypoinflation and blunting of both costophrenic characteristic of effusions. 2. Interval removal of the endotracheal and nasogastric tubes with placement of a tracheostomy. 3. Right IJ central venous catheter with the tip maintaining a fishhook configuration. The tip may have engaged the azygous vein. Jai Cook MD Head CT 08/09/17 0800 Signed Impressions: Service Date/Time: Wednesday, August 09, 2017 04:21 - CONCLUSION: 1. The acute intra-axial blood products in the right frontal lobe with surrounding vasogenic edema are stable. 2. There is decreased right to left midline shift, currently measuring up to 2 mm compared to 5 mm previously. This is likely related to the increased herniation of brain tissue through the craniectomy defect. 3. Interval removal of the surgical drain with a small crescentic low density extra-axial fluid collection. 4. Stable acute blood products within the left occipital horn. Brandon Díaz MD Medical Decision Making Impression and Plan A: 67 y/o FM with large right frontotemporal lobe hemorrhage with likely underlying stroke with significant mass effect and midline shift. Overall poor neurologic examination. She underwent an emergent Right frontotemporoparietal craniotomy for subdural and intracerebral hemorrhage evacuation; decompressive hemicraniectomy with expansive duraplasty on 08/01/17. 2. Respiratory failure secondary to above. 3. Unregulated hypertension. 4. Diabetes mellitus. P: Continue with critical care Continue with close neuro checks Rehab placement. Kevin Messer Aug 19, 2017 9:16 am
--- NOTE | 2017-08-19 09:38 | HHI.CCPN ---
Subjective Remarks/Hospital Course 67 y/o woman presented to [facility] as stroke alert. Right side headache and left side weakness starting around 10:00 a.m. Glucose 122. INR 1.0 , Sinus rhythm. No history of anticoagulants. Does have history of hypertension and Type 2 diabetes. BP 244/146. Required intubation shortly after arrival. CT Head with large right hemisphere ICH parietal lobe and 1.5 cm shift away from bleed. Plts 296,000, Creat 0.59, Hct 40. 08/02: CT with much improved shift. Gas exchange acceptable. 08/03: Persistent hypertension requiring nicardipine. Will start oral scheduled BP meds. Glucose elevated. NG output minimal. 08/04: Transitioned to oral meds with good BP control. Heavily sedated, now tapering. No spontaneous ventilation but high fixed rate. Repeat head CT with markedly reduced shift. 08/05: Currently remains on fentanyl for sedation. Withdraws all extremities to pain, stronger right though. No spontaneous eye opening or spontaneous movements noted. 08/06: Weaning sedation but no purposeful movement. Worsening glucose intolerance. Increase levemir and go to high SSI. 08/07: Glucose intolerance persists. Increase levemir coverage. No improvement in neurological condition. 08/08: Patient remains encephalopathy no improvement in mental status. Blood glucose control remains inadequate increase Levemir to 20 every 12. Unable to wean to extubate will need tracheostomy if family wishes to proceed. Plan for tomorrow, will also consult GI for PEG tube placement 08/09: Encephalopathy appears to be worsening, no spontaneous eye opening weakly withdraws to pain left more than right. UA shows evidence of UTI patient is spiking fever up to 101.7 increasing leukocytosis. Start Zosyn. UA shows evidence of infection. CT of the head shows stable bleed and vasogenic edema. 3% saline started yesterday for presumed edema. Right IJ central line was also placed. Patient is critically ill again with worsening encephalopathy now with high fever and sepsis. Probable source UTI. Empiric Zosyn started. Family in disagreement regarding trach and PEG. Palliative care consulted. Unable to wean to extubate due to severe encephalopathy 08/10: Neuro exam remains unchanged. Disagreement among adult children whether to proceed with trach and PEG. Palliative care is following. Sputum culture and urine culture growing Klebsiella pansensitive. Will narrow antibiotics in 1 -2 days. 08/11: No improvement in neurological function. Palliative care working with family on care plan. Unable to wean from ventilator. 08/12: Unable to wean from ventilator. Family deciding on care plan. 08/13: Unable to wean from vent, still requiring increased pressure support. If family wants to persist she will need a trach. Family hasn't accepted this yet. 08/14: Tracheostomy performed 08/13. PEG scheduled. Needs LTAC/SNF placement. 08/15: Good response to diuretics. Unable to wean vent. Will need LTAC. 08/16: Remains encephalopathic, on mechanical ventilation via tracheostomy. Awaiting PEG tube placement. 08/17: Remains encephalopathic, on mechanical ventilation via tracheostomy. Still awaiting PEG tube placement. 08/18: Remains encephalopathic, spontaneous eye opening noted. On mechanical ventilation via tracheostomy. Daily C Pap trials ongoing. Awaiting PEG tube placement. 08/19: Is encephalopathic, on mechanical ventilation via tracheostomy. PEG done yesterday. Objective Vital Signs Date Time Temp Pulse Resp B/P (MAP) Pulse Ox O2 Delivery O2 Flow Rate FiO2 08/19/17 07:56 40 08/19/17 07:56 96 08/19/17 02:00 74 08/19/17 00:00 98.8 14 93/51 (65) Result Diagram: 08/18/179 08/18/179 Objective Remarks Gen: Unresponsive. Off all sedation Head: Atraumatic. Pupils 3 mm equal, sluggish Neck: Supple, trach site clean. NG in place. Lungs: Clear, no wheezes or crackles. Good bilateral air entry. Few mobile secretions. Heart: NL S1S2, RRR, No JVD Abdomen: Soft, large, no guarding. BS few. Nondistended. No tenderness. Extremities: Warm, well perfused. 1+ edema lowers Neuro: Unresponsive. Not on any sedation for multiple days.. Pupils reactive. Eye-opening spontaneously, only partial. Mild withdrawal upper extremities with slight internal rotation lower extremities to deep pain. No purposeful movements noted. No tracking. A/P Assessment and Plan Assessment: Hemorrhagic stroke, right fronto/parietal region -> decompressive craniectomy Persistent encephalopathy Fever sepsis UTI Pneumonia with Klebsiella Acute respiratory Failure Hyperglycemia Leukocytosis Diabetes, type 2. Hypertensive urgency. Plan: Neuro - Last CT of the head with stable acute right frontal hemorrhage and vasogenic edema, decreased midline shift - HOB up. adjust EtCO2 to maintain 35 - 40 blood range - s/p Right frontotemporoparietal craniotomy for subdural and intracerebral hemorrhage evacuation; decompressive hemicraniectomy - Overall prognosis is poor. Palliative care is following. - Has been off hypertonic saline Respiratory - PRVC vent mode. EtCO2 monitor, maintain low normal range. DuoNeb every 6 hours as needed - Daily CPAP trials. - Palliative care consulted to address goals of care - Sputum culture growing Klebsiella, continue Zosyn - Tracheostomy 08/13 Cardiovascular -Off Cardene - Lisinopril 20 mg q12, Lopressor 50 every 8 hours - Hydralazine 100 mg tid. Clonidine 0.3 mg 3 times daily - Use as needed IV labetalol and hydralazine for SBP more than 150 GI - Tube feeds Glucerna 1.5 - Last BM reported on 08/09 - s/p mag citrate x1 08/09. Scheduled lactulose 30 ml QID. Colace - Gaffney. - Strict intake output - BID lasix ID - Acevedo Culture for worsening leukocytosis. - Sputum and urine culture growing Klebsiella. Continue Zosyn -> narrowed to ceftriaxone until 08/16, then stopped. - Leukocytosis of 14,000 noted on 08/19. We'll repeat UA and urine cultures and get a chest x-ray to evaluate for new infiltrates. Endocrinology - SSI, high algorithm - Levemir 23 u bid, now with improved blood sugar control Heme - CBC a.m. Prophylaxis - Chemical contraindicated, address trach and PEG - SCDs - Pepcid Overall impression: Patient presented critically ill with deteriorating neurological function due to acute hemorrhage right hemisphere. She was transferred emergently from [facility] for definitive neurosurgical treatment and underwent emergency decompression of the right side to save what is hopefully her dominant left hemisphere. Remains neurologically unstable and critically ill. Family is aware of her critical condition. There had been no improvement in her mental status, admitted and remains comatose. Needs placement , LTAC required unless SNF takes ventilators. Current transfer back [facility] For further medical management at this point. Can transfer back to [facility] for further medical management at this point. Usama Moss MD Aug 19, 2017 09:38
--- NOTE | 2017-08-19 09:57 | RADRPT ---
EXAM DATE/TIME: 08/19/2017 09:33 [place] COMPARISON: CHEST SINGLE AP, August 13, 2017, 16:05. INDICATIONS : Infiltrates. MEDICAL HISTORY : None. SURGICAL HISTORY : Craniotomy. ENCOUNTER: Subsequent ACUITY: 2 weeks PAIN SCORE: Non-responsive. LOCATION: Bilateral chest FINDINGS: A tracheostomy tube has its tip in good position 3 cm above the carlie. The heart is stable. There is interval improvement of pulmonary congestion compared to previous examination. The lungs are clear. CONCLUSION: Interval improvement of pulmonary vascular congestion compared to the previous examination. Lungs are clear. Sergio Burt MD on August 19, 2017 at 9:53 Board Certified Radiologist. This report was verified electronically.
--- NOTE | 2017-08-19 10:32 | HHI.GIFU ---
Subjective Remarks Pt resting in bed. s/p peg. Per RN PEG is flushing easily and functioning for medication technician. (Elvie Herrera) Objective Vitals I&O Vital Signs Date Time Temp Pulse Resp B/P (MAP) Pulse Ox O2 Delivery O2 Flow Rate FiO2 08/19/17 08:00 74 08/19/17 08:00 99.1 100 19 93/51 (65) 100 08/19/17 08:00 40 08/19/17 07:56 40 08/19/17 07:56 96 40 08/19/17 04:04 100 35 08/19/17 02:23 100 40 08/19/17 02:00 74 08/19/17 00:00 78 08/19/17 00:00 40 08/19/17 00:00 98.8 94 14 93/51 (65) 100 08/18/17 22:12 100 40 08/18/17 20:00 40 08/18/17 20:00 98.7 94 14 129/59 (82) 100 08/18/17 19:37 100 40 08/18/17 18:00 85 08/18/17 16:00 83 08/18/17 16:00 100.1 85 14 137/65 (89) 100 08/18/17 16:00 40 08/18/17 15:52 100 40 08/18/17 14:00 77 08/18/17 12:43 100 40 08/18/17 12:00 80 08/18/17 12:00 40 08/18/17 12:00 98.2 80 14 95/53 (67) 100 I/O 08/18/17 08/18/17 08/18/17 08/19/17 08/19/17 08/19/17 07:00 15:00 23:00 07:00 15:00 23:00 Intake Total 303 ml 115 ml 200 ml Output Total 1325 ml 1400 ml Balance -1022 ml 115 ml -1200 ml IV Total 115 ml Tube Feeding 273 ml Other 30 ml 200 ml Output Urine Total 1325 ml 1400 ml Bladder Scan Volume Amount 650 ml 392 ml 600 ml 600 ml # Bowel Movements 1 0 Laboratory Date/Time Source Procedure Growth Status 08/08/17 21:22 Blood Peripheral Aerobic Blood Culture - Final NO GROWTH IN 5 DAYS Complete 3/4/18 21:22 Blood Peripheral Anaerobic Blood Culture - Final NO GROWTH IN 5 DAYS Complete 08/08/17 12:00 Sputum Endotracheal Gram Stain - Final Complete 08/08/17 12:00 Sputum Culture - Final Klebsiella Pneumoniae Complete 08/08/17 12:00 Urine Catheterized Urine Urine Culture - Final Klebsiella Pneumoniae Complete Imaging Last Impressions Chest X-Ray 08/19/17 0000 Signed Impressions: Service Date/Time: August 09:33 - CONCLUSION: Interval improvement of pulmonary vascular congestion compared to the previous examination. Lungs are clear. Sergio Burt MD Head CT 08/09/17 0800 Signed Impressions: Service Date/Time: Wednesday, August 09, 2017 04:21 - CONCLUSION: 1. The acute intra-axial blood products in the right frontal lobe with surrounding vasogenic edema are stable. 2. There is decreased right to left midline shift, currently measuring up to 2 mm compared to 5 mm previously. This is likely related to the increased herniation of brain tissue through the craniectomy defect. 3. Interval removal of the surgical drain with a small crescentic low density extra-axial fluid collection. 4. Stable acute blood products within the left occipital horn. Brandon Díaz MD Physical Exam HEENT: normocephalic; atraumatic; no jaundice. trach CHEST: coarse CARDIAC: Regular rate and rhythm with no murmur gallop or rubs. ABDOMEN: Soft, nondistended, no hepatosplenomegaly; bowel sounds are present in all four quadrants. PEG dressing d&i EXTREMITIES: No clubbing, cyanosis, + general edema. SKIN: Normal; no rash; no jaundice. SLASHER: unresponsive (Elvie Herrera S STATISTICAL MODELER) Assessment and Plan Plan Nutritional needs for long-term care, 67-year-old black female admitted with intracranial hemorrhage parietal lobe. Currently remains intubated with oral gastric tube, history of diabetes and hypertension and now respiratory failure. There was no family present but it has been discussed that family will need to agree to PEG tube placement. 08/10/17 no consensus reached yet, 2 of 4 kids located and need majority vote. Pt has been of sedation for 6 days, relatively unpresponsive. 08/17/17 GI reconsulted for PEG tube placement. attempted to call Arron Alexander at both numbers provided and no answer. 3/15/18 s/p PEG placement, PEG working well. Plan - ok to restart TF - supportive care - GI will sign off, please reconsult if needed. Patient was seen per myself and Dr. Gar and this note written on his behalf (Elvie Herrera) Physician Comments Agree with above assessment and plan. Please notify us if needed again. (Young Gar MD) Elvie Herrera Aug 19, 2017 10:32 Young Gar MD Aug 19, 2017 13:16
[2017-08-19] MEDS: SODIUM CHLORIDE 0.9% FLUSH 10 ML FLUSH IV FLUSH SCH ×2 (10:53→21:00)
[2017-08-19] MEDS: CHLORHEXIDINE 0.12% (ORAL KIT) 15 ML CUP MT SCH ×2 (10:53→20:00)
[2017-08-19 11:15] LABS: BACTERIA, URINE RARE /hpf; BILIRUBIN, URINE NEG (NEG); BLOOD, URINE NEG (NEG); GLUCOSE,URINE NEG (NEG); HYALINE CAST, URINE 3 /lpf (RARE); KETONE, URINE NEG (NEG); NITRITE,URINE NEG (NEG); URINE COLOR LIGHT-YELLOW (YELLW/STRAW); URINE LEUKOCYTE ESTERASE NEG (NEG)
--- NOTE | 2017-08-19 14:27 | HHI.HCPN ---
Palliative care continues to follow along with Ms. Alexander throughout her hospitalization. No family at bedside. Ms. Alexander is resting comfortable in no apparent distress. Ms. Alexander is now with trach and peg. Goals remain aggressive with family hoping to get her to a facility for continued aggressive medical management. Spoke with CM, [facility] has declined the patient. Other options being explored. Per CM family appears to be in disagreement for long-term goals once inpatient medical management optimized (long-term care, taking patient home, etc ). Telephone call to daughter Arron. Left message with contact information should she wish to speak with palliative care. Palliative care will continue to remain available as needed to assist with symptom management and ongoing discussion regarding goals fo care. Mary Moody TAX SERVICES INTERN, DRAWING CHECKER Aug 19, 2017 14:27
[2017-08-20] VITALS (18 sets, daily range): BP systolic 99–131; BP diastolic 52–64; PULSE 77–86; RESP 14–20; TEMP 98.2–100.4; O2SAT 100
[2017-08-20] MEDS: hydrALAZINE HCL 50 MG TAB PO SCH ×3 (01:00→16:46)
[2017-08-20] MEDS: CHLORHEXIDINE GLUCONATE 2 % 1 PACK (2 CLOTHS) TOP SCH (03:44)
[2017-08-20] MEDS: cloNIDine HCL 0.3 MG TAB PO SCH ×3 (05:26→22:36)
[2017-08-20] MEDS: METOPROLOL TARTRATE 25 MG TAB PO SCH ×3 (05:26→22:36)
[2017-08-20] MEDS: hydrALAZINE HCL 20 MG/ML VIAL IV PUSH PRN (05:52)
[2017-08-20] MEDS: INSULIN ASPART SUPPLEMENTAL SCALE SQ SCH ×3 (08:07→21:00)
[2017-08-20] MEDS: INSULIN DETEMIR 100 UNITS/ML VIAL SQ SCH ×2 (08:07→21:00)
[2017-08-20] MEDS: DOCUSATE SODIUM 100 MG/10 ML UDC PO SCH ×2 (08:07→21:00)
[2017-08-20] MEDS: FAMOTIDINE 20 MG/2 ML VIAL IV PUSH SCH ×2 (08:07→21:00)
[2017-08-20] MEDS: SODIUM CHLORIDE 0.9% FLUSH 10 ML FLUSH IV FLUSH SCH ×2 (08:07→21:00)
[2017-08-20] MEDS: FUROSEMIDE 40 MG/4 ML VIAL IV PUSH SCH ×2 (08:07→21:00)
[2017-08-20] MEDS: CHLORHEXIDINE 0.12% (ORAL KIT) 15 ML CUP MT SCH ×2 (08:08→20:00)
[2017-08-20] MEDS: LACTULOSE SYRUP 20 GM/30 ML CUP PO SCH ×4 (08:08→21:00)
[2017-08-20] MEDS: LISINOPRIL 10 MG TAB PO SCH ×2 (08:08→21:00)
[2017-08-20] MEDS: levETIRAcetam INJ 500 MG in SODIUM CHLORIDE 0.9% INJ 100 ML IV SCH ×2 (08:08→21:00)
--- NOTE | 2017-08-20 08:55 | HHI.CCPN ---
Subjective Remarks/Hospital Course 67 y/o woman presented to [facility] as stroke alert. Right side headache and left side weakness starting around 10:00 a.m. Glucose 122. INR 1.0 , Sinus rhythm. No history of anticoagulants. Does have history of hypertension and Type 2 diabetes. BP 244/146. Required intubation shortly after arrival. CT Head with large right hemisphere ICH parietal lobe and 1.5 cm shift away from bleed. Plts 296,000, Creat 0.59, Hct 40. 08/02: CT with much improved shift. Gas exchange acceptable. 08/03: Persistent hypertension requiring nicardipine. Will start oral scheduled BP meds. Glucose elevated. NG output minimal. 08/04: Transitioned to oral meds with good BP control. Heavily sedated, now tapering. No spontaneous ventilation but high fixed rate. Repeat head CT with markedly reduced shift. 08/05: Currently remains on fentanyl for sedation. Withdraws all extremities to pain, stronger right though. No spontaneous eye opening or spontaneous movements noted. 08/06: Weaning sedation but no purposeful movement. Worsening glucose intolerance. Increase levemir and go to high SSI. 08/07: Glucose intolerance persists. Increase levemir coverage. No improvement in neurological condition. 08/08: Patient remains encephalopathy no improvement in mental status. Blood glucose control remains inadequate increase Levemir to 20 every 12. Unable to wean to extubate will need tracheostomy if family wishes to proceed. Plan for tomorrow, will also consult GI for PEG tube placement 08/09: Encephalopathy appears to be worsening, no spontaneous eye opening weakly withdraws to pain left more than right. UA shows evidence of UTI patient is spiking fever up to 101.7 increasing leukocytosis. Start Zosyn. UA shows evidence of infection. CT of the head shows stable bleed and vasogenic edema. 3% saline started yesterday for presumed edema. Right IJ central line was also placed. Patient is critically ill again with worsening encephalopathy now with high fever and sepsis. Probable source UTI. Empiric Zosyn started. Family in disagreement regarding trach and PEG. Palliative care consulted. Unable to wean to extubate due to severe encephalopathy 08/10: Neuro exam remains unchanged. Disagreement among adult children whether to proceed with trach and PEG. Palliative care is following. Sputum culture and urine culture growing Klebsiella pansensitive. Will narrow antibiotics in 1 -2 days. 08/11: No improvement in neurological function. Palliative care working with family on care plan. Unable to wean from ventilator. 08/12: Unable to wean from ventilator. Family deciding on care plan. 08/13: Unable to wean from vent, still requiring increased pressure support. If family wants to persist she will need a trach. Family hasn't accepted this yet. 08/14: Tracheostomy performed 08/13. PEG scheduled. Needs LTAC/SNF placement. 08/15: Good response to diuretics. Unable to wean vent. Will need LTAC. 08/16: Remains encephalopathic, on mechanical ventilation via tracheostomy. Awaiting PEG tube placement. 08/17: Remains encephalopathic, on mechanical ventilation via tracheostomy. Still awaiting PEG tube placement. 08/18: Remains encephalopathic, spontaneous eye opening noted. On mechanical ventilation via tracheostomy. Daily C Pap trials ongoing. Awaiting PEG tube placement. 08/19: Is encephalopathic, on mechanical ventilation via tracheostomy. PEG done yesterday. 08/20: Low grade temp, urine pending. No change in neurological condition. Looking for LTAC. Objective Vital Signs Date Time Temp Pulse Resp B/P (MAP) Pulse Ox O2 Delivery O2 Flow Rate FiO2 08/20/17 08:02 40 08/20/17 08:00 98.7 80 14 99/64 (76) 100 Intake and Output 08/20/17 08/20/17 08/21/17 08:00 16:00 00:00 Intake Total 446 ml Output Total 1450 ml Balance -1004 ml Result Diagram: 08/18/17 0429 08/18/17 0429 Objective Remarks Gen: Unresponsive. Off all sedation Head: Atraumatic. Pupils 3 mm equal, sluggish Neck: Supple, trach site clean. Lungs: Clear, no wheezes or crackles. Good bilateral air entry. Few mobile secretions. Heart: NL S1S2, RRR, No JVD Abdomen: Soft, large, no guarding. BS active. Nondistended. No tenderness. Extremities: Warm, well perfused. 1+ edema lowers Neuro: Unresponsive. Not on any sedation for multiple days.. Pupils reactive. Eye-opening spontaneously, only partial. Mild withdrawal upper extremities with slight internal rotation lower extremities to deep pain. No purposeful movements noted. No tracking. A/P Assessment and Plan Assessment: Hemorrhagic stroke, right fronto/parietal region -> decompressive craniectomy Persistent encephalopathy Fever sepsis UTI Pneumonia with Klebsiella Acute respiratory Failure Hyperglycemia Leukocytosis Diabetes, type 2. Hypertensive urgency. Plan: Neuro - Last CT of the head with stable acute right frontal hemorrhage and vasogenic edema, decreased midline shift - HOB up. adjust EtCO2 to maintain 35 - 40 blood range - s/p Right frontotemporoparietal craniotomy for subdural and intracerebral hemorrhage evacuation; decompressive hemicraniectomy - Overall prognosis is poor. Palliative care is following. - Has been off hypertonic saline Respiratory - PRVC vent mode. EtCO2 monitor, maintain low normal range. DuoNeb every 6 hours as needed - Daily CPAP trials. - Palliative care consulted to address goals of care - Sputum culture growing Klebsiella, continue Zosyn - Tracheostomy 08/13 Cardiovascular -Off Cardene - Lisinopril 20 mg q12, Lopressor 50 every 8 hours - Hydralazine 100 mg tid. Clonidine 0.3 mg 3 times daily - Use as needed IV labetalol and hydralazine for SBP more than 150 GI - Tube feeds Glucerna 1.5 - Last BM reported on 08/09 - s/p mag citrate x1 08/09. Scheduled lactulose 30 ml QID. Colace - Gaffney. - Strict intake output - BID lasix ID - Acevedo Culture for worsening leukocytosis. - Sputum and urine culture growing Klebsiella. Continue Zosyn -> narrowed to ceftriaxone until 08/16, then stopped. - Leukocytosis of 14,000 noted on 08/19. We'll repeat UA and urine cultures and get a chest x-ray to evaluate for new infiltrates. Endocrinology - SSI, high algorithm - Levemir 23 u bid, now with improved blood sugar control Heme - CBC a.m. Prophylaxis - Chemical contraindicated, address trach and PEG - SCDs - Pepcid Overall impression: Patient presented critically ill with deteriorating neurological function due to acute hemorrhage right hemisphere. She was transferred emergently from [facility] for definitive neurosurgical treatment and underwent emergency decompression of the right side to save what is hopefully her dominant left hemisphere. Remains neurologically unstable and critically ill. Family is aware of her critical condition. There had been no improvement in her mental status, admitted and remains comatose. Needs placement , LTAC required unless SNF takes ventilators. Can transfer back to [facility] for further medical management at this point. Roel Fitch MD Aug 20, 2017 08:55
--- NOTE | 2017-08-20 09:14 | HHI.NSPN ---
History Chief Complaint: Unable to obtain due to patient's clinical condition. Interval History A 67-year-old -Citizen Of [place] female who was transferred from [facility] in [place] after she presented to the emergency room with acute onset of headaches and left-sided weakness and basically progressed to obtundation and comatose state. She became unresponsive and required intubation. She was hypertensive on initial presentation and a CT scan of the head obtained reveals a large right frontal parietal lobe hemorrhage with likely underlying stroke measuring 8.6 cm x 6.0 cm in dimension with a 15 mm right to left midline shift. She was transferred [facility] for further management and neurosurgery consult. There is no family member available to relate any history and attempts to contact her brother whose phone number next of kin is listed in the records from [facility] with two phone numbers went directly to voice mail and a message was left for him to call us back. 08/02/17: Pt sedated on Fentanyl and Diprivan. When held for exam she does not open her eyes or follow commands. She has slight withdrawal in LEs. Pupils are 3mm bilaterally with slight reaction bilaterally. 08/03/17: Pt sedated on Fentanyl and Diprivan drips. She doesn't open eyes. Pupils equal. Left hemiparesis when sedation held. 08/04/17: Pt sedated on low dose Fentanyl. Diprivan on hold. Pt not opening eyes. Intubated. Not following commands. No reaction to pain. 08/05/17: Pt sedated on low dose Fentanyl drip. Opens eyes slightly to deep pain. Not following commands. 08/06/17: Pt off sedation. Not opening eyes for me although did briefly for RN to deep pain. She does not follow commands. 08/13/17: Pt opens eyes slightly left more than right briefly. Pupils 3mm bilaterally. Intubated on CPAP. Not following commands. 08/14/17: Pt opens eyes slightly to pain. Not following commands. Pupils 3mm bilaterally reactive bilaterally. Trach in place. 08/15/17: Pt opens eyes slightly to pain. Not following commands. She withdraws to pain. 08/16/17: Pt with some spontaneously slight eye opening. Not following commands. Withdraws slightly to deep pain in all 4 extremities. 08/17/17: Pt opens eyes slightly to pain. Not following commands. Withdraws extremities slightly intermittently to deep pain peripherally. 08/18/17: Pt opens eyes slightly to voice. Not following commands. Pupils 3mm bilaterally, reactive bilaterally. 08/19/17: Pt opens eyes to voice. Not following commands. Pupils 3mm bilaterally, reactive bilaterally. 08/20/17: Pt opens eyes to voice and sometimes spontaneously. Not following commands. Pupils 3mm bilaterally reactive bilaterally. System Review Comments Not able to obtain given clinical condition. Exam Results Vital Signs Date Time Temp Pulse Resp B/P (MAP) Pulse Ox O2 Delivery O2 Flow Rate FiO2 08/20/17 09:07 40 08/20/17 08:00 98.7 80 14 99/64 (76) 100 Intake and Output 08/20/17 08/20/17 08/21/17 08:00 16:00 00:00 Intake Total 446 ml Output Total 1450 ml Balance -1004 ml Physical Examination General: Pt resting in bed with trach in place and stable vital signs. Eyes: Pupils 3mm bilaterally sclera anicteric. Resp: Trach in place. On a rate this morning Pressure controlled rate 14. FiO2 40% Peep 5. Heart: NSR no murmurs Abd: Soft positive bs Skin: Incision clean and dry. Craniectomy site full. Muscle: Not following for muscle testing. Pt withdraws slightly to deep peripheral pain in all 4 extremities. Neuro: Pt opens eyes at times spontaneously. Pupils 3mm bilaterally reactive bilaterally. Not following commands. Lab, Micro, Other Results Last Impressions Chest X-Ray 08/19/17 0000 Signed Impressions: Service Date/Time: August 09:33 - CONCLUSION: Interval improvement of pulmonary vascular congestion compared to the previous examination. Lungs are clear. Sergio Burt MD Head CT 08/09/17 0800 Signed Impressions: Service Date/Time: Wednesday, August 09, 2017 04:21 - CONCLUSION: 1. The acute intra-axial blood products in the right frontal lobe with surrounding vasogenic edema are stable. 2. There is decreased right to left midline shift, currently measuring up to 2 mm compared to 5 mm previously. This is likely related to the increased herniation of brain tissue through the craniectomy defect. 3. Interval removal of the surgical drain with a small crescentic low density extra-axial fluid collection. 4. Stable acute blood products within the left occipital horn. Brandon Díaz MD Laboratory Tests Test 08/19/17 10:30 Urine Color LIGHT-YELLOW Urine Turbidity CLEAR Urine pH 7.0 Urine Specific Eldridge 1.008 Urine Protein NEG mg/dL Urine Glucose (UA) NEG mg/dL Urine Ketones NEG mg/dL Urine Occult Blood NEG Urine Nitrite NEG Urine Bilirubin NEG Urine Urobilinogen LESS THAN 2.0 MG/DL Urine Leukocyte Esterase NEG Urine WBC 3 /hpf Urine Bacteria RARE /hpf Urine Hyaline Casts 3 /lpf Microscopic Urinalysis Comment CATH-CULTURE IND Medical Decision Making Impression and Plan A: 67 y/o FM with large right frontotemporal lobe hemorrhage with likely underlying stroke with significant mass effect and midline shift. Overall poor neurologic examination. She underwent an emergent Right frontotemporoparietal craniotomy for subdural and intracerebral hemorrhage evacuation; decompressive hemicraniectomy with expansive duraplasty on 08/01/17. 2. Respiratory failure secondary to above. 3. Unregulated hypertension. 4. Diabetes mellitus. P: Continue with critical care Continue with close neuro checks Rehab placement. Kevin Messer Aug 20, 2017 9:14 am
[2017-08-21] VITALS (15 sets, daily range): BP systolic 98–127; BP diastolic 52–61; PULSE 72–98; RESP 14–28; TEMP 98–99.5; O2SAT 100
[2017-08-21] MEDS: MORPHINE SULFATE 2 MG/ML INJ IV PUSH PRN (01:04)
[2017-08-21] MEDS: hydrALAZINE HCL 50 MG TAB PO SCH ×3 (01:06→17:00)
[2017-08-21] MEDS: CHLORHEXIDINE GLUCONATE 2 % 1 PACK (2 CLOTHS) TOP SCH (04:00)
[2017-08-21] MEDS: cloNIDine HCL 0.3 MG TAB PO SCH ×3 (06:00→22:00)
[2017-08-21] MEDS: METOPROLOL TARTRATE 25 MG TAB PO SCH ×3 (06:00→22:00)
[2017-08-21] MEDS: CHLORHEXIDINE 0.12% (ORAL KIT) 15 ML CUP MT SCH ×2 (08:00→20:00)
[2017-08-21] MEDS: INSULIN ASPART SUPPLEMENTAL SCALE SQ SCH ×4 (08:00→21:00)
[2017-08-21] MEDS: FAMOTIDINE 20 MG/2 ML VIAL IV PUSH SCH ×2 (09:00→21:00)
[2017-08-21] MEDS: LACTULOSE SYRUP 20 GM/30 ML CUP PO SCH ×4 (09:00→21:00)
[2017-08-21] MEDS: SODIUM CHLORIDE 0.9% FLUSH 10 ML FLUSH IV FLUSH SCH ×2 (09:00→21:00)
[2017-08-21] MEDS: DOCUSATE SODIUM 100 MG/10 ML UDC PO SCH ×2 (09:00→21:00)
[2017-08-21] MEDS: LISINOPRIL 10 MG TAB PO SCH ×2 (09:00→21:00)
[2017-08-21] MEDS: INSULIN DETEMIR 100 UNITS/ML VIAL SQ SCH ×2 (09:19→21:00)
[2017-08-21] MEDS: levETIRAcetam INJ 500 MG in SODIUM CHLORIDE 0.9% INJ 100 ML IV SCH ×2 (09:20→21:00)
[2017-08-21] MEDS: FUROSEMIDE 40 MG/4 ML VIAL IV PUSH SCH (09:21)
--- NOTE | 2017-08-21 12:28 | HHI.CCPN ---
Subjective Remarks/Hospital Course 67 y/o woman presented to [facility] as stroke alert. Right side headache and left side weakness starting around 10:00 a.m. Glucose 122. INR 1.0 , Sinus rhythm. No history of anticoagulants. Does have history of hypertension and Type 2 diabetes. BP 244/146. Required intubation shortly after arrival. CT Head with large right hemisphere ICH parietal lobe and 1.5 cm shift away from bleed. Plts 296,000, Creat 0.59, Hct 40. 08/02: CT with much improved shift. Gas exchange acceptable. 08/03: Persistent hypertension requiring nicardipine. Will start oral scheduled BP meds. Glucose elevated. NG output minimal. 08/04: Transitioned to oral meds with good BP control. Heavily sedated, now tapering. No spontaneous ventilation but high fixed rate. Repeat head CT with markedly reduced shift. 08/05: Currently remains on fentanyl for sedation. Withdraws all extremities to pain, stronger right though. No spontaneous eye opening or spontaneous movements noted. 08/06: Weaning sedation but no purposeful movement. Worsening glucose intolerance. Increase levemir and go to high SSI. 08/07: Glucose intolerance persists. Increase levemir coverage. No improvement in neurological condition. 08/08: Patient remains encephalopathy no improvement in mental status. Blood glucose control remains inadequate increase Levemir to 20 every 12. Unable to wean to extubate will need tracheostomy if family wishes to proceed. Plan for tomorrow, will also consult GI for PEG tube placement 08/09: Encephalopathy appears to be worsening, no spontaneous eye opening weakly withdraws to pain left more than right. UA shows evidence of UTI patient is spiking fever up to 101.7 increasing leukocytosis. Start Zosyn. UA shows evidence of infection. CT of the head shows stable bleed and vasogenic edema. 3% saline started yesterday for presumed edema. Right IJ central line was also placed. Patient is critically ill again with worsening encephalopathy now with high fever and sepsis. Probable source UTI. Empiric Zosyn started. Family in disagreement regarding trach and PEG. Palliative care consulted. Unable to wean to extubate due to severe encephalopathy 08/10: Neuro exam remains unchanged. Disagreement among adult children whether to proceed with trach and PEG. Palliative care is following. Sputum culture and urine culture growing Klebsiella pansensitive. Will narrow antibiotics in 1 -2 days. 08/11: No improvement in neurological function. Palliative care working with family on care plan. Unable to wean from ventilator. 08/12: Unable to wean from ventilator. Family deciding on care plan. 08/13: Unable to wean from vent, still requiring increased pressure support. If family wants to persist she will need a trach. Family hasn't accepted this yet. 08/14: Tracheostomy performed 08/13. PEG scheduled. Needs LTAC/SNF placement. 08/15: Good response to diuretics. Unable to wean vent. Will need LTAC. 08/16: Remains encephalopathic, on mechanical ventilation via tracheostomy. Awaiting PEG tube placement. 08/17: Remains encephalopathic, on mechanical ventilation via tracheostomy. Still awaiting PEG tube placement. 08/18: Remains encephalopathic, spontaneous eye opening noted. On mechanical ventilation via tracheostomy. Daily C Pap trials ongoing. Awaiting PEG tube placement. 08/19: Is encephalopathic, on mechanical ventilation via tracheostomy. PEG done yesterday. 08/20: Low grade temp, urine pending. No change in neurological condition. Looking for LTAC. 08/21: Tolerating T-piece, will require SNF at this point. May need to reduce BP medication. Objective Vital Signs Date Time Temp Pulse Resp B/P (MAP) Pulse Ox O2 Delivery O2 Flow Rate FiO2 08/21/17 11:44 100 T-piece 6.00 35 08/21/17 10:00 82 08/21/17 08:00 98.2 18 98/53 (68) Intake and Output 08/21/17 08/21/17 08/22/17 08:00 16:00 00:00 Intake Total 697 ml Output Total 1500 ml Balance -803 ml Result Diagram: 08/18/17 0429 08/18/17 0429 Other Results Microbiology Date/Time Source Procedure Growth Status 08/19/17 10:30 Urine Catheterized Urine Urine Culture - Final NO GROWTH IN 48 HOURS. Complete Objective Remarks Gen: Unresponsive. Remains off all sedation Head: Atraumatic. Pupils 3 mm equal, sluggish Neck: Supple, trach site clean. Lungs: Clear, no wheezes or crackles. Good bilateral air entry. No adventitious sounds. Heart: NL S1S2, RRR, No JVD Abdomen: Soft, large, no guarding. BS active. Nondistended. No tenderness. Extremities: Warm, well perfused. 1+ edema lowers Neuro: Unresponsive. Pupils reactive. Eye-opening spontaneously, partial. Mild withdrawal upper extremities with slight internal rotation lower extremities to deep pain. No purposeful movements noted. No tracking. A/P Assessment and Plan Assessment: Hemorrhagic stroke, right fronto/parietal region -> decompressive craniectomy Persistent encephalopathy Fever sepsis UTI Pneumonia with Klebsiella Acute respiratory Failure Hyperglycemia Leukocytosis Diabetes, type 2. Hypertensive urgency. Plan: Neuro - Last CT of the head with stable acute right frontal hemorrhage and vasogenic edema, decreased midline shift - HOB up. adjust EtCO2 to maintain 35 - 40 blood range - s/p Right frontotemporoparietal craniotomy for subdural and intracerebral hemorrhage evacuation; decompressive hemicraniectomy - Overall prognosis is poor. Palliative care is following. - Has been off hypertonic saline Respiratory - PRVC vent mode. EtCO2 monitor, maintain low normal range. DuoNeb every 6 hours as needed - Daily CPAP trials. - Palliative care consulted to address goals of care - Sputum culture growing Klebsiella, continue Zosyn - Tracheostomy 08/13 Cardiovascular -Off Cardene - Lisinopril 20 mg q12, Lopressor 50 every 8 hours - Hydralazine 100 mg tid. Clonidine 0.3 mg 3 times daily - Use as needed IV labetalol and hydralazine for SBP more than 150 - May reduce clonidine if she remains lower. GI - Tube feeds Glucerna 1.5 - Last BM reported on 08/09 - s/p mag citrate x1 08/09. Scheduled lactulose 30 ml QID. Colace - Gaffney. - Strict intake output - BID lasix ID - Acevedo Culture for worsening leukocytosis. - Sputum and urine culture growing Klebsiella. Continue Zosyn -> narrowed to ceftriaxone until 08/16, then stopped. - Leukocytosis of 14,000 noted on 08/19. We'll repeat UA and urine cultures and get a chest x-ray to evaluate for new infiltrates. Endocrinology - SSI, high algorithm - Levemir 23 u bid, now with improved blood sugar control Heme - CBC a.m. Prophylaxis - Chemical contraindicated, address trach and PEG - SCDs - Pepcid Overall impression: Patient presented critically ill with deteriorating neurological function due to acute hemorrhage right hemisphere. She was transferred emergently from [facility] for definitive neurosurgical treatment and underwent emergency decompression of the right side to save what is hopefully her dominant left hemisphere. Remains neurologically unstable and critically ill. Family is aware of her critical condition. There had been no improvement in her mental status, admitted and remains comatose. Needs placement at SNF, appears to be able to tolerate T-piece. Can transfer back to [facility] for further medical management at this point. Roel Fitch MD Aug 21, 2017 12:28
[2017-08-22] VITALS (11 sets, daily range): BP systolic 120–136; BP diastolic 58–65; PULSE 88–103; RESP 25–35; TEMP 98.9–100.2; O2SAT 92–100
[2017-08-22] MEDS: hydrALAZINE HCL 50 MG TAB PO SCH ×3 (01:26→17:06)
[2017-08-22] MEDS: CHLORHEXIDINE GLUCONATE 2 % 1 PACK (2 CLOTHS) TOP SCH (04:00)
[2017-08-22] MEDS: cloNIDine HCL 0.3 MG TAB PO SCH ×3 (06:00→22:00)
[2017-08-22] MEDS: METOPROLOL TARTRATE 25 MG TAB PO SCH ×3 (06:09→22:23)
[2017-08-22] MEDS: ACETAMINOPHEN 325 MG TAB PO PRN (06:10)
[2017-08-22] MEDS: CHLORHEXIDINE 0.12% (ORAL KIT) 15 ML CUP MT SCH ×2 (08:00→20:00)
[2017-08-22] MEDS: INSULIN ASPART SUPPLEMENTAL SCALE SQ SCH ×4 (08:00→21:00)
[2017-08-22] MEDS: INSULIN DETEMIR 100 UNITS/ML VIAL SQ SCH ×2 (09:00→21:00)
[2017-08-22] MEDS: SODIUM CHLORIDE 0.9% FLUSH 10 ML FLUSH IV FLUSH SCH ×2 (09:00→22:24)
[2017-08-22] MEDS: LACTULOSE SYRUP 20 GM/30 ML CUP PO SCH ×4 (09:48→22:23)
[2017-08-22] MEDS: DOCUSATE SODIUM 100 MG/10 ML UDC PO SCH ×2 (09:48→22:23)
[2017-08-22] MEDS: levETIRAcetam INJ 500 MG in SODIUM CHLORIDE 0.9% INJ 100 ML IV SCH ×2 (09:48→22:24)
[2017-08-22] MEDS: FAMOTIDINE 20 MG/2 ML VIAL IV PUSH SCH ×2 (09:48→22:24)
[2017-08-22] MEDS: FUROSEMIDE 40 MG/4 ML VIAL IV PUSH SCH (09:48)
[2017-08-22] MEDS: LISINOPRIL 10 MG TAB PO SCH ×2 (09:49→22:23)
--- NOTE | 2017-08-22 12:37 | HHI.CCPN ---
Subjective Remarks/Hospital Course 67 y/o woman presented to [facility] as stroke alert. Right side headache and left side weakness starting around 10:00 a.m. Glucose 122. INR 1.0 , Sinus rhythm. No history of anticoagulants. Does have history of hypertension and Type 2 diabetes. BP 244/146. Required intubation shortly after arrival. CT Head with large right hemisphere ICH parietal lobe and 1.5 cm shift away from bleed. Plts 296,000, Creat 0.59, Hct 40. 08/02: CT with much improved shift. Gas exchange acceptable. 08/03: Persistent hypertension requiring nicardipine. Will start oral scheduled BP meds. Glucose elevated. NG output minimal. 08/04: Transitioned to oral meds with good BP control. Heavily sedated, now tapering. No spontaneous ventilation but high fixed rate. Repeat head CT with markedly reduced shift. 08/05: Currently remains on fentanyl for sedation. Withdraws all extremities to pain, stronger right though. No spontaneous eye opening or spontaneous movements noted. 08/06: Weaning sedation but no purposeful movement. Worsening glucose intolerance. Increase levemir and go to high SSI. 08/07: Glucose intolerance persists. Increase levemir coverage. No improvement in neurological condition. 08/08: Patient remains encephalopathy no improvement in mental status. Blood glucose control remains inadequate increase Levemir to 20 every 12. Unable to wean to extubate will need tracheostomy if family wishes to proceed. Plan for tomorrow, will also consult GI for PEG tube placement 08/09: Encephalopathy appears to be worsening, no spontaneous eye opening weakly withdraws to pain left more than right. UA shows evidence of UTI patient is spiking fever up to 101.7 increasing leukocytosis. Start Zosyn. UA shows evidence of infection. CT of the head shows stable bleed and vasogenic edema. 3% saline started yesterday for presumed edema. Right IJ central line was also placed. Patient is critically ill again with worsening encephalopathy now with high fever and sepsis. Probable source UTI. Empiric Zosyn started. Family in disagreement regarding trach and PEG. Palliative care consulted. Unable to wean to extubate due to severe encephalopathy 08/10: Neuro exam remains unchanged. Disagreement among adult children whether to proceed with trach and PEG. Palliative care is following. Sputum culture and urine culture growing Klebsiella pansensitive. Will narrow antibiotics in 1 -2 days. 08/11: No improvement in neurological function. Palliative care working with family on care plan. Unable to wean from ventilator. 08/12: Unable to wean from ventilator. Family deciding on care plan. 08/13: Unable to wean from vent, still requiring increased pressure support. If family wants to persist she will need a trach. Family hasn't accepted this yet. 08/14: Tracheostomy performed 08/13. PEG scheduled. Needs LTAC/SNF placement. 08/15: Good response to diuretics. Unable to wean vent. Will need LTAC. 08/16: Remains encephalopathic, on mechanical ventilation via tracheostomy. Awaiting PEG tube placement. 08/17: Remains encephalopathic, on mechanical ventilation via tracheostomy. Still awaiting PEG tube placement. 08/18: Remains encephalopathic, spontaneous eye opening noted. On mechanical ventilation via tracheostomy. Daily C Pap trials ongoing. Awaiting PEG tube placement. 08/19: Is encephalopathic, on mechanical ventilation via tracheostomy. PEG done yesterday. 08/20: Low grade temp, urine pending. No change in neurological condition. Looking for LTAC. 08/21: Tolerating T-piece, will require SNF at this point. May need to reduce BP medication. 08/22: BP control acceptable. Post acute care transition being arranged for wednesday. Objective Vital Signs Date Time Temp Pulse Resp B/P (MAP) Pulse Ox O2 Delivery O2 Flow Rate FiO2 08/22/17 08:52 100 T-piece 28 08/22/17 08:00 98.9 90 34 129/60 (83) 08/21/17 11:44 6.00 Intake and Output 08/22/17 08/22/17 08/23/17 08:00 16:00 00:00 Intake Total 748 ml Output Total 550 ml Balance 198 ml Result Diagram: 08/18/179 08/18/17428 Objective Remarks Gen: Unresponsive. Remains off all sedation Head: Atraumatic. Pupils 3 mm equal, sluggish Neck: Supple, trach site clean. Lungs: Clear, no wheezes or crackles. Good bilateral air entry. No adventitious sounds. Heart: NL S1S2, RRR, No JVD Abdomen: Soft, large, no guarding. BS active. Nondistended. No tenderness. Extremities: Warm, well perfused. trace + edema lowers Neuro: Unresponsive. Pupils reactive. Eye-opening spontaneously, partial. Mild withdrawal upper extremities with slight internal rotation lower extremities to deep pain. No purposeful movements noted. No tracking. A/P Assessment and Plan Assessment: Hemorrhagic stroke, right fronto/parietal region -> decompressive craniectomy Persistent encephalopathy Fever sepsis UTI Pneumonia with Klebsiella Acute respiratory Failure Hyperglycemia Leukocytosis Diabetes, type 2. Hypertensive urgency. Plan: Neuro - Last CT of the head with stable acute right frontal hemorrhage and vasogenic edema, decreased midline shift - HOB up. adjust EtCO2 to maintain 35 - 40 blood range - s/p Right frontotemporoparietal craniotomy for subdural and intracerebral hemorrhage evacuation; decompressive hemicraniectomy - Overall prognosis is poor. Palliative care is following. - Has been off hypertonic saline Respiratory - PRVC vent mode. EtCO2 monitor, maintain low normal range. DuoNeb every 6 hours as needed - Daily CPAP trials. - Palliative care consulted to address goals of care - Sputum culture growing Klebsiella, continue Zosyn - Tracheostomy 08/13 Cardiovascular -Off Cardene - Lisinopril 20 mg q12, Lopressor 50 every 8 hours - Hydralazine 100 mg tid. Clonidine 0.3 mg 3 times daily - Use as needed IV labetalol and hydralazine for SBP more than 150 - May reduce clonidine if she remains lower. GI - Tube feeds Glucerna 1.5 - Last BM reported on 08/09 - s/p mag citrate x1 08/09. Scheduled lactulose 30 ml QID. Colace - Gaffney. - Strict intake output - BID lasix ID - Acevedo Culture for worsening leukocytosis. - Sputum and urine culture growing Klebsiella. Continue Zosyn -> narrowed to ceftriaxone until 08/16, then stopped. - Leukocytosis of 14,000 noted on 08/19. We'll repeat UA and urine cultures and get a chest x-ray to evaluate for new infiltrates. Endocrinology - SSI, high algorithm - Levemir 23 u bid, now with improved blood sugar control Heme - CBC a.m. Prophylaxis - Chemical contraindicated, address trach and PEG - SCDs - Pepcid Overall impression: Patient presented critically ill with deteriorating neurological function due to acute hemorrhage right hemisphere. She was transferred emergently from [facility] for definitive neurosurgical treatment and underwent emergency decompression of the right side to save what is hopefully her dominant left hemisphere. Remains neurologically unstable and critically ill. Family is aware of her critical condition. There had been no improvement in her mental status, admitted and remains comatose. Needs placement at SNF, appears to be able to tolerate T-piece. Can transfer back to [facility] for further medical management at this point. Looking for [place] transfer wednesday. Roel Fitch MD Aug 22, 2017 12:37
[2017-08-23] VITALS (8 sets, daily range): BP systolic 94–146; BP diastolic 52–74; PULSE 84–118; RESP 16–32; TEMP 97.9–100.4; O2SAT 100
[2017-08-23] MEDS: hydrALAZINE HCL 50 MG TAB PO SCH ×3 (01:00→11:48)
[2017-08-23] MEDS: CHLORHEXIDINE GLUCONATE 2 % 1 PACK (2 CLOTHS) TOP SCH (04:00)
[2017-08-23 04:59] LABS: BICARBONATE 27.7 MEQ/L (21.0-32.0); CALCIUM 9.1 MG/DL (8.5-10.1); CREATININE 0.65 MG/DL (0.50-1.00)
[2017-08-23] MEDS: cloNIDine HCL 0.3 MG TAB PO SCH (05:20)
[2017-08-23] MEDS: METOPROLOL TARTRATE 25 MG TAB PO SCH ×2 (05:20→11:48)
[2017-08-23 05:26] LABS: AUTOMATED NEUTROPHIL # 11.8 TH/MM3 (1.8-7.7); BASOPHIL # 0.1 TH/MM3 (0-0.2); BASOPHIL % 0.4 % (0.0-2.0); EOSINOPHIL # 0.5 TH/MM3 (0-0.4); EOSINOPHIL % 3.5 % (0.0-4.0); HEMATOCRIT 29.3 % (35.0-46.0); HEMOGLOBIN 9.4 GM/DL (11.6-15.3); LYMPHOCYTE # 1.3 TH/MM3 (1.0-4.8); MEAN CELL VOLUME 84.8 FL (80.0-100.0); MEAN CORPUSCULAR HEMOGLOBIN 27.3 PG (27.0-34.0); MEAN CORPUSCULAR HGB CONC 32.2 % (32.0-36.0); MONO % 7.2 % (0.0-8.0); MONOCYTE # 1.1 TH/MM3 (0-0.9); NEUT % 79.9 % (16.0-70.0); PLATELET COUNT 574 TH/MM3 (150-450); RED BLOOD COUNT 3.46 MIL/MM3 (4.00-5.30); RED CELL DISTRIBUTION WIDTH 13.8 % (11.6-17.2); WHITE BLOOD COUNT 14.8 TH/MM3 (4.0-11.0)
[2017-08-23] MEDS: INSULIN ASPART SUPPLEMENTAL SCALE SQ SCH ×4 (08:00→21:00)
[2017-08-23] MEDS: CHLORHEXIDINE 0.12% (ORAL KIT) 15 ML CUP MT SCH ×2 (08:00→19:36)
[2017-08-23] MEDS: LISINOPRIL 10 MG TAB PO SCH ×2 (08:27→21:00)
[2017-08-23] MEDS: LACTULOSE SYRUP 20 GM/30 ML CUP PO SCH ×4 (08:45→21:00)
[2017-08-23] MEDS: FAMOTIDINE 20 MG/2 ML VIAL IV PUSH SCH ×2 (08:45→21:17)
[2017-08-23] MEDS: FUROSEMIDE 40 MG/4 ML VIAL IV PUSH SCH (08:46)
[2017-08-23] MEDS: DOCUSATE SODIUM 100 MG/10 ML UDC PO SCH ×2 (08:46→21:00)
[2017-08-23] MEDS: INSULIN DETEMIR 100 UNITS/ML VIAL SQ SCH ×2 (08:46→21:00)
[2017-08-23] MEDS: SODIUM CHLORIDE 0.9% FLUSH 10 ML FLUSH IV FLUSH SCH ×2 (08:46→21:16)
[2017-08-23] MEDS: levETIRAcetam INJ 500 MG in SODIUM CHLORIDE 0.9% INJ 100 ML IV SCH ×2 (08:46→21:16)
--- NOTE | 2017-08-23 09:05 | HHI.CCPN ---
Subjective Remarks/Hospital Course 67 y/o woman presented to [facility] as stroke alert. Right side headache and left side weakness starting around 10:00 a.m. Glucose 122. INR 1.0 , Sinus rhythm. No history of anticoagulants. Does have history of hypertension and Type 2 diabetes. BP 244/146. Required intubation shortly after arrival. CT Head with large right hemisphere ICH parietal lobe and 1.5 cm shift away from bleed. Plts 296,000, Creat 0.59, Hct 40. 08/02: CT with much improved shift. Gas exchange acceptable. 08/03: Persistent hypertension requiring nicardipine. Will start oral scheduled BP meds. Glucose elevated. NG output minimal. 08/04: Transitioned to oral meds with good BP control. Heavily sedated, now tapering. No spontaneous ventilation but high fixed rate. Repeat head CT with markedly reduced shift. 08/05: Currently remains on fentanyl for sedation. Withdraws all extremities to pain, stronger right though. No spontaneous eye opening or spontaneous movements noted. 08/06: Weaning sedation but no purposeful movement. Worsening glucose intolerance. Increase levemir and go to high SSI. 08/07: Glucose intolerance persists. Increase levemir coverage. No improvement in neurological condition. 08/08: Patient remains encephalopathy no improvement in mental status. Blood glucose control remains inadequate increase Levemir to 20 every 12. Unable to wean to extubate will need tracheostomy if family wishes to proceed. Plan for tomorrow, will also consult GI for PEG tube placement 08/09: Encephalopathy appears to be worsening, no spontaneous eye opening weakly withdraws to pain left more than right. UA shows evidence of UTI patient is spiking fever up to 101.7 increasing leukocytosis. Start Zosyn. UA shows evidence of infection. CT of the head shows stable bleed and vasogenic edema. 3% saline started yesterday for presumed edema. Right IJ central line was also placed. Patient is critically ill again with worsening encephalopathy now with high fever and sepsis. Probable source UTI. Empiric Zosyn started. Family in disagreement regarding trach and PEG. Palliative care consulted. Unable to wean to extubate due to severe encephalopathy 08/10: Neuro exam remains unchanged. Disagreement among adult children whether to proceed with trach and PEG. Palliative care is following. Sputum culture and urine culture growing Klebsiella pansensitive. Will narrow antibiotics in 1 -2 days. 08/11: No improvement in neurological function. Palliative care working with family on care plan. Unable to wean from ventilator. 08/12: Unable to wean from ventilator. Family deciding on care plan. 08/13: Unable to wean from vent, still requiring increased pressure support. If family wants to persist she will need a trach. Family hasn't accepted this yet. 08/14: Tracheostomy performed 08/13. PEG scheduled. Needs LTAC/SNF placement. 08/15: Good response to diuretics. Unable to wean vent. Will need LTAC. 08/16: Remains encephalopathic, on mechanical ventilation via tracheostomy. Awaiting PEG tube placement. 08/17: Remains encephalopathic, on mechanical ventilation via tracheostomy. Still awaiting PEG tube placement. 08/18: Remains encephalopathic, spontaneous eye opening noted. On mechanical ventilation via tracheostomy. Daily C Pap trials ongoing. Awaiting PEG tube placement. 08/19: Is encephalopathic, on mechanical ventilation via tracheostomy. PEG done yesterday. 08/20: Low grade temp, urine pending. No change in neurological condition. Looking for LTAC. 08/21: Tolerating T-piece, will require SNF at this point. May need to reduce BP medication. 08/22: BP control acceptable. Post acute care transition being arranged for wednesday. 08/23: No events over the night. Patient remains unresponsive. Blood pressure is well controlled. T-max of 100.1. Tolerating T piece. Objective Vital Signs Date Time Temp Pulse Resp B/P (MAP) Pulse Ox O2 Delivery O2 Flow Rate FiO2 08/23/17 08:19 100 T-piece 4.00 28 08/23/17 08:00 97.9 90 29 105/52 (69) Intake and Output 08/23/17 08/23/17 08/24/17 08:00 16:00 00:00 Intake Total 502 ml Output Total 450 ml Balance 52 ml Result Diagram: 08/23/1731508/23/17315 Other Results Micro reviewed. UA negative. Objective Remarks Gen: Elderly lady, unresponsive, ill-appearing. Head: Atraumatic. Pupils 3 mm equal, sluggishly reactive, sclerae anicteric, no JVD. Neck: Supple, trach site is clean. Lungs: Clear, no wheezes or crackles. Good bilateral air entry. Heart: Regular heart sounds, no murmurs, rubs, no gallops. Abdomen: Soft, appears nontender, bowel sounds positive, obese. PEG in place. Extremities: Warm, well perfused. trace + edema lower extremity. Neuro: Unresponsive. Pupils are reactive. Does not open eyes to voice stimuli, does not follow commands. A/P Assessment and Plan Assessment: Hemorrhagic stroke, right fronto/parietal region -> decompressive craniectomy Persistent encephalopathy without significant improvement UTI -repeat UA negative and urine culture without growth to date Pneumonia with Klebsiella -resolved Acute respiratory failure -tolerating T-piece, off the vent Hyperglycemia -better controlled, except this morning, but she was not getting the right tube feeds Leukocytosis -still mildly elevated Diabetes, type 2. Hypertensive urgency -significantly improved Plan: Neuro - Last CT of the head with stable acute right frontal hemorrhage and vasogenic edema, decreased midline shift - HOB up. adjust EtCO2 to maintain 35 - 40 blood range - s/p Right frontotemporoparietal craniotomy for subdural and intracerebral hemorrhage evacuation; decompressive hemicraniectomy - Overall prognosis is poor. Palliative care is following. - Has been off hypertonic saline Respiratory - s/p tracheostomy 08/13 - Tolerating T-piece - Palliative care consulted to address goals of care Cardiovascular - Required Cardene, now off - Lisinopril 20 mg q12, Lopressor 50 every 8 hours - Hydralazine 100 mg tid. Clonidine 0.3 mg 3 times daily - Use as needed IV labetalol and hydralazine for SBP more than 150 - Reduce clonidine to 0.2 mg 3 times a day GI - Tube feeds Glucerna 1.5 - Scheduled lactulose 30 ml QID. Colace - Gaffney. - Strict intake output - BID lasix ID - Currently off antibiotics, afebrile over the last 24 hours, leukocytosis unchanged - Acevedo Culture if worsening leukocytosis. - Sputum and urine culture growing Klebsiella. Continue Zosyn -> narrowed to ceftriaxone until 08/16, then stopped. - Repeat urine culture with no growth to date so far, and chest x-ray without clear infiltrate. Endocrinology - SSI, high algorithm - Levemir 23 u bid, now with improved blood sugar control Heme - CBC a.m. Prophylaxis - Chemical contraindicated, address trach and PEG - SCDs - Pepcid - Full anticoagulation contraindicated due to recent hemorrhagic stroke. Overall impression: Patient presented critically ill with deteriorating neurological function due to acute hemorrhage right hemisphere. She was transferred emergently from [facility] for definitive neurosurgical treatment and underwent emergency decompression of the right side to save what is hopefully her dominant left hemisphere. There had been no improvement in her mental status, admitted and remains comatose. Needs placement at SNF, appears to be able to tolerate T-piece. Can transfer back to [facility] for further medical management at this point. Looking for [place] transfer today. Danielito Nelson MD Aug 23, 2017 09:04 Roel Fitch MD Aug 23, 2017 12:40
[2017-08-23] MEDS ORDERED: SODIUM CHLOR 0.9% 1000 ML INJ 1,000 ML IV ONE ×2 (10:45→12:45)
[2017-08-23] MEDS ORDERED: cloNIDine HCL 0.2 MG TAB PO SCH (14:00)
--- NOTE | 2017-08-23 15:43 | HHI.NSPN ---
History Chief Complaint: Unable to obtain due to patient's clinical condition. Interval History A 67-year-old -[place] female who was transferred from [facility] in [place] after she presented to the emergency room with acute onset of headaches and left-sided weakness and basically progressed to obtundation and comatose state. She became unresponsive and required intubation. She was hypertensive on initial presentation and a CT scan of the head obtained reveals a large right frontal parietal lobe hemorrhage with likely underlying stroke measuring 8.6 cm x 6.0 cm in dimension with a 15 mm right to left midline shift. She was transferred [facility] for further management and neurosurgery consult. There is no family member available to relate any history and attempts to contact her brother whose phone number next of kin is listed in the records from [facility] with two phone numbers went directly to voice mail and a message was left for him to call us back. 08/02/17: Pt sedated on Fentanyl and Diprivan. When held for exam she does not open her eyes or follow commands. She has slight withdrawal in LEs. Pupils are 3mm bilaterally with slight reaction bilaterally. 08/03/17: Pt sedated on Fentanyl and Diprivan drips. She doesn't open eyes. Pupils equal. Left hemiparesis when sedation held. 08/04/17: Pt sedated on low dose Fentanyl. Diprivan on hold. Pt not opening eyes. Intubated. Not following commands. No reaction to pain. 08/05/17: Pt sedated on low dose Fentanyl drip. Opens eyes slightly to deep pain. Not following commands. 08/06/17: Pt off sedation. Not opening eyes for me although did briefly for RN to deep pain. She does not follow commands. 08/13/17: Pt opens eyes slightly left more than right briefly. Pupils 3mm bilaterally. Intubated on CPAP. Not following commands. 08/14/17: Pt opens eyes slightly to pain. Not following commands. Pupils 3mm bilaterally reactive bilaterally. Trach in place. 08/15/17: Pt opens eyes slightly to pain. Not following commands. She withdraws to pain. 08/16/17: Pt with some spontaneously slight eye opening. Not following commands. Withdraws slightly to deep pain in all 4 extremities. 08/17/17: Pt opens eyes slightly to pain. Not following commands. Withdraws extremities slightly intermittently to deep pain peripherally. 08/18/17: Pt opens eyes slightly to voice. Not following commands. Pupils 3mm bilaterally, reactive bilaterally. 08/19/17: Pt opens eyes to voice. Not following commands. Pupils 3mm bilaterally, reactive bilaterally. 08/20/17: Pt opens eyes to voice and sometimes spontaneously. Not following commands. Pupils 3mm bilaterally reactive bilaterally. 08/23/17: Pt opens eyes to pain in upper chest. Not following commands. Pupils 3mm bilaterally. Trach in place on humidified o2. System Review Comments Not able to obtain given clinical condition. Exam Results Vital Signs Date Time Temp Pulse Resp B/P (MAP) Pulse Ox O2 Delivery O2 Flow Rate FiO2 08/23/17 12:00 99.3 84 29 94/55 (68) 100 08/23/17 08:19 T-piece 4.00 28 Intake and Output 08/23/17 08/23/17 08/24/17 08:00 16:00 00:00 Intake Total 502 ml Output Total 450 ml Balance 52 ml Physical Examination General: Pt resting in bed with trach in place and stable vital signs. Eyes: Pupils 3mm bilaterally sclera anicteric. Resp: Trach in place. On humidified O2. Heart: NSR no murmurs Abd: Soft positive bs Skin: Incision clean and dry. Craniectomy site full. Muscle: Not following for muscle testing. Pt withdraws slightly to deep peripheral pain in all 4 extremities. Neuro: Pt opens eyes to pain in upper chest. Pupils 3mm bilaterally reactive bilaterally. Not following commands. Lab, Micro, Other Results Last Impressions Chest X-Ray 08/19/17 0000 Signed Impressions: Service Date/Time: August 09:33 - CONCLUSION: Interval improvement of pulmonary vascular congestion compared to the previous examination. Lungs are clear. Sergio Burt MD Head CT 08/09/17 0800 Signed Impressions: Service Date/Time: Wednesday, August 09, 2017 04:21 - CONCLUSION: 1. The acute intra-axial blood products in the right frontal lobe with surrounding vasogenic edema are stable. 2. There is decreased right to left midline shift, currently measuring up to 2 mm compared to 5 mm previously. This is likely related to the increased herniation of brain tissue through the craniectomy defect. 3. Interval removal of the surgical drain with a small crescentic low density extra-axial fluid collection. 4. Stable acute blood products within the left occipital horn. Brandon Díaz MD Laboratory Tests Test 08/23/17 03:16 White Blood Count 14.8 TH/MM3 Red Blood Count 3.46 MIL/MM3 Hemoglobin 9.4 GM/DL Hematocrit 29.3 % Mean Corpuscular Volume 84.8 FL Mean Corpuscular Hemoglobin 27.3 PG Mean Corpuscular Hemoglobin Concent 32.2 % Red Cell Distribution Width 13.8 % Platelet Count 574 TH/MM3 Mean Platelet Volume 9.0 FL Neutrophils (%) (Auto) 79.9 % Lymphocytes (%) (Auto) 9.0 % Monocytes (%) (Auto) 7.2 % Eosinophils (%) (Auto) 3.5 % Basophils (%) (Auto) 0.4 % Neutrophils # (Auto) 11.8 TH/MM3 Lymphocytes # (Auto) 1.3 TH/MM3 Monocytes # (Auto) 1.1 TH/MM3 Eosinophils # (Auto) 0.5 TH/MM3 Basophils # (Auto) 0.1 TH/MM3 CBC Comment DIFF FINAL Differential Comment Blood Urea Nitrogen 23 MG/DL Creatinine 0.65 MG/DL Random Glucose 312 MG/DL Calcium Level 9.1 MG/DL Sodium Level 145 MEQ/L Potassium Level 4.0 MEQ/L Chloride Level 107 MEQ/L Carbon Dioxide Level 27.7 MEQ/L Anion Gap 10 MEQ/L Estimat Glomerular Filtration Rate 90 ML/MIN Medical Decision Making Impression and Plan A: 67 y/o FM with large right frontotemporal lobe hemorrhage with likely underlying stroke with significant mass effect and midline shift. Overall poor neurologic examination. She underwent an emergent Right frontotemporoparietal craniotomy for subdural and intracerebral hemorrhage evacuation; decompressive hemicraniectomy with expansive duraplasty on 08/01/17. 2. Respiratory failure secondary to above. 3. Unregulated hypertension. 4. Diabetes mellitus. P: Continue with critical care Continue with close neuro checks Rehab placement reportedly today. She will need bone flap replacement when brain is not protruding through defect. Kevin Messer Aug 23, 2017 3:43 pm
--- NOTE | 2017-08-23 16:51 | HHI.HCPN ---
Reason for visit a. To assist with evaluation and management of symptoms including: pain, encephalopathy, dyspnea. b. To assist medical decision maker(s) with: better understanding of current medical conditions; weighing benefits/burdens of medical treatment options; making medical treatment decisions. . Subjective/Interval History Ms. Alexander is a 67-year-old female with hypertension and diabetes who presented to [facility] on 08/01/17 for evaluation of acute onset headaches and left-sided weakness that progressed to obtundation with emergent intubation. Upon arrival to the ED the patient was hypertensive with a BP of 244/146. CT scan of the head revealed a large frontal parietal lobe hemorrhage with a 15 mm midline shift. Patient was transferred to [facility] for further management and neurosurgery consult. Upon arrival, the patient was taken emergently for right frontotemporoparietal craniotomy for subdural and intracerebral hemorrhage evacuation with decompressive hemicraniectomy. Patient remains unresponsive. Patient's nurse reports episodes of hypotension earlier today. Therefore, discharge/transfer to [facility] was put on hold temporarily. Blood pressures well controlled. Oxygen saturations stable on 4 L via T-piece. Patient tolerating artificial nutrition at 50 mL's per hour . Advance Directives Advance Directive Specifics Documented care wishes: No known documented care wishes have been completed . Objective Vital Signs Date Time Temp Pulse Resp B/P (MAP) Pulse Ox O2 Delivery O2 Flow Rate FiO2 08/23/17 12:00 99.3 84 29 94/55 (68) 100 08/23/17 08:19 100 T-piece 4.00 28 08/23/17 08:00 97.9 90 29 105/52 (69) 100 08/23/17 04:00 99.4 96 26 115/56 (75) 100 08/23/17 00:00 99.8 94 32 130/60 (83) 100 08/22/17 20:59 100 T-piece 28 08/22/17 20:00 100.1 102 29 136/65 (88) 100 08/22/17 19:00 103 Intake & Output 08/23/17 08/23/17 07:00 19:00 Intake Total 502 ml Output Total 450 ml Balance 52 ml Intake Oral 0 ml Tube Feeding 502 ml Output Urine Total 450 ml # Bowel Movements 0 Physical Exam CONSTITUTIONAL/GENERAL: This is an adequately nourished patient, elderly female patient in no apparent distress TUBES/LINES/DRAINS: PIV, PEG, tracheostomy, Gaffney, SCDs SKIN: No jaundice, rashes, or lesions. Status post craniotomy; incision healing without signs/symptoms of infection. Skin temperature appropriate. Not diaphoretic. HEAD: Atraumatic. Normocephalic. No bone flap on right. EYES: Pupils equal and round and minimally reactive. No scleral icterus. No injection or drainage. Fundi not examined. ENT: Nose without bleeding or purulent drainage. NECK: Trachea midline. CARDIOVASCULAR: Regular rate and rhythm without murmurs, gallops, or rubs. No JVD. Peripheral pulses symmetric. RESPIRATORY/CHEST: Status post tracheostomy. Coarse air exchange GASTROINTESTINAL: Abdomen soft, non-tender, nondistended. GENITOURINARY: Without palpable bladder distension. Gaffney catheter in place. MUSCULOSKELETAL: Extremities without cyanosis or mottling. Hands and feet are swollen bilaterally LYMPHATICS: No palpable cervical or supraclavicular adenopathy. NEUROLOGICAL: Minimally responsive off sedation. Does not withdraw to noxious stimuli on exam this morning. PSYCHIATRIC: Unable to assess given current clinical condition . Diagnostic Tests Laboratory Laboratory Tests Test 08/23/17 03:16 White Blood Count 14.8 TH/MM3 (4.0-11.0) Red Blood Count 3.46 MIL/MM3 (4.00-5.30) Hemoglobin 9.4 GM/DL (11.6-15.3) Hematocrit 29.3 % (35.0-46.0) Mean Corpuscular Volume 84.8 FL (80.0-100.0) Mean Corpuscular Hemoglobin 27.3 PG (27.0-34.0) Mean Corpuscular Hemoglobin Concent 32.2 % (32.0-36.0) Red Cell Distribution Width 13.8 % (11.6-17.2) Platelet Count 574 TH/MM3 (150-450) Mean Platelet Volume 9.0 FL (7.0-11.0) Neutrophils (%) (Auto) 79.9 % (16.0-70.0) Lymphocytes (%) (Auto) 9.0 % (9.0-44.0) Monocytes (%) (Auto) 7.2 % (0.0-8.0) Eosinophils (%) (Auto) 3.5 % (0.0-4.0) Basophils (%) (Auto) 0.4 % (0.0-2.0) Neutrophils # (Auto) 11.8 TH/MM3 (1.8-7.7) Lymphocytes # (Auto) 1.3 TH/MM3 (1.0-4.8) Monocytes # (Auto) 1.1 TH/MM3 (0-0.9) Eosinophils # (Auto) 0.5 TH/MM3 (0-0.4) Basophils # (Auto) 0.1 TH/MM3 (0-0.2) CBC Comment DIFF FINAL Differential Comment Blood Urea Nitrogen 23 MG/DL (7-18) Creatinine 0.65 MG/DL (0.50-1.00) Random Glucose 312 MG/DL (74-106) Calcium Level 9.1 MG/DL (8.5-10.1) Sodium Level 145 MEQ/L (136-145) Potassium Level 4.0 MEQ/L (3.5-5.1) Chloride Level 107 MEQ/L (98-107) Carbon Dioxide Level 27.7 MEQ/L (21.0-32.0) Anion Gap 10 MEQ/L (5-15) Estimat Glomerular Filtration Rate 90 ML/MIN (>89) . Result Diagram: 08/23/17 0316 08/23/17 0316 Procedures 08/01/2017: Intubation 08/01/2017: OGT 08/01/2017: Craniotomy 08/03/2017: REYNA drain removed 08/08/2017: Right IJ central line placement . Assessment and Plan Disease Oriented Problem List: (1) Hemorrhagic stroke (2) Sepsis (3) UTI (urinary tract infection) (4) Respiratory failure (5) Leukocytosis (6) Diabetes (7) Hypertensive urgency Symptom Scale: (1) Pain (2) Dyspnea (3) Encephalopathy Pertinent Non-Medical Issues Psychosocial: Patient is originally from [place] but spent most of her life living in [place]. She moved back to [place] approximately 20 years ago. She has 4 adult children (Arron, Lamont, Hany and Manuel). Arron and Lamont both live in [place]. Hany lives in [place]. Manuel is incarcerated in [place]. Patient was living with her son, Lamont, prior to this hospitalization. Spiritual: Anabaptist sundar Legal: Per [place] statutes, in the absence of written advanced directives healthcare proxy decision making falls to the patient's 4 adult children. Ethical issues impacting care: . Important Contacts Arron Alexander, dtr: [phone] or [phone] Lamont Alexander, son: [phone] or [phone] Hany Alexander, son: [phone] (promotion officer: Ms. Brantley @ [phone]) . Manuel Alexander, son, is incarcerated at [facility]. Spoke with Sergeant Winters at [phone]. . Prognosis Patient is a 67-year-old female who suffered an acute right frontal hemorrhage status post craniotomy for subdural and intracerebral hemorrhage evacuation; decompressive hemicraniectomy. Patient is persistently encephalopathic off sedation 5 days; now with sepsis. Patient remains critically ill with no neurological improvement on mechanical ventilation 9 days. She is at high risk for ongoing decline and setback. . Code Status: Full Code Plan * FULL CODE * No written advanced directives. Per [place] statutes, patient's 4 adult children (Lamont, Manuel, Hany and Arron) are the healthcare proxy decision makers. ALL four children wish to participate in the role of healthcare proxy decision-maker. The patient's son, Manuel Alexander, is NOT readily available to participate and medical proxy decision making because he is incarcerated and is currently being transferred from one facility to another. * Discussed patient with nurse, Margaret. * Patient's nurse reports episodes of hypotension earlier today. Therefore, discharge/transfer to [facility] was put on hold temporarily . * Symptom management: = Encephalopathy: Patient with minimal neurological recovery status post acute hemorrhage in the right hemisphere requiring LTAC placement. = Dyspnea: Tolerating 4 L via T piece status post tracheostomy. PRN nebulizers are ordered. = Pain: Remains minimally responsive off sedation. Showing no signs or symptoms of nonverbal pain. Contributing factors include recent craniotomy, invasive lines, immobility, bedbound status, infection etc. PRN acetaminophen and morphine are available but have not been used in the past 24 hours. We will continue to monitor * Palliative care will continue to follow this patient throughout her hospitalization to establish stress, assist with symptom management and clarification of medical treatment goals. . Attestation To help prompt me to consider important information that might be impacting today's encounter and assessment, information from prior notes written by myself or my colleagues may have been "brought forward" into today's note. My signature on this note, however, is an attestation that I personally performed the exam, history, and/or decision-making noted today, and, unless otherwise indicated, the interactions with patient, family, and staff as well as the review of records all occurred today. I also attest that the listed assessment and stated plan reflect my best clinical judgment today based on the combination of historical information, prior notes, and today's exam/ interactions. When time spent is documented, it refers only to time spent today by the signer, or if indicated, combined time spent today by collaborating physician/nurse practitioner. . Latosha Musa Aug 23, 2017 16:51
== END 2017-08-23 21:48 | DRG 3 ==
LOC: N03B 15:06
PROVIDERS: ADMIT Surgery Surgical Critical Care; ATTEND Surgery Surgical Critical Care
PROC: 00N00ZZ Release Brain, Open Approach (ICD-10-PCS; 2017-08-01)
PROC: 0BH17EZ Insertion of Endotracheal Airway into Trachea, Via Natural or Artificial Opening (ICD-10-PCS; 2017-08-01)
PROC: 5A1955Z Respiratory Ventilation, Greater than 96 Consecutive Hours (ICD-10-PCS; principal; 2017-08-01 17:34)
PROC: 05HM33Z Insertion of Infusion Device into Right Internal Jugular Vein, Percutaneous Approach (ICD-10-PCS; 2017-08-08)
PROC: 0B113F4 Bypass Trachea to Cutaneous with Tracheostomy Device, Percutaneous Approach (ICD-10-PCS; 2017-08-13)
PROC: 0BJ08ZZ Inspection of Tracheobronchial Tree, Via Natural or Artificial Opening Endoscopic (ICD-10-PCS; 2017-08-13)
DX: I61.1 Nontraumatic intracerebral hemorrhage in hemisphere, cortical (principal); G93.6 Cerebral edema; G93.40 Encephalopathy, unspecified; A41.9 Sepsis, unspecified organism; J15.0 Pneumonia due to Klebsiella pneumoniae; J96.00 Acute respiratory failure, unspecified whether with hypoxia or hypercapnia; E87.0 Hyperosmolality and hypernatremia; G81.94 Hemiplegia, unspecified affecting left nondominant side; N39.0 Urinary tract infection, site not specified; I10 Essential (primary) hypertension; E11.9 Type 2 diabetes mellitus without complications; I16.0 Hypertensive urgency; E66.9 Obesity, unspecified; I62.00 Nontraumatic subdural hemorrhage, unspecified; Z51.5 Encounter for palliative care
CPT/HCPCS: 31600; 31624; 36556; 70450; 71045; 76937; 80048; 80053; 81001; 82805; 82948; 83735; 84100; 84132; 84295; 85025; 85027; 85610; 85730; 87040; 87070; 87077; 87086; 87186; 87205; 87641; 88304; 88307; 93005; 94002; 94003; A7520; A7521; C1713; J0360; J0690; J0696; J1100; J1580; J1815; J1940; J1953; J2150; J2250; J2270; J2370; J2543; J3010; J3370; J3480; J7030; J7050